=== PATIENT | female | born 1965 | race Caucasian/White ===

== ENCOUNTER → 2023-08-27 | Outpatient (CLI) | payer BC, SELFPAY ==
--- NOTE | 2023-08-27 08:09 | MRI_ITS ---
EXAM: MR PELVIS WITHOUT AND WITH INTRAVENOUS CONTRAST CLINICAL INDICATION: vulvar/perineal SCC, eval extent of disease TECHNIQUE: Multiplanar and multisequence MR images of the pelvis without and with intravenous contrast. CONTRAST: IV 20ml Clariscan COMPARISON: No relevant prior studies available. FINDINGS: APPENDIX: No evidence of acute appendicitis. INTRAPERITONEAL SPACE: Normal. No free pelvic fluid. BLADDER: Normal. OVARIES: Neither ovary identified. No adnexal mass. UTERUS/CERVIX: Uterus measures 8.8 cm in length. Endometrium not well defined which may be due to central uterine fibroid. Underlying endometrial pathology to be excluded. BONES/JOINTS: Normal. SOFT TISSUES: There is localized skin thickening along the right vulva there also appears to be contrast enhancement. The dermal thickness measures 8 mm in maximum thickness. Nonspecific dermal thickening extends laterally along the margins pubis which may represent edema. No discrete tumor involvement of the perineum. Edematous changes noted to involve the left groin associated with soft tissue nodularity. Inflammatory process to BE differentiated from neoplasm. Mild edematous change also involves the right groin without evidence of nodularity. No pelvic wall hernia. LYMPH NODES: Normal. No enlarged lymph nodes. MRI/Pelvis W/WO Contrast IMPRESSION: 1. 8 mm nodular thickening of the right side of the vulva which may represent patient''s known squamous cell lesion. Dermal thickening along the adjacent right side of the groin which may represent posttreatment edema. No discrete involvement of the perineum. 2. Edematous change with nodularity of the left groin which may represent inflammatory or neoplastic process. 3. Undefined endometrium of uncertain significance. Central fibroid to BE differentiated from endometrial pathology. Electronically Signed: Pérez Hernandez MD at 11:47 EDT ,
== END | disposition home or self-care (01) ==
LOC: MRI 07:53
PROVIDERS: Visit Provider Student in an Organized Health Care Education/Training Program
DX: C44.520 Squamous cell carcinoma of anal skin (principal)
CPT/HCPCS: 72197; A9575

== ENCOUNTER 2023-09-17 10:09 | Day surgery (SDC) | payer BC, SELFPAY ==
[2023-09-17] VITALS (7 sets, daily range): BP systolic 74–117; BP diastolic 55–78; PULSE 77–96; RESP 16–20; TEMP 36.3–36.6; O2SAT 94–99; BMI 36.8
--- NOTE | 2023-09-17 10:29 | HP.PCM_ITS ---
History and Physical Date of Admission: 09/17/23 Date of Service: 08/21/23 MR#: [id number] Acct: [id number] Name: CAROLINA JIMENEZ Rep #: [id number] : 1965 Provider: Dr. Vernell Hollis MD Age/Sex: 58/F Location: [facility] Status: Signed Intake Vital Signs 08/18/2309:09 08/21/2309:52 Height 5 ft 4 in 5 ft 4 in Weight: 218 lb 1 oz 218 lb BMI 37.4 37.4 BP 107/72 115/76 Blood Pressure Location Rt brachial Rt brachial Position Sitting Sitting Respiration 18 17 Pulse 81 84 Pulse Source Monitor Monitor Temp 98.3 F 96.8 F L Temp Source Temporal Pulse Oximetry (%) 99 99 Oxygen Delivery Method room air room air Intake Visit Reasons: PORT PLACEMENT Chief Complaint: port placement Is patient in pain?: No Allergies No Known Allergies Allergy (Verified 08/21/23 09:53) Medications acetaminophen 500 mg tablet 1,000 mg PO Q6H PRN 08/04/23 [History Confirmed 08/21/23] apixaban 2.5 mg tablet 2.5 mg PO BID 08/04/23 [History Confirmed 08/21/23] ascorbic acid (vitamin C) 500 mg capsule mg PO .QD 08/04/23 [History Confirmed 08/21/23] ibuprofen 600 mg tablet 600 mg PO Q6H 08/04/23 [History Confirmed 08/21/23] multivitamin 1 tab PO DAILY 08/04/23 [History Confirmed 08/21/23] oxycodone 5 mg capsule 5 mg PO Q6H PRN 08/04/23 [History Confirmed 08/21/23] PFSH Medical History (Updated 08/21/23 @ 09:52 by Vicenta Daniels) Hand amputee Heart murmur Malignant neoplasm of vulva Surgical History (Updated 08/21/23 @ 12:[address] Vernell Hollis MD) History of lymph node excision Family History Mother Arthritis HypertensionFather Alcohol abuse Hypertension Liver disease Social History Smoking Status: Current some day smoker alcohol intake: never substance use type: does not use HPI HPI HPI: 58-year-old female presents for port placement due to valvular cancer. Patient has had surgery [address] Strauss for bilateral inguinal lymph nodes?drains were just removed last Friday. Patient has been on Eliquis since the surgery for total of 28 days. Patient will likely be starting chemotherapy and radiation mid to early August. ROS General General: No weight change, appetite, fatigue, colon cancer, breast cancer or weakness HEENT HEENT: No difficulty swallowing, eye injury, eye surgery, swollen glands or hoarseness Endo Endocrine: No thyroid disease, diabetes mellitus, thyroid cancer, Hair loss, heat intolerance or cold intolerance Skin Skin: No rash or changing moles Musc Musculoskeletal: No back problems, arthritis, rheumatoid arthritis, gout or joint pain Cardio Cardiovascular: Yes murmur; No pacemaker, heart disease, atrial fibrillation, high blood pressure, heart attack, heart stent, palpitations, shortness of breath with exertion or chest pain Psych Psychiatric: No depression, anxiety or hearing voices Resp Respiratory: No shortness of breath, No sleep apnea, No cough, No COPD, No asthma, No emphysema and No wheezing Gastro Gastrointestinal: No abdominal pain, No nausea or vomiting, No diarrhea, No constipation, No blood in stool, No acid reflux, No hemorrhoids, No ulcers, No gallbladder problem and No black,tarry stools Maycol Hematologic: Yes blood thinners, No blood disorders, No bleeding, No anemia and No blood clots Additional Details: 28 days total Neuro Neurologic: No system reviewed and no additional complaints, except as documented, No as per HPI, No abnormal gait, No abnormal hearing, No abnormal movements, No abnormal speech, No behavioral changes, No burning sensations, No confusion, No convulsions, No disequilibrium, No dizziness, No localized weakness, No frequent falls, No headache(s), No lack of coordination, No loss of vision, No memory loss, No numbness, No other visual disturbances, No radicular pain, No restless legs, No sensory deficit, No syncope, No tingling, No tremor(s), No weakness and No other Exam Const General: cooperative, healthy appearing, comfortable and no acute distress [facility] Head: normocephalic and atraumatic Neck Neck: supple Chest Other: Palpation of bilateral upper chest normal Resp Effort & Inspection: normal respiratory effort Cardio Rate: regular rate GI Inspection: non-distended Skin General: no rashes or lesions noted Neuro General: CN's II-XI intact bilaterally Extrem General: normal to inspection (Patient doesn't have a left hand/distal forearm) Psych Mental Status: mental status grossly normal Attitude: cooperative Assessment and Plan Assessment and Plan (1) Encounter for insertion of venous access port: Status: Acute (2) Squamous cell carcinoma of perineum: Status: Acute Comment: Discussed therapy with Radiation therapy and weekly chemotherapy-Cisplatin, risks, benefits and side effects. Pt agreed to proceed. (3) History of lymph node excision: Status: Inactive Comment: b/l groin and vulva biopsy by dr. Strauss 07/29/23 Plan I have discussed above with the patient- Port-a-Cath placement. Right possible left?patient will be off her Eliquis by the time of planned surgery as she was only on it for 20 days from surgery which was on August 25. Patient has been counseled as to the risks/benefits of the procedure. I have explained the risks of the surgery, including but not limited to: infection, bleeding, injury to any blood vessels/nerves, injury to lungs (such as pneumothorax or hemothorax and need for chest tube), not having any access, nonfunctioning of port due to thrombosis, infection of port, etc. the patient understands and agrees to proceed. I have answered all the patient's questions to the patient?s satisfaction and the patient has no further questions. Vernell Hollis M.D. Pager: [phone] [facility] [address] [place] [address], [address] [place] [address] Office: [phone] Coding Level of Care Code Off vis,new,level 3 Diagnoses Encounter for insertion of venous access port Z45.2 Squamous cell carcinoma of perineum C44.520 History of lymph node excision Z98.890 08/21/23 1252 <Electronically signed by Vernell Hollis MD> Date Vernell Hollis MD
[2023-09-17] MEDS: Lactated Ringers 1,000 ML 15 ML IV (10:37)
[2023-09-17] MEDS: Cefazolin 2 GM in 0.9% Normal Saline (100mL Bag) 100 ML IV (11:51)
[2023-09-17] MEDS: Lidocaine 1% /Epi 1:100 (20ml) 20 ML Vial (12:35)
[2023-09-17] MEDS: Bupivacaine Mpf 0.5% 30 ML VIAL (12:38)
--- NOTE | 2023-09-17 12:41 | PCM.OPRPT ---
Report of Operation Date of Procedure: 09/17/23 Pre-Operative Diagnosis: Z45.2, squamous cell of the perineum Post-Operative Diagnosis: Same Surgery/Procedure Performed:: 1. Placement of right IJ Port-A-Cath 2. Use of fluoroscopy 3. Use of ultrasound Surgeon: Vernell Hollis Type of Anesthesia: Local MAC Anesthesiologist: Isiah Watson Special Medications: Ancef 2 g IV x 1 Estimated Blood Loss (mL): < 10 cc Description of Procedure: After informed consent was given, the patient was brought to the operating room and placed in the supine position. Appropriate time out protocol was followed. Patient was then given IV conscious sedation for anesthesia. The patient's right upper chest and neck were then prepped with a surgical skin preparation and sterile surgical drapes were placed. After proper landmarks were ascertained, the skin at the upper right chest area was then infiltrated with 1:1 mixture of 1% lidocaine with epinephrine and 0.5% marcaine. A needle trocar was then inserted into the right internal jugular vein with ultrasound guidance-multiple vessels were viewed with u/s and the right IJ was chosen-- and there was good aspiration of venous blood. A wire was then threaded into the needle trocar and this was visualized under fluoroscopy to ensure that the wire was in the superior vena cava. Once this was done, then the needle trocar was removed. A small skin steve was made with an 11 blade knife at the wire entrance site. The dilator with the introducer sheath attached was then placed over the wire into the right internal jugular vein via the Seldinger technique and this was visualized under fluoroscopy. The dilator and sheath were in proper position as visualized by fluoroscopy. A subcutaneous pocket was then created caudad to the catheter insertion site. A transverse skin incision was made after the skin and subcutaneous tissues were infiltrated with local anesthetic. Blunt dissection was then used to create a space large enough for placement of the subcutaneous port. The catheter was then tunneled into the subcutaneous pocket. The wire and dilator were then removed. The catheter was then threaded into the introducer sheath and was positioned with its tip at the junction of the superior vena cava and the right atrium as visualized under fluoroscopy. The excess catheter was transected. The catheter was then attached to the subcutaneous port using manufacturers guidelines. The catheter was flushed with a heparin saline mixture prior to placement. Hemostasis was carefully controlled with electrocautery. The port was sutured to the subcutaneous fascia using 2-0 Vicryl suture at two sites. The port was then placed in the subcutaneous pocket. The incision were reapproximated with interrupted subdermal 3-0 vicryl sutures. The skin was reapproximated with 3-0 nylon suture in a interrupted fashion. Steristrips were used for reinforcement of the skin closure at IJ insertion site and a sterile opsite dressings were applied. The patient tolerated the procedure well. Grafts/Implants Used: [employer] PowerPort isp M.R.I. 6Fr Lot [id number] Complications none
--- NOTE | 2023-09-17 12:44 | EX.PCM.DISCH ---
Discharge Instructions Procedure Port-A-Cath Diet Discharge Diet: Light diet - advance as tolerated Activity May shower in (days): 5 (Keep port site clean and dry x5 days. Neck incision okay to get wet after 1 day. Okay to lower shower and upper sponge bath. OR okay to taper off port site with a Ziploc bag to shower) Lifting Restrictions: No lifting > 15 pounds for 3 days with the arm on the side of the port Dressing / Incision Call your doctor if your incision/area has: Continuous Slow Oozing, Sudden Increased Bleeding, Increased Pain/ Swelling, Increased Redness, Foul Smelling Discharge and Swelling at the incision site Call your doctor if you observe: Fever of 101 or Higher Change Dressing in: 2 days (2-3 days- port site; ok to remove neck opsite in 1 day) Follow Up Care Please Follow Up With: Vernell Hollis MD When: In 10 days for permanent suture removal?call office for appointment Test Results: Test results from this visit will be discussed in further detail at your follow-up appointment, if applicable. Discharge Plan Admission Attending Provider: Vernell Hollis Primary Care Provider: Nohemy Chavira NP Discharge Orders/Prescriptions Prescriptions: Continued acetaminophen 500 mg tablet 1,000 mg PO Q6H PRN (Reason: pain) oxycodone 5 mg capsule 5 mg PO Q6H PRN (Reason: pain) multivitamin Tablet 1 tab PO DAILY ibuprofen 600 mg tablet 600 mg PO Q6H PRN (Reason: pain) lidocaine-prilocaine 2.5-2.5 % cream 1 applic topical ONCE PRN (Reason: port access) 30 Days Qty: 30 2RF ondansetron 8 mg tablet,disintegrating 8 mg PO Q8H PRN (Reason: nausea and vomiting) Qty: 30 2RF prochlorperazine maleate 10 mg tablet 10 mg PO Q6H PRN (Reason: nausea and vomiting) Qty: 30 2RF dexamethasone 4 mg tablet 8 mg PO DAILY Qty: 36 0RF Vitamin C 500 mg/15 mL liquid 15 ml PO DAILY Referrals / Follow Up: Nohemy Chavira NP, [employer] [facility] [Primary Care Provider] - Disposition Disposition (needs filled in before D/C Order can be placed): Home, Self Care
--- NOTE | 2023-09-17 12:55 | RAD_ITS ---
STUDY: X-RAY CHEST REASON FOR EXAM: Female, 58 years old. Placement of catheter. TECHNIQUE: Single frontal view of the chest. COMPARISON: None. FINDINGS: Right internal jugular catheter present with tip projected over the mid-SVC. Cardiomegaly with mild aortic tortuosity, prominent central pulmonary arteries and mild hyperinflation. No active or acute cardiopulmonary disease. No abnormality of the visualized soft tissue structures of the upper abdomen. RAD/Chest 1 View (Portable) IMPRESSION: Right internal jugular catheter with tip projected over the mid-SVC without complications. No active or acute cardiopulmonary disease. Electronically Signed: Keron Richards MD at 13:13 EST ,
== END 2023-09-17 13:47 | disposition home or self-care (01) ==
LOC: SDC 10:09 → AC 10:14
PROVIDERS: PCP Registered Nurse; Referring Provider Registered Nurse; Visit Provider Surgery
PROC: (CPT 36561; principal; 2023-09-17 11:25)
DX: Z45.2 Encounter for adjustment and management of vascular access device (principal); F17.200 Nicotine dependence, unspecified, uncomplicated; Z98.890 Other specified postprocedural states; C44.520 Squamous cell carcinoma of anal skin; Z86.79 Personal history of other diseases of the circulatory system
CPT/HCPCS: 36561; 00532; 71045; 77001; J7120; J2405

== ENCOUNTER 2025-09-09 19:20 | Emergency (ER) | payer BC, SELFPAY ==
[2025-09-09 19:21] VITALS: BP 102/62; PULSE 105; RESP 16; TEMP 36.3; O2SAT 97; BMI 27.4
--- OUTSIDE RECORDS SUMMARY | 2025-09-09 20:03 | XMS RPT_ITS | CCD ---
Author Organization [facility] Care Team Providers Care Reducing System Operator Name Role Phone LENORE INVESTMENT ADVISOR-PETROPHYSICIST, NOHEMY A Primary Care Physi joby Donavan Strauss MD Unavailable Lenore SINGH - SHADI, Nohemy Primary Care Provi delmi MARCO A Phillips Attending Provider Unavailable Dr. Matthias Brock Attending Provider Dr. Donavan Strauss Referring Provider Dr. Dixon Holliday Attending Provider [phone] Vernell Hollis Attending Provider Nohemy Grover Primary Care Provider Unavail able Lenore PIPELINES SUPERVISOR, PIPELINES SUPERVISOR-C Nohemy Referring Provider [phone] Lisa PIPELINES SUPERVISOR, PIPELINES SUPERVISOR-C Jo Ann Attending Provider [phone] Lenore PIPELINES SUPERVISOR, PIPELINES SUPERVISOR-C Nohemy Primary Care Provider Dr. Matthias Brock Referring Provider [phone] Dr. Vernell Hollis Other Provider Donavan Strauss MD Unavailable Josiah INVESTMENT ADVISOR - PETROPHYSICISTNoreen Unavailable LENORE INVESTMENT ADVISOR-PETROPHYSICIST, NOHEMY A Primary Care Un available LENORE INVESTMENT ADVISOR-PETROPHYSICIST, NOHEMY A Attending Un available LENORE INVESTMENT ADVISOR-PETROPHYSICIST, NOHEMY A Primary Care Un available JOSIAH INVESTMENT ADVISOR-PETROPHYSICIST, NOREEN Attending Unavailabl e LENORE INVESTMENT ADVISOR-PETROPHYSICIST, NOHEMY A Primary Care Un available JOSIAH INVESTMENT ADVISOR-PETROPHYSICIST, NOREEN Attending Unavailabl e LENORE INVESTMENT ADVISOR-PETROPHYSICIST, NOHEMY A Primary Care Un available LENORE INVESTMENT ADVISOR-PETROPHYSICIST, NOHEMY A Attending Un available LENORE INVESTMENT ADVISOR-PETROPHYSICIST, NOHEMY A Attending Un available LENORE INVESTMENT ADVISOR-PETROPHYSICIST, NOHEMY A Primary Care Un available LENORE INVESTMENT ADVISOR-PETROPHYSICIST, NOHEMY A Primary Care Un available LENORE INVESTMENT ADVISOR-PETROPHYSICIST, NOHEMY A Consulting Un available JORGE JARVIS MD Attending Unavailable LENORE INVESTMENT ADVISOR-PETROPHYSICIST, NOHEMY A Primary Care Un available CHACORTA MORRISSEY MD Attending Unavailable LENORE INVESTMENT ADVISOR-PETROPHYSICIST, NOHEMY A Primary Care Un available LENORE INVESTMENT ADVISOR-PETROPHYSICIST, NOHEMY A Attending Un available [place] INVESTMENT ADVISOR - PETROPHYSICIST, Kari Unavailable LENORE INVESTMENT ADVISOR-PETROPHYSICIST, NOHEMY A Primary Care Un available DONAVAN STRAUSS MD Attending Unavailabl e LENORE INVESTMENT ADVISOR-PETROPHYSICIST, NOHEMY A Attending Un available LENORE INVESTMENT ADVISOR-PETROPHYSICIST, NOHEMY A Primary Care Un available LENORE INVESTMENT ADVISOR-PETROPHYSICIST, NOHEMY A Attending Un available LENORE INVESTMENT ADVISOR-PETROPHYSICIST, NOHEMY A Primary Care Un available Lenore PIPELINES SUPERVISOR-C, Nohemy Primary Care Provider [phone] Lenore PIPELINES SUPERVISOR-C, Nohemy Referring Provider [phone] Dr. Dixon Holliday MD Attending Provider [phone] Dr. Matthias Brock DO Attending Provider Dr. Dixon Holliday MD Referring Provider Nohemy Grover Primary Care Provider Unavail able Lenore INVESTMENT ADVISOR - PETROPHYSICIST, Nohemy Primary Care Provi delmi Josiah INVESTMENT ADVISOR - PETROPHYSICIST, Noreen Unavailable [place] INVESTMENT ADVISOR - PETROPHYSICIST, Kari Unavailable Dr. Matthias Brock DO Attending Provider Dr. Dixon Holliday MD Referring Provider Nohemy Grover Primary Care Provider Unavail able Lenore BRADEN, Nohemy Referring UnavailDixon Sahni Attending Unavailable Lenore BRADEN, [facility] Care Unavailbenedict Grover PIPELINES SUPERVISOR, [place] Referring Unavailbenedict Grover PIPELINES SUPERVISOR, [facility] Unavailbenedict e Dixon Holliday Attending Unavailable Lenore PIPELINES SUPERVISOR, [place] Referring Unavailbenedict Grover PIPELINES SUPERVISOR, [facility] Unavailabl e Matthias Brock Attending Unavailable Lenore, [facility] Care Unavailable Matthias Brock Attending Unavailable Dixon Holliday Referring Unavailable Lenore PIPELINES SUPERVISOR, [facility] UnavailMatthias Madrid Attending Unavailable Lenore PIPELINES SUPERVISOR, [place] Referring UnavailDONAVAN Bojorquez Admitting Unavailable DONAVAN STRAUSS Attending Unavailable LENORE, [facility] Care Unavailable DONAVAN STRAUSS Attending Unavailable LENORE, [facility] Unavailable DONAVAN STRAUSS Attending Unavailable LENORE, [facility] Unavailable DONAVAN STRAUSS Attending Unavailable LENORE, [facility] Unavailable [facility]USS [facility]ending Un[facility] DONAVAN [facility]AUSS Attending Unavailable [facility] Unavailable DOANVAN STRAUSS Attending Unavailable [facility] Unavailable DONAVAN STRAUSS Attending Unavailable [facility] Unavailable DONAVAN STRAUSS Attending Unavailable [facility] Unavailable Medications Current Medications Medication Drug Class(es) Dates Sig (Normalized) Sig (Original) apixaban 2.5 mg oral tablet (20 sources) Factor Xa Inhibitor Start: 07-30-2023 End: 09-17-2023 take 1 tablet by mouth twice daily apixaban (Eliquis) 2.5 MG tablet Take 1 tablet (2.5 mg) by mouth 2 times daily for 28 days. 56 tablet 07/30/2023 12:40 PM EDT 07/30/2023 Active cephalexin 500 mg oral tablet (2 sources) Cephalosporin Antibacterial Start: 08-31-2023 End: 09-07-2023 cephalexin 500 mg oral tablet Dose : 500 mg = 1 tab(s), Oral, QID, X 7 day(s), # 28 tab(s), 0 Refill(s), 09/07/23 9:22:00 AM EST, 97.4 Start Date: 08/31/23 Stop Date: 09/07/23 Status: Ordered Start: 07-29-2023 End: 07-30-2023 take 500 mg by mouth twice daily 500 mg, Oral, 2 times daily, First dose on Fri07/29/23 at 1900, For 2 doses, Phase II/On Unit, Suspected Indication (Select all that apply): Skin and Soft Tissue Infection ibuprofen 600 mg oral tablet (20 sources) Nonsteroidal Anti-inflammatory Drug Start: 07-30-2023 take 1 tablet by mouth every six hours as needed for pain Ibuprofen 600 mg tablet Active 600 mg PO EVERY 6 HOURS as needed for pain August 04, 2023 12:00am Start: 07-29-2023 End: 07-30-2023 take 1 tablet by mouth every six hours as needed for pain 600 mg, Oral, Every 6 hours PRN, mild pain (1-3), Starting on Fri07/29/23 at 1407, Phase II/On Unit, Once tolerating PO, discontinue Toradol and begin ibuprofen 8 hours after the final dose of Toradol. Alternate ibuprofen and acetaminophen every 4 hours. loratadine 10 mg oral capsul e (1 source) Start: 12-12-2023 loratadine 10 mg oral capsule Dose : 10 mg = 1 cap(s), Oral, qDay, # 10 cap(s), 0 Refill(s), Pharmacy: [facility] #[id number], 167, cm, 12/12/23 12:56:00 EST, Height, kg, 12/12/23 12:56:00 EST, Dosing Weight Start Date: 12/12/23 Status: Ordered MULTIPLE VITAMIN PO (20 sources) Start: 07-01-2023 MULTIPLE VITAM IN PO Take by mouth. 07/01/2023 Active Start: 07-01-2023 MULTIPLE VITAM IN PO Take by mouth. 0 07/01/2023 Active Multiple Vitamins-Minerals ( VITAMIN C EFFERVESCENT BLEND PO) (20 sources) Multiple Vitamin s-Minerals (VITAMIN C EFFERVESCENT BLEND PO) Take by mouth daily. Active Multiple Vitamin s-Minerals (VITAMIN C EFFERVESCENT BLEND PO) Take by mouth daily. 0 Active Multivitamin preparation (5 sources) Start: 08-04-2023 take 1 tablet by mouth once daily Multivitamin Active 1 TABLET PO DAILY August 03, 2023 11:00pm Start: 07-01-2023 take 1 tablet by lelia th once daily Multivitamin Dose = 1 tab(s), Oral, Daily, 0 Refill(s) Start Date: 07/01/23 Status: Ordered Repeat number: 1 Start: 07-01-2023 take 1 tablet by lelia th once daily Multivitamin Dose = 1 tab(s), Oral, Daily, 0 Refill(s) Start Date: 07/01/23 Status: Ordered Multivitamin tablet (2 sources) Start: 08-04-2023 Multivitamin t ablet Active 1 {tbl} PO DAILY August 04, 2023 12:00am oxyCODONE hydrochloride 5 mg oral tablet (9 sources) Opioid Agonist Start: 06-14-2025 End: 06-19-2025 take 1 tablet by mouth every six hours as needed for pain oxyCODONE (Roxicodone) 5 MG immediate release tablet Indications: Cancer (CMS/HCC) (HCC) Take 1 tablet (5 mg) by mouth every 6 hours as needed for severe pain (7-10) for up to 5 days. 15 tablet 06/14/2025 06/19/2025 Active Start: 08-04-2023 End: 01-06-2024 take 1 capsule by mouth every six hours as needed for pain Oxycodone 5 mg capsule Discontinued 5 mg PO EVERY 6 HOURS as needed for pain 0 August 04, 2023 12:00am January 06, 2024 9:35am Start: 07-30-2023 End: 08-04-2023 take 1 tablet by mouth every six hours as needed for pain oxyCODONE (Roxicodone) 5 MG immediate release tablet Indications: Postoperative state Take 1 tablet (5 mg) by mouth every 6 hours as needed for severe pain (7-10) for up to 5 days. 15 tablet 0 07/30/2023 08/04/2023 Active Start: 07-29-2023 End: 07-30-2023 take 1 tablet by mouth every four hours as needed for pain oxyCODONE (Roxicodone) immediate release tablet 5 mg sulfamethoxazole 800 mg / trimethoprim 160 mg oral tablet (4 sources) Dihydrofolate Reductase Inhibitor Antibacterial, Sulfonamide Antimicrobial Start: 08-19-2025 take 1 tablet by mouth twice daily sulfamethoxazole-trimethoprim (Bactrim DS) 800-160 MG tablet Indications: Cellulitis of left groin 1 po bid 14 tablet 08/19/2025 Active Vit C-Ascorbate Ca-Ascorb Sod (Vitamin C) 500 mg/15 mL liquid (3 sources) Start: 08-26-2023 take 1 mL by mouth once daily Vit C-Ascorbate Ca-Ascorb Sod (Vitamin C) 500 mg/15 mL liquid Active 15 mL PO DAILY August 26, 2023 12:00am Start: 08-26-2023 take 1 mL by mouth once daily Vit C-Ascorbate Ca-Ascorb Sod (Vitamin C) 500 mg/15 mL liquid Active 15 ML PO DAILY August 25, 2023 11:00pm Completed/Discontinued Medications Medication Drug Class(es) Dates Sig (Normalized) Sig (Original) acetaminophen 500 mg oral tablet (20 sources) Start: 06-14-2025 End: 06-14-2025 1,000 mg, Oral, Once, On Fri06/14/25 at 0545, For 1 dose, Preprocedure, Administer 60 minutes prior to surgery. Start: 08-04-2023 take 1000 mg by mout h every six hours Acetaminophen Active 1000 MG PO EVERY 6 HOURS August 03, 2023 11:00pm Start: 07-30-2023 take 2 tablets by mo uth every six hours acetaminophen (Tylenol) 500 MG tablet Take 2 tablets (1,000 mg) by mouth in the morning and 2 tablets (1,000 mg) at noon and 2 tablets (1,000 mg) in the evening and 2 tablets (1,000 mg) before bedtime. 30 tablet 07/30/2023 12:40 PM EDT 07/30/2023 Active Start: 07-29-2023 End: 07-30-2023 take 1 tablet by mouth every eight hours 1,000 mg, Oral, Every 8 hours, First dose on Fri07/29/23 at 1800, Phase II/On Unit, Maximum dose of acetaminophen is 4000 mg from all sources in 24 hours. Alternate ibuprofen and acetaminophen every 4 hours. ALPRAZolam 0.25 mg disintegrating oral tablet (2 sources) Benzodiazepine Start: 06-14-2025 End: 06-14-2025 take 0.25 mg by mouth once as needed for anxiety 0.25 mg, Oral, Once PRN, anxiety, Starting on Fri06/14/25 at 0544, For 1 dose, Preprocedure, Please do not administer prior to obtaining consent and/or history and physical. calcium chloride 0.0014 meq/ml / potassium chloride 0.004 meq/ml / sodium chloride 0.103 meq/ml / sodium lactate 0.028 meq/ml injectable solution (5 sources) Start: 06-14-2025 End: 06-14-2025 take 125 mL intravenously every hour 125 mL/hr, IntraVENous, Continuous, Starting on Fri06/14/25 at 0815, Recovery (only) Start: 07-29-2023 End: 07-29-2023 lactated Ringer's (LR) infus ion dexamethasone 4 mg oral tablet (3 sources) Corticosteroid Start: 09-01-2023 End: 01-06-2024 take 2 tablets by mouth once daily Dexamethasone 4 mg tablet Discontinued 8 mg PO DAILY 36 September 01, 2023 1:00am January 06, 2024 9:35am Start: 09-01-2023 take 8 mg by mouth once daily Dexamethasone Active 8 MG PO DAILY September 01, 2023 12:00am 1 ml diphenhydrAMINE hydrochloride 50 mg/ml cartridge (2 sources) Histamine-1 Receptor Antagonist Start: 06-14-2025 End: 06-14-2025 12.5 mg, IntraVENous, Once PRN, itching, Starting on Fri06/14/25 at 0811, For 1 dose, Recovery (only) docusate sodium 100 mg oral capsule (1 source) Start: 07-29-2023 End: 07-30-2023 take 100 mg by mouth twice daily 100 mg, Oral, 2 times daily, First dose on Fri07/29/23 at 2100, Phase II/On Unit, Do not crush or break. famotidine 20 mg oral tablet (2 sources) Histamine-2 Receptor Antagonist Start: 12-12-2023 End: 12-22-2023 Pepcid 20 mg oral tablet Dose : 20 mg = 1 tab(s), Oral, BID, # 20 tab(s), 0 Refill(s), Pharmacy: [id number], 167, cm, 12/12/23 12:56:00 EST, Height, kg, 12/12/23 12:56:00 EST, Dosing Weight Start Date: 12/12/23 Stop Date: 12/22/23 Status: Ordered Start: 07-29-2023 End: 07-29-2023 famotidine (Pepcid) tablet 2 0 mg 2 ml fentaNYL 0.05 mg/ml injection (4 sources) Opioid Agonist Start: 06-14-2025 End: 06-14-2025 50 mcg, IntraVENous, Every 5 min PRN, severe pain (7-10), Starting on Fri06/14/25 at 0811, For 3 doses, Recovery (only), Phase I and Phase II- Initial therapy for severe pain (7-10). Restricted to a 90 minute time frame starting when the patient can verbally state their pain score. If after 2 doses the pain score does not decrease by more than one point, then call the provider. If oral meds are utilized, do not return to initial therapy medications. Start: 06-14-2025 End: 06-14-2025 25 mcg, IntraVENous, Every 5 min PRN, moderate pain (4-6), Starting on Fri06/14/25 at 0811, For 3 doses, Recovery (only), Phase I and Phase II- Initial therapy for moderate pain (4-6). Restricted to a 90 minute time frame starting when the patient can verbally state their pain score. If after 2 doses the pain score does not decrease by more than one point, then call the provider. If oral meds are utilized, do not return to initial therapy medications. gabapentin 100 mg oral capsule (1 source) Anti-epileptic Agent Start: 07-29-2023 End: 07-29-2023 gabapentin (Neurontin) capsule 100 mg Start: 07-29-2023 End: 07-29-2023 gabapentin (Neurontin) capsu le 100 mg gadobutrol (Gadavist) injection 10 mL (1 source) Start: 07-29-2023 End: 07-29-2023 gadobutrol (Gadavist) injection 10 mL labetalol (Normodyne,Trandate) injection 5 mg (2 sources) Start: 06-14-2025 End: 06-14-2025 labetalol (Normodyne,Trandate) injection 5 mg lidocaine 25 mg/ml / prilocaine 25 mg/ml topical cream (3 sources) Antiarrhythmic, Amide Local Anesthetic Start: 09-01-2023 End: 03-10-2024 Lidocaine-Prilocaine 2.5-2.5 % cream Discontinued 1 NMA TOPICAL ONCE as needed for port access September 01, 2023 1:00am March 10, 2024 12:07pm 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 ondansetron ODT (Zofran-ODT) disintegrating tablet 4 mg (1 source) Start: 07-29-2023 End: 07-30-2023 take 1 tablet by mouth every eight hours as needed for nausea and vomiting ondansetron ODT (Zofran-ODT) disintegrating tablet 4 mg polyethylene glycol 3350 [id number] mg powder for oral solution (1 source) Osmotic Laxative Start: 07-29-2023 End: 07-30-2023 take 17 g by mouth every twenty-four hours as needed for constipation 17 g, Oral, Daily PRN, constipation, Starting on Fri07/29/23 at 1407, Phase II/On Unit, 1st line for treatment of constipation - give scheduled if no bowel movement in past 24 hours. prochlorperazine 10 mg oral tablet (3 sources) Phenothiazine Start: 09-01-2023 End: 01-06-2024 take 1 tablet by mouth every six hours as needed for nausea and vomiting Prochlorperazine Maleate 10 mg tablet Discontinued 10 mg PO EVERY 6 HOURS as needed for nausea and vomiting September 01, 2023 1:00am January 06, 2024 9:36am Chemotherapy-induced nausea and vomiting Nausea with vomiting, unspecified Adverse effect of antineoplastic and immunosuppressive drugs, initial encounter 5 ml sodium chloride 9 mg/ml injection (20 sources) Start: 06-14-2025 End: 06-14-2025 10 mL, IntraVENous, Every 12 hours scheduled (2 times per day), First dose on Fri06/14/25 at 0900, Recovery (only) Start: 06-14-2025 End: 06-14-2025 500 mL, IntraVENous, at 1,00 0 mL/hr, Administer over 0.5 Hours, PRN, Anti-nausea, Starting on Fri06/14/25 at 0811, Recovery (only), Indications: Anti-nausea Start: 06-14-2025 End: 06-14-2025 take 100 mL intravenously every hour as needed, then take 20 mL intravenously every hour as needed 5-250 mL/hr, IntraVENous, PRN, if patient receiving piggyback infusions and maintenance fluids are not ordered OR KVO fluids to protect IV site / prevent frequent line interruptions/ long duration, Starting on Fri06/14/25 at 0811, Recovery (only), For piggyback infusion, administer at same rate as piggyback for a total of 25 mL. Enter 25 mL into dose field and piggyback rate into rate field of order. If piggyback is infusing at a rate less than 100 mL/hr, enter 25 mL into dose field and 100 mL/hr into rate field of order. For KVO fluids, enter rate of 20 mL/hr or less into rate field of order. Start: 06-14-2025 End: 06-14-2025 take 10 mL intravenously once as needed 10 mL, IntraVENous, PRN, line care, Starting on Fri06/14/25 at 0811, Recovery (only), After every IV line use Start: 06-14-2025 End: 06-14-2025 take 5-40 mL intravenously every twelve hours 5-40 mL, IntraVENous, Every 12 hours, First dose on Fri06/14/25 at 0545, Preprocedure, For Line Patency: Peripheral IV = 5 mL; Midline or Central Line = 10 mL/lumen. If following IV push medication, administer flush at same rate as the IV push. Flush volume is determined by type of infusion therapy being given. For non-viscous solutions use: Peripheral IV = 5 mL Midline or Central Line = 10 mL/lumen For viscous solutions (i.e. blood components, parenteral nutrition, contrast media, or after obtaining blood sample) use: Peripheral IV = 10 mL Midline or Central Line = 20 mL/lumen Start: 07-29-2023 End: 07-30-2023 10 mL, IntraVENous, Every 12 hours scheduled (2 times per day), First dose on Fri07/29/23 at 2100, Phase II/On Unit Start: 07-29-2023 End: 07-30-2023 take 100 mL intravenously every hour as needed, then take 20 mL intravenously every hour as needed 5-250 mL/hr, IntraVENous, PRN, if patient receiving piggyback infusions and maintenance fluids are not ordered OR KVO fluids to protect IV site / prevent frequent line interruptions/ long duration, Starting on Fri07/29/23 at 1407, Phase II/On Unit, For piggyback infusion, administer at same rate as piggyback for a total of 25 mL. Enter 25 mL into dose field and piggyback rate into rate field of order. If piggyback is infusing at a rate less than 100 mL/hr, enter 25 mL into dose field and 100 mL/hr into rate field of order. For KVO fluids, enter rate of 20 mL/hr or less into rate field of order. Start: 07-29-2023 End: 07-30-2023 take 10 mL intravenously once as needed 10 mL, IntraVENous, PRN, line care, Starting on Fri07/29/23 at 1407, Phase II/On Unit, After every IV line use Problems Active Problems Problem Classification Problem Date Documented Da te Episodic/Chronic Administrative/social admission (7 sources) Patient encounter status; Translations: [Counseling, unspecified] 09-01-2023 Episodic Allergic reactions (1 source) Eczema; Translations: [Dermatitis, unspecified] Onset: 3 Episodic Anal and rectal conditions (4 sources) Disorder of anal region 06-25-2023 Episodic Cancer of other female genital organs (20 sources) Malignant tumor of vulva; Translations: [Malignant neoplasm of vulva, unspecified] Onset: 5 07-11-2023 Chronic Deficiency and other anemia (1 source) Anemia, unspecified; Translations: [Anemia, unspecified] Onset: Episodic Diseases of white blood cells (8 sources) Leukopenia; Translations: [Neutropenia] Onset: 5 05-26-2024 Chronic Comment on above: Due to chemotherapy, slow recovery from chemotherapy.ANC 0.2 today. Feels well. E Codes: Adverse effects of medical drugs (1 source) Adverse effect of antineoplastic and immunosuppressive drugs, initial encounter; Translations: [Adverse effect of antineoplastic and immunosuppressive drugs, initial encounter] Onset: Episodic Heart valve disorders (20 sources) Heart murmur; Translations: [Cardiac murmur, unspecified] Onset: 5 06-25-2023 Episodic Maintenance chemotherapy; radiotherapy (2 sources) Patient encounter status; Translations: [Encounter for antineoplastic chemotherapy] 10-28-2023 Chronic Comment on above: For C6 weekly Cispla tin. Last cycle today.Counts and chemistry reviewed and OK for therapy. Malignant neoplasm without specification of site (20 sources) Malignant neoplastic disease; Translations: [Malignant (primary) neoplasm, unspecified] Onset: 5 06-14-2025 Chronic Other aftercare (1 source) Encounter for adjustment and management of vascular access device; Translations: [Fitting and adjustment of vascular catheter] 08-21-2023 Episodic Other aftercare (2 sources) Follow-up status; Translations: [Encounter for follow-up examination after completed treatment for conditions other than malignant neoplasm] 03-02-2024 Episodic Comment on above: WBC/Neutrophils are still low. Other circulatory disease (2 sources) Device in situ; Translations: [Presence of other vascular implants and grafts] 03-02-2024 Chronic Comment on above: right chest 09/18.Sh e wants Port removed. Other endocrine disorders (1 source) Adrenal mass; Translations: [Other specified disorders of adrenal gland] 07-28-2023 Chronic Other gastrointestinal disorders (1 source) Constipation 05-26-2024 Episodic Other non-epithelial cancer of skin (12 sources) Squamous cell carcinoma; Translations: [Squamous cell carcinoma of anal skin] Onset: 5 08-20-2023 Episodic Comment on above: Stage IB.Got weekly Cisplatin and Radiation. Finished on 11/06/2023.Reportedly has L groin nodes so going for biopsy.Comes for follow up. Residual codes; unclassified (20 sources) Postoperative state; Translations: [Other specified postprocedural states] Onset: 3 07-29-2023 Episodic Residual codes; unclassified (2 sources) Other specified postprocedural states; Translations: [Other specified postprocedural states] Onset: 3 Episodic Skin and subcutaneous tissue infections (1 source) Cellulitis of groin; Translations: [Cellulitis of groin] 08-19-2025 Episodic Unclassified (4 sources) Cancer cervix screening status 06-25-2023 Unclassified (1 source) Cellulitis of right buttock 08-21-2024 Unclassified (2 sources) Patient encounter status 05-26-2024 Past or Other Problems Problem Classification Problem Date Documented Date Episodic/Chronic Other female genital disorders (2 sources) Other specified noninflammatory disorders of vulva and perineum; Translations: [Other specified noninflammatory disorders of vulva and perineum] Onset: 07-01-2023 Episodic Other screening for suspected conditions (not mental disorders or infectious disease) (7 sources) Encounter for screening mammogram for malignant neoplasm of breast; Translations: [Encounter for screening for malignant neoplasm of cervix] Onset: 06-25-2023 Episodic Results Test Name Value Interpretation Reference Range Facility Office Visiton 08-31-2025 Follow-up visit [id number] Caitlin Jimenez 1965 F Date Provider Department Center 08/31/2025 [id number] STRAUSS [facility] DRIVER OPERATOR None Family History Problem Relation Age of Onset Arthritis Mother Hypertension Mother Alcohol abuse Father Hypertension Father Liver disease Father Family Status - Relation Status Age at Mother Father Level of Service:84078 [place] POSTOP FOLLOW UP VISIT RELATED TO ORIGINAL PX Reason for Visit and Comments: Post-op Visit [559] Normal [facility] Progress Noteon 08-31-2025 Progress Note Postop visit The defect in the left groin is getting a little better. Still a lot of induration on the inferior aspect but no evidence of cellulitis. No new areas of necrosis. Continue local wound care and I will see her back in 1 month Normal [facility] Progress Note General Road Foreman was offere d to the patient for exam. Patient declined offer of skatesman [facility] 36on 08-26-2025 36 Called and left message to notify pt that we will have to move her appointment due to a surgery that was added on. Phone number left on voicemail for pt to call back. [facility] Office Visiton 08-22-2025 Follow-up visit [id number] Caitlin Jimenez 1965 F Date Provider Department Center 08/22/2025 [id number] STRAUSS [facility] DRIVER OPERATOR None Family History Problem Relation Age of Onset Arthritis Mother Hypertension Mother Alcohol abuse Father Hypertension Father Liver disease Father Family Status - Relation Status Age at Mother Father Level of Service:69674 LA POSTOP FOLLOW UP VISIT RELATED TO ORIGINAL PX Reason for Visit and Comments: Post-op Visit [559] [facility] Progress Noteon 08-22-2025 Progress Note Postop visit Patient here to follow-up on her left vulvar groin wound. She is worried about an area of breakdown more medial to this. On exam the original excision site on the left groin is granulating in nicely, no evidence of cellulitis noted. Just inferior to it in the vulvar thigh fold there is a small area of skin breakdown with some erythema however, no exudate is noted. No evidence of complete skin breakdown. The initial surgical site was very gently debrided of a small amount of necrotic tissue, it is granulating in nicely and is about 50% filled in. The smaller lesion below may be related to chronic irritation from drainage from the initial incision. However, does not appear to be related to recurrent cancer or cellulitis or abscess formation. Patient is going to see me back in 1 week. If it does start to breakdown we will perform biopsy to rule out recurrent cancer and if negative consider hyperbaric oxygen treatments. [facility] Progress Note General Road Foreman was offere d to the patient for exam. Patient declined offer of skatesman [facility] 36on 08-19-2025 36 Spoke to patient and scheduled appointment for 08/22@2:30. She agrees with the plan and verbalizes understanding. [facility] [address] patient aleshia t Dr. Strauss called in Bactri and would like to see her in the office Friday. Requested a call back to schedule. [facility] 36 Spoke to patient and she states that she feels like the lower end of her incision may have opened up a small amount. She states the skin is red and irritated. She states she has not had foul smelling drainage or increased pain. She states that she has not noticed any increase in drainage either. [facility] 36 Patient called in an d stated she changed over some of her bandages and her stated there is some drainage coming from one of the incisions and it is red. Patient states she is not having pain but was wanting a call back at [phone]. [facility] Office Visiton 07-20-2025 Follow-up visit [id number] Caitlin Jimenez 1965 F Date Provider Department Alpha 07/20/2025 DONAVAN ZARATE [facility] DRIVER OPERATOR None Family History Problem Relation Age of Onset Arthritis Mother Hypertension Mother Alcohol abuse Father Hypertension Father Liver disease Father Family Status - Relation Status Age at Mother Father Level of Service:74506 LA POSTOP FOLLOW UP VISIT RELATED TO ORIGINAL PX Reason for Visit and Comments: Post-op Visit [559] [facility] Progress Noteon 07-20-2025 Progress Note Postop visit patient here today for wound check The left groin wound is healing in nicely, very minimal necrotic tissue that was debrided, good granulation tissue noted. At this point we will follow-up in 3 months, we will see sooner if she started noticing any issues with the wound otherwise explained to the patient that it will take some time for the wound to completely fill-in on its own. [facility] Progress Note General Road Foreman was constantino campbell to the patient for exam. Patient accepted, medical staff services coordinator in room during exam [facility] Office Visiton 07-06-2025 Follow-up visit [id number] Caitlin Jimenez 1965 F Date Provider Department Alpha 07/06/2025 DONAVAN ZARATE [facility] DRIVER OPERATOR None Family History Problem Relation Age of Onset Arthritis Mother Hypertension Mother Alcohol abuse Father Hypertension Father Liver disease Father Family Status - Relation Status Age at Mother Father Level of Service:91401 LA POSTOP FOLLOW UP VISIT RELATED TO ORIGINAL PX Reason for Visit and Comments: Post-op Visit [559] [facility] Progress Noteon 07-06-2025 Progress Note Postop check, Patient here for left groin wound check Patient states is still having a lot of seepage. She denies any fever chills or sweats. On exam the left groin incision is still open, does not appear to be any granulation tissue forming yet. A small amount of necrotic debris was sharply debrided. A new wet-to-dry dressing was applied. No evidence of cellulitis. A) open groin wound status post removal of adenopathy status post radiation therapy P) continue local wound care, she is cleaning in the shower once a day, keeping it covered, I will see her back in about 10 days to see how it is doing. I did discuss with the patient that if she would have started to have any suspicion of infection with erythema around the wound, increasing pain to please call the office so that she can be seen by one of my partners in my absence. We also discussed possible hyperbaric oxygen treatments. She would like to try to give this a little bit more time with local wound care. Normal [facility] Celiac AB,Comprehensiveon ANTIGLIADIN IGA 7 units Normal 0-19 [facility] Comment on above: Result Comment: Nega tive 0 - 19 Weak Positive 20 - 30 Moderate to Strong Positive >30 Performed By: #### L 3410.2350 ####[facility] [address] [place], [address] ANTIGLIADIN IGG 1 units Normal 0-19 [facility] Comment on above: Result Comment: Nega tive 0 - 19 Weak Positive 20 - 30 Moderate to Strong Positive >30 Performed By: #### L 3410.2350 ####[facility] [address] [place], [address] ENDOMYSIAL IGA Negative Normal Negative [facility] Comment on above: Performed By: #### L 3410.2350 ####[facility] [address] [place], [address] IMMUNOGLOB A QN 651 mg/dL High 87-352 [facility] Comment on above: Result Comment: Perf ormed at: - [facility] [address] [id number] Cloth Shrinking Machine Operator Helper: Shane Guerrier PhD, Phone: [phone] Performed By: #### L 3410.2350 ####[facility] [address] [place], [place], [address] tTG IGA 2 U/mL Normal 0-3 [facility] Comment on above: Result Comment: Nega tive 0 - 3 Weak Positive 4 - 10 Positive >10 Tissue Transglutaminase (tTG) has been identified as the endomysial antigen. Studies have demonstr- ated that endomysial IgA antibodies have over 99% specificity for gluten sensitive enteropathy. Performed By: #### L 3410.2350 ####[facility] [address] [place], [place], [id number] tTG IGG 4 U/mL Normal 0-5 [facility] Comment on above: Result Comment: Nega tive 0 - 5 Weak Positive 6 - 9 Positive >9 Performed By: #### L 3410.2350 ####[facility] [address] [place], [place], [id number] Office Visiton 06-30-2025 Follow-up visit [id number] Caitlin Jimenez 1965 F Date Provider Department Center 06/30/2025 [id number] STRAUSS [facility] DRIVER OPERATOR None Family History Problem Relation Age of Onset Arthritis Mother Hypertension Mother Alcohol abuse Father Hypertension Father Liver disease Father Family Status - Relation Status Age at Mother Father Level of Service:67367 LA POSTOP FOLLOW UP VISIT RELATED TO ORIGINAL PX Reason for Visit and Comments: Post-op Visit [379] Normal [facility] Progress Noteon 06-30-2025 Progress Note Postop visit Patient underwent resection of 2 large inguinal nodes, noticed a few days ago the onset of some drainage and foul odor. On exam the left groin incision has completely opened, there is a ring of necrotic tissue in the wound bed. No evidence of purulence or infection was noted. The area was debrided sharply, a wet-to-dry saline soaked gauze was then placed in. Patient was instructed to take it out tomorrow morning, she plans to lavage it every day in the shower with a squeeze bottle and I will see her back on Friday to take another look at it. Wound separation in the groin Discussed with patient that this may take several weeks to heal and due to the radiated tissue. Will continue to follow closely. Normal [facility] Progress Note General Road Foreman was constantino campbell to the patient for exam. Patient accepted, medical staff services coordinator in room during exam Normal [facility] Oncology Visit Reporton Oncology Visit Report [facility] [address] [place] [address] OFFICE VISIT Date of Service: 06/29/25 1026 MR#: [id number] Acct: [id number] Name: MADELINE JIMENEZ Rep #: [id number] : 1965 From: Dixon Holliday MD Age/Sex: 59/F Location: [facility] Status: Signed HPI Subjective Date of Service 06/29/25 Chief Complaint F/u for Perianal/Vulvar cancer. History of Present Illness 59-year-old old woman presented with a perineal ulcer. Biopsy on 07/02/2023 showed squamous cell carcinoma in situ at [facility]. She was referred to Dr. Strauss. She appeared to have T1b lesion involving the vulva and perineal body. She underwent bilateral groin dissection and vulvar biopsy on 07/29/2023. 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 Lymph nodes right groin 9 was negative, lymph nodes left groin 7 was negative. She was felt to have T1b perineal cancer, N0 M0-Stage IB.. Underwent PET/CT 08/19/2023 which demonstrated hypermetabolic activity in the region of the posterior vulva, posterior raphe-perirectal region, SUV 9.3, measures 34.3 mm, and in the left inguinal region, left anterior pelvic wall, SUV 3.9, maximum axial diameter of the metabolic, morphologic abnormality is 32.1 mm. Started weekly Cisplatin with Radiation on 09/22/2023. Finished C6 weekly Cisplatin on 10/28/2023. Finished Radiation on 11/06/2023. Saw Dr. Strauss, exam showed complete response. Had CT done at [facility] which was negative. She was on observation, found to have left groin node. She underwent left groin node biopsy and vulvar biopsy on 06/14/[address] Strauss. Pathology for left groin node was negative for carcinoma, vulvar and perineum biopsies were also negative for malignancy. Comes for follow up. Feels well. No pain in vulvar area, wound has opened in the left groin. [facility] Medical History Cellulitis Encounter for education Wears glasses Wears dentures Post-menopausal Smoker History of irregular heartbeat Hand amputee Heart murmur Malignant neoplasm of vulva Surgical History Port-A-Cath in place History of lymph node excision Family History Mother Arthritis Hypertension Father Alcohol abuse Hypertension Liver disease Social History Smoking Status: Current some day smoker tobacco type: cigarettes alcohol intake: never substance use type: does not use Intake Vital Signs 06/01/25 10:59 06/29/25 10:27 Height 5 ft 4 in 5 ft 4 in Weight: 80.343 kg BMI 30.4 BP 119/75 Blood Pressure Location Rt brachial Position Sitting Respiration 18 Pulse 101 H Pulse Source Monitor Temp 97.5 F L Temperature Source Temporal Artery Pulse Oximetry (%) 98 Oxygen Delivery Method room air Intake Accompanied by: Self Is patient in pain?: Yes (from biopsy) Pain scale (1-10): 4 Allergies No Known Allergies Allergy (Verified 06/29/25 10:32) Medications ???Medication ???Instructions ???Recorded ???Confirmed ???Type acetaminophen 500 mg tablet 1,000 mg PO Q6H PRN pain 08/04/23 06/29/25 History ibuprofen 600 mg tablet 600 mg PO Q6H PRN pain 08/04/23 History multivitamin 1 tab PO DAILY 08/04/23 06/29/25 H istory ascorbic acid-ascorbate 15 ml PO DAILY 08/26/23 06/29/25 H istory calcium-ascorbate sod 500 mg/15 mL oral liquid (Vitamin C) Central Venous Access Central Venous Access: No Laboratory Tests 10/06/23 10/13/23 10/21/23 07:50 07:50 07:50 WBC 6.8 4.5 3.0 L Hgb 12.6 12.2 11.9 L Hct 38.9 37.9 Plt Count 142 L 140 L 142 L Absolute Neuts (auto) 4.8 2.7 1.6 L Absolute Lymphs (auto) 1.42 Sodium Potassium Chloride Carbon Dioxide BUN Creatinine 0.56 Glucose Calcium 8.6 Phosphorus Magnesium 2.1 Iron TIBC Iron Saturation Total Bilirubin Erythropoietin Ferritin AST ALT Alkaline Phosphatase Lactate Dehydrogenase Total Protein Albumin C-React Prot Ext Range Globulin Vitamin B12 10/28/23 11/25/23 01/06/24 08:02 10:17 09:05 WBC 3.0 L 5.6 2.9 L Hgb 11.7 L 11.3 L 11.5 L Hct 34.7 L 33.8 L 34.9 L Plt Count 149 L 166 151 Absolute Neuts (auto) 1.9 L 3.9 1.2 L Absolute Lymphs (auto) Sodium 136 138 Potassium 3.7 3.9 Chloride 108 H 109 H Carbon Dioxide 24.0 24.0 BUN 22 H 25 H Creatinine 0.67 0.63 Glucose 152 H 135 H Calcium 8.7 9.3 Phosphorus 2.6 Magnesium 2.1 Iron TIBC Iron Saturation Total Bi (more content not included)... Normal [facility] 36on 06-28-2025 36 Pt called back and moved OV to verses Friday. Normal [facility] 36 Pt had removal left groin node 06/14/25. Pt incision has foul odor with redness and open. Opening bigger than pencil eraser. Clear drainage. Pt has no fever. Offered appointment tomorrow, pt can't make. Made appt at end of week. Normal [facility] 36 Pt states one of her incisions appears to have opened slightly with slight, clear drainage. No pain, but itching and irritated. Please call Pt to advise. Thank you [facility] [id number] 06-28-2025 [facility] Misc. COMMENT Normal . [facility] Comment on above: Order Comment: [id number] 0FLOW CYTOMETRY GREEN RF WB Result Comment: Test Ordered: [id number] Flow panel: Leukemia/Lymphoma Flow Interpretation Comment -Y Reference Range: . 1. Neutrophils with downregulation of CD10 expression, see comment. 2. Relative monocytosis (22% of leukocytes), see comment. Flow Comment Comment -Y Reference Range: . 1. Decreased expression of CD10 on neutrophils can be seen in reactive processes including infection, gamez, and in response to G-CSF, and in neoplastic conditions such as myeloid neoplasms. Clinical correlation is recommended. 2. The finding is non-specific and can be seen in both reactive/activated processes and myeloid neoplasm. If monocytosis (absolute count >= 500/uL and >= 10% of leukocytes) persists without secondary etiologies identified, further evaluation of a myeloid neoplasm, such as chronic myelomonocytic leukemia, is warranted if clinically indicated. Recommend clinical correlation. Clinical Information Comment -Y Reference Range: . A recent CBC was not available for review at the time this report was prepared. Specimen Type Comment -Y Reference Range: . Peripheral blood Assessment of Leukocytes Comment -Y Reference Range: . No monoclonal B cell population is detected. kappa:lambda ratio 1.8 There is no loss of, or aberrant expression of, the stanley T cell antigens to suggest a neoplastic T cell process. CD4:CD8 ratio 4.9 No circulating blasts are detected. There is no immunophenotypic evidence of abnormal myeloid maturation. Neutrophils show downregulation of CD10 expression. Monocytes represent 22% of leukocytes. Analysis of the lymphocyte population shows: B cells 17%, T cells 78%, NK cells 5%. Viability Comment -Y Reference Range: . 81% Analysis and Gating Strategy Comment -Y Reference Range: . 8 color analysis with CD45/SSC gating Technical-Analysis performed at [place] [address], [employer], [address] [place] [address], Director: Fidel Garber, [facility], Phenotype Chart Comment -Y Reference Range: . CD2 Normal CD3 Normal CD4 Normal CD5 Normal CD7 Normal CD8 Normal CD10 See Text CD11b Normal CD13 Normal CD14 Normal CD16 Normal CD19 Normal CD20 Normal CD33 Normal CD34 Normal CD38 Normal CD45 Normal CD56 Normal CD57 Normal CD64 Normal CD117 Normal HLA-DR Normal KAPPA Normal LAMBDA Normal Resulting Path Name Comment -Y Reference Range: . Axel Joaquin M.D. Comment: Comment Reference Range: . Each antibody in this assay was utilized to assess for potential abnormalities of studied cell populations or to characterize identified abnormalities. This test was developed and its performance characteristics determined by [facility]. It has not been cleared or approved by the U.S. Food and Drug Administration. The FDA has determined that such clearance or approval is not necessary. This test is used for clinical purposes. It should not be regarded as investigational or for research. Performed at: -Y - [facility] [address] [facility], [facility], [place] [id number] Cloth Shrinking Machine Operator Helper: Fidel Garber [facility], Phone: [phone] Performed at: - [facility] [address] [facility], [place] [id number] Cloth Shrinking Machine Operator Helper: Fidel Garber [facility], Phone: [phone] Performed at: [facility] [place] [id number] Cloth Shrinking Machine Operator Helper: Shane Guerrier PhD, Phone: [phone] Performed By: #### L 501.5200, L503.6550, L101.9900, L501.6710, L3100.1350, L100.9950, L3410.9992, L503.6030, L100.0100, L504.2610, L500.4050, L503.0106, L501.2300 ####[facility] [address] [place], [place], [address] 36on 06-23-2025 36 Patient called in an d states that her steri strips are off and she has a very small area that is draining small amount of fluid. She states it is superficial. Notified her that this should heal without issues. She denies fever, chills or redness at the site. She will call if her condition changes. Normal [facility] Erythropoietinon 06-23-2025 ERYTHROPOIETIN 32.7 mIU/mL High 2.6-18.5 [facility] Comment on above: Result Comment: [employer] DxI 800 Immunoassay System Values obtained with different assay methods or kits cannot be used interchangeably. Results cannot be interpreted as absolute evidence of the presence or absence of malignant disease. Performed at: CB - [place] [id number] [place], [place] [id number] Cloth Shrinking Machine Operator Helper: Shane Guerrier PhD, Phone: [phone] Performed By: #### L 501.5200, L503.6550, L101.9900, L501.6710, L3100.1350, L100.9950, L3410.9992, L503.6030, L100.0100, L504.2610, L500.4050, L503.0106, L501.2300 ####[facility] [address] [place], [address] Absolute lymphocyte countOrd ered By: Dixon Holliday on 06-22-2025 Lymphocytes Auto (Unsp spec) [#/Vol] 1.03 10*3/uL 0.83-4.51 [facility] Absolute neutrophil countOrd ered By: Dixon Holliday on 06-22-2025 Neutrophils (Bld) [#/Vol] 0.4 10*3/uL Low 2.0-7.7 [facility] Anion gap in Serum or Plasma Ordered By: Dixon Holliday on 06-22-2025 Anion gap [Moles/Vol] 13 mmol/L 5-15 [facility] Automated lymphocyte count a s percentage of total leukocytesOrdered By: Dixon Holliday on 06-22-2025 Lymphocytes/100 WBC Auto (Unsp spec) 51.8 % High 19-41 [facility] BUN/creatinine ratioOrdered By: Dixon Holliday on 06-22-2025 Urea nitrogen/Creatinine [Mass ratio] 24.6 mg/mg High 10-20 [facility] Basophil percentageOrdered B y: Dixon Holliday on 06-22-2025 Basophils/100 WBC (Bld) 0.5 % 0-1 [facility] Bilirubin, totalOrdered By: Dixon Holliday on 06-22-2025 Bilirubin [Mass/Vol] 0.43 mg/dL 0.00-1.30 [facility] Blood manual differential co mment interpretation (narrative result)Ordered By: Dixon Holliday on 06-22-2025 Manual differential comment Nikhil (Bld) [Interp] COMMENT [facility] Comment on above: LYMPHOPENIA. CBC W/Diff, Automatedon 05-28 ATYPICAL LYMPH 1+ Normal [facility] Comment on above: Performed By: #### L 501.5200, L503.6550, L101.9900, L501.6710, L3100.1350, L100.9950, L3410.9992, L503.6030, L100.0100, L504.2610, L500.4050, L503.0106, L501.2300 #### [facility] [address] [place], [place], [id number] SMEAR COMMENT COMMENT Normal [facility] Comment on above: Result Comment: LYMP HOPENIA. Performed By: #### L 501.5200, L503.6550, L101.9900, L501.6710, L3100.1350, L100.9950, L3410.9992, L503.6030, L100.0100, L504.2610, L500.4050, L503.0106, L501.2300 #### [facility] [address] [place], [address] CRPon 06-22-2025 C-REACTIVE PROT 57.60 mg/L High 0.0-3.0 [facility] Comment on above: Performed By: #### L 501.5200, L503.6550, L101.9900, L501.6710, L3100.1350, L100.9950, L3410.9992, L503.6030, L100.0100, L504.2610, L500.4050, L503.0106, L501.2300 ####[facility] [address] [place], [address] Carbon dioxide, total [Moles /volume] in Central venous bloodOrdered By: Dixon Holliday on 06-22-2025 CO2 [Moles/Vol] 21.6 mmol/L 21.0-32.0 [facility] Chloride assayOrdered By: Ananya Holliday on 06-22-2025 Chloride [Moles/Vol] 98 mmol/L 98-108 [facility] Comprehensive Metabolic Prof ilon 06-22-2025 Albumin [Mass/Vol] 3.8 g/dL Normal 3.4-4.8 [facility] Comment on above: Performed By: #### L 501.5200, L503.6550, L101.9900, L501.6710, L3100.1350, L100.9950, L3410.9992, L503.6030, L100.0100, L504.2610, L500.4050, L503.0106, L501.2300 #### [facility] [address] [place], [place], [id number] Albumin/Globulin [Mass ratio] 0.8 {ratio} Low 0.9-2.4 [facility] Comment on above: Performed By: #### L 501.5200, L503.6550, L101.9900, L501.6710, L3100.1350, L100.9950, L3410.9992, L503.6030, L100.0100, L504.2610, L500.4050, L503.0106, L501.2300 #### [facility] [address] [place], [place], [id number] ALK PHOS 68 U/L Normal 35-104 [facility] Comment on above: Performed By: #### L 501.5200, L503.6550, L101.9900, L501.6710, L3100.1350, L100.9950, L3410.9992, L503.6030, L100.0100, L504.2610, L500.4050, L503.0106, L501.2300 #### [facility] [address] [place], [place], [id number] ALT [Catalytic activity/Vol] 13 U/L Normal <=34 [facility] Comment on above: Performed By: #### L 501.5200, L503.6550, L101.9900, L501.6710, L3100.1350, L100.9950, L3410.9992, L503.6030, L100.0100, L504.2610, L500.4050, L503.0106, L501.2300 #### [facility] [address] [place], [address] AST [Catalytic activity/Vol] 18 U/L Normal <=31 [facility] Comment on above: Performed By: #### L 501.5200, L503.6550, L101.9900, L501.6710, L3100.1350, L100.9950, L3410.9992, L503.6030, L100.0100, L504.2610, L500.4050, L503.0106, L501.2300 #### [facility] [address] [place], [address] Bilirubin [Mass/Vol] 0.43 mg/dL Normal 0.00-1.30 [facility] Comment on above: Performed By: #### L 501.5200, L503.6550, L101.9900, L501.6710, L3100.1350, L100.9950, L3410.9992, L503.6030, L100.0100, L504.2610, L500.4050, L503.0106, L501.2300 #### [facility] [address] [place], [place], [id number] BUN/CRE 24.6 RATIO High 10-20 [facility] Comment on above: Performed By: #### L 501.5200, L503.6550, L101.9900, L501.6710, L3100.1350, L100.9950, L3410.9992, L503.6030, L100.0100, L504.2610, L500.4050, L503.0106, L501.2300 #### [facility] [address] [place], [address] Calcium [Mass/Vol] 9.4 mg/dL Normal 7.6-11.0 [facility] Comment on above: Performed By: #### L 501.5200, L503.6550, L101.9900, L501.6710, L3100.1350, L100.9950, L3410.9992, L503.6030, L100.0100, L504.2610, L500.4050, L503.0106, L501.2300 #### [facility] [address] [place], [address] Chloride [Moles/Vol] 98 mmol/L Normal 98-108 [facility] Comment on above: Performed By: #### L 501.5200, L503.6550, L101.9900, L501.6710, L3100.1350, L100.9950, L3410.9992, L503.6030, L100.0100, L504.2610, L500.4050, L503.0106, L501.2300 #### [facility] [address] [place], [place], [id number] (155) CO2 [Moles/Vol] 21.6 mmol/L Normal 21.0-32.0 [facility] Comment on above: Performed By: #### L 501.5200, L503.6550, L101.9900, L501.6710, L3100.1350, L100.9950, L3410.9992, L503.6030, L100.0100, L504.2610, L500.4050, L503.0106, L501.2300 #### [facility] [address] [place], [address] Creatinine [Mass/Vol] 0.56 mg/dL Low 0.70-1.20 [facility] Comment on above: Performed By: #### L 501.5200, L503.6550, L101.9900, L501.6710, L3100.1350, L100.9950, L3410.9992, L503.6030, L100.0100, L504.2610, L500.4050, L503.0106, L501.2300 #### [facility] [address] [place], [place], [id number] ECRCL 109.71 ml/min Normal 50-250 [facility] Comment on above: Performed By: #### L 501.5200, L503.6550, L101.9900, L501.6710, L3100.1350, L100.9950, L3410.9992, L503.6030, L100.0100, L504.2610, L500.4050, L503.0106, L501.2300 #### [facility] [address] [facility] [place], [place], [id number] GAP 13 Normal 5-15 [facility] Comment on above: Performed By: #### L 501.5200, L503.6550, L101.9900, L501.6710, L3100.1350, L100.9950, L3410.9992, L503.6030, L100.0100, L504.2610, L500.4050, L503.0106, L501.2300 #### [facility] [address] [facility] [place], [address] GFR/1.73 sq M.predicted among non-blacks MDRD (S/P/Bld) [Vol rate/Area] 104 mL/min/{1.73_m2} Normal >60 [facility] Comment on above: Result Comment: mL/m in/1.73m2 CKD-EPI Creatinine Equation (2020) Performed By: #### L 501.5200, L503.6550, L101.9900, L501.6710, L3100.1350, L100.9950, L3410.9992, L503.6030, L100.0100, L504.2610, L500.4050, L503.0106, L501.2300 #### [facility] [address] [place], [address] Globulin (S) [Mass/Vol] 4.7 g/dL High 2.2-4.2 [facility] Comment on above: Performed By: #### L 501.5200, L503.6550, L101.9900, L501.6710, L3100.1350, L100.9950, L3410.9992, L503.6030, L100.0100, L504.2610, L500.4050, L503.0106, L501.2300 #### [facility] [address] [place], [address] Glucose [Mass/Vol] 136 mg/dL High 70-99 [facility] Comment on above: Performed By: #### L 501.5200, L503.6550, L101.9900, L501.6710, L3100.1350, L100.9950, L3410.9992, L503.6030, L100.0100, L504.2610, L500.4050, L503.0106, L501.2300 #### [facility] [address] [place], [address] Potassium [Moles/Vol] 4.4 mmol/L Normal 3.3-5.1 [facility] Comment on above: Performed By: #### L 501.5200, L503.6550, L101.9900, L501.6710, L3100.1350, L100.9950, L3410.9992, L503.6030, L100.0100, L504.2610, L500.4050, L503.0106, L501.2300 #### [facility] [address] [place], [address] Sodium [Moles/Vol] 133 mmol/L Normal 133-145 [facility] Comment on above: Performed By: #### L 501.5200, L503.6550, L101.9900, L501.6710, L3100.1350, L100.9950, L3410.9992, L503.6030, L100.0100, L504.2610, L500.4050, L503.0106, L501.2300 #### [facility] [address] [place], [place], [id number] T PROT 8.5 g/dL High 5.9-8.4 [facility] Comment on above: Performed By: #### L 501.5200, L503.6550, L101.9900, L501.6710, L3100.1350, L100.9950, L3410.9992, L503.6030, L100.0100, L504.2610, L500.4050, L503.0106, L501.2300 #### [facility] [address] [place], [place], [id number] Urea nitrogen [Mass/Vol] 14 mg/dL Normal 4-19 [facility] Comment on above: Performed By: #### L 501.5200, L503.6550, L101.9900, L501.6710, L3100.1350, L100.9950, L3410.9992, L503.6030, L100.0100, L504.2610, L500.4050, L503.0106, L501.2300 #### [facility] [address] [facility] [place], [place], [phone] Eosinophil percentageOrdered By: Dixon Holliday on 06-22-2025 Eosinophils/100 WBC (Bld) 0.0 % 0-5 [facility] Erythrocyte Sed Rateon 06-22 SED RATE 41 mm/hr High 0-30 [facility] Comment on above: Performed By: #### L 501.5200, L503.6550, L101.9900, L501.6710, L3100.1350, L100.9950, L3410.9992, L503.6030, L100.0100, L504.2610, L500.4050, L503.0106, L501.2300 #### [facility] [address] [place], [place], [id number] Erythrocyte distribution wid th ratioOrdered By: Dixon Holliday on 06-22-2025 Erythrocyte distribution width (RBC) [Ratio] 18.1 % High 11.6-14.6 [facility] Erythrocyte distribution wid th standard deviationOrdered By: Dixon Holliday on 06-22-2025 Erythrocyte distribution width (RBC) [Ratio] 54.8 fl High 35.1-43.9 [facility] Erythrocyte sedimentation ra teOrdered By: Dixon Holliday on 06-22-2025 ESR (Bld) [Velocity] 41 mm/h High 0-30 [facility] Ferritinon 06-22-2025 Ferritin [Mass/Vol] 630 ng/mL High 22-378 [facility] Comment on above: Performed By: #### L 501.5200, L503.6550, L101.9900, L501.6710, L3100.1350, L100.9950, L3410.9992, L503.6030, L100.0100, L504.2610, L500.4050, L503.0106, L501.2300 #### [facility] [address] [place], [address] Glomerular filtration rate ( GFR) estimation/1.73 sq m using serum, plasma, or whole bOrdered By: Dixon Holliday on 06-22-2025 GFR/1.73 sq M.predicted among non-blacks MDRD (S/P/Bld) [Vol rate/Area] 104 mL/min/{1.73_m2} >60 [facility] Comment on above: mL/min/1.73m2 CKD-EP I Creatinine Equation (2020) Hematocrit Auto (Bld) [Volum e fraction]Ordered By: Dixon Holliday on 06-22-2025 Hematocrit (Bld) [Volume fraction] 30.7 % Low 37-47 [facility] Hemoglobin measurementOrdere d By: Dixon Holliday on 06-22-2025 Hemoglobin (Bld) [Mass/Vol] 9.7 g/dL Low 12.0-15.0 [facility] Immature granulocytes/100 WB C Auto (Bld)Ordered By: Dixon Holliday on 06-22-2025 Immature granulocytes/100 WBC (Bld) 0.000 % 0.0-0.9 [facility] Comment on above: IG% - Immature Granu locytes (promyelocytes, myelocytes and metamyelocytes) > 1% indicates that a LEFT SHIFT is Present. Iron measurement (mass/mass) Ordered By: Dixon Holliday on 06-22-2025 Iron (Unsp spec) [Mass/Mass] 27 ug/dL Low 50-170 [facility] Iron+Iron Binding Capacityon 06-22-2025 Iron [Mass/Vol] 27 ug/dL Low 50-170 [facility] Comment on above: Performed By: #### L 501.5200, L503.6550, L101.9900, L501.6710, L3100.1350, L100.9950, L3410.9992, L503.6030, L100.0100, L504.2610, L500.4050, L503.0106, L501.2300 ####[facility] [address] [facility]. [place], [place], [id number] IRON SATURATION 10.0 Low 13-59 [facility] Comment on above: Performed By: #### L 501.5200, L503.6550, L101.9900, L501.6710, L3100.1350, L100.9950, L3410.9992, L503.6030, L100.0100, L504.2610, L500.4050, L503.0106, L501.2300 ####[facility] [address] [facility]. [place], [place], [id number] TIBC 269 ug/dL Normal 250-450 [facility] Comment on above: Performed By: #### L 501.5200, L503.6550, L101.9900, L501.6710, L3100.1350, L100.9950, L3410.9992, L503.6030, L100.0100, L504.2610, L500.4050, L503.0106, L501.2300 ####[facility] [address] [place], [place], [id number] UIBC 242 ug/dL Normal 228-428 [facility] Comment on above: Performed By: #### L 501.5200, L503.6550, L101.9900, L501.6710, L3100.1350, L100.9950, L3410.9992, L503.6030, L100.0100, L504.2610, L500.4050, L503.0106, L501.2300 ####[facility] [address] [place], [place], [id number] LDHon 06-22-2025 LDH 112 U/L Normal 84-246 [facility] Comment on above: Order Comment: 1 Performed By: #### L 501.5200, L503.6550, L101.9900, L501.6710, L3100.1350, L100.9950, L3410.9992, L503.6030, L100.0100, L504.2610, L500.4050, L503.0106, L501.2300 ####[facility] [address] [place], [place], [address] Laboratory - Chemistry and C hemistry - challengeOrdered By: Dixon Holliday on 06-22-2025 AST [Catalytic activity/Vol] 18 U/L <32 [facility] Lactate dehydrogenase (LDH) measurementOrdered By: Dixon Holliday on 06-22-2025 LDH [Catalytic activity/Vol] 112 U/L 84-246 [facility] MCV (mean corpuscular volume ) determinationOrdered By: Dixon Holliday on 06-22-2025 MCV (RBC) [Entitic vol] 83.0 fL 81-99 [facility] Magnesiumon 06-22-2025 Magnesium [Mass/Vol] 2.3 mg/dL High 1.5-2.2 [facility] Comment on above: Performed By: #### L 501.5200, L503.6550, L101.9900, L501.6710, L3100.1350, L100.9950, L3410.9992, L503.6030, L100.0100, L504.2610, L500.4050, L503.0106, L501.2300 ####[facility] [address] [place], [address] Magnesium measurement (mass/ volume)Ordered By: Dixon Holliday on 06-22-2025 Magnesium (Unsp spec) [Mass/Vol] 2.3 mg/dL High 1.5-2.2 [facility] Mean corpuscular hemoglobin (MCH) determinationOrdered By: Dixon Holliday on 06-22-2025 MCH (RBC) [Entitic mass] 26.2 pg Low 27.0-32.0 [facility] Mean corpuscular hemoglobin concentration (MCHC) determinationOrdered By: Dixon Holliday on 06-22-2025 MCHC (RBC) [Mass/Vol] 31.6 g/dL Low 32-36 [facility] Mean platelet volume determi nationOrdered By: Dixon Holliday on 06-22-2025 Platelet mean volume (Bld) [Entitic vol] 8.5 fL 6.2-12.0 [facility] Monocyte percentageOrdered B y: Dixon Holliday on 06-22-2025 Monocytes/100 WBC (Bld) 27.6 % High 0-10 [facility] Neutrophil percentageOrdered By: Dixon Holliday on 06-22-2025 Neutrophils/100 WBC (Bld) 20.1 % Low 47-70 [facility] No Panel InformationOrdered By: Dixon Holliday on 06-22-2025 Unsaturated Iron Binding Capacity 242 ug/dL 228-428 [facility] Nucleated red blood cell per centageOrdered By: Dixon Holliday on 06-22-2025 Nucleated RBC/100 WBC (Bld) [Ratio] 0 % 0-5 [facility] Phosphoruson 06-22-2025 Phosphate [Mass/Vol] 2.9 mg/dL Normal 2.7-4.5 [facility] Comment on above: Performed By: #### L 501.5200, L503.6550, L101.9900, L501.6710, L3100.1350, L100.9950, L3410.9992, L503.6030, L100.0100, L504.2610, L500.4050, L503.0106, L501.2300 #### [facility] [address] [place], [place], [id number] Platelet countOrdered By: Ananya Holliday on 06-22-2025 Platelets (Bld) [#/Vol] 167 10*3/uL 150-450 [facility] Potassium measurement (mass/ volume)Ordered By: Dixon Holliday on 06-22-2025 Potassium (Unsp spec) [Mass/Vol] 4.4 mmol/L 3.3-5.1 [facility] RBC Auto (Bld) [#/Vol]Ordere d By: Dixon Holliday on 06-22-2025 RBC (Bld) [#/Vol] 3.70 10*6/uL Low 4.2-5.4 [facility] Retic Panelon 06-22-2025 IM RET FRACTION 12.40 Normal 3.00-15.90 [facility] Comment on above: Performed By: #### L 501.5200, L503.6550, L101.9900, L501.6710, L3100.1350, L100.9950, L3410.9992, L503.6030, L100.0100, L504.2610, L500.4050, L503.0106, L501.2300 #### [facility] [address] [place], [address] RET-HE 29.7 pg Low 30-35 [facility] Comment on above: Performed By: #### L 501.5200, L503.6550, L101.9900, L501.6710, L3100.1350, L100.9950, L3410.9992, L503.6030, L100.0100, L504.2610, L500.4050, L503.0106, L501.2300 #### [facility] [address] [facility] [place], [address] Retic Count 2.42 High 0.5-1.5 [facility] Comment on above: Performed By: #### L 501.5200, L503.6550, L101.9900, L501.6710, L3100.1350, L100.9950, L3410.9992, L503.6030, L100.0100, L504.2610, L500.4050, L503.0106, L501.2300 #### [facility] [address] [facility] [place], [place], [id number] Reticulocyte hemoglobin equi valent (RET-He) measurementOrdered By: Dixon Holliday on 06-22-2025 Hemoglobin (Reticulocytes) [Entitic mass] 29.7 pg Low 30-35 [facility] Reticulocytes Auto (Bld) [#/ Vol]Ordered By: Dixon Holliday on 06-22-2025 Reticulocytes/100 RBC (Bld) 2.42 % High 0.5-1.5 [facility] Serum creatinine measurement (mass/volume)Ordered By: Dixon Holliday on 06-22-2025 Creatinine [Mass/Vol] 0.56 mg/dL Low 0.70-1.20 [facility] Serum globulin measurementOr dered By: Dixon Holliday on 06-22-2025 Globulin (S) [Mass/Vol] 4.7 g/dL High 2.2-4.2 [facility] Serum glucose measurement (m ass/volume)Ordered By: Dixon Holliday on 06-22-2025 Glucose [Mass/Vol] 136 mg/dL High 70-99 [facility] Serum or plasma C reactive p rotein measurement (mass/volume)Ordered By: Dixon Holliday on 06-22-2025 CRP [Mass/Vol] 57.60 mg/L High 0.0-3.0 [facility] Serum or plasma alanine bermudez otransferase (ALT) measurementOrdered By: Dixon Holliday on 06-22-2025 ALT [Catalytic activity/Vol] 13 U/L <35 [facility] Serum or plasma albumin josy urement (mass/volume)Ordered By: Dixon Holliday on 06-22-2025 Albumin [Mass/Vol] 3.8 g/dL 3.4-4.8 [facility] Serum or plasma albumin/glob ulin mass ratioOrdered By: Dixon Holliday on 06-22-2025 Albumin/Globulin [Mass ratio] 0.8 {ratio} Low 0.9-2.4 [facility] Serum or plasma alkaline dallin sphatase measurementOrdered By: Dixon Holliday on 06-22-2025 ALP [Catalytic activity/Vol] 68 U/L 35-104 [facility] Serum or plasma calcium josy urement (mass/volume)Ordered By: Dixon Holliday on 06-22-2025 Calcium [Mass/Vol] 9.4 mg/dL 7.6-11.0 [facility] Serum or plasma erythropoiet in (EPO) measurement (units/volume)Ordered By: Dixon Holliday on 06-22-2025 Erythropoietin (EPO) Qn 32.7 mIU/mL High 2.6-18.5 [facility] Comment on above: [employer] Uni[employer] el DxI 800 Immunoassay SystemValues obtained with different assay methods or kits cannotbe used interchangeably. Results cannot be interpreted asabsolute evidence of the presence or absence of malignantdisease.Performed at: [facility] [employer] [id number] Director: Shane Guerrier PhD, Phone: [phone] Serum or plasma ferritin isha surement (mass/volume)Ordered By: Dixon Holliday on 06-22-2025 Ferritin [Mass/Vol] 630 ng/mL High 22-378 [facility] Serum or plasma iron saturat ion measurement (mass fraction)Ordered By: Dixon Holliday on 06-22-2025 Iron saturation [Mass fraction] 10.0 % Low 13-59 [facility] Serum or plasma urea nitroge n measurement (mass/volume)Ordered By: Dixon Holliday on 06-22-2025 Urea nitrogen [Mass/Vol] 14 mg/dL 4-19 [facility] Sodium levelOrdered By: Son Holliday on 06-22-2025 Sodium [Moles/Vol] 133 mmol/L 133-145 [facility] Total proteinOrdered By: Janes Holliday on 06-22-2025 Protein [Mass/Vol] 8.5 g/dL High 5.9-8.4 [facility] Vitamin B12on 06-22-2025 Cobalamin (Vitamin B12) [Mass/Vol] 1529 pg/mL High 180-914 [facility] Comment on above: Performed By: #### L 501.5200, L503.6550, L101.9900, L501.6710, L3100.1350, L100.9950, L3410.9992, L503.6030, L100.0100, L504.2610, L500.4050, L503.0106, L501.2300 #### [facility] [address] [place], [address] Vitamin B12 ser/plasOrdered By: Dixon Holliday on 06-22-2025 Cobalamin (Vitamin B12) [Mass/Vol] 1529 pg/mL High 180-914 [facility] White blood cell (WBC) count Ordered By: Dixon Holliday on 06-22-2025 WBC (Bld) [#/Vol] 2.0 10*3/uL Low 4.4-11.0 [facility] 36on 06-17-2025 36 Called with path Normal [facility] Op Noteon 06-14-2025 Op Note Date of surgery 06/14/2025 Preoperative diagnosis vulvar cancer status post radiotherapy, left groin adenopathy Postop diagnosis same, concern for local recurrence, concern for lymphatic disease Procedure; left groin lymph node dissection, superficial lymph nodes of the groin, vulvar biopsy x 4 Surgeon Carlos A Anesthesia General Description of findings; the patient had 2 ulcerative areas on the vulva 1 in the upper left vulva that was concerning for malignant disease. An additional area of ulceration of the skin Concerning for radiation changes wAS in the perineum. Biopsy of both the upper left lesion as well as the perineal lesion was performed. Description of operation patient identified brought to the operating room and after ministration of general anesthesia underwent exam under anesthesia and was prepped and draped in the lithotomy position using the yellowfin's. Timeout was performed. Attention was first turned to the left groin where 5 cc 1% lidocaine epinephrine was injected under the skin and using a 5 blade scalpel an incision was made overlying the adenopathy which was in the medial to midportion of the femoral triangle. The skin followed by Osorio's fascia was opened using Bovie cautery. Enlarged lymph nodes in the distal end of Narinder's canal were then removed using monopolar cautery as well as a 3-0 Vicryl tie office. The lymph nodes removed in their entirety and the defect was closed with running 3-0 subcutaneous Vicryl to reapproximate Osorio's fascia followed by interrupted 3-0 Vicryl subcutaneous in the dermis followed by subcuticular 4-0 Monocryl running and Steri-Strips. Attention was then turned down to the vulva, using the 3 mm punch biopsy 2 biopsies were performed of both the perineal body as well as the left lesion. Hemostasis was the Bovie cautery and silver nitrate. Blood loss is minimal she was taken to the cover room in stablecondition by anesthesia Normal [facility] Op Note Date: 06/14/2025 Location: [facility] OR Name: Madeline Jimenez, : 1965, Diagnosis Pre-op Diagnosis * Malignant neoplasm of vulva, unspecified (HCC) [C51.9] Post-op Diagnosis * Malignant neoplasm of vulva, unspecified (HCC) [C51.9] Procedures Left groin node dissection Vulvar biopsy x 4 Surgeons * Donavan Strauss - Primary Procedure Summary Anesthesia: General ASA: II Estimated Blood Loss: Minimal Drains: * None in log * Specimens ID Source Type Tests Collected By Collected At Frozen? Priority Lab ID 1 Other Tissue TISSUE EXAM Donavan Strauss MD 06/14/25 0720 No Routine Description: LEFT GROIN NODE 2 Other Tissue TISSUE EXAM Donavan Strauss MD 06/14/25 0733 No Routine Description: LEFT UPPER VULVA 3 Other Tissue TISSUE EXAM Donavan Strauss MD 06/14/25 0737 No Routine Description: PERINEUM Staff: [employer] Remote Sensing Scientist: Raquel Levi RN Scrub Person: Simone Rene RN [place] to Circ: Solomon Collins RN Findings: See operative note Complications: None; patient tolerated the procedure well. Specimens Collected: Order Name Source Comment Collection Info Order Time POTASSIUM WITH MG REFLEX For patients on dialysis to draw potassium day of surgery 06/14/2025 5:44 AM PROTHROMBIN TIME If patient on coumadin within 4 days prior. 06/14/2025 5:44 AM HCG QUALITATIVE URINE Urine, Clean Catch Discontinue this order if: 1. patient is older than 55 years old 2. has had a prior hysterectomy 3. today's surgery is for treatment of known or suspected ectopic or loss. 4. patient has a known intrauterine but this is a needed surgery. 06/14/2025 5:44 AM TISSUE EXAM Other VULVAR CANCER S/P RADIATION R/O RECURRENCE Collected By: Donavan Strauss MD 06/14/2025 7:21 AM Wound Class: Class I: Clean Blood Products: None Prophylactic Antibiotics: Pre-operative antibiotics were not given because antibiotics are not indicated for this procedure. [facility] CBC W/Diff, Automatedon 05-27 PATH REV Reviewed [facility] Comment on above: Result Comment: SEE REPORT IN PATIENT'S EMR AMENDED REPORT 06/09/25 0902 PATH REV previously reported as: February Performed By: #### L 500.4050, L100.0100, L504.2610 ####[facility] [address] [place], [address] 36on 06-08-2025 [address] Strauss note. Pt verbalized understanding. [facility] 36 Pt had labs done and daughter worried for results for surgery 06/14/25. Pt to fax over lab results. hgb 9.2 Plt 132 Pot 3.6 Na 135 Creat .50 Wbc 1.5 [facility] 36 Pt has questions regarding her labs and is concerned if she should still have surgery next week. Please call Pt to advise. Thank you [facility] [phone] 06-07-2025 [id number] Medication List Accurate as of June 07, 2025 11:46 AM. Always use your most recent med list. acetaminophen 500 MG tablet Commonly known as: Tylenol Take 2 tablets (1,000 mg) by mouth in the morning and 2 tablets (1,000 mg) at noon and 2 tablets (1,000 mg) in the evening and 2 tablets (1,000 mg) before bedtime. Notes to patient: Not taking Eliquis 2.5 MG tablet Generic drug: apixaban Take 1 tablet (2.5 mg) by mouth 2 times daily for 28 days. Notes to patient: Not taking MULTIPLE VITAMIN PO Medication Adjustments for Surgery: Hold morning of surgery VITAMIN C EFFERVESCENT BLEND PO Medication Adjustments for Surgery: Hold morning of surgery Additional Instructions: No food after midnight. You may have clear liquids up to 2 hours prior to surgery including: -water -apple or cranberry juice (NO orange juice) -black coffee or clear tea (NO creamer or milk) -soda (carbonated beverages) -sports drinks Before arriving to the hospital, have up to 16 ounces of your favorite clear fluid, preferably a sports drink such as Gatorade or Powerade. For patients with diabetes, please opt for a zero sugar fluid. You may take Tylenol for pain. NO Motrin, ibuprofen or Advil for 24 hours prior to surgery or longer if instructed by your surgeon. NO Aleve or Naprosyn for 5 days prior to surgery or longer if instructed by your surgeon. DO NOT take aspirin or aspirin containing products for 5 days before surgery, or longer if instructed by your surgeon. Follow any instructions given to you by Dr. Strauss. Shower with an antibacterial soap such as Dial or Safeguard before coming to the hospital. No makeup, lotion, powder, deodorant or body sprays. No hair products. Remove all jewelry and leave it at home. Wear loose comfortable clothing to go home in. You may brush your teeth morning of surgery. Do not wear contacts day of surgery. No marijuana (THC), smoking or alcohol for 24 hours prior to surgery. Please arrange for a responsible adult to drive you home after your surgery and that there is a responsible adult with you for 24 hours post discharge. If you have specific questions, please call your surgeon. You will receive a call the day before your surgery to verify your arrival time and date. You will be asked to arrive at least two hours prior to your scheduled surgery time. We encourage you to write down any questions you may have for the surgeon, anesthesiologist, or other members of the surgical team and bring it with you the day of surgery. Please bring photo ID and insurance information. DIRECTOR OF HOME HEALTH SERVICES AND PARKING IN THE MAIN DECK ARE FREE DAY OF SURGERY. PARKING IN THE DECK-- AFTER PARKING TAKE THE ELEVATOR TO LEVEL ONE AND TAKE THE BRIDGE TO THE HOSPITAL. GO TO THE RIGHT AND GO AROUND THE CORNER TO THE SAME DAY SURGERY DESK AND CHECK IN THERE. IF GOING IN THE MAIN ENTRANCE-- TURN LEFT AND GO DOWN THE GALVEZ TO THE H ELEVATORS AND TAKE THEM TO ONE, LEFT OFF THE ELEVATOR AND GO AROUND TO THE SAME DAY DESK AND CHECK IN. Normal [facility] Absolute lymphocyte countOrd ered By: Dixon Holliday on 06-01-2025 Lymphocytes Auto (Unsp spec) [#/Vol] 0.92 10*3/uL 0.83-4.51 [facility] Absolute neutrophil countOrd ered By: Dixon Holliday on 06-01-2025 Neutrophils (Bld) [#/Vol] 0.2 10*3/uL Low 2.0-7.7 [facility] Anion gap in Serum or Plasma Ordered By: Dixon Holliday on 06-01-2025 Anion gap [Moles/Vol] 11 mmol/L 5-15 [facility] Automated lymphocyte count a s percentage of total leukocytesOrdered By: Dixon Holliday on 06-01-2025 Lymphocytes/100 WBC Auto (Unsp spec) 60.5 % High 19-41 [facility] BUN/creatinine ratioOrdered By: Dixon Holliday on 06-01-2025 Urea nitrogen/Creatinine [Mass ratio] 27.8 mg/mg High 10-20 [facility] Basophil percentageOrdered B y: Dixon Holliday on 06-01-2025 Basophils/100 WBC (Bld) 0.0 % 0-1 [facility] Bilirubin, totalOrdered By: Dixon Holliday on 06-01-2025 Bilirubin [Mass/Vol] 0.38 mg/dL 0.00-1.30 [facility] Blood manual differential co mment interpretation (narrative result)Ordered By: Dixon Holliday on 06-01-2025 Manual differential comment Nikhil (Bld) [Interp] SCANNED [facility] Comment on above: NEUTROPENIA NOTED Carbon dioxide, total [Moles /volume] in Central venous bloodOrdered By: Dixon Holliday on 06-01-2025 CO2 [Moles/Vol] 22.5 mmol/L 21.0-32.0 [facility] Chloride assayOrdered By: Ananya Holliday on 06-01-2025 Chloride [Moles/Vol] 101 mmol/L 98-108 [facility] Comprehensive Metabolic Prof ilon 06-01-2025 Albumin [Mass/Vol] 3.5 g/dL Normal 3.4-4.8 [facility] Comment on above: Performed By: #### L 500.4050, L100.0100, L504.2610 ####[facility] [address] [place], [address] Albumin/Globulin [Mass ratio] 0.8 {ratio} Low 0.9-2.4 [facility] Comment on above: Performed By: #### L 500.4050, L100.0100, L504.2610 ####[facility] [address] [place], [address] ALK PHOS 65 U/L Normal 35-104 [facility] Comment on above: Performed By: #### L 500.4050, L100.0100, L504.2610 ####[facility] [address] [place], [address] ALT [Catalytic activity/Vol] 11 U/L Normal <=34 [facility] Comment on above: Performed By: #### L 500.4050, L100.0100, L504.2610 ####[facility] [address] [place], [address] AST [Catalytic activity/Vol] 17 U/L Normal <=31 [facility] Comment on above: Performed By: #### L 500.4050, L100.0100, L504.2610 ####[facility] [address] [place], [address] Bilirubin [Mass/Vol] 0.38 mg/dL Normal 0.00-1.30 [facility] Comment on above: Performed By: #### L 500.4050, L100.0100, L504.2610 ####[facility] [address] [place], [address] BUN/CRE 27.8 RATIO High 10-20 [facility] Comment on above: Performed By: #### L 500.4050, L100.0100, L504.2610 ####[facility] [address] [place], [address] Calcium [Mass/Vol] 8.8 mg/dL Normal 7.6-11.0 [facility] Comment on above: Performed By: #### L 500.4050, L100.0100, L504.2610 ####[facility] [address] [place], [address] Chloride [Moles/Vol] 101 mmol/L Normal 98-108 [facility] Comment on above: Performed By: #### L 500.4050, L100.0100, L504.2610 ####[facility] [address] [place], [address] CO2 [Moles/Vol] 22.5 mmol/L Normal 21.0-32.0 [facility] Comment on above: Performed By: #### L 500.4050, L100.0100, L504.2610 ####[facility] [address] [place], [address] Creatinine [Mass/Vol] 0.50 mg/dL Low 0.70-1.20 [facility] Comment on above: Performed By: #### L 500.4050, L100.0100, L504.2610 ####[facility] [address] [place], [address] ECRCL 126.39 ml/min Normal 50-250 [facility] Comment on above: Performed By: #### L 500.4050, L100.0100, L504.2610 ####[facility] [address] [place], [address] GAP 11 Normal 5-15 [facility] Comment on above: Performed By: #### L 500.4050, L100.0100, L504.2610 ####[facility] [address] [place], [address] GFR/1.73 sq M.predicted among non-blacks MDRD (S/P/Bld) [Vol rate/Area] 106 mL/min/{1.73_m2} Normal >60 [facility] Comment on above: Result Comment: mL/m in/1.73m2 CKD-EPI Creatinine Equation (2020) Performed By: #### L 500.4050, L100.0100, L504.2610 ####[facility] [address] [place], [address] Globulin (S) [Mass/Vol] 4.3 g/dL High 2.2-4.2 [facility] Comment on above: Performed By: #### L 500.4050, L100.0100, L504.2610 ####[facility] [address] [place], [address] Glucose [Mass/Vol] 163 mg/dL High 70-99 [facility] Comment on above: Performed By: #### L 500.4050, L100.0100, L504.2610 ####[facility] [address] [place], [address] Potassium [Moles/Vol] 3.6 mmol/L Normal 3.3-5.1 [facility] Comment on above: Performed By: #### L 500.4050, L100.0100, L504.2610 ####[facility] [address] [place], [address] Sodium [Moles/Vol] 135 mmol/L Normal 133-145 [facility] Comment on above: Performed By: #### L 500.4050, L100.0100, L504.2610 ####[facility] [address] [place], [address] T PROT 7.8 g/dL Normal 5.9-8.4 [facility] Comment on above: Performed By: #### L 500.4050, L100.0100, L504.2610 ####[facility] [address] [place], [address] Urea nitrogen [Mass/Vol] 14 mg/dL Normal 4-19 [facility] Comment on above: Performed By: #### L 500.4050, L100.0100, L504.2610 ####[facility] [address] [place], [address] Eosinophil percentageOrdered By: Dixon Holliday on 06-01-2025 Eosinophils/100 WBC (Bld) 0.0 % 0-5 [facility] Erythrocyte distribution wid th ratioOrdered By: Dixon Holliday on 06-01-2025 Erythrocyte distribution width (RBC) [Ratio] 16.8 % High 11.6-14.6 [facility] Erythrocyte distribution wid th standard deviationOrdered By: Dixon Holliday on 06-01-2025 Erythrocyte distribution width (RBC) [Ratio] 49.5 fl High 35.1-43.9 [facility] Glomerular filtration rate ( GFR) estimation/1.73 sq m using serum, plasma, or whole bOrdered By: Dixon Holliday on 06-01-2025 GFR/1.73 sq M.predicted among non-blacks MDRD (S/P/Bld) [Vol rate/Area] 106 mL/min/{1.73_m2} >60 [facility] Comment on above: mL/min/1.73m2 CKD-EP I Creatinine Equation (2020) Hematocrit Auto (Bld) [Volum e fraction]Ordered By: Dixon Holliday on 06-01-2025 Hematocrit (Bld) [Volume fraction] 28.5 % Low 37-47 [facility] Hemoglobin measurementOrdere d By: Dixon Holliday on 06-01-2025 Hemoglobin (Bld) [Mass/Vol] 9.2 g/dL Low 12.0-15.0 [facility] Immature granulocytes/100 WB C Auto (Bld)Ordered By: Dixon Holliday on 06-01-2025 Immature granulocytes/100 WBC (Bld) 0.000 % 0.0-0.9 [facility] Comment on above: IG% - Immature Granu locytes (promyelocytes, myelocytes and metamyelocytes) > 1% indicates that a LEFT SHIFT is Present. LDHon 06-01-2025 LDH 117 U/L Normal 84-246 [facility] Comment on above: Order Comment: 1 Performed By: #### L 500.4050, L100.0100, L504.2610 ####[facility] [address] [place], [address] Laboratory - Chemistry and C hemistry - challengeOrdered By: Dixon Holliday on 06-01-2025 AST [Catalytic activity/Vol] 17 U/L <32 [facility] Lactate dehydrogenase (LDH) measurementOrdered By: Dixon Holliday on 06-01-2025 LDH [Catalytic activity/Vol] 117 U/L 84-246 [facility] MCV (mean corpuscular volume ) determinationOrdered By: Dixon Holliday on 06-01-2025 MCV (RBC) [Entitic vol] 81.2 fL 81-99 [facility] Mean corpuscular hemoglobin (MCH) determinationOrdered By: Dixon Holliday on 06-01-2025 MCH (RBC) [Entitic mass] 26.2 pg Low 27.0-32.0 [facility] Mean corpuscular hemoglobin concentration (MCHC) determinationOrdered By: Dixon Holliday on 06-01-2025 MCHC (RBC) [Mass/Vol] 32.3 g/dL 32-36 [facility] Mean platelet volume determi nationOrdered By: Dixon Holliday on 06-01-2025 Platelet mean volume (Bld) [Entitic vol] 8.4 fL 6.2-12.0 [facility] Monocyte percentageOrdered B y: Dixon Holliday on 06-01-2025 Monocytes/100 WBC (Bld) 28.3 % High 0-10 [facility] Neutrophil percentageOrdered By: Dixon Holliday on 06-01-2025 Neutrophils/100 WBC (Bld) 11.2 % Low 47-70 [facility] Nucleated red blood cell per centageOrdered By: Dixon Holliday on 06-01-2025 Nucleated RBC/100 WBC (Bld) [Ratio] 0 % 0-5 [facility] Oncology Visit Reporton 08-0 Oncology Visit Report [facility] [place] [facility] [address] [place] [address] OFFICE VISIT Date of Service: 06/01/25 1058 MR#: [id number] Acct: [id number] Name: MADELINE JIMENEZ Rep #: [id number] : 1965 From: Dixon Holliday MD Age/Sex: 59/F Location: [facility] Status: Signed HPI Subjective Date of Service 06/01/25 Chief Complaint F/u for Perianal/Vulvar cancer. History of Present Illness 59-year-old old woman presented with a perineal ulcer. Biopsy on 07/02/2023 showed squamous cell carcinoma in situ at [facility]. She was referred to Dr. Strauss. She appeared to have T1b lesion involving the vulva and perineal body. She underwent bilateral groin dissection and vulvar biopsy on 07/29/2023. 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 Lymph nodes right groin 9 was negative, lymph nodes left groin 7 was negative. She was felt to have T1b perineal cancer, N0 M0-Stage IB.. Underwent PET/CT 08/19/2023 which demonstrated hypermetabolic activity in the region of the posterior vulva, posterior raphe-perirectal region, SUV 9.3, measures 34.3 mm, and in the left inguinal region, left anterior pelvic wall, SUV 3.9, maximum axial diameter of the metabolic, morphologic abnormality is 32.1 mm. Started weekly Cisplatin with Radiation on 09/22/2023. Finished C6 weekly Cisplatin on 10/28/2023. Finished Radiation on 11/06/2023. Saw Dr. Strauss, exam showed complete response. Had CT done at [facility] which was negative. She is on observation. Comes for follow up. Feels well. No pain in vulvar area, told by Dr. Strauss that she has L groin nodes so he is going to do a biopsy. . [facility] Medical History Cellulitis Encounter for education Wears glasses Wears dentures Post-menopausal Smoker History of irregular heartbeat Hand amputee Heart murmur Malignant neoplasm of vulva Surgical History Port-A-Cath in place History of lymph node excision Family History Mother Arthritis Hypertension Father Alcohol abuse Hypertension Liver disease Social History Smoking Status: Current some day smoker tobacco type: cigarettes alcohol intake: never substance use type: does not use Intake Vital Signs 01/21/25 08:00 06/01/25 10:59 Height 5 ft 4 in 5 ft 4 in Weight: 82.639 kg BMI 31.2 BP 104/70 Blood Pressure Location Rt brachial Position Sitting Respiration 18 Pulse 91 Pulse Source Monitor Temp 98.2 F Temperature Source Temporal Artery Pulse Oximetry (%) 98 Oxygen Delivery Method room air Intake Accompanied by: Self Is patient in pain?: No Allergies No Known Allergies Allergy (Verified 06/01/25 11:04) Medications ???Medication ???Instructions ???Recorded ???Confirmed ???Type acetaminophen 500 mg tablet 1,000 mg PO Q6H PRN pain 08/04/23 06/01/25 History ibuprofen 600 mg tablet 600 mg PO Q6H PRN pain 08/04/23 History multivitamin 1 tab PO DAILY 08/04/23 06/01/25 H istory ascorbic acid-ascorbate 15 ml PO DAILY 08/26/23 06/01/25 H istory calcium-ascorbate sod 500 mg/15 mL oral liquid (Vitamin C) Central Venous Access Central Venous Access: No Exam Physical Exam Const alert, oriented x3 and no apparent distress Neck supple Resp normal respiratory effort and clear to auscultation bilaterally Cardio regular rate, regular rhythm, S1 normal heart sound, S2 normal heart sound and no murmurs Extremity Extremity Narrative: +amputation mid L forearm. 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 Got weekly Cisplatin and Radiation. Finished on 11/06/2023. Reportedly has L groin nodes so going for biopsy. Comes for follow up. Plan: To continue follow up with Dr. Strauss for biopsy. RTC 52 weeks. (2) Neutropenia: Status: Chronic Qualifiers: Neutropenia type: secondary to cancer chemotherapy Qualified Code(s): D70.1 - Agranulocytosis secondary to cancer chemotherapy; T45.1X5A - Adverse effect of antineoplastic and immunosuppressive drugs, initial encounter Comment: Due to chemotherapy, slow recovery from chemotherapy. ANC 0.2 today. Feels well. Karthikeyan (more content not included)... Normal [facility] Platelet countOrdered By: Ananya Holliday on 06-01-2025 Platelets (Bld) [#/Vol] 132 10*3/uL Low 150-450 [facility] Potassium measurement (mass/ volume)Ordered By: Dixon Holliday on 06-01-2025 Potassium (Unsp spec) [Mass/Vol] 3.6 mmol/L 3.3-5.1 [facility] RBC Auto (Bld) [#/Vol]Ordere d By: Dixon Holliday on 06-01-2025 RBC (Bld) [#/Vol] 3.51 10*6/uL Low 4.2-5.4 [facility] Review by pathologistOrdered By: Dixon Holliday on 06-01-2025 Pathologist review Nikhil (Unsp spec) [Interp] Colleen valladares [facility] Pathologist review Nikhil (Unsp spec) [Interp] Reviewed [facility] Comment on above: Previous reported re sult: Colleen valladares Edited by: OLIVIA on 06/09/25:0902SEE REPORT IN PATIENT'S EMR AMENDED REPORT 06/09/25 0902 PATH REV previously reported as: February Serum creatinine measurement (mass/volume)Ordered By: Dixon Holliday on 06-01-2025 Creatinine [Mass/Vol] 0.50 mg/dL Low 0.70-1.20 [facility] Serum globulin measurementOr dered By: Dixon Holliday on 06-01-2025 Globulin (S) [Mass/Vol] 4.3 g/dL High 2.2-4.2 [facility] Serum glucose measurement (m ass/volume)Ordered By: Dixon Holliday on 06-01-2025 Glucose [Mass/Vol] 163 mg/dL High 70-99 [facility] Serum or plasma alanine bermudez otransferase (ALT) measurementOrdered By: Dixon Holliday on 06-01-2025 ALT [Catalytic activity/Vol] 11 U/L <35 [facility] Serum or plasma albumin josy urement (mass/volume)Ordered By: Dixon Holliday on 06-01-2025 Albumin [Mass/Vol] 3.5 g/dL 3.4-4.8 [facility] Serum or plasma albumin/glob ulin mass ratioOrdered By: Dixon Holliday on 06-01-2025 Albumin/Globulin [Mass ratio] 0.8 {ratio} Low 0.9-2.4 [facility] Serum or plasma alkaline dallin sphatase measurementOrdered By: Dixon Holliday on 06-01-2025 ALP [Catalytic activity/Vol] 65 U/L 35-104 [facility] Serum or plasma calcium josy urement (mass/volume)Ordered By: Dixon Holliday on 06-01-2025 Calcium [Mass/Vol] 8.8 mg/dL 7.6-11.0 [facility] Serum or plasma urea nitroge n measurement (mass/volume)Ordered By: Dixon Holliday on 06-01-2025 Urea nitrogen [Mass/Vol] 14 mg/dL 4-19 [facility] Sodium levelOrdered By: Son Holliday on 06-01-2025 Sodium [Moles/Vol] 135 mmol/L 133-145 [facility] Total proteinOrdered By: Janes Holliday on 06-01-2025 Protein [Mass/Vol] 7.8 g/dL 5.9-8.4 [facility] White blood cell (WBC) count Ordered By: Dixon Holliday on 06-01-2025 WBC (Bld) [#/Vol] 1.5 10*3/uL Low 4.4-11.0 [facility] Comment on above: CRITICAL VALUE REYNOLDS D TO XXBASM53/06/25 1025 Loretta Lema.RESULTS READ BACK BY SAME. 05-19-2025 36 PAT over the phone 06/07/2025 at 10:30 am SX: 06.14.2025 at 7 am arrival at 5 am Instructions given. Normal [facility] 36on 05-18-2025 [address] report. Will plan on left groin node bx Normal [facility] CT PELVIS W/ IV CONTRAST ONL Yon 05-04-2025 CT PELVIS W/ IV CONTRAST ONLY ORIGINAL EXAMINATION: CT OF THE PELVIS WITH CONTRAST05/04/2025 10:55 am TECHNIQUE: CT of the pelvis was performed with the administration of intravenous contrast. Multiplanar reformatted images are provided for review. Automated exposure control, iterative reconstruction, and/or weight based adjustment of the mA/kV was utilized to reduce the radiation dose to as low as reasonably achievable. COMPARISON: 02/04/2024 HISTORY: ORDERING SYSTEM PROVIDED HISTORY: Reason for Exam: MALIGNANT NEOPLASM OF VULVA, UNSP FINDINGS: Recist 1.1: POTENTIAL TARGET TUMOR LESIONS (maximum 5 lesions, maximum 2 per organ, longest dimension in axial plane reported, >10 mm, reproducible lesions): None POTENTIAL TARGET LYMPH NODES (>15 mm short axis, maximum 2): None NONTARGET LESIONS (Definite tumor lesions, lymph nodes 10-14 mm short axis, immeasurable lesions such as lymphangitic involvement, ascites, pleural effusions, etc.): Right external iliac lymph node measures 1 cm (series 2, 33), previously 0.8 cm Posterior left external iliac lymph node measures 1.1 cm (series 2, 34), previously 0.6 cm Anterior external iliac lymph node measures 1.1 cm (series 2, 46), previously measured 0.6 cm Varying degrees of multilevel degenerative changes of the spine. Sacralization of L5 more prominently seen on the right. The partially visualized kidneys grossly enhance symmetrically without hydronephrosis. Grossly normal solid pelvic organs. The urinary bladder is not well distended however the urinary bladder wall appears thickened, this may be secondary to post radiation therapy changes. No GI tract abnormality is visible. Status post appendectomy. No free intraperitoneal fluid or free air visualized. Tiny fat containing umbilical hernia. Significant interval enlargement of minimal to mild enlarged pelvic lymph nodes as described in recist. Status post inguinal/pelvic lymph node resection with associated postsurgical changes. IMPRESSION: Interval enlargement of minimally to mildly enlarged pelvic lymph nodes as described in recist. These may represent hyperplastic/reactive lymph nodes, or possibly neoplasm; attention on follow-up. Urinary bladder wall thickening in the setting of a not well distended urinary bladder; this may reflect post radiation therapy changes versus under distension. I have personally reviewed the images of this examination and agree with the resident's findings and interpretation. Interpreted by: Molina Sanchez MD Preliminary Report By: Herve Burns Electronically signed By Molina Sanchez MD Dictated Date: 05/04/2025 11:27:35 AM Prelim Date: 05/04/2025 1:59:40 PM Sign Date: 05/04/2025 1:59:40 PM Ordering Provider: DONAVAN STRAUSS Interpreted by: Molina Sanchez MD Preliminary Report By: Herve Burns Electronically signed By Molina Sanchez MD Dictated Date: 05/04/2025 11:27:35 AM Prelim Date: 05/04/2025 1:59:40 PM Sign Date: 05/04/2025 1:59:40 PM Ordering Provider: DONAVAN STRAUSS [facility] 36on 04-28-2025 36 Spoke with sarah staton in [place] and patient, and confirmed order has been received and scheduled for patient for 05/05/25 @ 9AM in [place]. Patient aware of appt. [facility] 36on 04-19-2025 36 Spoke with patient regarding denial from insurance for CTAP scan and provider has put in a new order for CT pelvis that has been approved and valid for today to 05/18/[address]. [address] to be done in [facility], which has been faxed [phone]. Patient to call back with confirmed appt. 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 Patient accepted, medical staff services coordinator in room during exam Normal [facility] Progress Note CC: stage I B vulvar cancer HPI: 59 y.o. 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 She was treated with bilateral groin dissection which was negative followed by neoadjuvant chemoradiotherapy with weekly cisplat. Pretherapy PET scan showed no evidence of distant metastasis. Patient received 5000 cGy to the vulva with boost to the gross disease of 6400 cGy which ended on November 06, 2023. Exam after radiation therapy showed no evidence of gross disease. PET scan was not allowed by her insurance company. Underwent CT scan of the abdomen and pelvis in January 2024 which did show a stable right adrenal adenoma but no other disease noted. The adrenal adenoma has been noted on MRI in July 2023 measuring 3.7 x 3.3 cm. Patient is now about 18 months status post completion of radiotherapy. Has been noticing a vaginal drainage but denies any pruritus or burning. Denies any adenopathy, vulvar pain, abdominal or pelvic pain Medical History[1] Surgical History[2] Social History[3] Current Medications[4] Review of Systems Genitourinary: Positive for vaginal discharge. Negative for pelvic pain and vaginal bleeding. Hematological: Negative for adenopathy. Patient has no known allergies. There were no vitals taken for this visit. Physical Exam Vitals and nursing note reviewed. Exam conducted with a skatesman present. Constitutional: Appearance: Normal appearance. Abdominal: General: Abdomen is flat. Palpations: Abdomen is soft. Genitourinary: Labia: Right: Lesion present. Left: Lesion present. Urethra: No urethral lesion. Vagina: Normal. Lymphadenopathy: Upper Body: Right upper body: No supraclavicular adenopathy. Left upper body: No supraclavicular adenopathy. Lower Body: No right inguinal adenopathy. Left inguinal adenopathy present. Comments: 2 enlarged lymph nodes noted in the left groin area Neurological: Mental Status: She is alert. Psychiatric: Mood and Affect: Mood normal. Assessment: New onset left groin adenopathy as well as new ulcerative area in the upper vulva. Plan: Recommend PET scan, if PET scan is not approved by insurance company will do CT scan of possible exam under anesthesia with biopsies of the ulcerative area. 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 [3] Social History Socioeconomic History Marital status: Unknown Tobacco Use Smoking status: Some Days Current packs/day: 0.25 Average packs/day: 0.3 packs/day for 30.0 years (7.5 ttl pk-yrs) Types: Cigarettes Smokeless tobacco: Never Vaping Use Vaping status: Never Used Substance and Sexual Activity Alcohol use: Never Drug use: Never [4] Current Outpatient Medications Medication Sig Dispense Refill acetaminophen (Tylenol) 500 MG tablet Take 2 tablets (1,000 mg) by mouth in the morning and 2 tablets (1,000 mg) at noon and 2 tablets (1,000 mg) in the evening and 2 tablets (1,000 mg) before bedtime. 30 tablet 0 apixaban (Eliquis) 2.5 MG tablet Take 1 tablet (2.5 mg) by mouth 2 times daily for 28 days. 56 tablet 0 ibuprofen 600 MG tablet Take 1 tablet (600 mg) by mouth in the morning and 1 tablet (600 mg) at noon and 1 tablet (600 mg) in the evening and 1 tablet (600 mg) before bedtime. 60 tablet 0 MULTIPLE VITAMIN PO Take by mouth. Multiple Vitamins-Minerals (VITAMIN C EFFERVESCENT BLEND PO) Take by mouth daily. No current facility-administered medications for this visit. Normal [facility] .Urinalysis Microscopic (AO) on 02-09-2025 UA RBC 0-5 Abnormal None Seen [facility] Comment on above: Performed By: #### U A, UAMICAO #### [address] [address] UA Squam Epithelial 5-10 Abnormal None Seen [facility] Comment on above: Performed By: #### U A, UAMICAO #### [address] [address] UA WBC 0-5 Abnormal None Seen [facility] Comment on above: Performed By: #### U A, UAMICAO #### [address] [address] UAon 02-09-2025 Color (U) Yellow Normal [facility] Comment on above: Performed By: #### U A, UAMICAO #### [address] [address] Glucose (U) [Mass/Vol] Negative Normal Negative [facility] Comment on above: Performed By: #### U A, UAMICAO #### [address] [address] Ketones Ql (U) Negative Normal Negative [facility] Comment on above: Performed By: #### U A, UAMICAO #### [address] [address] UA Appear Clear Normal Clear [facility] Comment on above: Performed By: #### U A, UAMICAO #### [address] [address] UA Blood Small Abnormal Negative [facility] Comment on above: Performed By: #### U A, UAMICAO #### [address] [address] UA Leuk Est Negative Normal Negative [facility] Comment on above: Performed By: #### U A, UAMICAO #### [address] [address] UA Nitrite Negative Normal Negative [facility] Comment on above: Performed By: #### U A, UAMICAO #### [address] [address] UA pH 7.5 Normal 5.0 - 8.0 [facility] Comment on above: Performed By: #### U A, UAMICAO #### [place] [address] UA Protein 30 mg/dL Normal Negative [facility] Comment on above: Performed By: #### U A, UAMICAO #### [place] [id number] UA Spec Grav 1.015 Normal 1.015-1.025 [facility] Comment on above: Performed By: #### U A, UAMICAO #### [place] [address] UA Specimen Type Clean Catch Normal [facility] Comment on above: Performed By: #### U A, UAMICAO #### [place] [address] UA Urobilinogen 0.2 E.U./dL Normal 0.2-1.0 [facility] Comment on above: Performed By: #### U A, UAMICAO #### [place] [address] Urobilinogen (U) [Mass/Vol] Negative Normal Negative [facility] Comment on above: Performed By: #### U A, UAMICAO #### [place] [id number] Radiation Oncology Visiton 0 01-21-2025 Radiation Oncology Visit [facility] [address] [place] [address] OFFICE VISIT Date of Service: 01/21/25 0759 MR#: [id number] Acct: [id number] Name: MADELINE JIMENEZ Rep #: [id number] : 1965 From: Matthias Brock DO Age/Sex: 59/F [place] [facility] [place] Signed Intake Vital Signs 07/23/24 08:02 01/21/25 08:00 Height 5 ft 4 in 5 ft 4 in Weight: 215 lb 8 oz 192 lb 9 oz BMI 37.0 33.0 BP 116/78 126/78 H Blood Pressure Location Rt brachial Rt brachial Position Sitting Sitting Respiration 18 18 Pulse 100 102 H Pulse Source Monitor Monitor Temp 96.8 F L 96.9 F L Temperature Source Temporal Artery Temporal Artery Pulse Oximetry (%) 97 99 Oxygen Delivery Method room air room air Intake Visit Reasons: 6 MONTH F/U VULVAR Is patient in pain?: No Allergies No Known Allergies Allergy (Verified 01/21/25 08:06) Medications ???Medication ???Instructions ???Recorded ???Confirmed ???Type acetaminophen 500 mg tablet 1,000 mg PO Q6H PRN pain 08/04/23 01/21/25 History ibuprofen 600 mg tablet 600 mg PO Q6H PRN pain 08/04/23 History multivitamin 1 tab PO DAILY 08/04/23 01/21/25 H istory ascorbic acid-ascorbate 15 ml PO DAILY 08/26/23 01/21/25 H istory calcium-ascorbate sod 500 mg/15 mL oral liquid (Vitamin C) PFSH PFSH Medical History Cellulitis Encounter for education Wears glasses Wears dentures Post-menopausal Smoker History of irregular heartbeat Hand amputee Heart murmur Malignant neoplasm of vulva Home Medications ???Medication ???Instructions ???Recorded ???Last Taken ???Type acetaminophen 500 mg tablet 1,000 mg PO Q6H PRN pain 08/04/23 Unknown History ibuprofen 600 mg tablet 600 mg PO Q6H PRN pain 08/04/23 Un known History multivitamin 1 tab PO DAILY 08/04/23 Unknown Hi story ascorbic acid-ascorbate 15 ml PO DAILY 08/26/23 09/16/23 H istory calcium-ascorbate sod 500 mg/15 mL oral liquid (Vitamin C) Allergy/AdvReac Type Severity Reaction Status Date / Time No Known Allergies Allergy Verified 01/21/25 08:06 Family History Mother Arthritis Hypertension Father Alcohol abuse Hypertension Liver disease Surgical History Port-A-Cath in place History of lymph node excision Social History Smoking Status: Current some day smoker tobacco type: cigarettes alcohol intake: never substance use type: does not use Diagnosis: Madeline Jimenez is a 59 year old female diagnosed with at least clinical stage IB-II lymph node negative high grade p16 positive SCC of the perineum/vulva s/p evaluation by DRIVER OPERATOR onc (07/14/2023), MRI abdomen with and without contrast (07/29/2023), and bilateral groin dissection and vulvar biopsy (07/29/2023). From 09/22/2023 ??? 11/06/2023 she received chemoradiation for vulvar cancer. History of Present Illness: 07/23/2023: CT abdomen/pelvis with contrast was performed.??? This demonstrated a right adrenal mass measuring about 3.4 x 4.0 cm diameter.??? No acute process is demonstrated in the abdomen or pelvis. 07/14/2023: Patient was evaluated by [facility] DRIVER OPERATOR oncology.??? Reviewed biopsy result of the perineal lesion which was at least squamous cell carcinoma in situ.??? Recommended PET scan and then likely chemoradiation given that is likely unable to be resected without compromise of the anal sphincter.??? There is no suspicious adenopathy on exam.??? On exam there is noted to be a butterfly shaped lesion of invasive vulvar cancer measuring about 6 x 5 cm which encroaches upon the anus. 07/29/2023: MRI abdomen with and without contrast was performed.??? This demonstrated a right adrenal lesion measuring 3.7 x 3.3 cm.??? This is fairly homogeneous and is predominantly isointense on T1 and T2.??? This lesion has smooth margins.??? This is compatible with hemorrhagic or proteinaceous cyst.??? No other abnormalities are noted. 07/29/2023: Patient completed bilateral groin dissection and vulvar biopsy.??? Vulvar punch biopsy demonstrated inflamed granulation tissue and underlying scarlike fibrosis.??? Perineal body punch biopsy demonstrated invasive poorly differentiated squamous cell carcinoma with a tumor thickness of 3.7 mm.??? This is p16 positive.??? Lymph node excision demonstrated 0/9 lymph nodes with metastatic disease in the right groin and 0/7 lymph nodes in the left groin. From 09/22/2023 ??? 11/06/2023: received definitive radiation therapy consisting of 5000 cGy delivered to the entire vulva and perineum as well as areas at risk nearby followed by a cone-down boost to a total dose of 6400 cGy delivered to the gross d (more content not included)... 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 She was treated with bilateral groin dissection which was negative followed by neoadjuvant chemoradiotherapy with weekly cisplat. Pretherapy PET scan showed no evidence of distant metastasis. Patient received 5000 cGy to the vulva with boost to the gross disease of 6400 cGy which ended on November 06, 2023. Exam after radiation therapy showed no evidence of gross disease. PET scan was not allowed by her insurance company. Underwent CT scan of the abdomen and pelvis in January 2024 which did show a stable right adrenal adenoma but no other disease noted. The adrenal adenoma has been noted on MRI in July 2023 measuring 3.7 x 3.3 cm. Patient is now about 11 months status post completion of radiotherapy. She is doing well. Denies any signs and symptoms of recurrent disease. Denies any adenopathy, vulvar lesions. Recently was treated for an infected boil of the right buttocks cheek. She states this is getting better. 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 30 tablet 0 apixaban (Eliquis) 2.5 MG tablet Take 1 tablet (2.5 mg) by mouth 2 times daily for 28 days. 56 tablet 0 ibuprofen 600 MG tablet Take 1 tablet (600 mg) by mouth in the morning and 1 tablet (600 mg) at noon and 1 tablet (600 mg) in the evening and 1 tablet (600 mg) before bedtime. 60 tablet 0 MULTIPLE VITAMIN PO Take by mouth. Multiple Vitamins-Minerals (VITAMIN C EFFERVESCENT BLEND PO) Take by mouth daily. No current facility-administered medications for this visit. Review of Systems Constitutional: Negative for unexpected weight change. Gastrointestinal: Negative for abdominal pain. Genitourinary: Negative for pelvic pain and vaginal bleeding. Denies any vulvodynia Hematological: Negative for adenopathy. Patient has no known allergies. There were no vitals taken for this visit. Physical Exam Vitals and nursing note reviewed. Exam conducted with a skatesman present. Constitutional: Appearance: Normal appearance. Abdominal: General: Abdomen is flat. Palpations: Abdomen is soft. Genitourinary: Labia: Right: No lesion. Left: No lesion. Urethra: No urethral lesion. Vagina: Normal. Comments: Radiation changes noted on the vulva but there is no evidence of recurrent disease noted. There is a resolving boil on the right buttock cheek, no evidence of subdermal lymphatic spread of squamous cell cancer Lymphadenopathy: Upper Body: Right upper body: No supraclavicular adenopathy. Left upper body: No supraclavicular adenopathy. Lower Body: No right inguinal adenopathy. No left inguinal adenopathy. Comments: Well-healed bilateral groin incisions Neurological: Mental Status: She is alert. Psychiatric: Mood and Affect: Mood normal. Behavior: Behavior normal. Assessment: No evidence of recurrent disease Plan: To see radiation oncology in 3 months and I will see her back in 6 months. Normal [facility] Radiation Oncology Visiton 0 07-23-2024 Radiation Oncology Visit [facility] [place] [address] OFFICE VISIT Date of Service: 07/23/24 0800 MR#: [id number] Acct: [id number] Name: MADELINE JIMENEZ Rep #: [id number] : 1965 From: Matthias Brock DO Age/Sex: 59/F [place] [facility] [place]: Signed Intake Vital Signs 01/23/24 08:30 06/02/24 11:16 07/23/24 08:02 Height 5 ft 4 in 5 ft 4 in 5 ft 4 in Weight: 215 lb 8 oz BMI 37.0 BP 116/78 Blood Pressure Location Rt brachial Position Sitting Respiration 18 Pulse 100 Pulse Source Monitor Temp 96.8 F L Temperature Source Temporal Artery Pulse Oximetry (%) 97 Oxygen Delivery Method room air Intake Visit Reasons: 6 month follow up- vulvar Is patient in pain?: No Allergies No Known Allergies Allergy (Verified 07/23/24 08:04) Medications ???Medication ???Instructions ???Recorded ???Confirmed ???Type acetaminophen 500 mg tablet 1,000 mg PO Q6H PRN pain 08/04/23 07/23/24 History ibuprofen 600 mg tablet 600 mg PO Q6H PRN pain 08/04/23 07/23/24 History multivitamin 1 tab PO DAILY 08/04/23 07/23/24 History ascorbic acid-ascorbate 15 ml PO DAILY 08/26/23 07/23/24 History calcium-ascorbate sod 500 mg/15 mL oral liquid (Vitamin C) PFSH PFSH Medical History Encounter for education Wears glasses Wears dentures Post-menopausal Smoker History of irregular heartbeat Hand amputee Heart murmur Malignant neoplasm of vulva Home Medications ???Medication ???Instructions ???Recorded ???Last Taken ???Type acetaminophen 500 mg tablet 1,000 mg PO Q6H PRN pain 08/04/23 Unknown History ibuprofen 600 mg tablet 600 mg PO Q6H PRN pain 08/04/23 Unknown History multivitamin 1 tab PO DAILY 08/04/23 Unknown History ascorbic acid-ascorbate 15 ml PO DAILY 08/26/23 09/16/23 History calcium-ascorbate sod 500 mg/15 mL oral liquid (Vitamin C) Allergy/AdvReac Type Severity Reaction Status Date / Time No Known Allergies Allergy Verified 07/23/24 08:04 Family History Mother Arthritis Hypertension Father Alcohol abuse Hypertension Liver disease Surgical History Port-A-Cath in place History of lymph node excision Social History Smoking Status: Current some day smoker tobacco type: cigarettes alcohol intake: never substance use type: does not use Diagnosis: Madeline Jimenez is a 59 year old female diagnosed with at least clinical stage IB-II lymph node negative high grade p16 positive SCC of the perineum/vulva s/p evaluation by DRIVER OPERATOR onc (07/14/2023), MRI abdomen with and without contrast (07/29/2023), and bilateral groin dissection and vulvar biopsy (07/29/2023). From 09/22/2023 ??? 11/06/2023 she received chemoradiation for vulvar cancer. History of Present Illness: 07/23/2023: CT abdomen/pelvis with contrast was performed.??? This demonstrated a right adrenal mass measuring about 3.4 x 4.0 cm diameter.??? No acute process is demonstrated in the abdomen or pelvis. 07/14/2023: Patient was evaluated by [facility] DRIVER OPERATOR oncology.??? Reviewed biopsy result of the perineal lesion which was at least squamous cell carcinoma in situ.??? Recommended PET scan and then likely chemoradiation given that is likely unable to be resected without compromise of the anal sphincter.??? There is no suspicious adenopathy on exam.??? On exam there is noted to be a butterfly shaped lesion of invasive vulvar cancer measuring about 6 x 5 cm which encroaches upon the anus. 07/29/2023: MRI abdomen with and without contrast was performed.??? This demonstrated a right adrenal lesion measuring 3.7 x 3.3 cm.??? This is fairly homogeneous and is predominantly isointense on T1 and T2.??? This lesion has smooth margins.??? This is compatible with hemorrhagic or proteinaceous cyst.??? No other abnormalities are noted. 07/29/2023: Patient completed bilateral groin dissection and vulvar biopsy.??? Vulvar punch biopsy demonstrated inflamed granulation tissue and underlying scarlike fibrosis.??? Perineal body punch biopsy demonstrated invasive poorly differentiated squamous cell carcinoma with a tumor thickness of 3.7 mm.??? This is p16 positive.??? Lymph node excision demonstrated 0/9 lymph nodes with metastatic disease in the right groin and 0/7 lymph nodes in the left groin. From 09/22/2023 ??? 11/06/2023: received definitive radiation therapy consisting of 5000 cGy delivered to the entire vulva and perineum as well as areas at risk nearby followed by a cone-down boost to a total dose of 6400 cGy delivered to the gross disease plus margin completed in 32 fractions. She was treated with a VMAT plan using 6 MV photons. (more content not included)... Normal [facility] MA MAMMOGRAM SCREENING BILAT ERAL W/TOMOon 06-21-2024 MA MAMMOGRAM SCREENING BILATERAL W/RADHA ORIGINAL FROM: [address] [address] PROCEDURE FOR: MADELINE JIMENEZ [address] [address] Home: PID#: [id number] Exam#: [id number] : 1965 Age: 58 TO: NOHEMY GROVER APRN [facility] [address] [place], [place] [address] Fax: NO FAX EXAMINATION: SCREENING DIGITAL BILATERAL MAMMOGRAM WITH TOMOSYNTHESIS, 06/10/2024 7:14 am TECHNIQUE: Screening mammography of the bilateral breasts was performed with tomosynthesis. 2D standard and 3D tomosynthesis combination imaging performed through both breasts in the MLO and CC projection. Computer aided detection was utilized in the interpretation of this exam. COMPARISON: 01/12/2016 and 11/24/2014 HISTORY: Breast cancer screening. FINDINGS: BREAST DENSITY: The breasts are almost entirely fatty. There are calcifications within the right breast. There are bilateral intramammary lymph nodes. There are no significant masses or calcifications. No significant interval change. IMPRESSION: No mammographic evidence of malignancy. Continued screening with annual mammograms is recommended. [facility] risk calculations, generated with the history provided, report this patient's 10 year risk and lifetime risk for developing breast cancer at 3.1% and 7.8%, respectively. Based on this assessment tool, if the patient's calculated lifetime risk is below 20%, then the patient is considered at average risk for developing breast cancer. If the patient's calculated lifetime risk is at or above 20%, then the patient is considered high risk for developing breast cancer and may be a candidate for supplemental breast MRI screening in addition to annual mammographic screening per the [employer]. I have personally reviewed the images of this examination and agree with the resident's findings and interpretation. BIRADS: BI-RADS: 2: Benign RECALL: 1 year screening RECALL TYPE: mammo LETTER SENT: Normal BI-RADS 1 and 2 Interpreted by: Che Henson MD Preliminary Report By: Georgi Miramontes Electronically signed By Che Henson MD Dictated Date: 06/10/2024 1:48:25 PM Prelim Date: 06/21/2024 6:49:35 AM Sign Date: 06/21/2024 6:49:35 AM Ordering Provider: NOHEMY GROVER Payroll Tax Specialist: DEEDEE MCDERMOTT RT(R)(M)(CT) DIRECTOR OF GRANTS letter sent: Normal BI-RADS 1 and 2 Mammogram BI-RADS: 2 Benign Normal [facility] ([place]) Erythrocyte morphology asses smentOrdered By: Dixon Holliday on 06-02-2024 RBC morphology finding Nom (Bld) NORM C+C NORMAL NORM C&C [facility] Erythrocyte sedimentation ra teOrdered By: Dixon Holliday on 06-02-2024 ESR (Bld) [Velocity] 38 mm/h High 0-30 [facility] Ferritin measurementOrdered By: Dixon Holliday on 06-02-2024 Ferritin [Mass/Vol] 209 ng/mL 8-252 [facility] Iron measurement (mass/mass) Ordered By: Dixon Holliday on 06-02-2024 Iron (Unsp spec) [Mass/Mass] 56 ug/dL 50-170 [facility] Magnesium measurementOrdered By: Dixon Holliday on 06-02-2024 Magnesium [Mass/Vol] 2.3 mg/dL 1.6-2.6 [facility] Platelet estimateOrdered By: Dixon Holliday on 06-02-2024 Platelets LM Ql (Bld) ADEQUATE ADEQ [facility] Reticulocyte hemoglobin equi valent (RET-He) measurementOrdered By: Dixon Holliday on 06-02-2024 Hemoglobin (Reticulocytes) [Entitic mass] 32.4 pg 30-35 [facility] Reticulocytes Auto (Bld) [#/ Vol]Ordered By: Dixon Holliday on 06-02-2024 Reticulocytes/100 RBC (Bld) 1.89 % High 0.5-1.5 [facility] Serum or plasma iron saturat ion measurement (mass fraction)Ordered By: Dixon Holliday on 06-02-2024 Iron saturation [Mass fraction] 17.1 % 15.0-55.0 [facility] Vitamin B12 measurementOrder ed By: Dixon Holliday on 03-02-2024 Cobalamin (Vitamin B12) [Mass/Vol] 499 pg/mL 211-[address] [facility] [address] ABDOMEN/PELVIS W/CONTRAST on 02-04-2024 CT ABDOMEN/PELVIS W/CONTRAST ORIGINAL EXAMINATION: CT OF THE ABDOMEN AND PELVIS WITH CONTRAST02/04/2024 10:49 am TECHNIQUE: CT of the abdomen and pelvis was performed with the administration of intravenous contrast. Multiplanar reformatted images are provided for review. Automated exposure control, iterative reconstruction, and/or weight based adjustment of the mA/kV was utilized to reduce the radiation dose to as low as reasonably achievable. COMPARISON: CT abdomen pelvis 07/23/2023 HISTORY: ORDERING SYSTEM PROVIDED HISTORY: Reason for Exam: Malignant neoplasm of vulva, unspecified FINDINGS: Bones: No acute osseous abnormalities. Degenerative changes of the spine. Mild retrolisthesis at L1-L2. Lower Thorax: 0.5 cm pleural based lateral right lower lobe nodule, grossly similar to prior. There is an additional 0.7 cm pleural based posterior right lower lobe nodule, which also appears grossly similar to prior. Bibasilar atelectasis. There is no visible pleural or pericardial effusion. The heart is normal in size. Solid Organs: The liver, spleen, gallbladder, pancreas, and left adrenal gland are unremarkable. 3.8 cm right adrenal nodule with an HU of 49. This appears grossly similar to prior. Collecting System: The kidneys enhance symmetrically. No evidence of hydronephrosis or urolithiasis. Pelvis: The bladder is incompletely distended. No adnexal masses. Pelvic phleboliths. GI Tract: The stomach and small bowel are unremarkable. The colon is normal. The appendix is surgically absent. Surgical clips in the right lower quadrant. Vasculature: The vena cava and portal system is normal. Mildly atherosclerotic nonaneurysmal aorta. Lymph Nodes, Mesentery, and Peritoneum: No pathologically enlarged lymph nodes are identified. No free intraperitoneal fluid or gas is identified. Superficial Soft Tissues: Small fat containing umbilical hernia. IMPRESSION: No new evidence of metastatic disease. Stable 3.8 cm right adrenal nodule with an HU 49. This can be further evaluated with adrenal CT or MR. Stable right lower lobe pulmonary nodules. I have personally reviewed the images of this examination and agree with the resident's findings and interpretation. Interpreted by: Kosta Bautista MD Preliminary Report By: Eliseo Walter Electronically signed By Kosta Bautista MD Dictated Date: 02/04/2024 1:24:13 PM Prelim Date: 02/04/2024 2:23:05 PM Sign Date: 02/04/2024 2:23:05 PM Ordering Provider: NOREEN Wu [facility] ([place]) Laboratory - Hematology and Cell countsOrdered By: Dixon Holliday on 11-25-2023 Anisocytosis Ql (Bld) 2+ [facility] Macrocytes detectionOrdered By: Dixon Holliday on 11-25-2023 Macrocytes Ql (Bld) 1+ [facility] .Auto Diffon 08-31-2023 Basophil, Absolute 0.0 10 3/mcL Normal 0.0-0.2 [facility] ([place]) Comment on above: Performed By: #### C BC, CRP, GFR, ESR, LIPID, CMP, DIFF, MORPH #### [address] [address] #### CBCPR #### [address] [address] Basophils/100 WBC (Bld) 0.2 % Normal 0.0-2.5 A [facility] ([place]) Comment on above: Performed By: #### C BC, CRP, GFR, ESR, LIPID, CMP, DIFF, MORPH #### [address] [address] #### CBCPR #### [address] [address] Eosinophil, Absolute 0.0 10 3/mcL Normal 0.0-0.4 [facility] ([place]) Comment on above: Performed By: #### C BC, CRP, GFR, ESR, LIPID, CMP, DIFF, MORPH #### [place] [address] #### CBCPR #### [address] [address] Eosinophils/100 WBC (Bld) 0.2 % Normal 0.0-7.0 [facility] ([place]) Comment on above: Performed By: #### C BC, CRP, GFR, ESR, LIPID, CMP, DIFF, MORPH #### [address] [address] #### CBCPR #### [address] [address] Lymphocyte, Absolute 1.1 10 3/mcL Normal 0.8-3.9 [facility] ([place]) Comment on above: Performed By: #### C BC, CRP, GFR, ESR, LIPID, CMP, DIFF, MORPH #### [place] [address] #### CBCPR #### [address] [address] Lymphocytes/100 WBC (Bld) 14.9 % Normal 10.0-50.0 [facility] ([place]) Comment on above: Performed By: #### C BC, CRP, GFR, ESR, LIPID, CMP, DIFF, MORPH #### [address] [address] #### CBCPR #### [address] [address] Monocyte, Absolute 0.6 10 3/mcL Normal 0.2-1.0 [facility] ([place]) Comment on above: Performed By: #### C BC, CRP, GFR, ESR, LIPID, CMP, DIFF, MORPH #### [address] [address] #### CBCPR #### [address] [address] Monocytes/100 WBC (Bld) 9.0 % Normal 1.7-13.0 A [facility] ([place]) Comment on above: Performed By: #### C BC, CRP, GFR, ESR, LIPID, CMP, DIFF, MORPH #### [address] [address] #### CBCPR #### [address] [address] Neutrophils/100 WBC (Bld) 75.7 % Normal 37.0-80.0 [facility] ([place]) Comment on above: Performed By: #### C BC, CRP, GFR, ESR, LIPID, CMP, DIFF, MORPH #### [address] [address] #### CBCPR #### [address] [address] [address] .GFRon 08-31-2023 GFR 91 ml/min/1.73sqm Normal [facility] ([place]) Comment on above: Result Comment: GFR Population mean for , Non- Americans Ages 20-29 = 116 mL/min/1.73 sq.m. Ages 30-39 = 107 mL/min/1.73 sq.m. Ages 40-49 = 99 mL/min/1.73 sq.m. Ages 50-59 = 93 mL/min/1.73 sq.m. Ages 60-69 = 85 mL/min/1.73 sq.m. Ages 70+ = 75 mL/min/1.73 sq.m. Chronic Kidney Disease: Less than 60 mL/min/1.73 square meters End Stage Renal Disease: Less than 15 mL/min/1.73 square meters Performed By: #### C BC, CRP, GFR, ESR, LIPID, CMP, DIFF, MORPH #### [place] [id number] [place], [place] [address] #### CBCPR #### [address] [address] GFR Non- 75 ml/min/1.73sqm Normal [facility] ([place]) Comment on above: Result Comment: GFR Population mean for , Non- Americans Ages 20-29 = 116 mL/min/1.73 sq.m. Ages 30-39 = 107 mL/min/1.73 sq.m. Ages 40-49 = 99 mL/min/1.73 sq.m. Ages 50-59 = 93 mL/min/1.73 sq.m. Ages 60-69 = 85 mL/min/1.73 sq.m. Ages 70+ = 75 mL/min/1.73 sq.m. Chronic Kidney Disease: Less than 60 mL/min/1.73 square meters End Stage Renal Disease: Less than 15 mL/min/1.73 square meters Performed By: #### C BC, CRP, GFR, ESR, LIPID, CMP, DIFF, MORPH #### [address] [address] #### CBCPR #### [address] [address] .MDWon 08-31-2023 Monocyte Distribution Width 25.47 High 0.00-20.00 [facility] ([place]) Comment on above: Result Comment: For adults in ED, MDW>20.0 may be associated with a higher risk of sepsis during the first 12hrs of hospital admission Performed By: #### C BC, CRP, GFR, ESR, LIPID, CMP, DIFF, MORPH #### [address] [address] #### CBCPR #### [address] [address] .NEUABSon 08-31-2023 Neutrophil, Absolute 5.4 10 3/mcL Normal 2.9-6.2 [facility] ([place]) Comment on above: Performed By: #### C BC, CRP, GFR, ESR, LIPID, CMP, DIFF, MORPH #### [address] [address] #### CBCPR #### [address] [address] BMPon 08-31-2023 BUN/Creatinine Ratio 17 ratio Normal 7-27 [facility] ([place]) Comment on above: Performed By: #### C BC, CRP, GFR, ESR, LIPID, CMP, DIFF, MORPH #### [address] [address] #### CBCPR #### [address] [address] Calcium [Mass/Vol] 8.6 mg/dL Normal 8.4-10.2 [facility] ([place]) Comment on above: Performed By: #### C BC, CRP, GFR, ESR, LIPID, CMP, DIFF, MORPH #### [address] [address] #### CBCPR #### [address] [address] Chloride [Moles/Vol] 96 mmol/L Low 98-107 [facility] ([place]) Comment on above: Performed By: #### C BC, CRP, GFR, ESR, LIPID, CMP, DIFF, MORPH #### [address] [address] #### CBCPR #### [address] [address] CO2 [Moles/Vol] 24 mmol/L Normal 23-31 [facility] ([place]) Comment on above: Performed By: #### C BC, CRP, GFR, ESR, LIPID, CMP, DIFF, MORPH #### [address] [address] #### CBCPR #### [address] [address] Creatinine [Mass/Vol] 0.78 mg/dL Normal 0.55-1.02 [facility] ([place]) Comment on above: Performed By: #### C BC, CRP, GFR, ESR, LIPID, CMP, DIFF, MORPH #### [address] [address] #### CBCPR #### [address] [address] Electrolyte Balance 11.0 mEq/L Normal 4.0-15.0 Replaced by [facility] ([place]) Comment on above: Performed By: #### C BC, CRP, GFR, ESR, LIPID, CMP, DIFF, MORPH #### [place] [address] #### CBCPR #### [place] [address] Glucose [Mass/Vol] 160 mg/dL High 80-115 [facility] ([place]) Comment on above: Performed By: #### C BC, CRP, GFR, ESR, LIPID, CMP, DIFF, MORPH #### [place] [address] #### CBCPR #### [address] [address] Potassium [Moles/Vol] 3.3 mmol/L Low 3.5-5.1 [facility] ([place]) Comment on above: Performed By: #### C BC, CRP, GFR, ESR, LIPID, CMP, DIFF, MORPH #### [place] [address] #### CBCPR #### [address] [address] Sodium [Moles/Vol] 131 mmol/L Low 136-145 [facility] ([place]) Comment on above: Performed By: #### C BC, CRP, GFR, ESR, LIPID, CMP, DIFF, MORPH #### [address] [address] #### CBCPR #### [place] [address] Urea nitrogen [Mass/Vol] 13 mg/dL Normal 7-18 [facility] ([place]) Comment on above: Performed By: #### C BC, CRP, GFR, ESR, LIPID, CMP, DIFF, MORPH #### [address] [address] #### CBCPR #### [address] [address] CBCon 08-31-2023 Erythrocyte distribution width (RBC) [Ratio] 15.0 % High 11.5-14.5 [facility] ([place]) Comment on above: Performed By: #### C BC, CRP, GFR, ESR, LIPID, CMP, DIFF, MORPH #### [address] [address] #### CBCPR #### [address] [address] Hematocrit (Bld) [Volume fraction] 36.1 % Low 37.0-47.0 [facility] ([place]) Comment on above: Performed By: #### C BC, CRP, GFR, ESR, LIPID, CMP, DIFF, MORPH #### [address] [address] #### CBCPR #### [address] [address] Hgb 12.3 G/dL Normal 12.0-16.0 [facility] ([place]) Comment on above: Performed By: #### C BC, CRP, GFR, ESR, LIPID, CMP, DIFF, MORPH #### [address] [address] #### CBCPR #### [address] [address] MCH (RBC) [Entitic mass] 28.2 pg Normal 27.0-31.2 [facility] ([place]) Comment on above: Performed By: #### C BC, CRP, GFR, ESR, LIPID, CMP, DIFF, MORPH #### [address] [address] #### CBCPR #### [address] [address] MCHC 34.0 G/dL Normal 33.0-37.0 [facility] ([place]) Comment on above: Performed By: #### C BC, CRP, GFR, ESR, LIPID, CMP, DIFF, MORPH #### [address] [address] #### CBCPR #### [address] [address] MCV (RBC) [Entitic vol] 83.0 fL Normal 80.0-94.0 [facility] ([place]) Comment on above: Performed By: #### C BC, CRP, GFR, ESR, LIPID, CMP, DIFF, MORPH #### [place] [address] #### CBCPR #### [place] [address] Platelet 168 10 3/mcL Normal 130-400 [facility] ([place]) Comment on above: Performed By: #### C BC, CRP, GFR, ESR, LIPID, CMP, DIFF, MORPH #### [place] [address] #### CBCPR #### [place] [address] Platelet mean volume (Bld) [Entitic vol] 7.2 fL Low 7.4-10.4 [facility] ([place]) Comment on above: Performed By: #### C BC, CRP, GFR, ESR, LIPID, CMP, DIFF, MORPH #### [place] [address] #### CBCPR #### [place] [address] RBC 4.35 10 6/mcL Normal 4.20-5.40 [facility] ([place]) Comment on above: Performed By: #### C BC, CRP, GFR, ESR, LIPID, CMP, DIFF, MORPH #### [place] [address] #### CBCPR #### [place] [address] WBC 7.1 10 3/mcL Normal 4.6-10.8 [facility] ([place]) Comment on above: Performed By: #### C BC, CRP, GFR, ESR, LIPID, CMP, DIFF, MORPH #### [facility] [address] [place], [place] [address] #### CBCPR #### [facility] [address] [place] [address] LABORATORYOrdered By: SYSTEM SYSTEM on 08-31-2023 Basophil, Absolute 0.0 103/mcL Invalid Interpretation Code 0.0 - 0.2 10^3/mcL AO Workflow SS Basophils/100 WBC (Bld) 0.2 % Invalid Interpretation Code 0.0 - 2.5 % AO Workflow SS Calcium [Mass/Vol] 8.6 mg/dL Invalid Interpretation Code 8.4 - 10.2 mg/dL AO ADM SS Chloride [Moles/Vol] 96 mmol/L Invalid Interpretation Code 98 - 107 mmol/L AO ADM SS CO2 [Moles/Vol] 24 mmol/L Invalid Interpretation Code 23 - 31 mmol/L AO ADM SS Creatinine [Mass/Vol] 0.78 mg/dL Invalid Interpretation Code 0.55 - 1.02 mg/dL AO ADM SS Electrolyte Balance 11.0 mEq/L Invalid Interpretation Code 4.0 - 15.0 mEq/L AO ADM SS Eosinophil, Absolute 0.0 103/mcL Invalid Interpretation Code 0.0 - 0.4 10^3/mcL AO Workflow SS Eosinophils/100 WBC (Bld) 0.2 % Invalid Interpretation Code 0.0 - 7.0 % AO Workflow SS Erythrocyte distribution width (RBC) [Ratio] 15.0 % Invalid Interpretation Code 11.5 - 14.5 % AO Workflow SS GFR/1.73 sq M.predicted among blacks MDRD (S/P/Bld) [Vol rate/Area] 91 ml/min/1.73sqm Invalid Interpretation Code AO Chemistry S Comment on above: Interpretive Data: GFR Population mean for , Non- Americans Ages 20-29 = 116 mL/min/1.73 sq.m. Ages 30-39 = 107 mL/min/1.73 sq.m. Ages 40-49 = 99 mL/min/1.73 sq.m. Ages 50-59 = 93 mL/min/1.73 sq.m. Ages 60-69 = 85 mL/min/1.73 sq.m. Ages 70+ = 75 mL/min/1.73 sq.m. Chronic Kidney Disease: Less than 60 mL/min/1.73 square meters End Stage Renal Disease: Less than 15 mL/min/1.73 square meters GFR/1.73 sq M.predicted among non-blacks MDRD (S/P/Bld) [Vol rate/Area] 75 ml/min/1.73sqm Invalid Interpretation Code AO Chemistry S Comment on above: Interpretive Data: GFR Population mean for , Non- Americans Ages 20-29 = 116 mL/min/1.73 sq.m. Ages 30-39 = 107 mL/min/1.73 sq.m. Ages 40-49 = 99 mL/min/1.73 sq.m. Ages 50-59 = 93 mL/min/1.73 sq.m. Ages 60-69 = 85 mL/min/1.73 sq.m. Ages 70+ = 75 mL/min/1.73 sq.m. Chronic Kidney Disease: Less than 60 mL/min/1.73 square meters End Stage Renal Disease: Less than 15 mL/min/1.73 square meters Glucose [Mass/Vol] 160 mg/dL Invalid Interpretation Code 80 - 115 mg/dL AO ADM SS Hematocrit (Bld) [Volume fraction] 36.1 % Invalid Interpretation Code 37.0 - 47.0 % AO Workflow SS Hemoglobin (Bld) [Mass/Vol] 12.3 G/dL Invalid Interpretation Code 12.0 - 16.0 G/dL AO Workflow SS Lymphocyte, Absolute 1.1 103/mcL Invalid Interpretation Code 0.8 - 3.9 10^3/mcL AO Workflow SS Lymphocytes/100 WBC (Bld) 14.9 % Invalid Interpretation Code 10.0 - 50.0 % AO Workflow SS MCH (RBC) [Entitic mass] 28.2 pg Invalid Interpretation Code 27.0 - 31.2 pg AO Workflow SS MCHC 34.0 G/dL Invalid Interpretation Code 33.0 - 37.0 G/dL AO Workflow SS MCV (RBC) [Entitic vol] 83.0 fL Invalid Interpretation Code 80.0 - 94.0 fL AO Workflow SS Monocyte distribution width Auto (Bld) [Entitic vol] 25.47 1 Invalid Interpretation Code 0.00 - 20.00 AO Workflow SS Comment on above: Result Comment: For adults in ED, MDW>20.0 may be associated with a higher risk of sepsis during the first 12hrs of hospital admission Monocyte, Absolute 0.6 103/mcL Invalid Interpretation Code 0.2 - 1.0 10^3/mcL AO Workflow SS Monocytes/100 WBC (Bld) 9.0 % Invalid Interpretation Code 1.7 - 13.0 % AO Workflow SS Neutrophil, Absolute 5.4 103/mcL Invalid Interpretation Code 2.9 - 6.2 10^3/mcL AO Workflow SS Neutrophils/100 WBC (Bld) 75.7 % Invalid Interpretation Code 37.0 - 80.0 % AO Workflow SS Platelet mean volume (Bld) [Entitic vol] 7.2 fL Invalid Interpretation Code 7.4 - 10.4 fL AO Workflow SS Platelets (Bld) [#/Vol] 168 103/mcL Invalid Interpretation Code 130 - 400 10^3/mcL AO Workflow SS Potassium [Moles/Vol] 3.3 mmol/L Invalid Interpretation Code 3.5 - 5.1 mmol/L AO ADM SS RBC (Bld) [#/Vol] 4.35 106/mcL Invalid Interpretation Code 4.20 - 5.40 10^6/mcL AO Workflow SS Sodium [Moles/Vol] 131 mmol/L Invalid Interpretation Code 136 - 145 mmol/L AO ADM SS Urea nitrogen [Mass/Vol] 13 mg/dL Invalid Interpretation Code 7 - 18 mg/dL AO ADM SS Urea nitrogen/Creatinine [Mass ratio] 17 ratio Invalid Interpretation Code 7 - 27 ratio AO ADM SS WBC (Bld) [#/Vol] 7.1 103/mcL Invalid Interpretation Code 4.6 - 10.8 10^3/mcL AO Workflow SS Absolute lymphocyte countOrd ered By: Dixon Mg on 08-18-2023 Lymphocytes Auto (Unsp spec) [#/Vol] 1.28 10*3/uL 0.83-4.51 [facility] Basophil percentageOrdered B y: Dixon Holliday on 08-18-2023 Basophil percentage 3.7 mg/dL 2.5-4.9 [facility] Basophils/100 WBC (Bld) 0.2 % 0-1 [facility] Bilirubin [Mass/Vol] 0.30 mg/dL 0.20-1.00 [facility] Comment on above: For patients on eltr ombopag therapy, use of Dimension [place] TBIL is not recommended. Chloride [Moles/Vol] 107 mmol/L 98-107 [facility] Eosinophils/100 WBC (Bld) 1.7 % 0-5 [facility] Glucose [Mass/Vol] 110 mg/dL 74-106 [facility] Comment on above: Fasting Glucose resu lt from 100 to 125 mg/dL suggests IMPAIRED HOMEOSTASIS per A.D.A. criteria. LDH [Catalytic activity/Vol] 139 U/L 84-246 [facility] Neutrophils (Bld) [#/Vol] 2.2 10*3/uL 2.0-7.7 [facility] Neutrophils/100 WBC (Bld) 53.9 % 47-70 [facility] Potassium [Moles/Vol] 3.8 mmol/L 3.5-5.1 [facility] Protein [Mass/Vol] 7.7 g/dL 6.4-8.2 [facility] Sodium [Moles/Vol] 140 mmol/L 136-145 [facility] WBC (Bld) [#/Vol] 4.1 10*3/uL 4.4-11.0 [facility] Blood erythrocytes count (nu mber/volume)Ordered By: Dixon Holliday on 08-18-2023 RBC (Bld) [#/Vol] 4.47 10*6/uL 4.2-5.4 [facility] Blood hemoglobin measurement (mass/volume)Ordered By: Dixon Holliday on 08-18-2023 Hemoglobin (Bld) [Mass/Vol] 12.6 g/dL 12.0-15.0 [facility] Blood lymphocytes/100 leukoc ytesOrdered By: Dixon Holliday on 08-18-2023 Lymphocytes/100 WBC (Bld) 31.1 % 19-41 [facility] Blood monocytes/100 leukocyt esOrdered By: Dixon Holliday on 08-18-2023 Monocytes/100 WBC (Bld) 12.9 % 0-10 [facility] Blood platelet mean volumeOr dered By: Dixon Holliday on 08-18-2023 Platelet mean volume (Bld) [Entitic vol] 9.2 fL 6.2-12.0 [facility] Determination of erythrocyte mean corpuscular volume (MCV)Ordered By: Dixon Holliday on 08-18-2023 MCV (RBC) [Entitic vol] 87.7 fL 81-99 [facility] Hematocrit Auto (Bld) [Volum e fraction]Ordered By: Dixon Holliday on 08-18-2023 Hematocrit (Bld) [Volume fraction] 39.2 % 37-47 [facility] Laboratory - Chemistry and C hemistry - challengeOrdered By: Dixon Holliday on 08-18-2023 ALP [Catalytic activity/Vol] 66 U/L 45-117 [facility] ALT [Catalytic activity/Vol] 28 U/L 13-56 [facility] CO2 [Moles/Vol] 29.0 mmol/L 21.0-32.0 [facility] Globulin (S) [Mass/Vol] 4.2 g/dL 2.2-4.2 [facility] Magnesium [Mass/Vol] 2.4 mg/dL 1.6-2.6 [facility] Urea nitrogen/Creatinine [Mass ratio] 24.4 mg/mg 10-20 [facility] - Hematology and Cell countsOrdered By: Dixon Autumn on 08-18-2023 Erythrocyte distribution width (RBC) [Entitic vol] 46.5 fL 35.1-43.9 [facility] Erythrocyte distribution width (RBC) [Ratio] 14.4 % 11.6-14.6 [facility] Immature granulocytes/100 WBC (Bld) 0.200 % 0.0-0.9 [facility] Comment on above: IG% - Immature Granu locytes (promyelocytes, myelocytes and metamyelocytes) > 1% indicates that a LEFT SHIFT is Present. MCH (RBC) [Entitic mass] 28.2 pg 27.0-32.0 [facility] Nucleated RBC/100 WBC (Bld) [Ratio] 0 % 0-5 [facility] MCHC Auto (RBC) [Mass/Vol]Or dered By: Dixon Holliday on 08-18-2023 MCHC (RBC) [Mass/Vol] 32.1 g/dL 32-36 [facility] No Panel InformationOrdered By: Dixon Holliday on 08-18-2023 Estimated GFR (MDRD) Amer 138 mL/min >60 [facility] Comment on above: GFR Calc Estimated GFR (MDRD) Non-Af Amer 114 mL/min >60 [facility] Comment on above: Non- GFR Calc Platelets bldOrdered By: Janes Holliday on 08-18-2023 Platelets (Bld) [#/Vol] 233 10*3/uL 150-450 [facility] Serum or plasma albumin josy urement (mass/volume)Ordered By: Dixon Holliday on 08-18-2023 Albumin [Mass/Vol] 3.5 g/dL 3.2-5.0 [facility] Serum or plasma albumin/glob ulin mass ratioOrdered By: Dixon Holliday on 08-18-2023 Albumin/Globulin [Mass ratio] 0.8 {ratio} 0.9-2.4 [facility] Serum or plasma calcium josy urement (mass/volume)Ordered By: Dixon Holliday on 08-18-2023 Calcium [Mass/Vol] 9.2 mg/dL 8.5-10.1 [facility] Serum or plasma creatinine m easurement (mass/volume)Ordered By: Dixon Holliday on 08-18-2023 Creatinine [Mass/Vol] 0.57 mg/dL 0.55-1.02 [facility] Comment on above: The validity of the calculated GFR & GFRAA in patients over 70 years has not been determined. Clinical correlation is essential. Serum or plasma urea nitroge n measurement (mass/volume)Ordered By: Dixon Holliday on 08-18-2023 Urea nitrogen [Mass/Vol] 14 mg/dL 7-18 [facility] Thin prep Papanicolaou smear with manual screeningOrdered By: Dixon Holliday on 08-18-2023 Thin prep Papanicolaou smear with manual screening 16 U/L 15-37 [facility] Thin prep Papanicolaou smear with manual screening 4 5-15 [facility] MR Abdomen WO and W contrast Tess 07-30-2023 Hemorrhagic or proteinaceous 3.7 cm right adrenal cyst. Mild splenomegaly. Report Dictated on Electronically Signed By: Sylvie Lockwood MD Electronically Signed Date/Time: 07/30/2023 10:19 AM [facility] [employer] Patient Name: MADELINE JIMENEZ : 1965 Exam Date/Time: 07/29/2023 23:34 Procedure: MR ABDOMEN W AND WO CONTRAST Ordering Provider: STRAUSS STEPHEN Reason For Exam: Adrenal mass, >= 4cm, no history of malignancy MRI ABDOMEN WITH and WITHOUT EXAM DATE AND TIME: 07/29/2023 11:34 PM EDT INDICATION: 58 years Female with Adrenal mass, >= 4cm, no history of malignancy. Abnormal CT. Vulvar cancer. TECHNIQUE: Multiplanar multisequence MR images of the abdomen were performed, including diffusion-weighted images prior to and following the administration of 10.0 mL gadolinium contrast. COMPARISON: None FINDINGS: Liver: The liver is normal in size and contour. There is no drop in signal on in-phase or opposed-phase images to suggest fat or iron deposition. No focal liver lesion. Biliary tree: No gallstones. No abnormal gallbladder distention or pericholecystic fluid. No evidence of choledocholithiasis.. No biliary dilatation. Spleen: The spleen measures 15.0 cm in length, mildly prominent. No focal splenic lesion. Adrenals:Right adrenal lesion, measuring 3.7 cm x 3.3 cm. This is fairly homogeneous and is predominantly isointense on T1 and T2. Lesion has smooth margins. Lesion demonstrates mild signal increase on the out of phase sequence. No corresponding diffusion restriction. Lesion demonstrates no enhancement, and is compatible with a hemorrhagic or proteinaceous cyst. Pancreas: Homogeneous enhancement without mass or peripancreatic fluid. No pancreatic duct dilation. Kidneys: Symmetric contrast enhancement without mass or hydronephrosis Lymph nodes: No lymphadenopathy. Vasculature: The aorta and major abdominal arterial vessels are unremarkable. Superior mesenteric vein, splenic vein and the main, right and left portal veins are patent. No significant collaterals or esophageal varices. Visualized Osseous structures: Degenerative change of the spine. [facility] Sylvie Lockwood M D - 07/30/2023 Patient Name: MADELINE JIMENEZ : 1965 Exam Date/Time: 07/29/2023 23:34 Procedure: MR ABDOMEN W AND WO CONTRAST Ordering Provider: STRAUSS STEPHEN Reason For Exam: Adrenal mass, >= 4cm, no history of malignancy MRI ABDOMEN WITH and WITHOUT EXAM DATE AND TIME: 07/29/2023 11:34 PM EDT INDICATION: 58 years Female with Adrenal mass, >= 4cm, no history of malignancy. Abnormal CT. Vulvar cancer. TECHNIQUE: Multiplanar multisequence MR images of the abdomen were performed, including diffusion-weighted images prior to and following the administration of 10.0 mL gadolinium contrast. COMPARISON: None FINDINGS: Liver: The liver is normal in size and contour. There is no drop in signal on in-phase or opposed-phase images to suggest fat or iron deposition. No focal liver lesion. Biliary tree: No gallstones. No abnormal gallbladder distention or pericholecystic fluid. No evidence of choledocholithiasis.. No biliary dilatation. Spleen: The spleen measures 15.0 cm in length, mildly prominent. No focal splenic lesion. Adrenals:Right adrenal lesion, measuring 3.7 cm x 3.3 cm. This is fairly homogeneous and is predominantly isointense on T1 and T2. Lesion has smooth margins. Lesion demonstrates mild signal increase on the out of phase sequence. No corresponding diffusion restriction. Lesion demonstrates no enhancement, and is compatible with a hemorrhagic or proteinaceous cyst. Pancreas: Homogeneous enhancement without mass or peripancreatic fluid. No pancreatic duct dilation. Kidneys: Symmetric contrast enhancement without mass or hydronephrosis Lymph nodes: No lymphadenopathy. Vasculature: The aorta and major abdominal arterial vessels are unremarkable. Superior mesenteric vein, splenic vein and the main, right and left portal veins are patent. No significant collaterals or esophageal varices. Visualized Osseous structures: Degenerative change of the spine. IMPRESSION: Hemorrhagic or proteinaceous 3.7 cm right adrenal cyst. Mild splenomegaly. Report Dictated on Electronically Signed By: Sylvie Lockwood MD Electronically Signed Date/Time: 07/30/2023 10:19 AM EDT [facility] MR Abdomen WO and W contrast IVOrdered By: Sylvie Lockwood on 07-30-2023 [employer] Work Phone: ABO and Rh group Confirm Nom (Bld)on 07-29-2023 ABO group Nom (Bld) O [facility] D Ag Ql (RBC) Positive [facility] Blood type and Crossmatch pa kiana (Bld)on 07-29-2023 ABO group Nom (Bld) O [facility] Blood group antibody screen GEL Ql Negative [facility] D Ag Ql (RBC) Positive [facility] CBC panel Auto (Bld)Ordered By: Mago Sher on 07-29-2023 Erythrocyte distribution width (RBC) [Ratio] 15.8 % High 11.5 - 14.5 % [facility] Hematocrit (Bld) [Volume fraction] 40.1 % 35.0 - 47.0 % [facility] Hemoglobin (Bld) [Mass/Vol] 13.5 g/dL 11.7 - 16.0 g/dL [facility] Interpretation and review of laboratory results Abnormal [facility] MCH (RBC) [Entitic mass] 28.7 pg 26.0 - 34.0 pg [facility] MCHC (RBC) [Mass/Vol] 33.8 % 32.0 - 36.0 % [facility] MCV (RBC) [Entitic vol] 85.0 fL 80.0 - 98.0 fL [facility] Platelet mean volume (Bld) [Entitic vol] 7.6 fL 7.4 - 12.4 fL [facility] Platelets (Bld) [#/Vol] 177 10*3/uL 140 - 440 10*3/uL [facility] RBC (Bld) [#/Vol] 4.72 10*6/uL 3.8 - 5.20 10*6/uL [facility] WBC (Bld) [#/Vol] 3.0 10*3/uL Low 3.6 - 10.7 10*3/uL [facility] MR Abdomen WO and W contrast Tess 07-29-2023 Radiology Study observation (narrative) [facility] CT ABDOMEN/PELVIS W/CONTRAST on 07-24-2023 CT ABDOMEN/PELVIS W/CONTRAST ORIGINAL EXAMINATION: CT OF THE ABDOMEN AND PELVIS WITH CONTRAST 07/23/2023 12:10 pm TECHNIQUE: CT of the abdomen and pelvis was performed with the administration of intravenous contrast. Multiplanar reformatted images are provided for review. Automated exposure control, iterative reconstruction, and/or weight based adjustment of the mA/kV was utilized to reduce the radiation dose to as low as reasonably achievable. COMPARISON: None. HISTORY: ORDERING SYSTEM PROVIDED HISTORY: Reason for Exam: Malignant neoplasm of vulva FINDINGS: Lower chest: Minor atelectatic changes noted at the lung bases. The visualized cardiac and posterior mediastinal structures are unremarkable. Abdomen: Within the abdomen, the liver, gallbladder, spleen, pancreas, left adrenal gland and kidneys are within normal limits. There is a right adrenal mass on image 26 measuring 3.4 x 4.0 cm in diameter with central Hounsfield units of 55. The small bowel is grossly normal. The appendix is not visualized with surgical clips near the cecum likely related to previous appendectomy. No obvious free fluid, free air or lymphadenopathy is identified. Pelvis: Within the pelvis, the urinary bladder is within normal limits. The uterus and adnexal structures are grossly unremarkable. Soft tissue/Bones: No soft tissue masses or pathologic fluid collections seen. No acute osseous abnormality identified. IMPRESSION: 1. There is a 4 cm right adrenal mass with indeterminate density measurements. This could represent a lipid poor adrenal adenoma. Given the history of malignancy, metastatic disease cannot be entirely excluded. Recommend comparison with previous studies if any are available. Alternatively, abdominal MRI with adrenal mass protocol could be performed for further evaluation. 2. No acute process seen in the abdomen/pelvis. 3. Status post appendectomy. Interpreted by: Sunil West MD Preliminary Report By: Sunil West MD Electronically signed By Sunil West MD Dictated Date: 07/24/2023 1:53:39 PM Prelim Date: 07/24/2023 1:57:29 PM Sign Date: 07/24/2023 1:57:29 PM Ordering Provider: NOREEN Wu [facility] ([place]) .CBC Path Reviewon 3 CBC Path Review Leukopenia with amanda ed absolute neutropenia and myeloid left shift noted. Normal [facility] ([place]) Comment on above: Result Comment: Elec tronically signed by: DANAE BRANCH 07.15.2023 11:14 EDT Performed By: #### C BC, CRP, GFR, ESR, LIPID, CMP, DIFF, MORPH #### [address] [address] #### CBCPR #### [address] [address] .GFRon 07-12-2023 GFR Non- 77 ml/min/1.73sqm Normal [facility] ([place]) Comment on above: Result Comment: GFR Population mean for , Non- Americans Ages 20-29 = 116 mL/min/1.73 sq.m. Ages 30-39 = 107 mL/min/1.73 sq.m. Ages 40-49 = 99 mL/min/1.73 sq.m. Ages 50-59 = 93 mL/min/1.73 sq.m. Ages 60-69 = 85 mL/min/1.73 sq.m. Ages 70+ = 75 mL/min/1.73 sq.m. Chronic Kidney Disease: Less than 60 mL/min/1.73 square meters End Stage Renal Disease: Less than 15 mL/min/1.73 square meters Performed By: #### C BC, CRP, GFR, ESR, LIPID, CMP, DIFF, MORPH #### [address] [address] #### CBCPR #### [address] [address] GFR 93 ml/min/1.73sqm Normal [facility] ([place]) Comment on above: Result Comment: GFR Population mean for , Non- Americans Ages 20-29 = 116 mL/min/1.73 sq.m. Ages 30-39 = 107 mL/min/1.73 sq.m. Ages 40-49 = 99 mL/min/1.73 sq.m. Ages 50-59 = 93 mL/min/1.73 sq.m. Ages 60-69 = 85 mL/min/1.73 sq.m. Ages 70+ = 75 mL/min/1.73 sq.m. Chronic Kidney Disease: Less than 60 mL/min/1.73 square meters End Stage Renal Disease: Less than 15 mL/min/1.73 square meters Performed By: #### C BC, CRP, GFR, ESR, LIPID, CMP, DIFF, MORPH #### [address] [address] #### CBCPR #### [address] [address] .Manual Diffon 07-12-2023 Bands 8.0 % High 0.0-5.0 [facility] ([place]) Comment on above: Performed By: #### C BC, CRP, GFR, ESR, LIPID, CMP, DIFF, MORPH #### [address] [address] #### CBCPR #### [address] [address] Basophil %, Manual 0.0 % Normal 0.0-2.5 [facility] ([place]) Comment on above: Performed By: #### C BC, CRP, GFR, ESR, LIPID, CMP, DIFF, MORPH #### [address] [address] #### CBCPR #### [address] [address] Basophil, Abs Manual 0.0 10 3/mcL Normal 0.0-0.2 [facility] ([place]) Comment on above: Performed By: #### C BC, CRP, GFR, ESR, LIPID, CMP, DIFF, MORPH #### [address] [address] #### CBCPR #### [address] [address] Eosinophil %, Manual 3.0 % Normal 0.0-7.0 [facility] ([place]) Comment on above: Performed By: #### C BC, CRP, GFR, ESR, LIPID, CMP, DIFF, MORPH #### [place] [address] #### CBCPR #### [address] [address] Eosinophil, Abs Manual 0.1 10 3/mcL Normal 0.0-0.4 [facility] ([place]) Comment on above: Performed By: #### C BC, CRP, GFR, ESR, LIPID, CMP, DIFF, MORPH #### [address] [address] #### CBCPR #### [address] [address] Lymphocyte %, Manual 53.0 % High 10.0-50.0 [facility] ([place]) Comment on above: Performed By: #### C BC, CRP, GFR, ESR, LIPID, CMP, DIFF, MORPH #### [place] [address] #### CBCPR #### [address] [address] Lymphocyte, Abs Manual 1.4 10 3/mcL Normal 0.8-3.9 [facility] ([place]) Comment on above: Performed By: #### C BC, CRP, GFR, ESR, LIPID, CMP, DIFF, MORPH #### [place] [address] #### CBCPR #### [address] [address] Monocyte %, Manual 15.0 % High 1.7-13.0 [facility] ([place]) Comment on above: Performed By: #### C BC, CRP, GFR, ESR, LIPID, CMP, DIFF, MORPH #### [place] [address] #### CBCPR #### [address] [address] Monocyte, Abs Manual 0.4 10 3/mcL Normal 0.2-1.0 [facility] ([place]) Comment on above: Performed By: #### C BC, CRP, GFR, ESR, LIPID, CMP, DIFF, MORPH #### [place] [address] #### CBCPR #### [address] [address] Neutrophil %, Manual 21.0 % Low 37.0-80.0 [facility] ([place]) Comment on above: Performed By: #### C BC, CRP, GFR, ESR, LIPID, CMP, DIFF, MORPH #### [place] [address] #### CBCPR #### [address] [address] Neutrophil, Abs Manual 0.6 10 3/mcL Low 2.9-6.2 [facility] ([place]) Comment on above: Performed By: #### C BC, CRP, GFR, ESR, LIPID, CMP, DIFF, MORPH #### [place] [address] #### CBCPR #### [place] [address] Nucleated RBC 0.0 /100 WBC Normal [facility] ([place]) Comment on above: Performed By: #### C BC, CRP, GFR, ESR, LIPID, CMP, DIFF, MORPH #### [place] [address] #### CBCPR #### [place] [address] .Morphon 07-12-2023 Platelet Estimate Normal Normal [facility] ([place]) Comment on above: Performed By: #### C BC, CRP, GFR, ESR, LIPID, CMP, DIFF, MORPH #### [place] [address] #### CBCPR #### [place] [address] CBCon 07-12-2023 Erythrocyte distribution width (RBC) [Ratio] 15.7 % High 11.5-14.5 [facility] ([place]) Comment on above: Performed By: #### C BC, CRP, GFR, ESR, LIPID, CMP, DIFF, MORPH #### [place] [address] #### CBCPR #### [place] [address] Hematocrit (Bld) [Volume fraction] 37.2 % Normal 37.0-47.0 [facility] ([place]) Comment on above: Performed By: #### C BC, CRP, GFR, ESR, LIPID, CMP, DIFF, MORPH #### [place] [address] #### CBCPR #### [place] [address] Hgb 12.5 G/dL Normal 12.0-16.0 [facility] ([place]) Comment on above: Performed By: #### C BC, CRP, GFR, ESR, LIPID, CMP, DIFF, MORPH #### [place] [address] #### CBCPR #### [address] [address] MCH (RBC) [Entitic mass] 28.3 pg Normal 27.0-31.2 [facility] ([place]) Comment on above: Performed By: #### C BC, CRP, GFR, ESR, LIPID, CMP, DIFF, MORPH #### [place] [address] #### CBCPR #### [place] [address] MCHC 33.7 G/dL Normal 33.0-37.0 [facility] ([place]) Comment on above: Performed By: #### C BC, CRP, GFR, ESR, LIPID, CMP, DIFF, MORPH #### [place] [address] #### CBCPR #### [place] [address] MCV (RBC) [Entitic vol] 83.9 fL Normal 80.0-94.0 [facility] ([place]) Comment on above: Performed By: #### C BC, CRP, GFR, ESR, LIPID, CMP, DIFF, MORPH #### [place] [address] #### CBCPR #### [place] [address] Platelet 218 10 3/mcL Normal 130-400 [facility] ([place]) Comment on above: Performed By: #### C BC, CRP, GFR, ESR, LIPID, CMP, DIFF, MORPH #### [place] [address] #### CBCPR #### [place] [address] Platelet mean volume (Bld) [Entitic vol] 7.6 fL Normal 7.4-10.4 [facility] ([place]) Comment on above: Performed By: #### C BC, CRP, GFR, ESR, LIPID, CMP, DIFF, MORPH #### [place] [address] #### CBCPR #### [place] [address] RBC 4.43 10 6/mcL Normal 4.20-5.40 [facility] ([place]) Comment on above: Performed By: #### C BC, CRP, GFR, ESR, LIPID, CMP, DIFF, MORPH #### [place] [address] #### CBCPR #### [place] [address] WBC 2.7 10 3/mcL Low 4.6-10.8 [facility] ([place]) Comment on above: Performed By: #### C BC, CRP, GFR, ESR, LIPID, CMP, DIFF, MORPH #### [place] [address] #### CBCPR #### [place] [address] CMPon 07-12-2023 Albumin Level 3.8 G/dL Normal 3.4-4.8 [facility] ([place]) Comment on above: Performed By: #### C BC, CRP, GFR, ESR, LIPID, CMP, DIFF, MORPH #### [place] [address] #### CBCPR #### [place] [address] Albumin/Globulin [Mass ratio] 0.9 {ratio} Low 1.1-2.5 [facility] ([place]) Comment on above: Performed By: #### C BC, CRP, GFR, ESR, LIPID, CMP, DIFF, MORPH #### [place] [address] #### CBCPR #### [place] [address] ALP [Catalytic activity/Vol] 81 U/L Normal 40-135 [facility] ([place]) Comment on above: Performed By: #### C BC, CRP, GFR, ESR, LIPID, CMP, DIFF, MORPH #### [address] [address] #### CBCPR #### [address] [address] ALT [Catalytic activity/Vol] 24 U/L Normal 14-59 [facility] ([place]) Comment on above: Performed By: #### C BC, CRP, GFR, ESR, LIPID, CMP, DIFF, MORPH #### [place] [address] #### CBCPR #### [address] [address] AST [Catalytic activity/Vol] 19 U/L Normal 10-40 [facility] ([place]) Comment on above: Performed By: #### C BC, CRP, GFR, ESR, LIPID, CMP, DIFF, MORPH #### [place] [address] #### CBCPR #### [address] [address] Bili Total 0.3 mg/dL Normal 0.2-1.0 [facility] ([place]) Comment on above: Result Comment: Use of this assay is not recommended for patients undergoing treatment with eltrombopag due to the potential for falsely elevated results. Performed By: #### C BC, CRP, GFR, ESR, LIPID, CMP, DIFF, MORPH #### [place] [address] #### CBCPR #### [address] [address] BUN/Creatinine Ratio 16 ratio Normal 7-27 [facility] ([place]) Comment on above: Performed By: #### C BC, CRP, GFR, ESR, LIPID, CMP, DIFF, MORPH #### [place] [address] #### CBCPR #### [address] [address] Calcium [Mass/Vol] 8.8 mg/dL Normal 8.4-10.2 [facility] ([place]) Comment on above: Performed By: #### C BC, CRP, GFR, ESR, LIPID, CMP, DIFF, MORPH #### [address] [address] #### CBCPR #### [address] [address] Chloride [Moles/Vol] 103 mmol/L Normal 98-107 [facility] ([place]) Comment on above: Performed By: #### C BC, CRP, GFR, ESR, LIPID, CMP, DIFF, MORPH #### [place] [address] #### CBCPR #### [place] [address] CO2 [Moles/Vol] 28 mmol/L Normal 23-31 [facility] ([place]) Comment on above: Performed By: #### C BC, CRP, GFR, ESR, LIPID, CMP, DIFF, MORPH #### [place] [address] #### CBCPR #### [place] [address] Creatinine [Mass/Vol] 0.77 mg/dL Normal 0.55-1.02 [facility] ([place]) Comment on above: Performed By: #### C BC, CRP, GFR, ESR, LIPID, CMP, DIFF, MORPH #### [place] [address] #### CBCPR #### [place] [address] Electrolyte Balance 8.0 mEq/L Normal 4.0-15.0 Replaced by [facility] ([place]) Comment on above: Performed By: #### C BC, CRP, GFR, ESR, LIPID, CMP, DIFF, MORPH #### [place] [address] #### CBCPR #### [place] [address] Globulin 4.4 G/dL Normal [facility] ([place]) Comment on above: Performed By: #### C BC, CRP, GFR, ESR, LIPID, CMP, DIFF, MORPH #### [address] [address] #### CBCPR #### [address] [address] Glucose [Mass/Vol] 110 mg/dL Normal 80-115 [facility] ([place]) Comment on above: Performed By: #### C BC, CRP, GFR, ESR, LIPID, CMP, DIFF, MORPH #### [address] [address] #### CBCPR #### [address] [address] Potassium [Moles/Vol] 4.7 mmol/L Normal 3.5-5.1 [facility] ([place]) Comment on above: Performed By: #### C BC, CRP, GFR, ESR, LIPID, CMP, DIFF, MORPH #### [place] [address] #### CBCPR #### [address] [address] Sodium [Moles/Vol] 139 mmol/L Normal 136-145 [facility] ([place]) Comment on above: Performed By: #### C BC, CRP, GFR, ESR, LIPID, CMP, DIFF, MORPH #### [address] [address] #### CBCPR #### [address] [address] Total Protein 8.2 G/dL Normal 6.4-8.2 [facility] ([place]) Comment on above: Performed By: #### C BC, CRP, GFR, ESR, LIPID, CMP, DIFF, MORPH #### [address] [address] #### CBCPR #### [address] [address] Urea nitrogen [Mass/Vol] 12 mg/dL Normal 7-18 [facility] ([place]) Comment on above: Performed By: #### C BC, CRP, GFR, ESR, LIPID, CMP, DIFF, MORPH #### [address] [address] #### CBCPR #### [address] [address] CRPon 07-12-2023 C-Reactive Protein 0.8 mg/dL High 0.0-0.3 [facility] ([place]) Comment on above: Performed By: #### C BC, CRP, GFR, ESR, LIPID, CMP, DIFF, MORPH #### [address] [address] #### CBCPR #### [address] [address] ESRon 07-12-2023 Erythrocyte Sed Rate 62 mm/hr High 0-30 [facility] ([place]) Comment on above: Performed By: #### C BC, CRP, GFR, ESR, LIPID, CMP, DIFF, MORPH #### [place] [address] #### CBCPR #### [address] [address] LIPIDon 07-12-2023 Cholesterol [Mass/Vol] 119 mg/dL Normal 0-200 [facility] ([place]) Comment on above: Result Comment: Chol esterol Reference Interval: Less than 200 Desirable 200-239 Borderline high risk 240 and above High risk Performed By: #### C BC, CRP, GFR, ESR, LIPID, CMP, DIFF, MORPH #### [address] [address] #### CBCPR #### [address] [address] Cholesterol in HDL [Mass/Vol] 35 mg/dL Low 40-60 [facility] ([place]) Comment on above: Performed By: #### C BC, CRP, GFR, ESR, LIPID, CMP, DIFF, MORPH #### [address] [address] #### CBCPR #### [address] [address] Cholesterol in LDL [Mass/Vol] 57 mg/dL Normal 0-130 [facility] ([place]) Comment on above: Performed By: #### C BC, CRP, GFR, ESR, LIPID, CMP, DIFF, MORPH #### [place] [id number] [place], [place] [address] #### CBCPR #### [place] [address] Triglyceride [Mass/Vol] 136 mg/dL Normal 0-150 [facility] ([place]) Comment on above: Result Comment: Trig lyceride Reference Interval: Less than 150 Normal 150-199 Borderline high risk 200-499 High risk 500 or higher Very high risk Performed By: #### C BC, CRP, GFR, ESR, LIPID, CMP, DIFF, MORPH #### [place] [address] [place], [place] [address] #### CBCPR #### [place] [address] HPVon 07-10-2023 HPV Interp Abnormal See Interp HPVN [facility] ([place]) Comment on above: Order Comment: Order placed by [email or web address] rule from [id number] Result Comment: High Risk HPV Typing is Positive: High Risk HPV Types detected, other than HPV 16 or HPV 18. Specimen is positive for the DNA of any one of, or combination of, the following high risk HPV types: 31, 33, 35, 39, 45, 51, 52, 56, 58, 59, 66, 68. HPV types 16 and 18 DNA were undetectable or below the pre-set threshold. The isela High-Risk HPV DNA Test is not intended for use as a screening device for Pap normal women under age 30 and is not intended to substitute for regular Pap screening. The isela High-Risk HPV DNA Test is designed to augment existing methods for the detection of cervical disease and should be used in conjunction with clinical information derived from other diagnostic and screening tests, physical examinations and full medical history in accordance with appropriate patient management procedures. NOTE: A negative result does not preclude the presence of HPV infection because results depend on adequate specimen collection, absence of inhibitors and sufficient DNA to be detected. See Interp HPVO Performed By: #### H PV #### [place] [address] HPV Source Cervix Normal [facility] ([place]) Comment on above: Order Comment: Order placed by [id number] rule from [id number] Performed By: #### H PV #### [place] [address] Manager Transplant Cytology Reporton 2022 Manager Transplant Cytology Report . Pathology Reports Accession: Collected Date/Time: Received Date/Time: Pathologist: [id number] 06/25/2023 08:34 EDT 06/25/2023 18:00 EDT MD DEEJAY ANTONIO Manager Transplant Cytology Report SPECIMEN: Specimen Description: Liquid Prep Reflex ASCUS+ Specimen: Cervical/Endocervical Screening or Diagnostic: Screening RELEVANT HISTORY: LMP: menopause SPECIMEN ADEQUACY: SATISFACTORY FOR EVALUATION Endocervical/Transform ational zone component absent/insufficient INTERPRETATION/RESULTS : EPITHELIAL CELL ABNORMALITIES, SQUAMOUS Low-grade squamous intraepithelial lesion (LSIL) (encompassing: HPV/ mild dysplasia/ ENOCH 1) COMMENT: This Pap Test was successfully processed and evaluated with the assistance of the CRE Secure ThinPrep Test Imaging System. Electronically Signed by Pathology report verified by [facility] Screened by: FARNAZ Electronically signed by DEEJAY ANTONIO MD Sign-Out Date: 07/08/2023 09:58 Performing Lab: [facility], [address] [place] [address] Pathology Dept Disclaimer The Pap test is a screening test for cervical cancer. As evidenced by published data, it is subject to both inherent false negative and false positive results. Your patient's results should be interpreted in context with pertinent clinical history including gynecological examination. Normal [facility] ([place]) Final Surgical Pathology Rep [facility] 07-03-2023 Final Surgical Pathology Report . 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 The entire surface of the skin has a granular nodular appearance. The specimen is not oriented and is inked blue. Cut section has a urban appearance. The ends are submitted in cassette A1 and the midportion is submitted in cassettes A2 and A3.. TS-3 Deedee Walker, MS WICK Dictated by Jayad Walker MICROSCOPIC DESCRIPTION: The microscopic examination is performed, except in the case of Gross Only. Electronically Signed by Pathology Report verified by [facility] KATHRYN MCCOY Sign out Date: 07/03/2023 14:03 Performing Lab: [facility], [address] [place] [address] Pathology Dept Disclaimer If ancillary studies were utilized, the following Laboratory Developed Test (LDT) disclaimer will apply: Under CLIA requirements, [facility] is qualified to perform high complexity testing. For all ancillary stains, positive and negative controls stain appropriately. Performance characteristics of immunohistochemical and chromogenic in-situ hybridization tests have been determined by [facility]. These tests are used for clinical purposes, They should not be regarded as investigational or for research. Normal [facility] ([place]) Vital Signs Date Time Vital Sign Value Performing Clinician Facility 08-31-2025 14:39-0500 Body height 160 cm Donavan Strauss MD Work Phone: [facility] 08-31-2025 14:39-0500 Body mass index (BMI) [Ratio] 29.48 kg/m2 Donavan Strauss MD Work Phone: [facility] 08-31-2025 14:39-0500 Body weight 75.48 kg Donavan Strauss MD Work Phone: [facility] 08-31-2025 14:39-0500 Diastolic blood pressure 76 mm[Hg] Donavan Strauss MD Work Phone: [facility] 08-31-2025 14:39-0500 Heart rate 97 /min Donavan Strauss MD Work Phone: [employer] 08-31-2025 14:39-0500 SaO2% (BldA) [Mass fraction] 94 % Donavan Strauss MD Work Phone: [employer] 08-31-2025 14:39-0500 Systolic blood pressure 120 mm[Hg] Donavan Strauss MD Work Phone: [employer] 08-22-2025 13:10-0400 Body height 160 cm Donavan Strauss MD Work Phone: [employer] 08-22-2025 13:10-0400 Body mass index (BMI) [Ratio] 29.98 kg/m2 Donavan Strauss MD Work Phone: [employer] 08-22-2025 13:10-0400 Body weight 76.75 kg Donavan Strauss MD Work Phone: [employer] 08-22-2025 13:10-0400 Diastolic blood pressure 73 mm[Hg] Donavan Strauss MD Work Phone: [employer] 08-22-2025 13:10-0400 Heart rate 105 /min Donavan Strauss MD Work Phone: [employer] 08-22-2025 13:10-0400 Systolic blood pressure 118 mm[Hg] Donavan Strauss MD Work Phone: [employer] 07-20-2025 11:09-0400 Body height 160 cm Donavan Strauss MD Work Phone: [employer] 07-20-2025 11:09-0400 Body mass index (BMI) [Ratio] 30.94 kg/m2 Donavan Strauss MD Work Phone: [employer] 07-20-2025 11:09-0400 Body weight 79.2 kg Donavan Strauss MD Work Phone: [employer] 07-20-2025 11:09-0400 Diastolic blood pressure 76 mm[Hg] Donavan Strauss MD Work Phone: [employer] 07-20-2025 11:09-0400 Heart rate 89 /min Donavan Strauss MD Work Phone: [facility] 07-20-2025 11:09-0400 Systolic blood pressure 115 mm[Hg] Donavan Strauss MD Work Phone: [facility] 07-06-2025 11:59-0400 Body height 160 cm Donavan Strauss MD Work Phone: [facility] 07-06-2025 11:59-0400 Body mass index (BMI) [Ratio] 31.18 kg/m2 Donavan Strauss MD Work Phone: [facility] 07-06-2025 11:59-0400 Body weight 79.83 kg Donavan Strauss MD Work Phone: [facility] 07-06-2025 11:59-0400 Diastolic blood pressure 74 mm[Hg] Donavan Strauss MD Work Phone: [facility] 07-06-2025 11:59-0400 Heart rate 80 /min Donavan Strauss MD Work Phone: [facility] 07-06-2025 11:59-0400 Systolic blood pressure 123 mm[Hg] Donavan Strauss MD Work Phone: [facility] 06-30-2025 09:33-0400 Body height 162.6 cm Donavan Strauss MD Work Phone: [facility] 06-30-2025 09:33-0400 Body mass index (BMI) [Ratio] 30.2 kg/m2 Donavan Strauss MD Work Phone: [facility] 06-30-2025 09:33-0400 Body weight 79.83 kg Donavan Strauss MD Work Phone: [facility] 06-30-2025 09:33-0400 Diastolic blood pressure 74 mm[Hg] Donavan Strauss MD Work Phone: [facility] 06-30-2025 09:33-0400 Heart rate 116 /min Donavan Strauss MD Work Phone: [facility] 06-30-2025 09:33-0400 Systolic blood pressure 115 mm[Hg] Donavan Strauss MD Work Phone: [facility] 06-29-2025 10:27-0400 Body height 162.56 cm Nohemy Grover PIPELINES SUPERVISOR-C Work Phone: [facility] 06-29-2025 10:27-0400 Body mass index (BMI) [Ratio] 30.4 kg/m2 Nohemy Grover PIPELINES SUPERVISOR-C Work Phone: [facility] 06-29-2025 10:27-0400 Body temperature 97.5 [degF] Nohemy Grover PIPELINES SUPERVISOR-C Work Phone: [facility] 06-29-2025 10:27-0400 Body weight 80.34 kg Nohemy Grover PIPELINES SUPERVISOR-C Work Phone: [facility] 06-29-2025 10:27-0400 Diastolic blood pressure 75 mm[Hg] Nohemy Grover PIPELINES SUPERVISOR-C Work Phone: [facility] 06-29-2025 10:27-0400 Heart rate 101 /min Nohemy Grover PIPELINES SUPERVISOR-C Work Phone: [facility] 06-29-2025 10:27-0400 Respiratory rate 18 /min Nohemy Grover [employer]EL[employer] SUPERVISOR-C Work Phone: [facility] 06-29-2025 10:27-0400 SaO2% (BldA) [Mass fraction] 98 % Nohemy Grover PIPELINES SUPERVISOR-C Work Phone: [facility] 06-29-2025 10:27-0400 Systolic blood pressure 119 mm[Hg] Nohemy Grover PIPELINES SUPERVISOR-C Work Phone: [facility] 06-14-2025 08:30-0400 Diastolic blood pressure 62 mm[Hg] Donavan Strauss MD Work Phone: [facility] 06-14-2025 08:30-0400 Heart rate 89 /min Donavan Strauss MD Work Phone: [facility] 06-14-2025 08:30-0400 SaO2% (BldA) [Mass fraction] 100 % Donavan Strauss MD Work Phone: [facility] 06-14-2025 08:30-0400 Systolic blood pressure 119 mm[Hg] Donavan Strauss MD Work Phone: [facility] 06-14-2025 05:45-0400 Body height 162.6 cm Donavan Strauss MD Work Phone: [facility] 06-14-2025 05:45-0400 Body mass index (BMI) [Ratio] 31.24 kg/m2 Donavan Strauss MD Work Phone: [facility] 06-14-2025 05:45-0400 Body weight 82.56 kg Donavan Strauss MD Work Phone: [facility] 06-14-2025 05:44-0400 Body temperature 96.8 [degF] Donavan Strauss MD Work Phone: [facility] 06-14-2025 05:44-0400 Respiratory rate 16 /min Donavan Strauss MD Work Phone: [facility] 06-01-2025 10:59-0400 Body height 162.56 cm Nohemy Grover NP-C Work Phone: [facility] 06-01-2025 10:59-0400 Body mass index (BMI) [Ratio] 31.2 kg/m2 Nohemy Grover PIPELINES SUPERVISOR-C Work Phone: [facility] 06-01-2025 10:59-0400 Body temperature 98.2 [degF] Nohemy Grover PIPELINES SUPERVISOR-C Work Phone: [facility] 06-01-2025 10:59-0400 Body weight 82.63 kg Nohemy Grover PIPELINES SUPERVISOR-C Work Phone: [facility] 06-01-2025 10:59-0400 Diastolic blood pressure 70 mm[Hg] Nohemy Grover PIPELINES SUPERVISOR-C Work Phone: [facility] 06-01-2025 10:59-0400 Heart rate 91 /min Nohemy Grover PIPELINES SUPERVISOR-C Work Phone: [facility] 06-01-2025 10:59-0400 Respiratory rate 18 /min Nohemy Lenore [employer]ELINES SUPERVISOR-C Work Phone: [facility] 06-01-2025 10:59-0400 SaO2% (BldA) [Mass fraction] 98 % Nohemy Grover PIPELINES SUPERVISOR-C Work Phone: [facility] 06-01-2025 10:59-0400 Systolic blood pressure 104 mm[Hg] Nohemy Grover PIPELINES SUPERVISOR-C Work Phone: [facility] 04-15-2025 14:44-0400 Body height 160 cm Donavan Strauss MD Work Phone: [facility] 04-15-2025 14:44-0400 Body mass index (BMI) [Ratio] 34.45 kg/m2 Donavan Strauss MD Work Phone: [facility] 04-15-2025 14:44-0400 Body weight 88.18 kg Donavan Strauss MD Work Phone: [facility] 04-15-2025 14:44-0400 Diastolic blood pressure 82 mm[Hg] Donavan Strauss MD Work Phone: [facility] 04-15-2025 14:44-0400 Heart rate 93 /min Donavan Strauss MD Work Phone: [facility] 04-15-2025 14:44-0400 SaO2% (BldA) [Mass fraction] 98 % Donavan Strauss MD Work Phone: [facility] 04-15-2025 14:44-0400 Systolic blood pressure 112 mm[Hg] Donavan Strauss MD Work Phone: [facility] 10-13-2024 14:55-0500 Body height 160 cm Donavan Strauss MD Work Phone: [facility] 10-13-2024 14:55-0500 Body mass index (BMI) [Ratio] 36.35 kg/m2 Donavan Strauss MD Work Phone: [facility] 10-13-2024 14:55-0500 Body weight 93.08 kg Donavan Strauss MD Work Phone: [facility] 10-13-2024 14:55-0500 Diastolic blood pressure 74 mm[Hg] Donavan Strauss MD Work Phone: [facility] 10-13-2024 14:55-0500 Heart rate 94 /min Donavan Strauss MD Work Phone: [facility] 10-13-2024 14:55-0500 Systolic blood pressure 117 mm[Hg] Donavan Strauss MD Work Phone: [facility] 07-21-2024 15:01-0400 Body height 160 cm Kari Mayfield INVESTMENT ADVISOR - PETROPHYSICIST Work Phone: [facility] 07-21-2024 15:01-0400 Body mass index (BMI) [Ratio] 38.62 kg/m2 Kari Mayfield INVESTMENT ADVISOR - PETROPHYSICIST Work Phone: [facility] 07-21-2024 15:01-0400 Body weight 98.88 kg Kari Mayfield INVESTMENT ADVISOR - PETROPHYSICIST Work Phone: [facility] 07-21-2024 15:01-0400 Diastolic blood pressure 84 mm[Hg] Kari Mayfiedl INVESTMENT ADVISOR - PETROPHYSICIST Work Phone: [facility] 07-21-2024 15:01-0400 Heart rate 120 /min Kari Mayfield INVESTMENT ADVISOR - PETROPHYSICIST Work Phone: [facility] 07-21-2024 15:01-0400 Systolic blood pressure 132 mm[Hg] Kari Mayfield INVESTMENT ADVISOR - PETROPHYSICIST Work Phone: [facility] 04-14-2024 14:39-0400 Body height 162.6 cm Donavan Strauss MD Work Phone: [facility] 04-14-2024 14:39-0400 Body mass index (BMI) [Ratio] 37.76 kg/m2 Donavan Strauss MD Work Phone: [facility] 04-14-2024 14:39-0400 Body weight 99.79 kg Donavan Strauss MD Work Phone: [facility] 04-14-2024 14:39-0400 Diastolic blood pressure 83 mm[Hg] Donavan Strauss MD Work Phone: [facility] 04-14-2024 14:39-0400 Heart rate 88 /min Donavan Strauss MD Work Phone: [facility] 04-14-2024 14:39-0400 Systolic blood pressure 130 mm[Hg] Donavan Strauss MD Work Phone: [facility] 12-31-2023 14:47-0500 Body height 160 cm Donavan Strauss MD Work Phone: [facility] 12-31-2023 14:47-0500 Body mass index (BMI) [Ratio] 37.55 kg/m2 Donavan Strauss MD Work Phone: [facility] 12-31-2023 14:47-0500 Body weight 96.16 kg Donavan Strauss MD Work Phone: [facility] 12-31-2023 14:47-0500 Diastolic blood pressure 85 mm[Hg] Donavan Strauss MD Work Phone: [facility] 12-31-2023 14:47-0500 Heart rate 96 /min Donavan Strauss MD Work Phone: [facility] 12-31-2023 14:47-0500 Systolic blood pressure 130 mm[Hg] Donavan Strauss MD Work Phone: [facility] 10-28-2023 12:59-0500 Body temperature 98.2 [degF] Nohemy Grover PIPELINES SUPERVISOR-C Work Phone: [facility] 10-28-2023 12:59-0500 Diastolic blood pressure 58 mm[Hg] Nohemy Grover PIPELINES SUPERVISOR-C Work Phone: [facility] 10-28-2023 12:59-0500 Heart rate 94 /min Nohemy Grover PIPELINES SUPERVISOR-C Work Phone: [facility] 10-28-2023 12:59-0500 Respiratory rate 16 /min Nohemy Grover PIPELINES SUPERVISOR-C Work Phone: [facility] 10-28-2023 12:59-0500 SaO2% (BldA) [Mass fraction] 97 % Nohemy Grover PIPELINES SUPERVISOR-C Work Phone: [facility] 10-28-2023 12:59-0500 Systolic blood pressure 105 mm[Hg] Nohemy Grover PIPELINES SUPERVISOR-C Work Phone: [facility] 09-17-2023 13:09-0500 Body temperature 97.7 [degF] Dr. Donavan Strauss Work Phone: [facility] 09-17-2023 13:09-0500 Heart rate 87 /min Dr. Donavan Strauss Work Phone: [facility] 09-17-2023 13:09-0500 Respiratory rate 16 /min Dr. Donavan Strauss Work Phone: [facility] 09-17-2023 13:09-0500 SaO2% (BldA) [Mass fraction] 98 % Dr. Donavan Strauss Work Phone: [facility] 09-17-2023 13:05-0500 Diastolic blood pressure 78 mm[Hg] Dr. Donavan Strauss Work Phone: [facility] 09-17-2023 13:05-0500 Systolic blood pressure 101 mm[Hg] Dr. Donavan Strauss Work Phone: [facility] 09-17-2023 10:32-0500 Body height 162.[address] Donavan Strauss Work Phone: [facility] 09-17-2023 10:32-0500 Body mass index (BMI) [Ratio] 36.8 kg/m2 Dr. Donavan Strauss Work Phone: [facility] 09-17-2023 10:32-0500 Body weight 97.[address] Donavan Strauss Work Phone: [facility] 09-01-2023 13:52-0500 Body mass index (BMI) [Ratio] 36.4 kg/m2 Dr. Donavan Strauss Work Phone: [facility] 09-01-2023 13:52-0500 Body temperature 98.4 [degF] Dr. Donavan Strauss Work Phone: [facility] 09-01-2023 13:52-0500 Body weight 96.[address] Donavan Strauss Work Phone: [facility] 09-01-2023 13:52-0500 Diastolic blood pressure 82 mm[Hg] Dr. Donavan Strauss Work Phone: [facility] 09-01-2023 13:52-0500 Heart rate 89 /min Dr. Donavan Strauss Work Phone: [facility] 09-01-2023 13:52-0500 Respiratory rate 18 /min Dr. Donavan Strauss Work Phone: [facility] 09-01-2023 13:52-0500 SaO2% (BldA) [Mass fraction] 95 % Dr. Donavan Strauss Work Phone: [facility] 09-01-2023 13:52-0500 Systolic blood pressure 122 mm[Hg] Dr. Donavan Strauss Work Phone: [facility] 08-31-2023 07:55-0500 Body temperature 97.88 [degF] CHACORTA MORRISSEY MD [facility] 08-31-2023 07:55-0500 Diastolic Blood Pressure Non-Invasive 77 1 CHACORTA MORRISSEY MD [facility] 08-31-2023 07:55-0500 Heart rate 104 /min CHACORTA MORRISSEY MD [facility] 08-31-2023 07:55-0500 Respiratory rate 16 /min CHACORTA MORRISSEY MD [facility] 08-31-2023 07:55-0500 Systolic Blood Pressure Non-Invasive 118 1 CHACORTA MORRISSEY MD [facility] 08-21-2023 09:52-0400 Body mass index (BMI) [Ratio] 37.4 kg/m2 Dr. Donavan Strauss Work Phone: [facility] 08-21-2023 09:52-0400 Body temperature 96.8 [degF] Dr. Donavan Strauss Work Phone: [facility] 08-21-2023 09:52-0400 Body weight 98.[address] Donavan Strauss Work Phone: [facility] 08-21-2023 09:52-0400 Diastolic blood pressure 76 mm[Hg] Dr. Donavan Strauss Work Phone: [facility] 08-21-2023 09:52-0400 Heart rate 84 /min Dr. Donavan Strauss Work Phone: [facility] 08-21-2023 09:52-0400 Respiratory rate 17 /min Dr. Donavan Strauss Work Phone: [facility] 08-21-2023 09:52-0400 SaO2% (BldA) [Mass fraction] 99 % Dr. Donavan Strauss Work Phone: [facility] 08-21-2023 09:52-0400 Systolic blood pressure 115 mm[Hg] Dr. Donavan Strauss Work Phone: [facility] 08-18-2023 09:09-0400 Body mass index (BMI) [Ratio] 37.4 kg/m2 Dr. Donavan Strauss Work Phone: [facility] 08-18-2023 09:09-0400 Body temperature 98.3 [degF] Dr. Donavan Strauss Work Phone: [facility] 08-18-2023 09:09-0400 Body weight 98.[address] Donavan Struass Work Phone: [facility] 08-18-2023 09:09-0400 Diastolic blood pressure 72 mm[Hg] Dr. Donavan Strauss Work Phone: [facility] 08-18-2023 09:09-0400 Heart rate 81 /min Dr. Donavan Strauss Work Phone: [facility] 08-18-2023 09:09-0400 Respiratory rate 18 /min Dr. Donavan Strauss Work Phone: 7(493)[phone] [place] [address] 08-18-2023 09:09-0400 SaO2% (BldA) [Mass fraction] 99 % Dr. Donavan Strauss Work Phone: 8(500)[phone] [place] [address] 08-18-2023 09:09-0400 Systolic blood pressure 107 mm[Hg] Dr. Donavan Strauss Work Phone: 2(742)[phone] [place] [address] 08-07-2023 14:01-0400 Body mass index (BMI) [Ratio] 38 kg/m2 Dr. Donavan Strauss Work Phone: [facility] 08-07-2023 14:01-0400 Body temperature 97.5 [degF] Dr. Donavan Strauss Work Phone: [facility] 08-07-2023 14:01-0400 Body weight 100.[address] Donavan Strauss Work Phone: [facility] 08-07-2023 14:01-0400 Diastolic blood pressure 70 mm[Hg] Dr. Donavan Strauss Work Phone: [facility] 08-07-2023 14:01-0400 Heart rate 99 /min Dr. Donavan Strauss Work Phone: [facility] 08-07-2023 14:01-0400 Respiratory rate 18 /min Dr. Donavan Strauss Work Phone: [facility] 08-07-2023 14:01-0400 SaO2% (BldA) [Mass fraction] 95 % Dr. Donavan Strauss Work Phone: [facility] 08-07-2023 14:01-0400 Systolic blood pressure 102 mm[Hg] Dr. Donavan Strauss Work Phone: [facility] 07-30-2023 10:52-0400 Body temperature 98.29 [degF] Donavan Strauss MD Work Phone: [facility] 07-30-2023 10:52-0400 Diastolic blood pressure 52 mm[Hg] Donavan Strauss MD Work Phone: [facility] 07-30-2023 10:52-0400 Heart rate 69 /min Donavan Strauss MD Work Phone: [facility] 07-30-2023 10:52-0400 Respiratory rate 18 /min Donavan Strauss MD Work Phone: [facility] 07-30-2023 10:52-0400 SaO2% (BldA) [Mass fraction] 92 % Donavan Strauss MD Work Phone: [facility] 07-30-2023 10:52-0400 Systolic blood pressure 101 mm[Hg] Donavan Strauss MD Work Phone: [facility] 07-29-2023 09:46-0400 Body height 162.6 cm Donavan Strauss MD Work Phone: [facility] 07-29-2023 09:46-0400 Body mass index (BMI) [Ratio] 36.9 kg/m2 Donavan Strauss MD Work Phone: [facility] 07-29-2023 09:46-0400 Body weight 97.52 kg Donavan Strauss MD Work Phone: [facility] 07-14-2023 09:44-0400 Body height 160 cm Donavan Strauss MD Work Phone: [facility] 07-14-2023 09:44-0400 Body mass index (BMI) [Ratio] 38.62 kg/m2 Donavan Strauss MD Work Phone: [facility] 07-14-2023 09:44-0400 Body weight 98.88 kg Donavan Strauss MD Work Phone: [facility] 07-14-2023 09:44-0400 Diastolic blood pressure 76 mm[Hg] Donavan Strauss MD Work Phone: [facility] 07-14-2023 09:44-0400 Heart rate 99 /min Donavan Strauss MD Work Phone: [facility] 07-14-2023 09:44-0400 Systolic blood pressure 121 mm[Hg] Donavan Strauss MD Work Phone: [facility] Encounters Encounter Date Encounter Type Care Provider Facility Start: 08-31-2025 End: 08-31-2025 Postop follow up visit related to original px Donavan Strauss MD Work Phone: [facility] [place] Comment on above: Post-operative state (Primary Dx) Start: 08-31-2025 End: 08-31-2025 ambulatory [facility] Start: 08-22-2025 End: 08-22-2025 Postop follow up visit related to original px Donavan Strauss MD Work Phone: [facility] [place] Comment on above: Post-operative state (Primary Dx) Start: 08-22-2025 End: 08-22-2025 ambulatory [facility] Start: 08-19-2025 End: 08-19-2025 Orders Only Donavan Strauss MD Work Phone: [facility] [place] Comment on above: Cellulitis of left g roin (Primary Dx) Start: 07-20-2025 End: 07-20-2025 Postop follow up visit related to original px Donavan Strauss MD Work Phone: [facility] [place] Comment on above: Vulva cancer (CMS/HC C) (HCC) (Primary Dx) Start: 07-20-2025 End: [facility] Start: 07-06-2025 End: 07-06-2025 Postop follow up visit related to original px Donavan Strauss MD Work Phone: [facility] [place] Comment on above: Post-operative state (Primary Dx) Start: 07-06-2025 End: 07-06-2025 ambulatory [facility] Start: 06-30-2025 End: 06-30-2025 ambulatory [facility] Start: 06-30-2025 End: 06-30-2025 Postop follow up visit related to original px Donavan Strauss MD Work Phone: [facility] [place] Comment on above: Post-operative state (Primary Dx) Start: 06-29-[address] Matthias Valero on [facility] Start: 06-29-2025 End: 06-29-[address] Dixon Holliday MD [facility] Work Phone: Start: 06-29-2025 End: 06-29-2025 ambulatory Nohemy Grover PIPELINES SUPERVISOR-C Work Phone: -[facility] Start: 06-28-2025 End: 06-28-2025 Telephone encounter Donavan Strauss MD Work Phone: [facility] [place] Start: 06-17-2025 End: 06-17-2025 Follow-up encounter Donavan Strauss MD Work Phone: [facility] [place] Comment on above: Tissue exam Start: 06-14-2025 End: 06-14-2025 ambulatory [facility] Start: 06-14-2025 End: 06-14-2025 Subsequent hospital visit by physician Donavan Strauss MD Work Phone: [facility] Comment on above: Cancer (CMS/HCC) (HC C) (Primary Dx); Malignant neoplasm of vulva, unspecified (HCC) Start: 06-08-2025 End: 06-08-2025 Telephone encounter Donavan Strauss MD Work Phone: [facility] [place] Start: 06-07-2025 End: 06-07-2025 ambulatory DONAVAN STRAUSS [facility] Start: 06-01-[address] Matthias Valero on [facility] Start: 06-01-2025 End: 06-01-[address] Dixon Holliday [facility] Work Phone: Start: 06-01-2025 End: 06-01-2025 ambulatory Nohemy Grover PIPELINES SUPERVISOR-C Work Phone: [facility] Start: 05-19-2025 End: 05-19-2025 Telephone encounter Donavan Strauss MD Work Phone: [facility] [place] Comment on above: Surgery Scheduling ( [facility]) Start: 05-18-2025 End: 05-18-2025 ambulatory Donavan Strauss MD Work Phone: [facility] [place] Start: 05-18-2025 End: 05-18-2025 Telephone encounter Donavan Strauss MD Work Phone: [facility] [place] Start: 05-04-2025 End: 05-04-2025 ambulatory NOHEMY GROVER INVESTMENT ADVISOR-PETROPHYSICIST Facility:[facility] Start: 05-04-2025 End: 05-04-2025 Patient encounter procedure DONAVAN STRAUSS MD [facility] Start: 04-19-2025 End: 04-19-2025 Orders Only Donavan Strauss MD Work Phone: [facility] [place] Comment on above: Vulva cancer (CMS/HC C) (HCC) (Primary Dx) Start: 04-15-2025 End: 04-15-2025 Office outpatient visit 10 minutes Donavan Strauss MD Work Phone: [facility] [place] Comment on above: Vulva cancer (CMS/HC C) (HCC) (Primary Dx) Start: 04-15-2025 End: 04-15-2025 ambulatory DONAVAN [facility] Start: 02-09-2025 End: 02-09-2025 ambulatory NOHEMY GROVER INVESTMENT ADVISOR-PETROPHYSICIST Facility:[facility] Start: 01-21-2025 End: 01-21-2025 ambulatory Nohemy Grover PIPELINES SUPERVISOR Facility:[facility] Start: 10-13-2024 End: 10-13-2024 Office outpatient visit 10 minutes Donavan Strauss MD Work Phone: [facility] Comment on above: Vulva cancer (CMS/HC C) (HCC) (Primary Dx) Start: 10-13-2024 End: 10-13-2024 ambulatory DONAVAN [facility] Start: 07-23-2024 End: 07-23-2024 ambulatory Nohemy Grover PIPELINES SUPERVISOR Facility:[facility] Start: 07-21-2024 End: 07-21-2024 Office outpatient visit 10 minutes Kari Mayfield INVESTMENT ADVISOR - PETROPHYSICIST Work Phone: [facility] Comment on above: Vulva cancer (CMS/HC C) (HCC) (Primary Dx) Start: 06-10-2024 End: 06-10-2024 ambulatory NOHEMY GROVER INVESTMENT ADVISOR-PETROPHYSICIST Facility:[facility] Start: 04-14-2024 End: 04-14-2024 Office outpatient visit 10 minutes Donavan Strauss MD Work Phone: [facility] Comment on above: Vulva cancer (CMS/HC C) (HCC) (Primary Dx) Start: 02-19-2024 Telephone encounter Noreen campbell INVESTMENT ADVISOR - PETROPHYSICIST Work Phone: [facility] Start: 02-18-2024 Telephone encounter Dnoavan Strauss MD Work Phone: [facility] Comment on above: Results Start: 02-04-2024 End: 02-04-2024 ambulatory NOHEMY GROVER INVESTMENT ADVISOR-PETROPHYSICIST Facility:[facility] Start: 02-04-2024 End: 02-04-2024 Patient encounter procedure NOREEN RAHMAN INVESTMENT ADVISOR-PETROPHYSICIST [facility] Start: 01-27-2024 Telephone encounter Nereyda L[facility] Start: 12-31-2023 End: 12-31-2023 Office outpatient visit 10 minutes Donavan Strauss MD Work Phone: [facility] Comment on above: Vulva cancer (CMS/HC C) (HCC) (Primary Dx) Start: 11-14-2023 Telephone encounter Donavan Strauss MD Work Phone: [facility] Comment on above: Appointment Start: 09-17-2023 Non-patient / Non-visit Dr. Arnold Work Phone: [facility] Start: 09-17-2023 End: 09-17-2023 Admission to same day surgery center Dr. Donavan Strauss Work Phone: [facility] Start: 09-17-2023 End: 09-17-[address] Donavan Strauss Work Phone: [facility] Work Phone: Start: 09-12-2023 Non-patient / Non-visit Dr. Arnold Work Phone: [facility] Start: 09-11-2023 Non-patient / Non-visit Dr. Arnold Work Phone: [facility] Start: 09-03-2023 Non-patient / Non-visit Dr. Arnold Work Phone: [facility] Start: 09-03-[address] Pamela Strauss Work Phone: [facility] Start: 09-01-2023 End: 09-01-[address] Donavan Strauss Work Phone: [facility] Work Phone: Start: 08-31-2023 End: 08-31-2023 Emergency department patient visit CHACORTA MORRISSEY MD [facility] Start: 08-27-2023 End: 08-27-[address] Donavan Strauss Work Phone: [facility] Work Phone: Start: 08-21-2023 End: 08-21-[address] Donavan Strauss Work Phone: [facility] Work Phone: Start: 08-18-2023 End: 08-18-[address] Donavan Strauss Work Phone: [facility] Work Phone: Start: 08-07-2023 End: 08-07-[address] Donavan Strauss Work Phone: [facility] Work Phone: Start: 08-01-2023 Non-patient / Non-visit Dr. Arnold Work Phone: [facility] Work Phone: Start: 07-31-2023 Telephone encounter Nohemy Kearns RN [facility] Comment on above: Referral - Heart Txp ; Appointment Start: 07-29-2023 Telephone encounter Donavan Strauss MD Work Phone: [facility] Start: 07-29-2023 End: 07-30-2023 Subsequent hospital visit by physician Donavan Strauss MD Work Phone: [facility] Comment on above: Vulva cancer (CMS/HC C) (HCC) (Primary Dx); Malignant neoplasm of vulva, unspecified (HCC); Postoperative state Start: 07-28-2023 Orders Only Donavan benson MD Work Phone: [facility] Comment on above: Adrenal mass 1 cm to 4 cm in diameter (HCC) (Primary Dx) Start: 07-23-2023 End: 07-23-2023 ambulatory NOHEMY GROVER INVESTMENT ADVISOR-PETROPHYSICIST Facility:[facility] Start: 07-21-2023 Telephone encounter Donavan Strauss MD Work Phone: [facility] Comment on above: FMLA forms Start: 07-16-2023 Telephone encounter Donavan Strauss MD Work Phone: [facility] Start: 07-14-2023 End: 07-14-2023 Office outpatient new 45 minutes Donavan Strauss MD Work Phone: [facility] Comment on above: Vulva cancer (CMS/HC C) (HCC) (Primary Dx) Start: 07-12-2023 End: 07-16-2023 Encounter for other general examination NOHEMY GROVER INVESTMENT ADVISOR-PETROPHYSICIST Facility:[facility] Start: 07-12-2023 End: 07-16-2023 ambulatory NOHEMY GROVER INVESTMENT ADVISOR-PETROPHYSICIST Facility:[facility] Start: 07-01-2023 End: 07-05-2023 ambulatory NOHEMY GROVER INVESTMENT ADVISOR-PETROPHYSICIST Facility:[facility] Start: 07-01-2023 End: 07-05-2023 Outreach Lab JORGE JARVIS MD [facility] Start: 06-25-2023 End: 06-29-2023 ambulatory NOHEMY GROVER INVESTMENT ADVISOR-PETROPHYSICIST Facility:[facility] Procedures Date Procedure Procedure Detail Performing Clinician Start: 06-22-2025 Estimated creatinine clearance Nohemy Grover NP-C Work Phone: Start: 06-22-2025 Immature reticulocyte fraction Nohemy Grover NP-C Work Phone: Start: 06-22-2025 Lymphocyte percent differential count Nohemy Grover NP-C Work Phone: Start: 06-22-2025 Procedure Nohemy RUIZ Work Phone: Comment on above: Test Ordered: [id number] Flow panel: Leukemi a/LymphomaFlow Interpretation Comment -Y Reference Range: .1. Neutrophils with downregulation of CD10 expression, see comment.2. Relative monocytosis (22% of leukocytes), see comment.Flow Comment Comment -Y Reference Range: .1. Decreased expression of CD10 on neutrophils can be seen in reactiveprocesses including infection, gamez, and in response to G-CSF, and inneoplastic conditions such as myeloid neoplasms. Clinical correlation isrecommended.2. The finding is non-specific and can be seen in both reactive/activatedprocesses and myeloid neoplasm. If monocytosis (absolute count >= 500/uLand >= 10% of leukocytes) persists without secondary etiologies identified,further evaluation of a myeloid neoplasm, such as chronic myelomonocyticleukemia, is warranted if clinically indicated. Recommend clinicalcorrelation.Clinical Information Comment -Y Reference Range: .A recent CBC was not available for review at the time this report wasprepared.Specimen Type Comment -Y Reference Range: .Peripheral bloodAssessment of Leukocytes Comment -Y Reference Range: .No monoclonal B cell population is detected.kappa:lambda ratio 1.8There is no loss of, or aberrant expression of, the stanley T cell antigens tosuggest a neoplastic T cell process.CD4:CD8 ratio 4.9No circulating blasts are detected.There is no immunophenotypic evidence of abnormal myeloid maturation.Neutrophils show downregulation of CD10 expression.Monocytes represent 22% of leukocytes.Analysis of the lymphocyte population shows: B cells 17%, T cells 78%, NKcells 5%.Viability Comment -Y Reference Range: .81%Analysis and Gating Strategy Comment -Y Reference Range: .8 color analysis with CD45/SSC gating Technical-Analysis performed at [place] [address], [employer], [address], [place] [address], Director: Fidel Garber, [facility], Phenotype Chart Comment -Y Reference Range: .CD2 Normal CD3 NormalCD4 Normal CD5 NormalCD7 Normal CD8 PaceikFN82 See Text CD11b OeoohkNW16 Normal CD14 JlbxjbPD89 Normal CD19 RsbnihFZ15 Normal CD33 SkviwpCQ30 Normal CD38 EheyqgTL75 Normal CD56 UfqvdmHP22 Normal CD64 HdgwuwNM924 Normal HLA-DR NormalKAPPA Normal LAMBDA NormalResulting Path Name Comment -Y Reference Range: .Axel Joaquin M.D.Comment: Comment TG Reference Range: .Each antibody in this assay was utilized to assess forpotential abnormalities of studied cell populations or tocharacterize identified abnormalities.This test was developed and its performance characteristicsdetermined by [facility]. It has not been cleared or approvedby the U.S. Food and Drug Administration.The FDA has determined that such clearance or approval isnot necessary. This test is used for clinical purposes. Itshould not be regarded as investigational or for research.Performed at: -Y - [facility] [id number] [facility], [facility], [place] [id number] Director: Fidel Garber [facility], Phone: [phone] at: TG - [facility] [id number] [facility], [facility], [place] [id number] Director: Fidel Garber [facility], Phone: [phone] at: - D[address] [id number] Director: Shane Guerrier PhD, Phone: [phone] Start: 06-22-2025 Serum inorganic phosphate measurement Nohemy Grover [employer] Work Phone: Start: 06-22-2025 Total iron binding capacity measurement Nohemy Thorpeer [employer] Work Phone: Start: 06-01-2025 Estimated creatinine clearance Nohemy Grover [employer] Work Phone: Start: 06-02-2024 Assay of phosphorus inorganic Nohemy Grover [employer] Work Phone: Start: 06-02-2024 Immature reticulocyte fraction Nohemy Grover [employer] Work Phone: Start: 06-02-2024 Measurement of renal function Nohemyjazmyne Grover [employer] Work Phone: Comment on above: GFR Calc Start: 06-02-2024 Total iron binding capacity measurement Nohemyjazmyne Grover [employer] Work Phone: Start: 03-02-2024 Folic acid measurement Nohemy Grover [employer] Work Phone: Start: 03-02-2024 Reactive lymphocyte count Nohemy West derick [employer] Work Phone: Start: 11-25-2023 Allergen spec ige crude allergen extract each Nohemy Thorpeer [employer] Work Phone: Start: 09-17-2023 Plain chest X-ray Dr. Donavan Strauss Work Phone: Start: 09-17-2023 Implantation to cardiovascular system Dr. Donavan Strauss Work Phone: Start: 08-27-2023 MRI of pelvis with contrast Dr. Donavan Strauss Work Phone: Start: 08-19-2023 Positron emission tomography with computed tomography Dr. Donavan Strauss Work Phone: Start: 07-29-2023 Mri abdomen w/o & w/contrast material Liraheel Mcdonough DO Work Phone: Start: 07-29-2023 ABO and Rh group [Type] in Blood by Confirmatory method Donavan Strauss MD Work Phone: Start: 07-29-2023 Antibody screen rbc each serum technique Donavan Strauss MD Work Phone: Start: 07-29-2023 Blood count complete automated Donavan Strauss MD Work Phone: Start: 07-14-2023 Microscopic observation [Identifier] in Cervix by Cyto stain Donavan Strauss MD Work Phone: Amputation of arm through wrist JORGE JARVIS MD H/O: surgery History of lymph node excision Dr. Donavan Strauss Work Phone: Comment on above: b/l groin and vulva biopsy by dr. Solomon martin 07/29/23 Plan of Treatment Date Care Activity Detail Author Start: 2038 RSV Immunization for Adults (1 - 1-dose 75+ series) RSV Immunization for Adults (1 - 1-dose 75+ series) [facility] Start: 07-14-2026 Screening for malignant neoplasm of cervix [facility] Start: 10-12-2025 End: 10-12-2025 Patient encounter procedure 10/12/2025 3:00 PM EST Office Visit [facility] Gynecologic Oncology [place] [address] [place] [phone] Donavan Srtauss MD [address] [place] [address] [facility] - [place] Start: 09-28-2025 End: 09-28-2025 Patient encounter procedure 09/28/2025 3:00 PM EST Office Visit [facility]nec[facility]cology - [place] [address] [place] [phone] Donavan Strauss MD [address] [place] [address] [facility] - [place] Start: 08-31-2025 End: 08-31-2025 Patient encounter procedure 08/31/2025 9:30 AM EST Office Visit [facility] Gynecologic [facility]cology - [place] [address] [place] [phone] Donavan Strauss MD [address] [place] [address] [facility] - [place] Start: 08-22-2025 End: 08-22-2025 Patient encounter procedure 08/22/2025 2:30 PM EDT Office Visit [facility] Gynecologic Oncology - [place] [address] [place] [phone] Donavan Strauss MD [address] [place] [address] [facility] Oncology - [place] Start: 07-20-2025 End: 07-20-2025 Patient encounter procedure 07/20/2025 11:15 AM EDT Office Visit [facility] Gynecologic Oncology - [place] [address] [place] [phone] Donavan Strauss MD [address] [facility] [address] [place], [place] [phone] [facility]necologic [facility]cology - [place] Start: 07-06-2025 End: 07-06-2025 Patient encounter procedure 07/06/2025 12:00 PM EDT Office Visit [facility] Gynecologic [facility]cology - [place] [address] [facility] [address] [place] [phone] Donavan Strauss MD [address] [facility] [address] [place], [place] [phone] [facility]nec[facility]cology - [place] Start: 06-30-2025 End: 06-30-2025 Patient encounter procedure 06/30/2025 9:30 AM EDT Office Visit [facility] Gynecologic Oncology - [place] [address] [facility] [address] [place] [phone] Donavan Strauss MD [address] [facility] [address] [place] [address] [facility]necologic [facility]cology - [place] Start: 06-29-2025 Laboratory test [facility] Start: 06-27-2025 COVID-19 Vaccine ( season) COVID-19 Vaccine ( season) [facility] Start: 06-27-2025 Influenza vaccination [facility] Start: 06-14-2025 End: 06-14-2025 Admission to same day surgery center 06/14/2025 7:30 AM EDT - 06/14/2025 9:00 AM EDT Surgery [facility] MAIN OR [address] [facility] [place] [phone] Donavan Strauss MD [address] [facility] [address] [place] [address] LAPAROSCOPIC, LYMPHADENECTOMY, PELVIS [38912 (CPT )] [facility] MAIN OR Comment on above: LAPAROSCOPIC, LYMPHADENECTOMY, PELVIS [3 4601 (CPT )] Start: 06-14-2025 End: 06-14-2025 Inj radioactive tracer for id of sentinel node INJECTION, RADIOACTIVE TRACER, FOR SENTINEL LYMPH NODE IDENTIFICATION Malignant neoplasm of vulva, unspecified (HCC) 06/14/2025 7:30 AM EDT [facility] Operating Room Start: 06-14-2025 End: 06-14-2025 Laps surg bilateral total pelvic lmphadectomy LAPAROSCOPIC, LYMPHADENECTOMY, PELVIS Malignant neoplasm of vulva, unspecified (HCC) 06/14/2025 7:30 AM EDT [facility] Operating Room Start: 06-14-2025 Subsequent hospital visit by physician 06/14/2025 7:30 AM EDT Hospital Encounter [facility] MAIN OR [address] [place] [phone] Donavan Strauss MD [address] [facility] [address] [place] [address] [facility] MAIN OR Start: 06-07-2025 End: 06-07-2025 Admission to [facility] 06/07/2025 10:30 AM EDT Pre-Admission Testing [facility] Pre-Admit Testing [address] [place] [phone] [facility] Pre-Admit Testing Start: 06-01-2025 [facility] Start: 04-19-2025 End: 04-19-2026 Creatinine [Mass/volume] in Serum or Plasma Creatinine, Serum Lab Routine Vulva cancer (CMS/HCC) (HCC) Expected: 04/19/2025 (Approximate), Expires: 04/19/2026 [facility] Comment on above: Expected: 04/19/2025 (Approximate), Expi res: 04/19/2026 Start: 04-19-2025 End: 04-19-2026 CT Pelvis W contrast IV CT pelvis w IV contrast Imaging Routine Vulva cancer (CMS/HCC) (HCC) Expected: 04/19/2025, Expires: 04/19/2026 [facility] [employer] Work Phone: Comment on above: Expected: 04/19/2025, Expires: Start: 04-15-2025 End: 06-20-2026 PET+CT Bone from skull base to mid-thigh W 18F-NaF IV PET/CT skull base to mid thigh Imaging Routine Vulva cancer (CMS/HCC) (HCC) Expected: 04/15/2025, Expires: 04/15/2026 [facility] Work Phone: Comment on above: Expected: 04/15/2025, Expires: Start: 04-13-2025 End: 04-13-2025 Patient encounter procedure 04/13/2025 3:00 PM EDT Office Visit [facility] Gynecologic Oncology - [place] [address] [place] [phone] Donavan Strauss MD [address] [place], [place] [phone] [facility] - [place] Start: 10-13-2024 End: 10-13-2024 Patient encounter procedure 10/13/2024 3:00 PM EST Office Visit [facility] Gynecologic Oncology - [place] [address] [place] [phone] Donavan Strauss MD [address] [place], [place] [phone] [facility]ologic [facility]cology - [place] Start: 07-21-2024 End: 07-21-2024 Patient encounter procedure 07/21/2024 2:45 PM EDT Office Visit [facility] Gynecologic Oncology [address] [place] [phone] Donavan Strauss MD [address] [facility] [address] [place] [address] [facility] Gynecologic Oncology Start: 06-27-2024 COVID-19 Vaccine ( season) COVID-19 Vaccine ( season) [facility] Start: 06-27-2024 Influenza vaccination [facility] Start: 04-07-2024 End: 04-07-2024 Patient encounter procedure 04/07/2024 3:00 PM EDT Office Visit [facility] Gynecologic Oncology [address] [facility] [address] [place] [phone] Donavan Strauss MD [address] [facility] [address] [place] [address] [facility] Gynecologic Oncology Start: 01-31-2024 End: 12-30-2024 PET+CT Bone from skull base to mid-thigh W 18F-NaF IV PET/CT skull base to mid thigh Imaging Routine Vulva cancer (CMS/HCC) (HCC) Expected: 01/31/2024, Expires: 12/30/2024 [facility] [facility] Work Phone: Comment on above: Expected: 01/31/2024, Expires: Start: 01-29-2024 End: 01-28-2025 CT Abdomen and Pelvis W contrast IV CT abdomen pelvis w contrast Imaging Routine Vulva cancer (CMS/HCC) (HCC) Expected: 01/29/2024, Expires: 01/28/2025 [facility] [employer] [facility] Work Phone: Comment on above: Expected: 01/29/2024, Expires: Start: 10-28-2023 Vital signs measurements [facility] Start: 10-21-2023 Vital signs measurements [facility] Start: 10-13-2023 Vital signs measurements [facility] Start: 10-06-2023 Vital signs measurements [facility] Start: 09-29-2023 Vital signs measurements [facility] Start: 09-22-2023 Venous catheter care management [facility] Start: 09-22-2023 Vital signs measurements [facility] Start: 09-17-2023 Patient discharge [facility] Start: 09-17-2023 Fluoroscopic guidance O.R. Fluoro for CVP/PICC/PORT [facility] Start: 08-18-2023 Patient referral [facility] Work Phone: Start: 08-13-2023 End: 08-13-2023 Patient encounter procedure 08/13/2023 1:45 PM EDT Office Visit [facility] Gynecologic Oncology [address] [facility] [address] [place] [phone] Donavan Strauss MD [address] [place], [place] [phone] [facility] Gynecologic Oncology Start: 08-13-2023 End: 08-13-2023 Patient encounter procedure 08/13/2023 9:45 AM EDT Office Visit [facility] Gynecologic Oncology [address] [facility] [address] [place] [phone] Donavan Strauss MD [address] [facility] [address] [place], [place] [phone] [facility] Gynecologic Oncology Start: 07-29-2023 End: 07-29-2023 Admission to same day surgery center 07/29/2023 11:30 AM EDT - 07/29/2023 1:30 PM EDT Surgery [facility] MAIN OR [address] [facility] [place] [address] Donavan Strauss MD [address] [facility] [address] [place], [place] [phone] BILATERAL GROIN DISSECTION VULVAR BIOPSY [49898 (CPT )] [facility] MAIN OR Comment on above: BILATERAL GROIN DISSECTION VULVAR BIOPSY [78453 (CPT )] Start: 07-29-2023 End: 07-29-2023 Biopsy vulva/perineum 1 lesion spx BIOPSY OF VULVA OR PERINEUM Malignant neoplasm of vulva, unspecified (HCC) 07/29/2023 11:30 AM EDT [facility] Operating Room Start: 07-29-2023 End: 07-29-2023 Biopsy vulva/perineum each addl lesion BIOPSY OF VULVA OR PERINEUM (EACH ADDITIONAL LESION) Malignant neoplasm of vulva, unspecified (HCC) 07/29/2023 11:30 AM EDT [facility] Operating Room Start: 07-29-2023 End: 07-29-2023 Inj radioactive tracer for id of sentinel node LYMPHANGIOGRAPHY FOR IDENTIFICATION SENTINEL NODE Malignant neoplasm of vulva, unspecified (HCC) 07/29/2023 11:30 AM EDT [facility] Operating Room Start: 07-29-2023 Subsequent hospital visit by physician 07/29/2023 11:30 AM EDT Hospital Encounter [facility] MA[facility] OR [address] [place] [address] Donavan Strauss MD [address] [facility] [place] [address] [facility] MAIN OR Start: 07-28-2023 End: 07-28-2024 MR Abdomen WO and W contrast IV MR abdomen w and wo contrast Imaging Routine Adrenal mass 1 cm to 4 cm in diameter (HCC) Expected: 07/28/2023, Expires: 07/28/2024 [facility] Work Phone: Comment on above: Expected: 07/28/2023, Expires: Start: 07-22-2023 End: 07-22-2023 Admission to establishment 07/22/2023 10:30 AM EDT Pre-Admission Testing [facility] Pre-Admit Testing [address] [place] [address] [facility] Pre-Admit Testing Start: 07-16-2023 End: 07-16-2024 CT Abdomen and Pelvis W contrast IV CT abdomen pelvis w contrast Imaging Routine Vulva cancer (CMS/HCC) (HCC) Expected: 07/16/2023, Expires: 07/16/2024 [employer] Work Phone: Comment on above: Expected: 07/16/2023, Expires: 4 Start: 07-14-2023 End: 07-14-2024 PET+CT Bone from skull base to mid-thigh W 18F-NaF IV PET/CT skull base to mid thigh Imaging Routine Vulva cancer (CMS/HCC) (HCC) Expected: 07/14/2023, Expires: 07/14/2024 [facility] Work Phone: Comment on above: Expected: 07/14/2023, Expires: 4 Start: 2023 RSV Immunization aged 60 or older (1 - 1-dose 60+ series) RSV Immunization aged 60 or older (1 - 1-dose 60+ series) [facility] Start: 06-27-2023 COVID-19 Vaccine ( season) COVID-19 Vaccine ( season) [facility] Start: 06-27-2023 Influenza vaccination Influenza Vaccine (#1) [facility] Start: 11-23-2021 COVID-19 Vaccine (4 - Booster for Pfizer series) COVID-19 Vaccine (4 - Booster for Pfizer series) [facility] Start: 11-23-2021 COVID-19 Vaccine (4 - Pfizer series) COVID-19 Vaccine (4 - Pfizer series) [facility] Start: 2013 Zoster Vaccines (1 of 2) Zoster Vaccines (1 of 2) [facility] Start: 2003 Screening for malignant neoplasm of breast Mammogram [facility] Start: 1993 Screening for malignant neoplasm of cervix [facility] Start: 1984 Screening for malignant neoplasm of cervix Pap Smear [facility] Start: 1982 DTaP/Tdap/Td Vaccines (1 - Tdap) DTaP/Tdap/Td Vaccines (1 - Tdap) [facility] Start: 1982 Pneumococcal Vaccine: 50+ Years (1 of 2 - PCV) Pneumococcal Vaccine: 50+ Years (1 of 2 - PCV) [facility] Start: 1981 Diabetes mellitus screening Diabetes Screening [facility] Start: 1981 Hepatitis C screening Hepatitis C Screening [facility] Start: 1975 Depression Screening Depression Screening [facility] Start: 1969 Pneumococcal Vaccine: Pediatrics (0 to 5 Years) and At-Risk Patients (6 to 64 Years) (1 - PCV) Pneumococcal Vaccine: Pediatrics (0 to 5 Years) and At-Risk Patients (6 to 64 Years) (1 - PCV) [facility] Start: 1969 Pneumococcal Vaccine: Pediatrics (0 to 5 Years) and At-Risk Patients (6 to 64 Years) (1 of 2 - PCV) Pneumococcal Vaccine: Pediatrics (0 to 5 Years) and At-Risk Patients (6 to 64 Years) (1 of 2 - PCV) [facility] Start: 1964 MMR Vaccines (1 of 1 - Standard series) MMR Vaccines (1 of 1 - Standard series) [facility] Start: 01-11-1964 Examination of skin Derm Melanoma Skin Check [facility] Start: 1963 HIV screening HIV Screening [facility] Start: 1963 Lipid panel Lipid Panel [facility] Start: 1963 Screening for malignant neoplasm of colon [facility] Cytology Cervical or vaginal smear or scraping study Pap Smear Pathology and Cytology Routine Vulva cancer (CMS/HCC) (HCC) Ordered: 07/14/2023 [facility] Comment on above: Ordered: 07/14/2023 Folate [Moles/volume ] in Serum or Plasma [facility] Gliadin peptide IgA Ab [Units/volume] in Serum [facility] Gliadin peptide IgG Ab [Units/volume] in Serum [facility] Measurement of immunoglobulin A in serum specimen [facility] Patient referral [facility] Work Phone: Positron emission tomography with computed tomography [facility] Tissue exam [facility] [employer] Work Phone: Comment on above: Release Upon Ordering for 1 Occurrences starting 07/29/2023, 1 completed Tissue exam [facility] [employer] Work Phone: Comment on above: Release Upon Ordering for 1 Occurrences starting 06/14/2025 Tissue transglutamin ase IgA Ab [Units/volume] in Serum [facility] Immunizations Immunization Date Immunization Notes Care Provider Fa cility 09-28-2021 SARS-CoV-2 mRNA (tozinameran) vaccine JORGE JARVIS MD [facility] 02-21-2021 SARS-CoV-2 mRNA (tozinameran) vaccine JORGE JARVIS MD [facility] 01-31-2021 SARS-CoV-2 (COVID-19 ) mRNA-1273 vaccine JORGE JARVIS MD [facility] Comment on above: [place] History[place] [employer] P[place] Date Payer Category Payer Private Health Insurance [id number] 2023 Self-pay 2023 Bereket Arriaga [facility] [employer] [id number] 2023 Unknown BEN SHERMAN S BEN CHIRINOS [id number] 2023-Present [address] [place] [address] Commercial [id number] 2023 Unknown [id number] 1965 Unknown [id number] 2.840.1.492315.3.579. 2 1963 Unknown [id number] 2.16840.1.110565.3.579. 2. 1963 Unknown [id number] 2.16840.1.259685.3.579. 2 1963 Unknown [id number] 2.16840.1.827053.3.579. 2 1963 Unknown [id number] 2.16.840.1.517113.3.579. 2. 1963 Unknown [id number] 2.16.840.1.199207.3.579. 2 1963 Unknown [id number] 2.16.840.1.523685.3.579. 2. 1963 Unknown [id number] 2.16.840.1.995583.3.579. 2.627 1963 Unknown [id number] 2.16.840.1.442497.3.579. 2.627 1963 Unknown [id number] 2.16.840.1.940970.3.579. 2.627 1963 Unknown [id number] 2.16.840.1.551735.3.579. 2.627 Unknown [id number] 2.16.840.1.539524.3.579. 2.462 Unknown [id number] 2.16.840.1.841971.3.579. 2.462 Unknown [id number] 2.16.840.1.386939.3.579. 2.462 Unknown [id number] 2.16.840.1.955843.3.579. 2.462 Unknown [id number] 2.840.1.413571.3.579. 2.462 Social History Date Type Detail Facility Start: 06-25-2023 Tobacco smoking status Light t obacco smoker (finding) [facility] Start: 1965 Sex Assigned At Female [place] Start: 10-27-1994 End: 06-07-2025 Tobacco smoking status IDIS Occasional tobacco smoker [facility] Start: 10-27-1994 History of tobacco use Cigarette Smo ker [facility] Start: 07-11-2023 End: 06-14-2025 Cigarettes smoked current (pack per day) - Reported 0.3 [facility] Start: 07-11-2023 End: 06-07-2025 Tobacco use and exposure Smokeless tobacco non-user [facility] Start: 07-14-2023 End: 06-14-2025 Alcohol intake Lifetime non-drinker (finding) [facility] Start: 07-14-2023 End: 06-14-2025 Tobacco use panel [facility] Start: 1965 Sex Assigned At Not on file [facility] Start: 07-04-2023 End: 07-14-2023 Exposure to SARS-CoV-2 (event) Not sure [facility] Start: 08-26-2023 Tobacco smoking stat [facility] Unknown if ever smoked [facility] Start: 04-21-2019 End: 07-08-2023 Sex Female (finding) [facility] Sexual Orientation [facility] NEGATED: Highlighted row [facility] Medical Equipment Procedure Code Equipment Code Equipment Origin al Text Equipment Identifier Dates Insertion, vascular access port ([id number]) Vascular port/catheter [id number] FDA Start: 09-17-2023 Goals Date Patient Goal Desired Activity /State Functional Status Date Assessment Result Facility 08-31-2023 Functional Status Independent [facility] 08-31-2023 Functional Status ID band on [facility] Mental Status Date Assessment Result Facility 09-17-2023 Cognitive function Voice/Name [facility] Work Phone: 08-31-2023 Mental Status Orientation Oriented x 4 [facility] 08-31-2023 Mental Status [facility] Clinical Notes 06-25-2023 to 08-31-2025 Marina Vee MA - 08/31/2025 2:45 PM Noreen Strauss MD - 08/31/2025 2:45 PM Noreen Strauss MD - 08/22/2025 1:00 PM EDTDageorgie Vee MA - 08/22/2025 1:00 PM EDT Note Date & Type Note Facility 08-31-2025 History of Presen t illness Narrative [facility] was offered to the patient for exam. Patient declined offer of skatesman Postop visit The defect in the left groin is getting a little better. Still a lot of induration on the inferior aspect but no evidence of cellulitis. No new areas of necrosis. Continue local wound care and I will see her back in 1 month documented in this encounter [facility] 08-22-2025 History of Presen t illness Narrative Postop visit Patient here to follow-up on her left vulvar groin wound. She is worried about an area of breakdown more medial to this. On exam the original excision site on the left groin is granulating in nicely, no evidence of cellulitis noted. Just inferior to it in the vulvar thigh fold there is a small area of skin breakdown with some erythema however, no exudate is noted. No evidence of complete skin breakdown. The initial surgical site was very gently debrided of a small amount of necrotic tissue, it is granulating in nicely and is about 50% filled in. The smaller lesion below may be related to chronic irritation from drainage from the initial incision. However, does not appear to be related to recurrent cancer or cellulitis or abscess formation. Patient is going to see me back in 1 week. If it does start to breakdown we will perform biopsy to rule out recurrent cancer and if negative consider hyperbaric oxygen treatments. [facility] was offered to the patient for exam. Patient declined offer of skatesman documented in this encounter [facility] 07-20-2025 History of Presen t illness Narrative Postop visit patient here today for wound check The left groin wound is healing in nicely, very minimal necrotic tissue that was debrided, good granulation tissue noted. At this point we will follow-up in 3 months, we will see sooner if she started noticing any issues with the wound otherwise explained to the patient that it will take some time for the wound to completely fill-in on its own. [employer] Foreman was offered to the patient for exam. Patient accepted, medical staff services coordinator in room during exam documented in this encounter [facility] 07-06-2025 History of Presen t illness Narrative Postop check, Patient here for left groin wound check Patient states is still having a lot of seepage. She denies any fever chills or sweats. On exam the left groin incision is still open, does not appear to be any granulation tissue forming yet. A small amount of necrotic debris was sharply debrided. A new wet-to-dry dressing was applied. No evidence of cellulitis. A) open groin wound status post removal of adenopathy status post radiation therapy P) continue local wound care, she is cleaning in the shower once a day, keeping it covered, I will see her back in about 10 days to see how it is doing. I did discuss with the patient that if she would have started to have any suspicion of infection with erythema around the wound, increasing pain to please call the office so that she can be seen by one of my partners in my absence. We also discussed possible hyperbaric oxygen treatments. She would like to try to give this a little bit more time with local wound care. documented in this encounter [facility] 06-30-2025 History of Presen t illness Narrative Postop visit Patient underwent resection of 2 large inguinal nodes, noticed a few days ago the onset of some drainage and foul odor. On exam the left groin incision has completely opened, there is a ring of necrotic tissue in the wound bed. No evidence of purulence or infection was noted. The area was debrided sharply, a wet-to-dry saline soaked gauze was then placed in. Patient was instructed to take it out tomorrow morning, she plans to lavage it every day in the shower with a squeeze bottle and I will see her back on Friday to take another look at it. Wound separation in the groin Discussed with patient that this may take several weeks to heal and due to the radiated tissue. Will continue to follow closely. [employer] Foreman was offered to the patient for exam. Patient accepted, medical staff services coordinator in room during exam documented in this encounter [facility] 06-28-2025 Telephone encounter Note Pt called back and moved OV to versfriday. [facility] 06-28-2025 Miscellaneous Notes Pt called back and moved OV to versfriday. Pt had removal left groin node 06/14/25. Pt incision has foul odor with redness and open. Opening bigger than pencil eraser. Clear drainage. Pt has no fever. Offered appointment tomorrow, pt can't make. Made appt at end of week. Pt states one of her incisions appears to have opened slightly with slight, clear drainage. No pain, but itching and irritated. Please call Pt to advise. Thank you documented in this encounter [facility] 06-28-2025 Telephone encounter Note Pt had removal left groin node 06/14/25. Pt incision has foul odor with redness and open. Opening bigger than pencil eraser. Clear drainage. Pt has no fever. Offered appointment tomorrow, pt can't make. Made appt at end of week. [facility] 06-28-2025 Telephone encounter Note Pt states one of her incisions appears to have opened slightly with slight, clear drainage. No pain, but itching and irritated. Please call Pt to advise. Thank you [facility] 06-17-2025 Telephone encounter Note Called with path [facility] 06-17-2025 Miscellaneous Notes Called with path documented in this encounter [facility] 06-14-2025 Note Patient: Madeline Jimenez or Procedure Summary Date: 06/14/25 Room / Location: [address] Operating Room Anesthesia Start: 650 Anesthesia Stop: 753 Procedure: REMOVAL LEFT GROIN NODE, VULVAR BIOPSY (Left: Abdomen) Diagnosis: Malignant neoplasm of vulva, unspecified (HCC) Surgeons: Donavan Strauss MD Responsible Provider: SAMANTHA Joiner CRNA Anesthesia Type: general ASA Status: 2 Anesthesia Type: general Vitals Value Taken Time BP 125/73 06/14/25 07:51 Temp 97.1 06/14/25 07:57 Pulse 104 06/14/25 07:57 Resp 18 06/14/25 07:57 SpO2 100 % 06/14/25 07:55 Vitals shown include unfiled device data. Anesthesia Post Evaluation Patient location during evaluation: PACU Patient participation: complete - patient participated Level of consciousness: alert Pain management: satisfactory to patient Airway patency: patent Dental Injury: no Cardiovascular status: acceptable, blood pressure returned to baseline and hemodynamically stable Respiratory status: acceptable and spontaneous ventilation Hydration status: euvolemic Nausea/Vomiting: controlled No notable events documented. Patient can be discharged once all PACU criteria has been met. [facility] 06-14-2025 Note Patient: Madeline Jimenez or Procedure Summary Date: 06/14/25 Room / Location: [facility] OR [address] [place] [address] Operating Room Anesthesia Start: 650 Anesthesia Stop: 753 Procedure: REMOVAL LEFT GROIN NODE, VULVAR BIOPSY (Left: Abdomen) Diagnosis: Malignant neoplasm of vulva, unspecified (HCC) Surgeons: Donavan Strauss MD Responsible Provider: SAMANTHA Joiner CRNA Anesthesia Type: general ASA Status: 2 Anesthesia Type: general Vitals Value Taken Time BP 125/73 06/14/25 07:51 Temp 97.1 06/14/25 07:56 Pulse 99 06/14/25 07:56 Resp 18 06/14/25 07:56 SpO2 100 % 06/14/25 07:55 Vitals shown include unfiled device data. Anesthesia Post Evaluation Patient participation: complete - patient participated Level of consciousness: alert Pain management: satisfactory to patient Multimodal analgesia pain management approach Airway patency: patent Two or more strategies used to mitigate risk of obstructive sleep apnea Respiratory status: acceptable Cardiovascular status: acceptable Hydration status: acceptable PONV: none No notable events documented. MIPS #[id number] PONV Patient received an inhalational anesthetic (4554F) Patient exhibits three or more risk factors for PONV (4556F) Patient received at leaset 2 prophylactic Rx PONV anti-emtic agents of different classes preop and/or intraop (G9775) MIPS # 424 Perioperative Temperature Management Anesthesia time was 60 minutes or longer (4255F) Anesthesai administered was General (inhalational or TIVA) or Neuraxial block (X0424) At least one body temperature greater than 95.8F/35.5C achieved within the 30 mins immediately prior to or the 15 minutes immediately following anesthesia end time (G9771) MIPS #477 Multimodal Pain Management Not emergent case Patient was administered multimodal pain management (two or more drugs and/or interventions excluding systemic opioids) in the periopeartive period occurring at some time between 6 hours prior to anesthesia start time until discharged from PACU (G2148) MIPS #404 Anesthesiology Smoking Abstinence The patient is not a current smoker (e.g. cigarette, cigar, pipe, e-cigarette/vaping/marijuana) If no stop here (XX404) I completed my handoff to the receiving clinician during which we: 1. Identified the patient 2. Identified the responsible provider 3. Reviewed the pertinent medical history 4. Discussed the surgical course 5. Reviewed intra-op anesthesia management and issues during anesthesia 6. Set expectations for post-procedure period 7. Allowed opportunity for questions and acknowledgement of understanding. [facility] 06-14-2025 Note Airway Date/Time: 06/14/2025 7:00 AM Reason: scheduled Airway not difficult General Information and Staff Patient location during procedure: Procedural Resident/PATIENT CARE TECHNICIAN: Molina Bar, INVESTMENT ADVISOR - PATIENT CARE TECHNICIAN Performed: SRNA Patient Condition Indications for airway management: anesthesia Patient position: sniffing Sedation level: Asleep Final Airway Details Preoxygenated: yes Final airway type: supraglottic airway Successful airway: Igel Size: 4 Number of attempts at approach: 1 [facility] 06-14-2025 Procedure note Date of surgery 06/14/2025 Preoperative diagnosis vulvar cancer status post radiotherapy, left groin adenopathy Postop diagnosis same, concern for local recurrence, concern for lymphatic disease Procedure; left groin lymph node dissection, superficial lymph nodes of the groin, vulvar biopsy x 4 Surgeon Carlos A Anesthesia General Description of findings; the patient had 2 ulcerative areas on the vulva 1 in the upper left vulva that was concerning for malignant disease. An additional area of ulceration of the skin Concerning for radiation changes wAS in the perineum. Biopsy of both the upper left lesion as well as the perineal lesion was performed. Description of operation patient identified brought to the operating room and after ministration of general anesthesia underwent exam under anesthesia and was prepped and draped in the lithotomy position using the yellowfin's. Timeout was performed. Attention was first turned to the left groin where 5 cc 1% lidocaine epinephrine was injected under the skin and using a 5 blade scalpel an incision was made overlying the adenopathy which was in the medial to midportion of the femoral triangle. The skin followed by Osorio's fascia was opened using Bovie cautery. Enlarged lymph nodes in the distal end of Narinder's canal were then removed using monopolar cautery as well as a 3-0 Vicryl tie office. The lymph nodes removed in their entirety and the defect was closed with running 3-0 subcutaneous Vicryl to reapproximate Osorio's fascia followed by interrupted 3-0 Vicryl subcutaneous in the dermis followed by subcuticular 4-0 Monocryl running and Steri-Strips. Attention was then turned down to the vulva, using the 3 mm punch biopsy 2 biopsies were performed of both the perineal body as well as the left lesion. Hemostasis was the Bovie cautery and silver nitrate. Blood loss is minimal she was taken to the cover room in stable condition by anesthesia [facility] 06-14-2025 Procedure note Date: 06/14/2025 Location: [facility] OR Name: Madeline Jimenez, : 1965, Diagnosis Pre-op Diagnosis * Malignant neoplasm of vulva, unspecified (HCC) [C51.9] Post-op Diagnosis * Malignant neoplasm of vulva, unspecified (HCC) [C51.9] Procedures Left groin node dissection Vulvar biopsy x 4 Surgeons * Donavan Strauss - Primary Procedure Summary Anesthesia: General ASA: II Estimated Blood Loss: Minimal Drains: * None in log * Specimens ID Source Type Tests Collected By Collected At Frozen? Priority Lab ID 1 Other Tissue TISSUE EXAM Donavan Strauss MD 06/14/25 0720 No Routine Description: LEFT GROIN NODE 2 Other Tissue TISSUE EXAM Donavan Strauss MD 06/14/25 0733 No Routine Description: LEFT UPPER VULVA 3 Other Tissue TISSUE EXAM Donavan Strauss MD 06/14/25 0737 No Routine Description: PERINEUM Staff: Microwave Remote Sensing Scientist: Raquel Levi RN Scrub Person: Simone Rene RN [place] to Circ: Solomon Collins RN Findings: See operative note Complications: None; patient tolerated the procedure well. Specimens Collected: Order Name Source Comment Collection Info Order Time POTASSIUM WITH MG REFLEX For patients on dialysis to draw potassium day of surgery 06/14/2025 5:44 AM PROTHROMBIN TIME If patient on coumadin within 4 days prior. 06/14/2025 5:44 AM HCG QUALITATIVE URINE Urine, Clean Catch Discontinue this order if: 1. patient is older than 55 years old 2. has had a prior hysterectomy 3. today's surgery is for treatment of known or suspected ectopic or loss. 4. patient has a known intrauterine but this is a needed surgery. 06/14/2025 5:44 AM TISSUE EXAM Other VULVAR CANCER S/P RADIATION R/O RECURRENCE Collected By: Donavan Strauss MD 06/14/2025 7:21 AM Wound Class: Class I: Clean Blood Products: None Prophylactic Antibiotics: Pre-operative antibiotics were not given because antibiotics are not indicated for this procedure. [facility] 06-14-2025 Miscellaneous Notes Date of surgery 06/14/2025 Preoperative diagnosis vulvar cancer status post radiotherapy, left groin adenopathy Postop diagnosis same, concern for local recurrence, concern for lymphatic disease Procedure; left groin lymph node dissection, superficial lymph nodes of the groin, vulvar biopsy x 4 Surgeon Carlos A Anesthesia General Description of findings; the patient had 2 ulcerative areas on the vulva 1 in the upper left vulva that was concerning for malignant disease. An additional area of ulceration of the skin Concerning for radiation changes wAS in the perineum. Biopsy of both the upper left lesion as well as the perineal lesion was performed. Description of operation patient identified brought to the operating room and after ministration of general anesthesia underwent exam under anesthesia and was prepped and draped in the lithotomy position using the yellowfin's. Timeout was performed. Attention was first turned to the left groin where 5 cc 1% lidocaine epinephrine was injected under the skin and using a 5 blade scalpel an incision was made overlying the adenopathy which was in the medial to midportion of the femoral triangle. The skin followed by Osorio's fascia was opened using Bovie cautery. Enlarged lymph nodes in the distal end of Narinder's canal were then removed using monopolar cautery as well as a 3-0 Vicryl tie office. The lymph nodes removed in their entirety and the defect was closed with running 3-0 subcutaneous Vicryl to reapproximate Osorio's fascia followed by interrupted 3-0 Vicryl subcutaneous in the dermis followed by subcuticular 4-0 Monocryl running and Steri-Strips. Attention was then turned down to the vulva, using the 3 mm punch biopsy 2 biopsies were performed of both the perineal body as well as the left lesion. Hemostasis was the Bovie cautery and silver nitrate. Blood loss is minimal she was taken to the cover room in stable condition by anesthesia Date: 06/14/2025 Location: [facility] OR Name: Madeline Jimenez : 1965, Diagnosis Pre-op Diagnosis * Malignant neoplasm of vulva, unspecified (HCC) [C51.9] Post-op Diagnosis * Malignant neoplasm of vulva, unspecified (HCC) [C51.9] Procedures Left groin node dissection Vulvar biopsy x 4 Surgeons * Donavan Strauss - Primary Procedure Summary Anesthesia: General ASA: II Estimated Blood Loss: Minimal Drains: * None in log * Specimens ID Source Type Tests Collected By Collected At Frozen? Priority Lab ID 1 Other Tissue TISSUE EXAM Donavan Strauss MD 06/14/25 0720 No Routine Description: LEFT GROIN NODE 2 Other Tissue TISSUE EXAM Donavan Strauss MD 06/14/25 0733 No Routine Description: LEFT UPPER VULVA 3 Other Tissue TISSUE EXAM Donavan Strauss MD 06/14/25 0737 No Routine Description: PERINEUM Staff: Microwave Remote Sensing Scientist: Raquel Lvei RN Scrub Person: Simone Rene RN [place] to Circ: Solomon Collins RN Findings: See operative note Complications: None; patient tolerated the procedure well. Specimens Collected: Order Name Source Comment Collection Info Order Time POTASSIUM WITH MG REFLEX For patients on dialysis to draw potassium day of surgery 06/14/2025 5:44 AM PROTHROMBIN TIME If patient on coumadin within 4 days prior. 06/14/2025 5:44 AM HCG QUALITATIVE URINE Urine, Clean Catch Discontinue this order if: 1. patient is older than 55 years old 2. has had a prior hysterectomy 3. today's surgery is for treatment of known or suspected ectopic or loss. 4. patient has a known intrauterine but this is a needed surgery. 06/14/2025 5:44 AM TISSUE EXAM Other VULVAR CANCER S/P RADIATION R/O RECURRENCE Collected By: Donavan Strauss MD 06/14/2025 7:21 AM Wound Class: Class I: Clean Blood Products: None Prophylactic Antibiotics: Pre-operative antibiotics were not given because antibiotics are not indicated for this procedure. documented in this encounter [facility] 06-14-2025 Attending History and physical note H&P reviewed. The patient was examined and there are no changes to the H&P. Source Note - Donavan Strauss MD - 06/14/2025 6:43 AM EDT Images from the original note were not included. H&P 06/14/25 CC: stage I B vulvar cancer HPI: 59 y.o. 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 She was treated with bilateral groin dissection which was negative followed by neoadjuvant chemoradiotherapy with weekly cisplat. Pretherapy PET scan showed no evidence of distant metastasis. Patient received 5000 cGy to the vulva with boost to the gross disease of 6400 cGy which ended on November 06, 2023. Exam after radiation therapy showed no evidence of gross disease. PET scan was not allowed by her insurance company. Underwent CT scan of the abdomen and pelvis in January 2024 which did show a stable right adrenal adenoma but no other disease noted. The adrenal adenoma has been noted on MRI in July 2023 measuring 3.7 x 3.3 cm. Patient is now about 18 months status post completion of radiotherapy. Has been noticing a vaginal drainage but denies any pruritus or burning. 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 [Social History] [Social History] Socioeconomic History Marital status: Unknown Tobacco Use Smoking status: Some Days Current packs/day: 0.25 Average packs/day: 0.3 packs/day for 30.0 years (7.5 ttl pk-yrs) Types: Cigarettes Smokeless tobacco: Never Vaping Use Vaping status: Never Used Substance and Sexual Activity Alcohol use: Never Drug use: Never [Current Medications] [Current Medications] Current Outpatient Medications Medication Sig Dispense Refill acetaminophen (Tylenol) 500 MG tablet Take 2 tablets (1,000 mg) by mouth in the morning and 2 tablets (1,000 mg) at noon and 2 tablets (1,000 mg) in the evening and 2 tablets (1,000 mg) before bedtime. 30 tablet 0 apixaban (Eliquis) 2.5 MG tablet Take 1 tablet (2.5 mg) by mouth 2 times daily for 28 days. 56 tablet 0 ibuprofen 600 MG tablet Take 1 tablet (600 mg) by mouth in the morning and 1 tablet (600 mg) at noon and 1 tablet (600 mg) in the evening and 1 tablet (600 mg) before bedtime. 60 tablet 0 MULTIPLE VITAMIN PO Take by mouth. Multiple Vitamins-Minerals (VITAMIN C EFFERVESCENT BLEND PO) Take by mouth daily. No current facility-administered medications for this visit. Review of Systems Genitourinary: Positive for vaginal discharge. Negative for pelvic pain and vaginal bleeding. Hematological: Negative for adenopathy. Patient has no known allergies. There were no vitals taken for this visit. Physical Exam Vitals and nursing note reviewed. Exam conducted with a skatesman present. Constitutional: Appearance: Normal appearance. Abdominal: General: Abdomen is flat. Palpations: Abdomen is soft. Genitourinary: Labia: Right: Lesion present. Left: Lesion present. Urethra: No urethral lesion. Vagina: Normal. Lymphadenopathy: Upper Body: Right upper body: No supraclavicular adenopathy. Left upper body: No supraclavicular adenopathy. Lower Body: No right inguinal adenopathy. Left inguinal adenopathy present. Comments: 2 enlarged lymph nodes noted in the left groin area Neurological: Mental Status: She is alert. Psychiatric: Mood and Affect: Mood normal. Assessment: New onset left groin adenopathy as well as new ulcerative area in the upper vulva. Plan: Recommend PET scan, if PET scan is not approved by insurance company will do CT scan of possible exam under anesthesia with biopsies of the ulcerative area. [facility] 06-14-2025 Note H&P reviewed. The yaneth maria was examined and there are no changes to the H&P. [facility] 06-14-2025 History and physical note H&P reviewed. The patient was examined and there are no changes to the H&P. Source Note - Donavan Strauss MD - 06/14/2025 6:43 AM EDT Images from the original note were not included. H&P 06/14/25 CC: stage I B vulvar cancer HPI: 59 y.o. 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 She was treated with bilateral groin dissection which was negative followed by neoadjuvant chemoradiotherapy with weekly cisplat. Pretherapy PET scan showed no evidence of distant metastasis. Patient received 5000 cGy to the vulva with boost to the gross disease of 6400 cGy which ended on November 06, 2023. Exam after radiation therapy showed no evidence of gross disease. PET scan was not allowed by her insurance company. Underwent CT scan of the abdomen and pelvis in January 2024 which did show a stable right adrenal adenoma but no other disease noted. The adrenal adenoma has been noted on MRI in July 2023 measuring 3.7 x 3.3 cm. Patient is now about 18 months status post completion of radiotherapy. Has been noticing a vaginal drainage but denies any pruritus or burning. 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 [Social History] [Social History] Socioeconomic History Marital status: Unknown Tobacco Use Smoking status: Some Days Current packs/day: 0.25 Average packs/day: 0.3 packs/day for 30.0 years (7.5 ttl pk-yrs) Types: Cigarettes Smokeless tobacco: Never Vaping Use Vaping status: Never Used Substance and Sexual Activity Alcohol use: Never Drug use: Never [Current Medications] [Current Medications] Current Outpatient Medications Medication Sig Dispense Refill acetaminophen (Tylenol) 500 MG tablet Take 2 tablets (1,000 mg) by mouth in the morning and 2 tablets (1,000 mg) at noon and 2 tablets (1,000 mg) in the evening and 2 tablets (1,000 mg) before bedtime. 30 tablet 0 apixaban (Eliquis) 2.5 MG tablet Take 1 tablet (2.5 mg) by mouth 2 times daily for 28 days. 56 tablet 0 ibuprofen 600 MG tablet Take 1 tablet (600 mg) by mouth in the morning and 1 tablet (600 mg) at noon and 1 tablet (600 mg) in the evening and 1 tablet (600 mg) before bedtime. 60 tablet 0 MULTIPLE VITAMIN PO Take by mouth. Multiple Vitamins-Minerals (VITAMIN C EFFERVESCENT BLEND PO) Take by mouth daily. No current facility-administered medications for this visit. Review of Systems Genitourinary: Positive for vaginal discharge. Negative for pelvic pain and vaginal bleeding. Hematological: Negative for adenopathy. Patient has no known allergies. There were no vitals taken for this visit. Physical Exam Vitals and nursing note reviewed. Exam conducted with a skatesman present. Constitutional: Appearance: Normal appearance. Abdominal: General: Abdomen is flat. Palpations: Abdomen is soft. Genitourinary: Labia: Right: Lesion present. Left: Lesion present. Urethra: No urethral lesion. Vagina: Normal. Lymphadenopathy: Upper Body: Right upper body: No supraclavicular adenopathy. Left upper body: No supraclavicular adenopathy. Lower Body: No right inguinal adenopathy. Left inguinal adenopathy present. Comments: 2 enlarged lymph nodes noted in the left groin area Neurological: Mental Status: She is alert. Psychiatric: Mood and Affect: Mood normal. Assessment: New onset left groin adenopathy as well as new ulcerative area in the upper vulva. Plan: Recommend PET scan, if PET scan is not approved by insurance company will do CT scan of possible exam under anesthesia with biopsies of the ulcerative area. Images from the original note were not included. H&P 06/14/25 CC: stage I B vulvar cancer HPI: 59 y.o. 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 She was treated with bilateral groin dissection which was negative followed by neoadjuvant chemoradiotherapy with weekly cisplat. Pretherapy PET scan showed no evidence of distant metastasis. Patient received 5000 cGy to the vulva with boost to the gross disease of 6400 cGy which ended on November 06, 2023. Exam after radiation therapy showed no evidence of gross disease. PET scan was not allowed by her insurance company. Underwent CT scan of the abdomen and pelvis in January 2024 which did show a stable right adrenal adenoma but no other disease noted. The adrenal adenoma has been noted on MRI in July 2023 measuring 3.7 x 3.3 cm. Patient is now about 18 months status post completion of radiotherapy. Has been noticing a vaginal drainage but denies any pruritus or burning. 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 [Social History] [Social History] Socioeconomic History Marital status: Unknown Tobacco Use Smoking status: Some Days Current packs/day: 0.25 Average packs/day: 0.3 packs/day for 30.0 years (7.5 ttl pk-yrs) Types: Cigarettes Smokeless tobacco: Never Vaping Use Vaping status: Never Used Substance and Sexual Activity Alcohol use: Never Drug use: Never [Current Medications] [Current Medications] Current Outpatient Medications Medication Sig Dispense Refill acetaminophen (Tylenol) 500 MG tablet Take 2 tablets (1,000 mg) by mouth in the morning and 2 tablets (1,000 mg) at noon and 2 tablets (1,000 mg) in the evening and 2 tablets (1,000 mg) before bedtime. 30 tablet 0 apixaban (Eliquis) 2.5 MG tablet Take 1 tablet (2.5 mg) by mouth 2 times daily for 28 days. 56 tablet 0 ibuprofen 600 MG tablet Take 1 tablet (600 mg) by mouth in the morning and 1 tablet (600 mg) at noon and 1 tablet (600 mg) in the evening and 1 tablet (600 mg) before bedtime. 60 tablet 0 MULTIPLE VITAMIN PO Take by mouth. Multiple Vitamins-Minerals (VITAMIN C EFFERVESCENT BLEND PO) Take by mouth daily. No current facility-administered medications for this visit. Review of Systems Genitourinary: Positive for vaginal discharge. Negative for pelvic pain and vaginal bleeding. Hematological: Negative for adenopathy. Patient has no known allergies. There were no vitals taken for this visit. Physical Exam Vitals and nursing note reviewed. Exam conducted with a skatesman present. Constitutional: Appearance: Normal appearance. Abdominal: General: Abdomen is flat. Palpations: Abdomen is soft. Genitourinary: Labia: Right: Lesion present. Left: Lesion present. Urethra: No urethral lesion. Vagina: Normal. Lymphadenopathy: Upper Body: Right upper body: No supraclavicular adenopathy. Left upper body: No supraclavicular adenopathy. Lower Body: No right inguinal adenopathy. Left inguinal adenopathy present. Comments: 2 enlarged lymph nodes noted in the left groin area Neurological: Mental Status: She is alert. Psychiatric: Mood and Affect: Mood normal. Assessment: New onset left groin adenopathy as well as new ulcerative area in the upper vulva. Plan: Recommend PET scan, if PET scan is not approved by insurance company will do CT scan of possible exam under anesthesia with biopsies of the ulcerative area. documented in this encounter [facility] 06-14-2025 History and physical note Images from the original note were not included. H&P 06/14/25 CC: stage I B vulvar cancer HPI: 59 y.o. 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 She was treated with bilateral groin dissection which was negative followed by neoadjuvant chemoradiotherapy with weekly cisplat. Pretherapy PET scan showed no evidence of distant metastasis. Patient received 5000 cGy to the vulva with boost to the gross disease of 6400 cGy which ended on November 06, 2023. Exam after radiation therapy showed no evidence of gross disease. PET scan was not allowed by her insurance company. Underwent CT scan of the abdomen and pelvis in January 2024 which did show a stable right adrenal adenoma but no other disease noted. The adrenal adenoma has been noted on MRI in July 2023 measuring 3.7 x 3.3 cm. Patient is now about 18 months status post completion of radiotherapy. Has been noticing a vaginal drainage but denies any pruritus or burning. 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 [Social History] [Social History] Socioeconomic History Marital status: Unknown Tobacco Use Smoking status: Some Days Current packs/day: 0.25 Average packs/day: 0.3 packs/day for 30.0 years (7.5 ttl pk-yrs) Types: Cigarettes Smokeless tobacco: Never Vaping Use Vaping status: Never Used Substance and Sexual Activity Alcohol use: Never Drug use: Never [Current Medications] [Current Medications] Current Outpatient Medications Medication Sig Dispense Refill acetaminophen (Tylenol) 500 MG tablet Take 2 tablets (1,000 mg) by mouth in the morning and 2 tablets (1,000 mg) at noon and 2 tablets (1,000 mg) in the evening and 2 tablets (1,000 mg) before bedtime. 30 tablet 0 apixaban (Eliquis) 2.5 MG tablet Take 1 tablet (2.5 mg) by mouth 2 times daily for 28 days. 56 tablet 0 ibuprofen 600 MG tablet Take 1 tablet (600 mg) by mouth in the morning and 1 tablet (600 mg) at noon and 1 tablet (600 mg) in the evening and 1 tablet (600 mg) before bedtime. 60 tablet 0 MULTIPLE VITAMIN PO Take by mouth. Multiple Vitamins-Minerals (VITAMIN C EFFERVESCENT BLEND PO) Take by mouth daily. No current facility-administered medications for this visit. Review of Systems Genitourinary: Positive for vaginal discharge. Negative for pelvic pain and vaginal bleeding. Hematological: Negative for adenopathy. Patient has no known allergies. There were no vitals taken for this visit. Physical Exam Vitals and nursing note reviewed. Exam conducted with a skatesman present. Constitutional: Appearance: Normal appearance. Abdominal: General: Abdomen is flat. Palpations: Abdomen is soft. Genitourinary: Labia: Right: Lesion present. Left: Lesion present. Urethra: No urethral lesion. Vagina: Normal. Lymphadenopathy: Upper Body: Right upper body: No supraclavicular adenopathy. Left upper body: No supraclavicular adenopathy. Lower Body: No right inguinal adenopathy. Left inguinal adenopathy present. Comments: 2 enlarged lymph nodes noted in the left groin area Neurological: Mental Status: She is alert. Psychiatric: Mood and Affect: Mood normal. Assessment: New onset left groin adenopathy as well as new ulcerative area in the upper vulva. Plan: Recommend PET scan, if PET scan is not approved by insurance company will do CT scan of possible exam under anesthesia with biopsies of the ulcerative area. [facility] 06-14-2025 Note H&P 06/14/25 CC: stage I B vulvar cancer HPI: 59 y.o. 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 She was treated with bilateral groin dissection which was negative followed by neoadjuvant chemoradiotherapy with weekly cisplat. Pretherapy PET scan showed no evidence of distant metastasis. Patient received 5000 cGy to the vulva with boost to the gross disease of 6400 cGy which ended on November 06, 2023. Exam after radiation therapy showed no evidence of gross disease. PET scan was not allowed by her insurance company. Underwent CT scan of the abdomen and pelvis in January 2024 which did show a stable right adrenal adenoma but no other disease noted. The adrenal adenoma has been noted on MRI in July 2023 measuring 3.7 x 3.3 cm. Patient is now about 18 months status post completion of radiotherapy. Has been noticing a vaginal drainage but denies any pruritus or burning. 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 [Social History] [Social History] Socioeconomic History Marital status: Unknown Tobacco Use Smoking status: Some Days Current packs/day: 0.25 Average packs/day: 0.3 packs/day for 30.0 years (7.5 ttl pk-yrs) Types: Cigarettes Smokeless tobacco: Never Vaping Use Vaping status: Never Used Substance and Sexual Activity Alcohol use: Never Drug use: Never [Current Medications] [Current Medications] Current Outpatient Medications Medication Sig Dispense Refill acetaminophen (Tylenol) 500 MG tablet Take 2 tablets (1,000 mg) by mouth in the morning and 2 tablets (1,000 mg) at noon and 2 tablets (1,000 mg) in the evening and 2 tablets (1,000 mg) before bedtime. 30 tablet 0 apixaban (Eliquis) 2.5 MG tablet Take 1 tablet (2.5 mg) by mouth 2 times daily for 28 days. 56 tablet 0 ibuprofen 600 MG tablet Take 1 tablet (600 mg) by mouth in the morning and 1 tablet (600 mg) at noon and 1 tablet (600 mg) in the evening and 1 tablet (600 mg) before bedtime. 60 tablet 0 MULTIPLE VITAMIN PO Take by mouth. Multiple Vitamins-Minerals (VITAMIN C EFFERVESCENT BLEND PO) Take by mouth daily. No current facility-administered medications for this visit. Review of Systems Genitourinary: Positive for vaginal discharge. Negative for pelvic pain and vaginal bleeding. Hematological: Negative for adenopathy. Patient has no known allergies. There were no vitals taken for this visit. Physical Exam Vitals and nursing note reviewed. Exam conducted with a skatesman present. Constitutional: Appearance: Normal appearance. Abdominal: General: Abdomen is flat. Palpations: Abdomen is soft. Genitourinary: Labia: Right: Lesion present. Left: Lesion present. Urethra: No urethral lesion. Vagina: Normal. Lymphadenopathy: Upper Body: Right upper body: No supraclavicular adenopathy. Left upper body: No supraclavicular adenopathy. Lower Body: No right inguinal adenopathy. Left inguinal adenopathy present. Comments: 2 enlarged lymph nodes noted in the left groin area Neurological: Mental Status: She is alert. Psychiatric: Mood and Affect: Mood normal. Assessment: New onset left groin adenopathy as well as new ulcerative area in the upper vulva. Plan: Recommend PET scan, if PET scan is not approved by insurance company will do CT scan of possible exam under anesthesia with biopsies of the ulcerative area. [facility] 06-13-2025 Note Patient: Madeline Jimenez or Procedure Information Date/Time: 06/14/25 0700 Procedures: LAPAROSCOPIC, LYMPHADENECTOMY, PELVIS (Left: Abdomen) - 1.5 HOURS GENERAL POSSIBLE BILATERAL PELVIC SENTINEL LYMPH NODE BIOPSY WITH INDOCYNINE GREEN DYE PROTOCOL (Left) Location: [facility] Operating Room Surgeons: Donavan Strauss MD Relevant Problems Anesthesia (within normal limits) Cardio (+) Murmur Other (+) Cancer (CMS/HCC) (HCC) Past Medical History: Past Medical History: 2022: Cancer (CMS/HCC) (HCC) Comment: vulva cancer No date: Heart murmur Comment: recently heard at PCP office Past Surgical History: Past Surgical History: 07/29/2023: GROIN SURGERY (HISTORICAL); Bilateral Comment: BILATERAL GROIN DISSECTION VULVAR BIOPSY - Bilateral No date: OTHER SURGICAL HISTORY; Left Comment: amputation of hand at wrist Social History: TOBACCO: reports that she has been smoking cigarettes. She started smoking about 30 years ago. She has a 7.7 pack-year smoking history. She has never used smokeless tobacco. ETOH: reports no history of alcohol use. Social History Substance and Sexual Activity Drug Use Never Family History: Family History[1] Screening: Postmenopausal Clinical information reviewed: Physical Exam Airway Mallampati: II Cardiovascular Dental (+) edentulous Pulmonary Abdominal Anesthesia Plan Any family history or previous problems with anesthesia We discussed risks, benefits, alternatives and likelihood of success with the Patient. ASA 2 general The patient is a current smoker. Patient was previously instructed to abstain from smoking on day of procedure. Patient did not smoke on day of procedure. patient is NPO appropriate ERAS Type No PAT- previous OR 2022 Short ERAS RAJAN Screening Labs: Lab Results Component Value Date WBC 3.0 (L) 07/29/2023 HGB 13.5 07/29/2023 HCT 40.1 07/29/2023 MCV 85.0 07/29/2023 PLT 177 07/29/2023 No results found for: "SODIUM", "NA", "POTASSIUM", "K", "CHLORIDE", "CL", "CO2", "BUN", "CREATININE", "GLUCOSE", "CALCIUM", "PROT", "BILIRUBINFL", "ALKPHOS", "AST", "ALT", "EGFR", "GLOB" No echocardiogram results found for the past 14 days No results found for this or any previous visit. Equipment Requests: Additional Equipment Requests Block Team [1] Family History Problem Relation Name Age of Onset Arthritis Mother Hypertension Mother Alcohol abuse Father Hypertension Father Liver disease Father [facility] 06-08-2025 Telephone encounter Note Called pt with Dr. Strauss note. Pt verbalized understanding. [facility] 06-08-2025 Miscellaneous Notes Called pt with Dr. Strauss note. Pt verbalized understanding. Pt had labs done and daughter worried for results for surgery 06/14/25. Pt to fax over lab results. hgb 9.2 Plt 132 Pot 3.6 Na 135 Creat .50 Wbc 1.5 Pt has questions regarding her labs and is concerned if she should still have surgery next week. Please call Pt to advise. Thank you documented in this encounter [facility] 06-08-2025 Telephone encounter Note Pt had labs done and daughter worried for results for surgery 06/14/25. Pt to fax over lab results. hgb 9.2 Plt 132 Pot 3.6 Na 135 Creat .50 Wbc 1.5 [facility] 06-08-2025 Telephone encounter Note Pt has questions regarding her labs and is concerned if she should still have surgery next week. Please call Pt to advise. 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 History of Present Illness 59-year-old old woman presented with a perineal ulcer. Biopsy on 07/02/2023 showed squamous cell carcinoma in situ at [facility]. She was referred to Dr. Strauss. She appeared to have T1b lesioninvolving the vulva and perineal body. She underwent bilateral groin dissection and vulvar biopsy on 07/29/2023. 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 Lymph nodes right groin 9was negative, lymph nodes left groin 7 was negative. She was felt to have T1b perineal cancer, N0 M0-Stage IB.. Underwent PET/CT 08/19/2023 which demonstrated hypermetabolic activity in the region ofthe posterior vulva, posterior raphe-perirectal region, SUV 9.3, measures 34.3 mm, and in the left inguinal region, left anterior pelvic wall, SUV 3.9, maximum axial diameter of the metabolic, morphologic abnormality is 32.1 mm. Started weekly Cisplatin with Radiation on 09/22/2023. Finished C6 weekly Cisplatin on 10/28/2023. Finished Radiation on 11/06/2023. Saw Dr. Strauss, exam showed complete response. Had CT done at [facility] which was negative. She is on observation. Comes for follow up. Feels well. No pain in vulvar area, told by Dr. Strauss that she has L groin nodes so he is going to doa biopsy. . [facility] Medical History Cellulitis Encounter for education Wears glasses Wears dentures Post-menopausal Smoker History of irregular heartbeat Hand amputee Heart murmur Malignant neoplasm of vulva Surgical History Port-A-Cath in place History of lymph node excision Family History Mother Arthritis Hypertension Father Alcohol abuse Hypertension Liver disease Social History Smoking Status: Current some day smoker tobacco type: cigarettes alcohol intake: never substance use type: does not use Intake Vital Signs 01/21/25 08:00 06/01/25 10:59 Height 5 ft 4 in 5 ft 4 in Weight: 82.639 kg BMI 31.2 BP 104/70 Blood Pressure Location Rt brachial Position Sitting Respiration 18 Pulse 91 Pulse Source Monitor Temp 98.2 F Temperature Source Temporal Artery Pulse Oximetry (%) 98 Oxygen Delivery Method room air Intake Accompanied by: Self Is patient in pain?: No Allergies No Known Allergies Allergy (Verified 06/01/25 11:04) Medications ?Medication ?Instructions ?Recorded ?Confirmed ?Type acetaminophen 500 mg tablet 1,000 mg PO Q6H PRN pain 1 06/01/25 History ibuprofen 600 mg tablet 600 mg PO Q6H PRN pain 08/0406/01/25 History multivitamin 1 tab PO DAILY 08/04/2304/20 History ascorbic acid-ascorbate 15 ml PO DAILY 08/26/2304/20 History calcium-ascorbate sod 500 mg/15 mL oral liquid (Vitamin C) Central Venous Access Central Venous Access: No Exam Physical Exam Const alert, oriented x3 and no apparent distress Neck supple Resp normal respiratory effort and clear to auscultation bilaterally Cardio regular rate, regular rhythm, S1 normal heart sound, S2 normal heart sound and no murmurs Extremity Extremity Narrative: +amputation mid L forearm. 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 Got weekly Cisplatin and Radiation. Finished on 11/06/2023. Reportedly has L groin nodes so going for biopsy. Comes for follow up. Plan: To continue follow up with Dr. Strauss for biopsy. RTC 52 weeks. (2) Neutropenia: Status: Chronic Qualifiers: Neutropenia type: secondary to cancer chemotherapy Qualified Code(s): D70.1 - Agranulocytosis secondary to cancer chemotherapy; T45.1X5A - Adverse effect of antineoplastic and immunosuppressive drugs, initial encounter Comment: Due to chemotherapy, slow recovery from chemotherapy. ANC 0.2 today. Feels well. Plan: To continue observation. Repeat CBC/Flow cytometry in 4 weeks. Plan Details Follow Up: 4 Weeks 06/01/25 1134 D> Date _ Dixon García Signature: Date (if applicable) CC: SARA Grover ~ [facility]08-06-2025 Progress note Author Dixon Holliday [facility] Services Note Date/Time June 01, 2025 11: 34am [facility] [place] [address] OFFICE VISIT Date of Service: 06/01/25 1058 MR#: [id number] Acct: [id number] Name: MADELINE JIMENEZ Rep #: [id number] : 1965 From: Dixon Holliday MD Age/Sex: 59/F Location: [facility] Status: Signed HPI Subjective Date of Service 06/01/25 Chief Complaint F/u for Perianal/Vulvar cancer. History of Present Illness 59-year-old old woman presented with a perineal ulcer. Biopsy on 07/02/2023 showed squamous cell carcinoma in situ at [facility]. She was referred to Dr. Strauss. She appeared to have T1b lesion involving the vulva and perineal body. She underwent bilateral groin dissection and vulvar biopsy on 07/29/2023. 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 Lymph nodes right groin 9 was negative, lymph nodes left groin 7 was negative. She was felt to have T1b perineal cancer, N0 M0-Stage IB.. Underwent PET/CT 08/19/2023 which demonstrated hypermetabolic activity in the region of the posterior vulva, posterior raphe-perirectal region, SUV 9.3, measures 34.3 mm, and in the left inguinal region, left anterior pelvic wall, SUV 3.9, maximum axial diameter of the metabolic, morphologic abnormality is 32.1 mm. Started weekly Cisplatin with Radiation on 09/22/2023. Finished C6 weekly Cisplatin on 10/28/2023. Finished Radiation on 11/06/2023. Saw Dr. Strauss, exam showed complete response. Had CT done at [facility] which was negative. She is on observation. Comes for follow up. Feels well. No pain in vulvar area, told by Dr. Strauss that she has L groin nodes so he is going to doa biopsy. . [facility] Medical History Cellulitis Encounter for education Wears glasses Wears dentures Post-menopausal Smoker History of irregular heartbeat Hand amputee Heart murmur Malignant neoplasm of vulva Surgical History Port-A-Cath in place History of lymph node excision Family History Mother Arthritis Hypertension Father Alcohol abuse Hypertension Liver disease Social History Smoking Status: Current some day smoker tobacco type: cigarettes alcohol intake: never substance use type: does not use Intake Vital Signs 01/21/25 08:00 06/01/25 10:59 Height 5 ft 4 in 5 ft 4 in Weight: 82.639 kg BMI 31.2 BP 104/70 Blood Pressure Location Rt brachial Position Sitting Respiration 18 Pulse 91 Pulse Source Monitor Temp 98.2 F Temperature Source Temporal Artery Pulse Oximetry (%) 98 Oxygen Delivery Method room air Intake Accompanied by: Self Is patient in pain?: No Allergies No Known Allergies Allergy (Verified 06/01/25 11:04) Medications ?Medication ?Instructions ?Recorded ?Confirmed ?Type acetaminophen 500 mg tablet 1,000 mg PO Q6H PRN pain 1 06/01/25 History ibuprofen 600 mg tablet 600 mg PO Q6H PRN pain 08/0406/01/25 History multivitamin 1 tab PO DAILY 08/04/2304/20 History ascorbic acid-ascorbate 15 ml PO DAILY 08/26/2304/20 History calcium-ascorbate sod 500 mg/15 mL oral liquid (Vitamin C) Central Venous Access Central Venous Access: No Exam Physical Exam Const alert, oriented x3 and no apparent distress Neck supple Resp normal respiratory effort and clear to auscultation bilaterally Cardio regular rate, regular rhythm, S1 normal heart sound, S2 normal heart sound and no murmurs Extremity Extremity Narrative: +amputation mid L forearm. 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 Got weekly Cisplatin and Radiation. Finished on 11/06/2023. Reportedly has L groin nodes so going for biopsy. Comes for follow up. Plan: To continue follow up with Dr. Strauss for biopsy. RTC 52 weeks. (2) Neutropenia: Status: Chronic Qualifiers: Neutropenia type: secondary to cancer chemotherapy Qualified Code(s): D70.1 - Agranulocytosis secondary to cancer chemotherapy; T45.1X5A - Adverse effect of antineoplastic and immunosuppressive drugs, initial encounter Comment: Due to chemotherapy, slow recovery from chemotherapy. ANC 0.2 today. Feels well. Plan: To continue observation. Repeat CBC/Flow cytometry in 4 weeks. Plan Details Follow Up: 4 Weeks 06/01/25 8708 <Electronically signed by Dixon Campbell> Date _ Dixon Gruber Signature: Date (if applicable) CC: SAAR Grover ~ [place] [employer] Work Phone: [phone]) 922-724207-24-2025 Telephone encounter Note* Telephone Encounter - Ignacio Oden - 05/19/2025 9:18 AM EDT PAT over the phone 06/07/2025 at 10:30 am SX: 06.14.2025 at 7 am arrival at 5 am Instructions given. [id number] Miscellaneous Notes* Telephone Encounter - Ignacio Oden - 05/19/2025 9:18 AM EDT PAT over the phone 06/07/2025 at 10:30 am SX: 06.14.2025 at 7 am arrival at 5 am Instructions given. documented in this [facility]07-23-2025 Telephone encounter Note* Telephone Encounter - Donavan Strauss MD - 05/18/2025 11:27 AM EDT Pt called with CT report. Will plan on left groin node bx School Admissions Phone: 1(831) 159-628707-23-2025 Miscellaneous Notes* Telephone Encounter - Donavan Strauss MD - 05/18/2025 11:27 AM EDT Pt called with CT report. Will plan on left groin node bx documented in this [facility]07-09-2025 Note* Exam Date Time Procedure Performing Provider Status 05/04/25 10:[address] Pelvis w/ IV Contrast Only Myranda SANCHEZ MD; Auth (Verified) [id number] ORIGINAL EXAMINATION: CT OF THE PELVIS WITH CONTRAST05/04/2025 10:55 am TECHNIQUE: CT of the pelvis was performed with the administration of intravenous contrast. Multiplanar reformatted images are provided for review. Automated exposure control, iterative reconstruction, and/or weight based adjustment of the mA/kV was utilized to reduce the radiation dose to as low as reasonably achievable. COMPARISON: 02/04/2024 HISTORY: ORDERING SYSTEM PROVIDED HISTORY: Reason for Exam: MALIGNANT NEOPLASM OF VULVA, UNSP FINDINGS: Recist 1.1: POTENTIAL TARGET TUMOR LESIONS (maximum 5 lesions, maximum 2 per organ, longest dimension in axial plane reported, >10 mm, reproducible lesions): None POTENTIAL TARGET LYMPH NODES (>15 mm short axis, maximum 2): None NONTARGET LESIONS (Definite tumor lesions, lymph nodes 10-14 mm short axis, immeasurable lesions such as lymphangitic involvement, ascites, pleural effusions, etc.): Right external iliac lymph node measures 1 cm (series 2, 33), previously 0.8 cm Posterior left external iliac lymph node measures 1.1 cm (series 2, 34), previously 0.6 cm Anterior external iliac lymph node measures 1.1 cm (series 2, 46), previously measured 0.6 cm Varying degrees of multilevel degenerative changes of the spine. Sacralization of L5 more prominently seen on the right. The partially visualized kidneys grossly enhance symmetrically without hydronephrosis. Grossly normal solid pelvic organs. The urinary bladder is not well distended however the urinary bladder wall appears thickened, this may be secondary to post radiation therapy changes. No GI tract abnormality is visible. Status post appendectomy. No free intraperitoneal fluid or free air visualized. Tiny fat containing umbilical hernia. Significant interval enlargement of minimal to mild enlarged pelvic lymph nodes as described in recist. Status post inguinal/pelvic lymph node resection with associated postsurgical changes. IMPRESSION: Interval enlargement of minimally to mildly enlarged pelvic lymph nodes as described in recist. These may represent hyperplastic/reactive lymph nodes, or possibly neoplasm; attention on follow-up. Urinary bladder wall thickening in the setting of a not well distended urinary bladder; this may reflect post radiation therapy changes versus under distension. I have personally reviewed the images of this examination and agree with the resident's findings and interpretation. Interpreted by: Molina Sanchez MD Preliminary Report By: Herve Burns Electronically signed By Molina Sanchez MD Dictated Date: 05/04/2025 11:27:35 AM Prelim Date: 05/04/2025 1:59:40 PM Sign Date: 05/04/2025 1:59:40 PM Ordering Provider: DONAVAN STRAUSS Interpreted by: Moilna Sanchez MD Preliminary Report By: Herve Burns Electronically signed By Molina Sanchez MD Dictated Date: 05/04/2025 11:27:35 AM Prelim Date: 05/04/2025 1:59:40 PM Sign Date: 05/04/2025 1:59:40 PM Ordering Provider: DONAVAN STRAUSS [facility]07-03-2025 Telephone encounter Note* Telephone Encounter - Carrol Schmidt - 04/28/2025 8:53 AM EDT Spoke with scheduling in [place] and patient, and confirmed order has been received and scheduled for patient for 05/05/25 @ 9AM in [place]. Patient aware of appt. [facility] [id number] Miscellaneous Notes* Telephone Encounter - Carrol Schmidt - 04/28/2025 8:53 AM EDT Spoke with scheduling in [place] and patient, and confirmed order has been received and scheduled for patient for 05/05/25 @ 9AM in [place]. Patient aware of appt. * Telephone Encounter - Carrol Schmidt - 04/19/2025 3:01 PM EDT Spoke with patient regarding denial from insurance for CTAP scan and provider has put in a new order for CT pelvis that has been approved and valid for today to 05/18/[address]. [address] to be done in [facility], which has been faxed [phone]. Patient to call back with confirmed appt. documented in this [facility]Ohio[facility] HospitalWzqlwz07-29-7604 Telephone encounter Note* Telephone Encounter - Carrol Schmidt - 04/19/2025 3:01 PM EDT Spoke with patient regarding denial from insurance for CTAP scan and provider has put in a new order for CT pelvis that has been approved and valid for today to 05/18/[address]. [address] to be done in [facility], which has been faxed [phone]. Patient to call back with confirmed appt. [facility] [id number] Miscellaneous Notes* Telephone Encounter - Carrol Schmidt - 04/19/2025 3:01 PM EDT Spoke with patient regarding denial from insurance for CTAP scan and provider has put in a new order for CT pelvis that has been approved and valid for today to 05/18/[address]. [address] to be done in [facility], which has been faxed [phone]. Patient to call back with confirmed appt. documented in this [facility]06-20-2025 History of Present illness Narrative* Donavan Strauss MD - 04/15/2025 2:45 PM EDT Images from the original note were not included. CC: stage I B vulvar cancer HPI: 59 y.o. 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 She was treated with bilateral groin dissection which was negative followed by neoadjuvant chemoradiotherapy with weekly cisplat. Pretherapy PET scan showed no evidence of distant metastasis. Patient received 5000 cGy to the vulva with boost to the gross disease of 6400 cGy which ended on November 06, 2023. Exam after radiation therapy showed no evidence of gross disease. PET scan was not allowed by her insurance company. Underwent CT scan of the abdomen and pelvis in January 2024 which did show a stable right adrenal adenoma but no other disease noted. The adrenal adenoma has been noted on MRI in July 2023 measuring 3.7 x 3.3 cm. Patient is now about 18 months status post completion of radiotherapy. Has been noticing a vaginal drainage but denies any pruritus or burning. Denies any adenopathy, vulvar pain, abdominal or pelvic pain Medical History[1] Surgical History[2] Social History[3] Current Medications[4] Review of Systems Genitourinary: Positive for vaginal discharge. Negative for pelvic pain and vaginal bleeding. Hematological: Negative for adenopathy. Patient has no known allergies. There were no vitals taken for this visit. Physical Exam Vitals and nursing note reviewed. Exam conducted with a skatesman present. Constitutional: Appearance: Normal appearance. Abdominal: General: Abdomen is flat. Palpations: Abdomen is soft. Genitourinary: Labia: Right: Lesion present. Left: Lesion present. Urethra: No urethral lesion. Vagina: Normal. Lymphadenopathy: Upper Body: Right upper body: No supraclavicular adenopathy. Left upper body: No supraclavicular adenopathy. Lower Body: No right inguinal adenopathy. Left inguinal adenopathy present. Comments: 2 enlarged lymph nodes noted in the left groin area Neurological: Mental Status: She is alert. Psychiatric: Mood and Affect: Mood normal. Assessment: New onset left groin adenopathy as well as new ulcerative area in the upper vulva. Plan: Recommend PET scan, if PET scan is not approved by insurance company will do CT scan of possible exam under anesthesia with biopsies of the ulcerative area. 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 [3] Social History Socioeconomic History Marital status: Unknown Tobacco Use Smoking status: Some Days Current packs/day: 0.25 Average packs/day: 0.3 packs/day for 30.0 years (7.5 ttl pk-yrs) Types: Cigarettes Smokeless tobacco: Never Vaping Use Vaping status: Never Used Substance and Sexual Activity Alcohol use: Never Drug use: Never [4] Current Outpatient Medications Medication Sig Dispense Refill acetaminophen (Tylenol) 500 MG tablet Take 2 tablets (1,000 mg) by mouth in the morning and 2 tablets (1,000 mg) at noon and 2 tablets (1,000 mg) in the evening and 2 tablets (1,000 mg) before bedtime. 30 tablet 0 apixaban (Eliquis) 2.5 MG tablet Take 1 tablet (2.5 mg) by mouth 2 times daily for 28 days. 56 tablet 0 ibuprofen 600 MG tablet Take 1 tablet (600 mg) by mouth in the morning and 1 tablet (600 mg) at noon and 1 tablet (600 mg) in the evening and 1 tablet (600 mg) before bedtime. 60 tablet 0 MULTIPLE VITAMIN PO Take by mouth. Multiple Vitamins-Minerals (VITAMIN C EFFERVESCENT BLEND PO) Take by mouth daily. No current facility-administered medications for this visit. * Marina Vee MA - 04/15/2025 2:[address] [employer] was offered to the patient for exam. Patient accepted, medical staff services coordinator in room during exam documented in this [facility]04-23-2025 Evaluation + Plan note Future Scheduled Tests Laboratory* Urinalysis w/ C&S if Indicated 02/16/25 * A1C Hemoglobin 05/26/24 * Lipid Profile 05/26/24 [facility] 12-18-2024 History of Present illness Narrative* Donavan Strauss MD - 10/13/2024 3:00 PM EST CC: stage I B vulvar cancer HPI: 59 y.o. 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 She was treated with bilateral groin dissection which was negative followed by neoadjuvant chemoradiotherapy with weekly cisplat. Pretherapy PET scan showed no evidence of distant metastasis. Patient received 5000 cGy to the vulva with boost to the gross disease of 6400 cGy which ended on November 06, 2023. Exam after radiation therapy showed no evidence of gross disease. PET scan was not allowed by her insurance company. Underwent CT scan of the abdomen and pelvis in January 2024 which did show a stable right adrenal adenoma but no other disease noted. The adrenal adenoma has been noted on MRI in July 2023 measuring 3.7 x 3.3 cm. Patient is now about 11 months status post completion of radiotherapy. She is doing well. Denies any signs and symptoms of recurrent disease. Denies any adenopathy, vulvar lesions. Recently was treated for an infected boil of the right buttocks cheek. She states this is getting better. 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 30 tablet 0 apixaban (Eliquis) 2.5 MG tablet Take 1 tablet (2.5 mg) by mouth 2 times daily for 28 days. 56 tablet 0 ibuprofen 600 MG tablet Take 1 tablet (600 mg) by mouth in the morning and 1 tablet (600 mg) at noon and 1 tablet (600 mg) in the evening and 1 tablet (600 mg) before bedtime. 60 tablet 0 MULTIPLE VITAMIN PO Take by mouth. Multiple Vitamins-Minerals (VITAMIN C EFFERVESCENT BLEND PO) Take by mouth daily. No current facility-administered medications for this visit. Review of Systems Constitutional: Negative for unexpected weight change. Gastrointestinal: Negative for abdominal pain. Genitourinary: Negative for pelvic pain and vaginal bleeding. Denies any vulvodynia Hematological: Negative for adenopathy. Patient has no known allergies. There were no vitals taken for this visit. Physical Exam Vitals and nursing note reviewed. Exam conducted with a skatesman present. Constitutional: Appearance: Normal appearance. Abdominal: General: Abdomen is flat. Palpations: Abdomen is soft. Genitourinary: Labia: Right: No lesion. Left: No lesion. Urethra: No urethral lesion. Vagina: Normal. Comments: Radiation changes noted on the vulva but there is no evidence of recurrent disease noted. There is a resolving boil on the right buttock cheek, no evidence of subdermal lymphatic spread of squamous cell cancer Lymphadenopathy: Upper Body: Right upper body: No supraclavicular adenopathy. Left upper body: No supraclavicular adenopathy. Lower Body: No right inguinal adenopathy. No left inguinal adenopathy. Comments: Well-healed bilateral groin incisions Neurological: Mental Status: She is alert. Psychiatric: Mood and Affect: Mood normal. Behavior: Behavior normal. Assessment: No evidence of recurrent disease Plan: To see radiation oncology in 3 months and I will see her back in 6 months. documented in this [facility]09-25-2024 History of Present illness Narrative* Kari Pedersondez, SAMANTHA - PETROPHYSICIST - 07/21/2024 2:45 PM EDT CC: stage I B vulvar cancer HPI: 59 y.o. 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 She was treated with bilateral groin dissection which was negative followed by neoadjuvant chemoradiotherapy with weekly cisplatin Pretherapy PET scan showed no evidence of distant metastasis. Patient received 5000 cGy to the vulva with boost to the gross disease of 6400 cGy which ended on November 06, 2023. Exam after radiation therapy showed no evidence of gross disease. PET scan was not allowed by her insurance company. Underwent CT scan of the abdomen and pelvis in January 2024 which did show a stable right adrenal adenoma but no other disease noted. The adrenal adenoma has been noted on MRI in July 2023 measuring 3.7 x 3.3 cm. 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 30 tablet 0 apixaban (Eliquis) 2.5 MG tablet Take 1 tablet (2.5 mg) by mouth 2 times daily for 28 days. 56 tablet 0 ibuprofen 600 MG tablet Take 1 tablet (600 mg) by mouth in the morning and 1 tablet (600 mg) at noon and 1 tablet (600 mg) in the evening and 1 tablet (600 mg) before bedtime. 60 tablet 0 MULTIPLE VITAMIN PO Take by mouth. Multiple Vitamins-Minerals (VITAMIN C EFFERVESCENT BLEND PO) Take by mouth daily. No current facility-administered medications for this visit. Review of Systems All other systems reviewed and are negative. Patient has no known allergies. BP 132/84 Pulse (!) 120 Ht 1.6 m (5' 3") Wt 98.9 kg (218 lb) BMI 38.62 kg/m Physical Exam Constitutional: General: She is not in acute distress. HENT: Head: Normocephalic. Cardiovascular: Rate and Rhythm: Normal rate and regular rhythm. Pulmonary: Effort: Pulmonary effort is normal. Abdominal: General: There is no distension. Genitourinary: Comments: Radiation changes are noted on the perineal body but there is no evidence of recurrent disease noted. Musculoskeletal: Right lower leg: No edema. Left lower leg: No edema. Skin: General: Skin is warm and dry. Neurological: Mental Status: She is alert and oriented to person, place, and time. 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 She was treated with bilateral groin dissection which was negative followed by neoadjuvant chemoradiotherapy with weekly cisplat. Pretherapy PET scan showed no evidence of distant metastasis. Patient received 5000 cGy to the vulva with boost to the gross disease of 6400 cGy which ended on November 06, 2023. Exam after radiation therapy showed no evidence of gross disease. PET scan was not allowed by her insurance company. Underwent CT scan of the abdomen and pelvis in January 2024 which did show a stable right adrenal adenoma but no other disease noted. The adrenal adenoma has been noted on MRI in July 2023 measuring 3.7 x 3.3 cm. Patient is here today for follow-up. She is now 6 months status post completion of treatment. Denies any new signs or symptoms of recurrent vulvar carcinoma. Denies any adenopathy, vulvar symptoms. 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 30 tablet 0 apixaban (Eliquis) 2.5 MG tablet Take 1 tablet (2.5 mg) by mouth 2 times daily for 28 days. 56 tablet 0 ibuprofen 600 MG tablet Take 1 tablet (600 mg) by mouth in the morning and 1 tablet (600 mg) at noon and 1 tablet (600 mg) in the evening and 1 tablet (600 mg) before bedtime. 60 tablet 0 MULTIPLE VITAMIN PO Take by mouth. Multiple Vitamins-Minerals (VITAMIN C EFFERVESCENT BLEND PO) Take by mouth daily. No current facility-administered medications for this visit. Review of Systems Genitourinary: Negative for vaginal bleeding. Hematological: Negative for adenopathy. Patient has no known allergies. There were no vitals taken for this visit. Physical Exam Vitals and nursing note reviewed. Exam conducted with a skatesman present. Constitutional: Appearance: Normal appearance. Genitourinary: Labia: Right: No lesion. Left: No lesion. Urethra: No urethral lesion. Vagina: Normal. Comments: Radiation changes are noted on the perineal body but there is no evidence of recurrent disease noted. Lymphadenopathy: Lower Body: No right inguinal adenopathy. No left inguinal adenopathy. Neurological: Mental Status: She is alert. Assessment: No evidence of recurrent disease Plan: Follow-up in 3 months documented in this [place] [id number] Telephone encounter Note* Telephone Encounter - SAMANTHA Grande CNP - 02/19/2024 2:54 PM EDT Notes and left a message with CT scan results. Reinforced upcoming appointment in March. Instructed patient to call back with any questions or concerns [facility] Phone: 1(797) 546-714104-25-2024 Miscellaneous Notes* Telephone Encounter - SAMANTHA Grande CNP - 02/19/2024 2:54 PM EDT Notes and left a message with CT scan results. Reinforced upcoming appointment in March. Instructed patient to call back with any questions or concerns documented in this [place] [address]-25-2024 Telephone encounter Note* Telephone Encounter - hBavana Myers - 02/19/2024 8:[address] report in media [id number] Miscellaneous Notes* Telephone Encounter - Bhavana Myers - 02/19/2024 8:[address] report in media * Telephone Encounter - Bhavana Myers - 02/18/2024 1:[address] report * Telephone Encounter - Alda Davila RN - 02/18/2024 12:51 PM EDT Pt had CT done at [facility]. Pt informed we will get results. * Telephone Encounter - Keya Sparks - 02/18/2024 12:28 PM EDT Name of caller: Madeline Contact phone number: [phone] Relationship to Patient: patient Provider: Dr. Strauss [place] [facility] [place] Chief Complaint/Reason for Call: Pt states she would like to review her CT results completed 02/04/24. Please advise. Best time of day caller can be reached: any Patient advised that office/PCP has 24-48 business hours to return their call: Yes documented in this encounterSJess[place] [id number] Telephone encounter Note* Telephone Encounter - Bhavana Myers - 02/18/2024 1:[id number] Telephone encounter Note* Telephone Encounter - Alda Davila RN - 02/18/2024 12:51 PM EDT Pt had CT done at [facility]. Pt informed we will get results. [id number] Telephone encounter Note* Telephone Encounter - Keya Sparks - 02/18/2024 12:28 PM EDT Name of caller: Madeline Contact phone number: [phone] Relationship to Patient: patient Provider: Dr. Strauss [place] [facility] [place] Michael Chief Complaint/Reason for Call: Pt states she would like to review her CT results completed 02/04/24. Please advise. Best time of day caller can be reached: any Patient advised that office/PCP has 24-48 business hours to return their call: Yes [facility] [id number] Note ORIGINAL EXAMINATION: CT OF THE ABDOMEN AND PELVIS WITH CONTRAST02/04/2024 10:49 am TECHNIQUE: CT of the abdomen and pelvis was performed with the administration of intravenous contrast. Multiplanar reformatted images are provided for review. Automated exposure control, iterative reconstruction, and/or weight based adjustment of the mA/kV was utilized to reduce the radiation dose to as low as reasonably achievable. COMPARISON: CT abdomen pelvis 07/23/2023 HISTORY: ORDERING SYSTEM PROVIDED HISTORY: Reason for Exam: Malignant neoplasm of vulva, unspecified FINDINGS: Bones: No acute osseous abnormalities. Degenerative changes of the spine. Mild retrolisthesis at L1-L2. Lower Thorax: 0.5 cm pleural based lateral right lower lobe nodule, grossly similar to prior. There is an additional 0.7 cm pleural based posterior right lower lobe nodule, which also appears grossly similar to prior. Bibasilar atelectasis. There is no visible pleural or pericardial effusion. The heart is normal in size. Solid Organs: The liver, spleen, gallbladder, pancreas, and left adrenal gland are unremarkable. 3.8 cm right adrenal nodule with an HU of 49. This appears grossly similar to prior. Collecting System: The kidneys enhance symmetrically. No evidence of hydronephrosis or urolithiasis. Pelvis: The bladder is incompletely distended. No adnexal masses. Pelvic phleboliths. GI Tract: The stomach and small bowel are unremarkable. The colon is normal. The appendix is surgically absent. Surgical clips in the right lower quadrant. Vasculature: The vena cava and portal system is normal. Mildly atherosclerotic nonaneurysmal aorta. Lymph Nodes, Mesentery, and Peritoneum: No pathologically enlarged lymph nodes are identified. No free intraperitoneal fluid or gas is identified. Superficial Soft Tissues: Small fat containing umbilical hernia. IMPRESSION: No new evidence of metastatic disease. Stable 3.8 cm right adrenal nodule with an HU 49. This can be further evaluated with adrenal CT or MR. Stable right lower lobe pulmonary nodules. I have personally reviewed the images of this examination and agree with the resident's findings and interpretation. Interpreted by: Kosta Bautista MD Preliminary Report By: Eliseo Walter Electronically signed By Kosta Bautista MD Dictated Date: 02/04/2024 1:24:13 PM Prelim Date: 02/04/2024 2:23:05 PM Sign Date: 02/04/2024 2:23:05 PM Ordering Provider: [facility]04-04-2024 Note* Addendum Note - SAMANTHA Grande CNP - 01/29/2024 2:10 PM EDTAddended by: NOREEN RAHMAN on: 01/29/2024 02:10 PM Modules accepted: Orders [place] [id number] Note* Addendum Note - SAMANTHA Grande CNP - 01/29/2024 2:10 PM EDTAddended by: NOREEN RAHMAN on: 01/29/2024 02:10 PM Modules accepted: Orders [facility] [id number] Miscellaneous Notes* Addendum Note - SAMANTHA Grande CNP - 01/29/2024 2:10 PM EDTAddended by: NOREEN RAHMAN on: 01/29/2024 02:10 PM Modules accepted: Orders * Telephone Encounter - SAMANTHA Grande CNP - 01/29/2024 2:09 PM EDT Attempted [id number] for PET scan. PET scan denied. Insurance wants us to do a CT of the abdomen and pelvis first which she assured me will be approved since the patient is recently post radiation.If there is any suspicious findings on the CT then we can order a PET scan. I entered the CT scan for abdomen pelvis. * Telephone Encounter - Yoselin Campbell - 01/28/2024 11:39 AM EDT Ellie from [employer] called about patient PET scan. Ellie mentioned that her Auth for her PET scan was denied and a Peer to Peer needs to be scheduled. Ellie mentioned that you can call [employer] at [phone]. The order number is [id number] * Telephone Encounter - Jennie Nance - 01/27/2024 1:18 PM EDT Called patient. She is scheduled for 02/03/24 at [facility]. Voiced understood. documented in this [facility]SOhio[facility] [id number] Telephone encounter Note* Telephone Encounter - SAMANTHA Grande CNP - 01/29/2024 2:09 PM EDT Attempted [id number]-[id number]-afhd for PET scan. PET scan denied. Insurance wants us to do a CT of the abdomen and pelvis first which she assured me will be approved since the patient is recently post radiation.If there is any suspicious findings on the CT then we can order a PET scan. I entered the CT scan for abdomen pelvis. [facility] [id number] Telephone encounter Note* Telephone Encounter - Yoselin Campbell - 01/28/2024 11:39 AM EDT Ellie from [employer] called about patient PET scan. Ellie mentioned that her Auth for her PET scan was denied and a Peer to Peer needs to be scheduled. Ellie mentioned that you can call [employer] at [phone]. The order number is [id number] [id number] Miscellaneous Notes* Telephone Encounter - Yoselin Campbell - 01/28/2024 11:39 AM EDT Ellie from [facility] called about patient PET scan. Ellie mentioned that her Auth for her PET scan was denied and a Peer to Peer needs to be scheduled. Ellie mentioned that you can call [facility] at [phone]. The order number is [id number] * Telephone Encounter - Jennie Nance - 01/27/2024 1:18 PM EDT Called patient. She is scheduled for 02/03/24 at [facility]. Voiced understood. documented in this [facility]04-02-2024 Telephone encounter Note* Telephone Encounter - Jennie Nance - 01/27/2024 1:18 PM EDT Called patient. She is scheduled for 02/03/24 at [facility]. Voiced understood. [facility] [id number] Miscellaneous Notes* Telephone Encounter - Jennie Nance - 01/27/2024 1:18 PM EDT Called patient. She is scheduled for 02/03/24 at [facility]. Voiced understood. documented in this [facility]03-06-2024 History of Present illness Narrative* Donavan Strauss MD - 12/31/2023 3:00 PM EST CC: stage I B vulvar cancer HPI: 58 y.o. 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 She was treated with bilateral groin dissection which was negative followed by neoadjuvant chemoradiotherapy with weekly cisplat. Pretherapy PET scan showed no evidence of distant metastasis. Patient received 5000 cGy to the vulva with boost to the gross disease of 6400 cGy which ended on November 06, 2023. Patient tolerated the radiation fairly well other than some skin irritation in the AM. She currently denies any adenopathy, she denies any discomfort in the vulvar area. She states that is healing upfairly nicely. 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 30 tablet 0 ibuprofen 600 MG tablet Take 1 tablet (600 mg) by mouth in the morning and 1 tablet (600 mg) at noon and 1 tablet (600 mg) in the evening and 1 tablet (600 mg) before bedtime. 60 tablet 0 MULTIPLE VITAMIN PO Take by mouth. Multiple Vitamins-Minerals (VITAMIN C EFFERVESCENT BLEND PO) Take by mouth daily. apixaban (Eliquis) 2.5 MG tablet Take 1 tablet (2.5 mg) by mouth 2 times daily for 28 days. 56 tablet 0 No current facility-administered medications for this visit. Review of Systems Genitourinary: Negative for vaginal bleeding and vaginal discharge. Hematological: Negative for adenopathy. Patient has no known allergies. BP 130/85 Pulse 96 Ht 1.6 m (5' 3") Wt 96.2 kg (212 lb) BMI 37.55 kg/m Physical Exam Vitals and nursing note reviewed. Exam conducted with a skatesman present. Constitutional: Appearance: Normal appearance. Genitourinary: Labia: Right: No lesion. Left: No lesion. Urethra: No urethral lesion. Vagina: Normal. Comments: Well-healed groin incisions. Mild radiation changes noted to the perineum but absolutely no evidence of persistent squamous cellcancer. Lymphadenopathy: Lower Body: No right inguinal adenopathy. No left inguinal adenopathy. Neurological: Mental Status: She is alert. Psychiatric: Mood and Affect: Mood normal. Behavior: Behavior normal. Assessment: Complete resolution of perineal malignancy. No evidence of cancer noted on today's exam Plan: Will obtain PET scan in 1 month's time. If this is negative recommend close observation with visits every 3 months for 2 years then every 6 months until 5 years out. All the patient's questionswere answered to the best of my ability. documented in this [facility]01-22-2024 Telephone encounter Note* Telephone Encounter - Isaias Miriam - 11/17/2023 7:50 AM EST Called patient to get them r/s. 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 Pt will being seeing other doctors on the and will call back after that date [facility] [id number] Miscellaneous Notes* Telephone Encounter - Isaias Miriam - 11/17/2023 7:50 AM EST Called patient to get them r/s. 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 Pt will being seeing other doctors on the and will call back after that date * Telephone Encounter - Kindra Thuy Yañez - 11/14/2023 5:51 PM EST Name of caller: Madeline Contact phone number: [phone] Relationship to Patient: patient Provider: Dr. Strauss [place] [facility] [place] Department: Chief Complaint/Reason for Call: Pt states she has an appointment scheduled 11/17/23. Pt states thatshe just finished radiology on 11/06/23 and would like to wait until she heals a little more. Pt states that she would like to cancel her appt and speak to someone about being seen at another time. Please advise. Best time of day caller can be reached: any Patient advised that office/PCP has 24-48 business hours to return their call: Yes documented in this [facility]01-19-2024 Telephone encounter Note* Telephone Encounter - Kindra Yañez - 11/14/2023 5:51 PM EST Name of caller: Madeline Contact phone number: [phone] Relationship to Patient: patient Provider: Dr. Strauss [place] [facility] [place] Michael Department: Chief Complaint/Reason for Call: Pt states she has an appointment scheduled 11/17/23. Pt states thatshe just finished radiology on 11/06/23 and would like to wait until she heals a little more. Pt states that she would like to cancel her appt and speak to someone about being seen at another time. Please advise. Best time of day caller can be reached: any Patient advised that office/PCP has 24-48 business hours to return their call: Yes [facility] [id number] Procedure [facility]11-22-2023 History and physical note Author Vernell Hollis [facility] September 17, 2023 10:34am Note Date/Time September 17, 2023 10:30am [facility] Medical Records Department [address] [place] [address] History & Physical Exam 09/17/23 1029 MR#: [id number] Acct: [id number] Name: MADELINE JIMENEZ Rep #:[id number] : 1965 58 From: Vernell Hollis MD PCP: Nohemyjazmyne Grover NP-C [place] [facility] [place] [address] History and Physical Date of Admission: 09/17/23 Date of Service: 08/21/23 MR#: [id number] Acct: [id number] Name: MADELINE JIMENEZ Rep #: [id number] : 1965 Provider: Dr. Vernell Hollis MD Age/Sex: 58/F Location: [facility] Status: Signed Intake Vital Signs 08/18/2309:09 08/21/2309:52 Height 5 ft 4 in 5 ft 4 in Weight: 218 lb 1 oz 218 lb BMI 37.4 37.4 BP 107/72 115/76 Blood Pressure Location Rt brachial Rt brachial Position Sitting Sitting Respiration 18 17 Pulse 81 84 Pulse Source Monitor Monitor Temp 98.3 F 96.8 F L Temp Source Temporal Pulse Oximetry (%) 99 99 Oxygen Delivery Method room air room air Intake Visit Reasons: PORT PLACEMENT Chief Complaint: port placement Is patient in pain?: No Allergies No Known Allergies Allergy (Verified 08/21/23 09:53) Medications acetaminophen 500 mg tablet 1,000 mg PO Q6H PRN 08/04/23 [History Confirmed 08/21/23] apixaban 2.5 mg tablet 2.5 mg PO BID 08/04/23 [History Confirmed 08/21/23] ascorbic acid (vitamin C) 500 mg capsule mg PO .QD 08/04/23 [History Confirmed 08/21/23] ibuprofen 600 mg tablet 600 mg PO Q6H 08/04/23 [History Confirmed 08/21/23] multivitamin 1 tab PO DAILY 08/04/23 [History Confirmed 08/21/23] oxycodone 5 mg capsule 5 mg PO Q6H PRN 08/04/23 [History Confirmed 08/21/23] PFSH Medical History (Updated 08/21/23 @ 09:52 by Vicenta Daniels) Hand amputee Heart murmur Malignant neoplasm of vulva Surgical History (Updated 08/21/23 @ 12:[address] Vernell Hollis MD) History of lymph node excision Family History Mother Arthritis HypertensionFather Alcohol abuse Hypertension Liver disease Social History Smoking Status: Current some day smoker alcohol intake: never substance use type: does not use HPI HPI HPI: 58-year-old female presents for port placement due to valvular cancer. Patient has had surgery July [address] Strauss for bilateral inguinal lymph nodes?drains were just removed last Friday. Patient has been on Eliquis since the surgery for total of 28 days. Patient will likely be starting chemotherapy and radiation mid to early August. ROS General General: No weight change, appetite, fatigue, colon cancer, breast cancer or weakness HEENT HEENT: No difficulty swallowing, eye injury, eye surgery, swollen glands or hoarseness Endo Endocrine: No thyroid disease, diabetes mellitus, thyroid cancer, Hair loss, heat intolerance or cold intolerance Skin Skin: No rash or changing moles Musc Musculoskeletal: No back problems, arthritis, rheumatoid arthritis, gout or joint pain Cardio Cardiovascular: Yes murmur; No pacemaker, heart disease, atrial fibrillation, high blood pressure, heart attack, heart stent, palpitations, shortness of breath with exertion or chest pain Psych Psychiatric: No depression, anxiety or hearing voices Resp Respiratory: No shortness of breath, No sleep apnea, No cough, No COPD, No asthma, No emphysema and No wheezing Gastro Gastrointestinal: No abdominal pain, No nausea or vomiting, No diarrhea, No constipation, No blood in stool, No acid reflux, No hemorrhoids, No ulcers, No gallbladder problem and No black,tarry stools Maycol Hematologic: Yes blood thinners, No blood disorders, No bleeding, No anemia and No blood clots Additional Details: 28 days total Neuro Neurologic: No system reviewed and no additional complaints, except as documented, No as per HPI, No abnormal gait, No abnormal hearing, No abnormal movements, No abnormal speech, No behavioral changes, No burning sensations, No confusion, No convulsions, No disequilibrium, No dizziness, No localized weakness, No frequent falls, No headache(s), No lack of coordination, No loss ofvision, No memory loss, No numbness, No other visual disturbances, No radicular pain, No restless legs, No sensory deficit, No syncope, No tingling, No tremor(s), No weakness and No other Exam Const General: cooperative, healthy appearing, comfortable and no acute distress [facility] Head: normocephalic and atraumatic Neck Neck: supple Chest Other: Palpation of bilateral upper chest normal Resp Effort & Inspection: normal respiratory effort Cardio Rate: regular rate GI Inspection: non-distended Skin General: no rashes or lesions noted Neuro General: CN's II-XI intact bilaterally Extrem General: normal to inspection (Patient doesn't have a left hand/distal forearm) Psych Mental Status: mental status grossly normal Attitude: cooperative Assessment and Plan Assessment and Plan (1) Encounter for insertion of venous access port: Status: Acute (2) Squamous cell carcinoma of perineum: Status: Acute Comment: Discussed therapy with Radiation therapy and weekly chemotherapy-Cisplatin, risks, benefits and side effects. Pt agreed to proceed. (3) History of lymph node excision: Status: Inactive Comment: b/l groin and vulva biopsy by dr. Strauss 07/29/23 Plan I have discussed above with the patient- Port-a-Cath placement. Right possible left?patient will be off her Eliquis by the time of planned surgery as she was only on it for 20 days from surgery which was on August 25. Patient has been counseled as to the risks/benefits of the procedure. I have explained the risks of the surgery, including but not limited to: infection, bleeding, injury to any blood vessels/nerves, injury to lungs (such as pneumothorax or hemothorax and need for chest tube), not having any access, nonfunctioning of port due to thrombosis, infection of port, etc. the patient understands and agrees to proceed. I have answered all the patient's questions to the patient?s satisfaction and the patient has no further questions. Vernell Hollis M.D. Pager: [phone] [facility] [address] [place] [address], [address] [place] [address] Office: [phone] Coding Level of Care Code Off vis,new,level 3 Diagnoses Encounter for insertion of venous access port Z45.2 Squamous cell carcinoma of perineum C44.520 History of lymph node excision Z98.890 08/21/23 1252 <Electronically signed by Vernell Hollis MD> Date Vernell Hollis MD 09/17/23 1030 <Electronically signed by Vernell Hollis MD> Cosigner Signature (if applicable): CC: SARA Grover; Dr. Vernell Hollis MD~ Signed ADDENDUM by Dr. Vernell Hollis MD on 09/17/23 at 1034 Addendum I have examined the patient the following changes are noted: Patient did have a rash on her lower abdomen/hip area which did resolve after several days of antibiotics--about a week and a half ago. 09/17/23 1034<Electronically signed by Vernell Hollis MD> Cosigner Signature (if applicable): cc: SARA Grover; Dr. Vernell Hollis MD ~* Signed [facility] Work Phone: [phone] 641-405111-05-2023 Hospital Discharge instructions Patient Education 08/31/2023 09:23:43 High Blood Sugar (Hyperglycemia) High Blood Sugar (Hyperglycemia) Too much sugar (glucose) in your blood is called high blood sugar (hyperglycemia). This can lead toa dangerous condition called ketoacidosis. In severe cases, it can lead to fluid loss (dehydration)and coma. Possible causes of high blood sugar Having a poor treatment plan for diabetes Being sick Being under stress Taking certain medicines, such as steroids Eating too much food, especially carbohydrates Being less active than normal Not taking enough diabetes medicine Symptoms of high blood sugar High blood sugar may not cause symptoms. If you do have symptoms, they may include: Thirst Frequent need to urinate Feeling tired or drowsy Nausea and vomiting Itchy, dry skin Blurry vision Fast breathing and breath that smells fruity Weakness Dizziness Wounds or skin infections that don t heal Unexplained weight loss if hyperglycemia lasts for more than a few days What to do Do the following: Check your blood sugar. Drink plenty of sugar-free, caffeine-free liquids such as water. Don t drink fruit juice. Check your blood sugar again every 4 hours. If you take insulin or diabetes medicines, follow your sick-day plan for taking medicine. Call your healthcare provider if you are not able to eat. Check your blood or urine for ketones as directed. Call your provider if your blood sugar and ketones don't go back to your target range. If the value is high, take your diabetes medicines as prescribed. And check your blood sugar more often. Doses of medicines such as insulin can be increased slightly if blood sugars stay high. But your provider must approve this. Preventing high blood sugar To help keep your blood sugar from getting too high: Control stress. When you're ill, follow your sick-day plan. Follow your meal plan. Eat only the amount of food on your meal plan. Stick to your exercise plan. Take your insulin or diabetes medicines as directed by your healthcare team. Also test your blood sugar as directed. If the plan is not working for you, discuss it with your healthcare provider. Other things to do Carry a medical ID card or a [employer] USB drive. Or wear a medical alert bracelet or necklace. It should say that you have diabetes. It should also say what to do in case you pass out or go into a coma. Make sure family, friends, and coworkers know the signs of high blood sugar. Tell them what to do if your blood sugar gets very high and you can t help yourself. Talk with your healthcare team about other things you can do to prevent high blood sugar. Special note: Drink plenty of sugar-free and caffeine-free liquids when you feel symptoms of hyperglycemia. Call your healthcare provider if you keep having episodes of high blood sugar. [phone] [employer]. [address] [place] [address]. All rights reserved. This information is not intended as a substitute for professional medical care. Always follow yourhealthcare professional's instructions. 08/31/2023 09:23:27 Hypokalemia Hypokalemia Hypokalemia means a low level of potassium in the blood. This most often occurs in people who take water pills (diuretics). It can also occur because of severe vomiting or diarrhea. You may also haveit if you take laxatives for long periods of time. It sometimes happens if you have low magnesium (hypomagnesemia). If you have this, your healthcare provider will treat the low magnesium first. A mild case of hypokalemia usually causes no symptoms. It is only found with blood testing. More severe potassium loss causes overall weakness, muscle or abdominal cramps, rapid or irregular heartbeats (heart palpitations), low blood pressure, and muscle weakness. Home care Take any potassium supplements as prescribed. Eat foods rich in potassium. The highest amount is found in avocado, baked potatoes, spinach, cantaloupe, cod, halibut, salmon, and scallops. White, red, or monae beans are also very good sources. A modest amount of potassium is found in orange juice, bananas, carrots, and tomato juice. If you take certain types of diuretics, you will also need to take potassium supplements. If you take a diuretic, discuss potassium supplements with your doctor. Follow-up care Follow up with your healthcare provider for a repeat blood test within the next week, or as advisedby our staff. When to seek medical advice Call your healthcare provider right away if any of the following occur: Increased weakness, fatigue, or muscle cramps Dizziness Call 911 Call 911 if any of the following occur: Irregular heartbeat, extra beats, or very fast heart rate Loss of consciousness [phone] [employer]. [address] [place] [address]. All rights reserved. This information is not intended as a substitute for professional medical care. Always follow yourhealthcare professional's instructions. 08/31/2023 09:23:25 High-Potassium Diet Potassium-Rich Foods The normal adult diet usually contains 2,000 mg to 4,000 mg of potassium per day. More potassium isneeded when you lose too much potassium from your body. This can happen if you have diarrhea or vomiting. It can also happen if you take a medicine to make you urinate more (diuretic). To increase the amount of potassium in your diet, include these high-potassium foods. [The (*) indicates foods highest in potassium.] Vegetables Artichokes. Cooked 1/2 cup, 200 mg to 300 mg* Asparagus. Cooked 1/2 cup, 200 mg to 300 mg Beans. White, red, monae cooked 1/2 cup, 300 mg to 500 mg* Beets. Cooked 1/2 cup, 200 mg to 300 mg Broccoli. Cooked or raw 1 cup, 200 mg to 500 mg* [place] sprouts. Cooked 1/2 cup, 200 mg to 300 mg Cabbage. Raw 1 cup, 100 mg to 200 mg Carrots. Raw or cooked 1/2 cup, 100 mg to 200 mg Celery. Raw 1 cup, 200 mg to 300 mg Cohen beans. Fresh or frozen 1/2 cup, 300 mg to 500 mg* Mushrooms. Raw or cooked 1/2 cup, 100 mg to 300 mg Peas. Cooked 1/2 cup, 150 mg to 250 mg Potatoes. Baked 1 medium, 500 mg to 900 mg* Spinach. Cooked 1 cup, 800 mg to 900 mg* Spinach. Raw 2 cups, 300 mg to 400 mg * Squash, winter. Fresh, frozen, or cooked 1/2 cup, 200 mg to 400 mg Tomato. Fresh 1 medium, 200 mg to 300 mg Tomato juice. Canned 1/2 cup, 200 mg to 300 mg Fruits Apple juice. Unsweetened 1 cup, 200 mg to 300 mg Apricots. Canned 1/2 cup, 200 mg to 300 mg Apricots. Dried 4 pieces, 100 mg to 200 mg Avocado. Raw 1/2 cup, 300 mg to 400 mg* Banana. Fresh 1 small, 300 mg to 400 mg* Cantaloupe. Fresh 1 cup diced, 300 mg to 400 mg* Grape juice. Unsweetened 1 cup, 200 mg to 300 mg Honeydew melon. Fresh 1 cup diced, 300 mg to 400 mg* Starr. Fresh 1 medium, 200 mg to 300 mg Starr juice. Unsweetened, fresh or frozen 1/2 cup, 200 mg to 300 mg Pineapple juice. Unsweetened 1 cup, 300 mg to 400 mg Prune juice. Unsweetened 1/2 cup, 300 mg to 400 mg* Prunes. Dried 5 pieces, 300 mg to 400 mg* Strawberries. Fresh or frozen 1 cup, 200 mg to 300 mg Meat Red meat. Cooked 3 ounces, 100 mg to 300 mg Seafood Cod, flounder, halibut. Cooked 3 ounces, 100 mg to 300 mg* [place]. Cooked, 3 ounces 300 mg to 400 mg* Scallops. Cooked 3 ounces, 200 mg to 300 mg* Shrimp. Cooked 3/4 cup, 100 mg to 200 mg Tuna. Fresh or canned 3/4 cup, 200 mg to 500 mg [id number] [employer] [place] [address]. All rights reserved. This information is not intended as a substitute for professional medical care. Always follow yourhealthcare professional's instructions. 08/31/2023 09:23:11 Symptoms With Uncertain Cause Symptoms With Uncertain Cause (Adult) You have been examined, and tests may have been done. However, the exact cause of your symptoms is still not certain. Watch for any new symptoms or worsening of your condition. Another exam or more testing at a later time may be needed. Unless told otherwise, you can go back to your normal routine.Continue to take prescribed medicines as directed. Contact your healthcare provider if you have questions or concerns. Follow-up care Follow up with your healthcare provider if your symptoms do not begin to improve in the next few days, or as advised by our staff. When to seek medical advice Call your healthcare provider if your symptoms get worse or if new symptoms appear. [id number] [employer]. [address] [place] [address]. All rights reserved. This information is not intended as a substitute for professional medical care. Always follow yourhealthcare professional's instructions. Follow Up Care 08/31/2023 07:47:58 With:NOHEMY GROVER Address: [address] [place] [address] [phone] When:2-4 days With:Go to emergency room if symptoms worsen Address:Unknown When:2-4 days [facility] 11-05-2023 Emergency department Discharge summary Discharge Instructions Thank you for allowing [facility] to assist you with your healthcare needs. The following is importantdischarge information regarding your hospital visit. Diagnosis from Today's Visit Dermatitis Rash What to Do Next Instructions from Your Care Team Your blood sugar is mildly elevated. That should be rechecked in the future. Your potassium is slightly low. You can eat a high potassium diet and have your potassium rechecked as well. Return to ED if worse such as fever increasing redness or developing pain or other changes. Cool baths or cool showers. No qualifying data available. Post Acute Orders No qualifying data available. You Need to Schedule the Following Appointments Follow Up with NOHEMY GROVER When Within 2-4 days Where: [address] [place] [phone] Follow Up with Go to emergency room if symptoms worsen When Within 2-4 days Allergies NKA Medications Please ask your primary doctor or pharmacist before taking any other medication not listed, including over the counter drugs, herbal medications, vitamins and or supplements as they may interact withyour home medications. What How Much When Instructions Last Dose New cephalexin (cephalexin 500 mg oral tablet) 1 tab(s) by mouth Four (4) times a day Duration: 7 Days Printed Prescription Unchanged multivitamin (Multivitamin) 1 tab(s) by mouth Every day Please take this list to your next doctor s visit. Bring all medications you take, including over the counter medications, herbals and other supplements with you to your doctor s visit. Patients and families are reminded to discard old lists and to update any records with all medication providers or retail pharmacies. Medication Leaflets cephalexin (sef a CARRIE in) What is the most important information I should know about cephalexin? You should not use this medicine if you are allergic to cephalexin or to similar antibiotics, such as Ceftin, Cefzil, Omnicef, and others. Tell your doctor if you are allergic to any drugs, especially penicillins or other antibiotics. What is cephalexin? Cephalexin is a cephalosporin (SEF a low spor in) antibiotic that is used to treat bacterial infections of the lungs, ear, skin, bones, bladder, and kidneys. Cephalexin is used to treat infections in adults and children who are at least 1 year old. Cephalexin may also be used for purposes not listed in this medication guide. What should I discuss with my healthcare provider before taking cephalexin? You should not use this medicine if you are allergic to cephalexin or any other cephalosporin antibiotic (cefdinir, cefadroxil, cefoxitin, cefprozil, ceftriaxone, cefuroxime, Omnicef, and others). Tell your doctor if you have ever had: an allergy to any drug (especially penicillin); liver or kidney disease; or intestinal problems, such as colitis. The liquid form of cephalexin may contain sugar. This may affect you if you have diabetes. Tell your doctor if you are or breast-feeding. How should I take cephalexin? Follow all directions on your prescription label and read all medication guides or instruction sheets. Use the medicine exactly as directed. Do not use cephalexin to treat any condition that has not been checked by your doctor. Measure liquid medicine carefully. Use the dosing syringe provided, or use a medicine dose-measuring device (not a kitchen spoon). Use this medicine for the full prescribed length of time, even if your symptoms quickly improve. Skipping doses can increase your risk of infection that is resistant to medication. Cephalexin will not treat a viral infection such as the flu or a common cold. Do not share cephalexin with another person, even if they have the same symptoms you have. This medicine can affect the results of certain medical tests. Tell any doctor who treats you that you are using cephalexin. Store the tablets and capsules at room temperature away from moisture, heat, and light. Store the liquid medicine in the refrigerator. Throw away any unused liquid after 14 days. What happens if I miss a dose? Take the medicine as soon as you can, but skip the missed dose if it is almost time for your next dose. Do not take two doses at one time. What happens if I overdose? Seek emergency medical attention or call the Poison Help line at . Overdose symptoms may include nausea, vomiting, stomach pain, diarrhea, and blood in your urine. What should I avoid while taking cephalexin? Antibiotic medicines can cause diarrhea, which may be a sign of a new infection. If you have diarrhea that is watery or bloody, call your doctor before using anti-diarrhea medicine. What are the possible side effects of cephalexin? Get emergency medical help if you have signs of an allergic reaction (hives, difficult breathing, swelling in your face or throat) or a severe skin reaction (fever, sore throat, burning eyes, skin pain, red or purple skin rash with blistering and peeling). Call your doctor at once if you have: severe stomach pain, diarrhea that is watery or bloody (even if it occurs months after your last dose); unusual tiredness, feeling light-headed or short of breath; easy bruising, unusual bleeding, purple or red spots under your skin; a seizure; pale skin, cold hands and feet; yellowed skin, dark colored urine; fever, weakness; or pain in your side or lower back, painful urination. Common side effects may include: diarrhea; nausea, vomiting; indigestion, stomach pain; or vaginal itching or discharge. This is not a complete list of side effects and others may occur. Call your doctor for medical advice about side effects. You may report side effects to FDA at 1-845-UEH-3548. What other drugs will affect cephalexin? Tell your doctor about all your other medicines, especially: metformin; or probenecid. This list is not complete. Other drugs may affect cephalexin, including prescription and qexj-gqo-wijjuux medicines, vitamins, and herbal products. Not all possible drug interactions are listed here. Where can I get more information? Your pharmacist can provide more information about cephalexin. Remember, keep this and all other medicines out of the reach of children, never share your medicines with others, and use this medication only for the indication prescribed. Every effort has been made to ensure that the information provided by [employer]. ('[employer]') is accurate, up-to-date, and complete, but no guarantee is made to that effect. Drug information contained herein may be time sensitive. [employer] information has been compiled for use by healthcare practitioners and consumers in the [place] and therefore [employer] does not warrant that uses outside of the [place] are appropriate, unless specifically indicated otherwise. [employer] drug information does not endorse drugs, diagnose patients or recommend therapy. [employer] drug information isan informational resource designed to assist licensed healthcare practitioners in caring for their p atients and/or to serve consumers viewing this service as a supplement to, and not a substitute for, the expertise, skill, knowledge and judgment of healthcare practitioners. The absence of a warningfor a given drug or drug combination in no way should be construed to indicate that the drug or drug combination is safe, effective or appropriate for any given patient. [employer] does not assume any responsibility for any aspect of healthcare administered with the aid of information [employer] provides. The information contained herein is not intended to cover all possible uses, directions, precautions, warnings, drug interactions, allergic reactions, or adverse effects. If you have questions about the drugs you are taking, check with your doctor, nurse or pharmacist. Copyright 4533-7989 [employer]. Version: 12.. Revision Date: 05/28/2023. Education Materials High Blood Sugar (Hyperglycemia) Too much sugar (glucose) in your blood is called high blood sugar (hyperglycemia). This can lead toa dangerous condition called ketoacidosis. In severe cases, it can lead to fluid loss (dehydration)and coma. Possible causes of high blood sugar Having a poor treatment plan for diabetes Being sick Being under stress Taking certain medicines, such as steroids Eating too much food, especially carbohydrates Being less active than normal Not taking enough diabetes medicine Symptoms of high blood sugar High blood sugar may not cause symptoms. If you do have symptoms, they may include: Thirst Frequent need to urinate Feeling tired or drowsy Nausea and vomiting Itchy, dry skin Blurry vision Fast breathing and breath that smells fruity Weakness Dizziness Wounds or skin infections that don t heal Unexplained weight loss if hyperglycemia lasts for more than a few days What to do Do the following: Check your blood sugar. Drink plenty of sugar-free, caffeine-free liquids such as water. Don t drink fruit juice. Check your blood sugar again every 4 hours. If you take insulin or diabetes medicines, follow your sick-day plan for taking medicine. Call your healthcare provider if you are not able to eat. Check your blood or urine for ketones as directed. Call your provider if your blood sugar and ketones don't go back to your target range. If the value is high, take your diabetes medicines as prescribed. And check your blood sugar more often. Doses of medicines such as insulin can be increased slightly if blood sugars stay high. But your provider must approve this. Preventing high blood sugar To help keep your blood sugar from getting too high: Control stress. When you're ill, follow your sick-day plan. Follow your meal plan. Eat only the amount of food on your meal plan. Stick to your exercise plan. Take your insulin or diabetes medicines as directed by your healthcare team. Also test your blood sugar as directed. If the plan is not working for you, discuss it with your healthcare provider. Other things to do Carry a medical ID card or a [employer] drive. Or wear a medical alert bracelet or necklace. It should say that you have diabetes. It should also say what to do in case you pass out or go into a coma. Make sure family, friends, and coworkers know the signs of high blood sugar. Tell them what to do if your blood sugar gets very high and you can t help yourself. Talk with your healthcare team about other things you can do to prevent high blood sugar. Special note: Drink plenty of sugar-free and caffeine-free liquids when you feel symptoms of hyperglycemia. Call your healthcare provider if you keep having episodes of high blood sugar. [employer]. [address] [place] [address]. All rights reserved. This information is not intended as a substitute for professional medical care. Always follow yourhealthcare professional's instructions. Hypokalemia Hypokalemia means a low level of potassium in the blood. This most often occurs in people who take water pills (diuretics). It can also occur because of severe vomiting or diarrhea. You may also haveit if you take laxatives for long periods of time. It sometimes happens if you have low magnesium (hypomagnesemia). If you have this, your healthcare provider will treat the low magnesium first. A mild case of hypokalemia usually causes no symptoms. It is only found with blood testing. More severe potassium loss causes overall weakness, muscle or abdominal cramps, rapid or irregular heartbeats (heart palpitations), low blood pressure, and muscle weakness. Home care Take any potassium supplements as prescribed. Eat foods rich in potassium. The highest amount is found in avocado, baked potatoes, spinach, cantaloupe, cod, halibut, salmon, and scallops. White, red, or monae beans are also very good sources. A modest amount of potassium is found in orange juice, bananas, carrots, and tomato juice. If you take certain types of diuretics, you will also need to take potassium supplements. If you take a diuretic, discuss potassium supplements with your doctor. Follow-up care Follow up with your healthcare provider for a repeat blood test within the next week, or as advisedby our staff. When to seek medical advice Call your healthcare provider right away if any of the following occur: Increased weakness, fatigue, or muscle cramps Dizziness Call 911 Call 911 if any of the following occur: Irregular heartbeat, extra beats, or very fast heart rate Loss of consciousness [employer]. [address] [place] [address]. All rights reserved. This information is not intended as a substitute for professional medical care. Always follow yourhealthcare professional's instructions. Potassium-Rich Foods The normal adult diet usually contains 2,000 mg to 4,000 mg of potassium per day. More potassium isneeded when you lose too much potassium from your body. This can happen if you have diarrhea or vomiting. It can also happen if you take a medicine to make you urinate more (diuretic). To increase the amount of potassium in your diet, include these high-potassium foods. [The (*) indicates foods highest in potassium.] Vegetables Artichokes. Cooked 1/2 cup, 200 mg to 300 mg* Asparagus. Cooked 1/2 cup, 200 mg to 300 mg Beans. White, red, monae cooked 1/2 cup, 300 mg to 500 mg* Beets. Cooked 1/2 cup, 200 mg to 300 mg Broccoli. Cooked or raw 1 cup, 200 mg to 500 mg* [place] sprouts. Cooked 1/2 cup, 200 mg to 300 mg Cabbage. Raw 1 cup, 100 mg to 200 mg Carrots. Raw or cooked 1/2 cup, 100 mg to 200 mg Celery. Raw 1 cup, 200 mg to 300 mg Cohen beans. Fresh or frozen 1/2 cup, 300 mg to 500 mg* Mushrooms. Raw or cooked 1/2 cup, 100 mg to 300 mg Peas. Cooked 1/2 cup, 150 mg to 250 mg Potatoes. Baked 1 medium, 500 mg to 900 mg* Spinach. Cooked 1 cup, 800 mg to 900 mg* Spinach. Raw 2 cups, 300 mg to 400 mg * Squash, winter. Fresh, frozen, or cooked 1/2 cup, 200 mg to 400 mg Tomato. Fresh 1 medium, 200 mg to 300 mg Tomato juice. Canned 1/2 cup, 200 mg to 300 mg Fruits Apple juice. Unsweetened 1 cup, 200 mg to 300 mg Apricots. Canned 1/2 cup, 200 mg to 300 mg Apricots. Dried 4 pieces, 100 mg to 200 mg Avocado. Raw 1/2 cup, 300 mg to 400 mg* Banana. Fresh 1 small, 300 mg to 400 mg* Cantaloupe. Fresh 1 cup diced, 300 mg to 400 mg* Grape juice. Unsweetened 1 cup, 200 mg to 300 mg Honeydew melon. Fresh 1 cup diced, 300 mg to 400 mg* Starr. Fresh 1 medium, 200 mg to 300 mg Starr juice. Unsweetened, fresh or frozen 1/2 cup, 200 mg to 300 mg Pineapple juice. Unsweetened 1 cup, 300 mg to 400 mg Prune juice. Unsweetened 1/2 cup, 300 mg to 400 mg* Prunes. Dried 5 pieces, 300 mg to 400 mg* Strawberries. Fresh or frozen 1 cup, 200 mg to 300 mg Meat Red meat. Cooked 3 ounces, 100 mg to 300 mg Seafood Cod, flounder, halibut. Cooked 3 ounces, 100 mg to 300 mg* [place]. Cooked, 3 ounces 300 mg to 400 mg* Scallops. Cooked 3 ounces, 200 mg to 300 mg* Shrimp. Cooked 3/4 cup, 100 mg to 200 mg Tuna. Fresh or canned 3/4 cup, 200 mg to 500 mg [employer]. [address] [place] [address]. All rights reserved. This information is not intended as a substitute for professional medical care. Always follow yourhealthcare professional's instructions. Symptoms With Uncertain Cause (Adult) You have been examined, and tests may have been done. However, the exact cause of your symptoms is still not certain. Watch for any new symptoms or worsening of your condition. Another exam or more testing at a later time may be needed. Unless told otherwise, you can go back to your normal routine.Continue to take prescribed medicines as directed. Contact your healthcare provider if you have questions or concerns. Follow-up care Follow up with your healthcare provider if your symptoms do not begin to improve in the next few days, or as advised by our staff. When to seek medical advice Call your healthcare provider if your symptoms get worse or if new symptoms appear. [employer]. [address] [place] [address]. All rights reserved. This information is not intended as a substitute for professional medical care. Always follow yourhealthcare professional's instructions. Additional Information VACCINATE! IT SAVES LIVES! Members of the community who have not yet received the COVID-19 vaccine and would like to receive it can visit one of [facility] vaccine clinics. There are many vaccine clinic locations within the [facility]. For locations and available times, please visit www.[email or web address].[place].gov/. It is important to note that some COVID mobile vaccine clinics are held outdoors and may be canceled in rainy or stormy conditions. To learn more about pediatric vaccinations (ages 5-11), we invite you to visit the [facility] webpage. [email or web address]/[email or web address] [email or web address] learn more about the COVID-19 vaccine, we invite you to visit the CDC website for a list of frequently asked questions. https://www.cdc.gov/coronavirus/2019-ncov/vaccines/faq.html [facility] Patient Portal Access Instructions: Stay connected with your healthcare team and access your personal medical information anytime with the [facility] Patient Portal. If you would like a full copy of your medical records please contact the [facility] Medical Records Department Friday through Friday between 8a.m. and 4:30p.m. Please follow the directions below to access the portal: 1.Access the email account you provided upon registration to the [facility].2.Look for an invitation email from [facility].3.Open the email and access the invitation link: Accept Invitation to [facility]4.Fill in the required velazquez to create your account. Sign into [email or web address] with your username and password that you created in the above steps to stay up to date. You can then view a summary of results, a summary of your visits, and the ability to download your summaries to your computer or send the information securely to a physician. Remember that your healthcare information is confidential, so carefully consider who you will allow to register on the [facility] Patient Portal for access to your information. You can also access the [facility] Patient Portal on the [employer]. Simply click on "Health Records" under "HealthData" and then click on the [employer] logo. HOW TO SAFELY DISPOSE OF PRESCRIPTION MEDICATIONS Please use one of the following methods to safely dispose of your unused medications. 1.Use a drug disposal kit: the drug disposal pouch allows you to safely discard your old and unuseddrugs. Ask your nurse to give you one when you are discharged.2.Visit a local take-back location: Many local pharmacies and police departments have programs that collect old and unwanted prescriptiondrugs. Call your local pharmacy or go to http://bit.WorldWinger/6S8Cb9m to find one close to you.3.Make use of household items: Use cat litter or old coffee grounds to dispose medications if other options arenot available. Mix your drugs with these household products, seal them in an airtight container andthrow it into the garbage. Call [facility]: [phone] to be sure your drugs can be disposed of in this way. Some medicines may require a different approach.4.Never flush your medications down the toilet. IF YOU HAVE BEEN PRESCRIBED AN OPIOIDS FOR PAIN If you have been prescribed an opioid (such as hydrocodone, oxycodone or morphine), it is critical to understand the possible side effects and risks of opioid pain medications. Even when taken as directed, opioids can have several side effects including: Tolerance, meaning you might need to take more of a medication for the same pain relief. Nausea, vomiting and/or constipation. Sleepiness, dizziness, dry mouth, confusion, depression or itching. Physical dependence, meaning you have withdrawal symptoms when a medication is stopped ? this can develop within a few days. KNOW YOUR RESPONSIBILITIES It is important to know exactly how much and how often to take the opioid pain medications you are prescribed. Never take opioids in higher amounts or more often than prescribed. Do not combine opioids with alcohol or other drugs that cause drowsiness, such as benzodiazepines, also known as benzos,including diazepam and alprazolam, muscle relaxants or sleep aids. Never sell or share prescriptionopioids. This is illegal. Store opioids in a secure place and out of reach of others (including children, family, friends and visitors). The last page(s) of this document has been signed and retained as a CHART [employer] Patient Education Materials High Blood Sugar (Hyperglycemia) Hypokalemia High-Potassium Diet Symptoms With Uncertain Cause Medication Leaflets cephalexin My discharge plan and instructions have been reviewed and explained to me and I,MADELINE JIMENEZ understand my current condition and have read and understand these discharge instructions. I have received a written copy of the plan/instructions. If I have questions, I am aware that I should contact my doctor. Patient/Autopsy Assistant Signature: Date/Time: Relationship to Patient: Witness Name/Signature: Date/Time: [facility]10-05-2023 Telephone encounter Note* Telephone Encounter - Ellie Beasley MA - 07/31/2023 1:37 PM EDT Attempted to contact osmani Guillen with one of her co- worker to give our office a call back [facility] [id number] Miscellaneous Notes* Telephone Encounter - Ellie Beasley MA - 07/31/2023 1:37 PM EDT Attempted to contact osmani Guillen with one of her co- worker to give our office a call back * Telephone Encounter - Isaias Pineda - 07/31/2023 1:22 PM EDT Wilmer Caba from [facility] called to speak about patient Tonja Goodrich's Short Term Disability Claim. Let her know that Ellie was currently busy and was going to reach out when she can. Also told Wilmer our fax number if needed. She can be contacted at [phone] * Telephone Encounter - Ellie Beasley MA - 07/31/2023 1:07 PM EDT Letter written and faxed to [phone] * Telephone Encounter - Isaias Pineda - 07/31/2023 12:49 PM EDT Patient was calling to return a phone call about FMLA. Told her a message was going to be sent out and she should be receiving a phone call back shortly. * Telephone Encounter - Ellie Beasley MA - 07/30/2023 1:19 PM EDT Left message for patient to call into the office regarding her FMLA * Telephone Encounter - Ellie Beasley MA - 07/22/2023 1:44 PM EDT Attempted to reach patient, forms have not been received in office * Telephone Encounter - Ignacio Oden - 07/21/2023 2:06 PM EDT Patient is sending over FMLA forms she isnt sure if the fax number will show. She needs forms faxedback to [phone] documented in this encounterSOhio[facility] HospitalNkgkec40-42-3173 Telephone encounter Note* Telephone Encounter - Isaias Pineda - 07/31/2023 1:22 PM EDT Wilmer Caba from [facility] called to speak about patient Tonja Goodrich's Short Term Disability Claim. Let her know that [facility] was currently busy and was going to reach out when she can. Also told Wilmer our fax number if needed. She can be contacted at [phone] [facility] [id number] Telephone encounter Note* Telephone Encounter - Ellie Beasley MA - 07/31/2023 1:07 PM EDT Letter written and faxed to [phone] [facility] [id number] Telephone encounter Note* Telephone Encounter - Isaias Pineda - 07/31/2023 12:49 PM EDT Patient was calling to return a phone call about FMLA. Told her a message was going to be sent out and she should be receiving a phone call back shortly. [facility] [id number] Telephone encounter Note* Telephone Encounter - Nohemy Kearns RN - 07/31/2023 9:11 AM EDT Spoke to patient and she is aware the referrals are made for her and ramin to Dr. Holliday and Dr. Brock. She will call me if she does not hear from them by mid week next week. [facility] [id number] Miscellaneous Notes* Telephone Encounter - Nohemy Kearns RN - 07/31/2023 9:11 AM EDT Spoke to patient and she is aware the referrals are made for her and ramin to Dr. Holliday and Dr. Brock. She will call me if she does not hear from them by mid week next week. * Telephone Encounter - Nohemy Kearns RN - 07/31/2023 8:44 AM EDT Sent surgical note and discharge summary with last ov note to and Dr. Brock with fax confirmation. documented in this encounterSOhioHealth [facility] HospitalLlptnq98-90-2502 Telephone encounter Note* Telephone Encounter - Nohemy Kearns RN - 07/31/2023 8:44 AM EDT Sent surgical note and discharge summary with last ov note to and Dr. Brock with fax confirmation. [facility] [id number] Telephone encounter Note* Telephone Encounter - Ellie Beasley MA - 07/30/2023 1:19 PM EDT Left message for patient to call into the office regarding her FMLA [place] [id number] Miscellaneous Notes* Telephone Encounter - Ellie Beasley MA - 07/30/2023 1:19 PM EDT Left message for patient to call into the office regarding her FMLA * Telephone Encounter - Ellie Beasley MA - 07/22/2023 1:44 PM EDT Attempted to reach patient, forms have not been received in office * Telephone Encounter - Ignacio Oden - 07/21/2023 2:06 PM EDT Patient is sending over FMLA forms she isnt sure if the fax number will show. She needs forms faxedback to [phone] documented in this [facility]10-04-2023 Nurse Note* Emil Cho RN - 07/30/2023 1:11 PM EDT EMMANUEL drain instruction done, paper instructions given. in room, no questions. IV out. [id number]-unrw delivered, belongings packed. Pt transported by to main entrance. [facility] [id number] Nurse Note* Emil Cho RN - 07/30/2023 1:11 PM EDT EMMANUEL drain instruction done, paper instructions given. in room, no questions. IV out. [id number] delivered, belongings packed. Pt transported by to main entrance. documented in this [facility]10-04-2023 Note* Care Coordination - Bernie Burnham RN - 07/30/2023 12:02 PM EDT Chart reviewed. Discharge order noted. Spoke with patient and Vincent at bedside. Introduced myself and my role as TCC. Patient denies any questions/concerns about being discharged at this time. Patient has transportation home with Vincent. [facility] [id number] Miscellaneous Notes* Care Coordination - Bernie Burnham RN - 07/30/2023 12:02 PM EDT Chart reviewed. Discharge order noted. Spoke with patient and Vincent at bedside. Introduced myself and my role as TCC. Patient denies any questions/concerns about being discharged at this time. Patient has transportation home with Vincent. * Perioperative Nursing Note - Vicenta Nance RN - 07/29/2023 1:36 PM EDT Report called to H5 and family updated with room number there * Op Note - Donavan Strauss MD - 07/29/2023 10:47 AM EDT Date of surgery 07/29/2023 Preoperative diagnosis vulvar cancer Postop diagnosis stage T1b vulvar cancer, very close to anus but no evidence of anus or rectal involvement. Tumor completely involves the perineal body, is very close to the rectal sphincter, there also appears to be a separate satellite lesion on the lower left vulva as well. There was no suspicious adenopathy noted. Procedure performed bilateral inguinal lymph node dissection, vulvar biopsy x3 Surgeon Carlos A Anesthesia General Description of operation Patient identified brought to the operating room and after ministration of general anesthesia placed in the lithotomy position using the yellowfin stirrups. Vulvar exam under anesthesia revealed a lesion that measured over 6 cm in size it did involve the entire perineal body there is no direct evidence of vaginal or anal involvement noted. There did appear to be a satellite lesion involving the left labia majora. 3 biopsies were obtained of the vulva to include the satellite lesion. Hemostasis was with Bovie cautery as well as with interrupted sutures of 3-0 Vicryl. Attention then turned to the groins she underwent a perineal vaginal and groin prep and drape. Groin node dissection performedby making a linear incision 2 fingerbreadths below the inguinal ligament on the right side. Using Bovie cautery the subcu cutaneous tissue followed by Osorio's fascia was incised. The femoral triangle was then exposed using both Bovie cautery as well as the harmonic scalpel. All lymph nodes in the femoral triangle were then removed by dissecting from a lateral to medial position dissecting the lymph node packet off the fascia saji of the thigh continuing along the fossa ovalis cleaning out all the lymph nodes in the fossa ovalis, saphenous vein was identified and preserved and the dissection continued laterally to the abductor longus muscle. The defect was then closed over 10 mm EMMANUEL drain using interrupted running suture of 2-0 Vicryl followed by subcuticular 3-0 Monocryl on the skin. A similar dissection then ensued over on the left side. It was open and closed in a similar fashion. Both drains were had good suction, she was then taken to cover room in stable condition by anesthesia with a minimal EBL. * Brief Op Note - Donavan Strauss MD - 07/29/2023 10:47 AM EDT Date: 07/29/2023 Location: [facility] OR Name: Madeline Jimenez, : 1965, Diagnosis Pre-op Diagnosis * Malignant neoplasm of vulva, unspecified (HCC) [C51.9] Post-op Diagnosis * Malignant neoplasm of vulva, unspecified (HCC) [C51.9] Procedures BILATERAL GROIN DISSECTION VULVAR BIOPSY 93661 - LA INJ RADIOACTIVE TRACER FOR ID OF SENTINEL NODE BIOPSY OF VULVA OR PERINEUM 57876 - LA BIOPSY VULVA/PERINEUM 1 LESION SPX BIOPSY OF VULVA OR PERINEUM (EACH ADDITIONAL LESION) 49287 - LA BIOPSY VULVA/PERINEUM EACH ADDL LESION Surgeons * Donavan Strauss - Primary Procedure Summary Anesthesia: * No anesthesia type entered * ASA: III Estimated Blood Loss: Minimal Drains: Closed/Suction Drain Right RLQ Bulb (Active) Closed/Suction Drain Left RLQ Bulb (Active) Specimens ID Source Type Tests Collected By Collected At Frozen? Priority Lab ID 1 Lymph Node Tissue TISSUE EXAM Donavan Strauss MD 07/29/23 1125 No Routine Description: RIGHT GROIN LYMPH NODES 2 Lymph Node Tissue TISSUE EXAM Donavan Strauss MD 07/29/23 1147 No Routine Description: LEFT GROIN LYMPH NODES 3 Vulva Tissue TISSUE EXAM Donavan Strauss MD 07/29/23 1158 No Routine Description: LEFT VULVA 4 Vagina Tissue TISSUE EXAM Donavan Strauss MD 07/29/23 1202 No Routine Description: PERINEAL BODY Implants Staff: Microwave Remote Sensing Scientist: Leonela Holcomb RN; Gilberto Quarles RN Scrub Person: Jacobo Kinney Findings: T1B vulvar cancer Complications: None; patient tolerated the procedure well. Specimens Collected: Order Name Source Comment Collection Info Order Time CBC (HEMOGRAM) Blood, Venous Collected By: Elba Chase RN 07/29/2023 9:45 AM BLOOD TYPE AND SCREEN GEL Blood, Venous HOLD. Specimen is valid for 3 days - nurse to verify valid specimen Collected By: Elba Chase RN 07/29/2023 9:45 AM HCG QUALITATIVE URINE Urine, Clean Catch Discontinue this order if: 1. patient is older than 55 years old 2. has had a prior hysterectomy 3. today's surgery is for treatment of known or suspected ectopic or loss. 4. patient has a known intrauterine but this is a needed surgery. 07/29/2023 9:45 AM POTASSIUM WITH MG REFLEX For patients on dialysis to draw potassium day of surgery 07/29/2023 9:45 AM PROTHROMBIN TIME If patient on coumadin within 4 days prior. 07/29/2023 9:45 AM TISSUE EXAM Lymph Node Pre-op diagnosis: Malignant neoplasm of vulva, unspecified (HCC) [C51.9] T1B LESION Collected By: Donavan Strauss MD 07/29/2023 11:26 AM Wound Class: Class I: Clean Blood Products: None Prophylactic Antibiotics: Procedure appropriate prophylactic antibiotic(s) given within 1 hour of surgical incision (two hours if receiving Vancomycin or flouroquinolone) documented in this [facility]10-04-2023 Hospital course Narrative* Donavan Strauss MD - 07/30/2023 10:31 AM EDT Images from the original note were not included. Gynecologic Oncology Discharge Summary Patient Name: Madeline Jimenez Patient : 1965 Primary Care Physician: SAMANTHA Tadeo CNP Admit Date: 07/29/2023 Attending Provider: Donavan Strauss MD Principal Diagnosis: Vulvar Cancer Other Diagnosis: Malignant neoplasm of vulva, unspecified (HCC) [C51.9] Vulva cancer (CMS/HCC) (HCC) [C51.9] Post-operative state [Z98.890] Postoperative state [Z98.890] Obesity Patient Active Problem List Diagnosis Post-operative state Postoperative state Surgical Operations & Procedures: Bilateral groin lymph node dissection (07/29) Consultations: N/A Pertinent Findings & Procedures: Madeline Jimenez is a 58 y.o. female admitted for postoperative care. She underwent a bilateral groin lymph node dissection on 07/29. Postoperative course was normal, minimal output through bilateral groin drains. She did receive a MRI with adrenal washout on POD #0, final read still pending at time ofdischarge. Follow up in 2 weeks. Discharge instructions reviewed and questions answered. Course of patient: normal Discharge to: Home Wound Care: keep wound clean and dry, empty drain every 4 hours Recommendations on Discharge: Medications: Medication List START taking these medications acetaminophen 500 MG tablet Commonly known as: Tylenol Take 2 tablets (1,000 mg) by mouth in the morning and 2 tablets (1,000 mg) at noon and 2 tablets (1,000 mg) in the evening and 2 tablets (1,000 mg) before bedtime. apixaban 2.5 MG tablet Commonly known as: Eliquis Take 1 tablet (2.5 mg) by mouth 2 times daily for 28 days. ibuprofen 600 MG tablet Take 1 tablet (600 mg) by mouth in the morning and 1 tablet (600 mg) at noon and 1 tablet (600 mg) in the evening and 1 tablet (600 mg) before bedtime. oxyCODONE 5 MG immediate release tablet Commonly known as: Roxicodone Take 1 tablet (5 mg) by mouth every 6 hours as needed for severe pain (7-10) for up to 5 days. CONTINUE taking these medications MULTIPLE VITAMIN PO VITAMIN C EFFERVESCENT BLEND PO Where to Get Your Medications These medications were sent to [facility] [address] [place] [address] Hours: Friday to Friday 10 am to 6 pm acetaminophen 500 MG tablet apixaban 2.5 MG tablet ibuprofen 600 MG tablet oxyCODONE 5 MG immediate release tablet Activity: activity as tolerated Diet: regular diet Follow up: [address] Strauss Condition on discharge: good and stable Discharge Date: 07/30/2023 Comments: Home care, Follow-up care, restrictions reviewed. Brandi Baird MD 07/30/2023, 10:31 AM documented in this [facility]10-04-2023 Hospital Discharge instructions* Discharge Instructions* Brandi Baird MD - 07/30/2023 6:37 AM EDT Please follow your post operative care instructions given to you by your Environmental Protection Economist Oncologist's office at your pre operative visit. Please call the office with questions or concerns and be sure to follow up at your scheduled post operative visit. * Attachments The following attachments cannot be sent through Care Everywhere. * Adrian-Viera Drain (Belarusian) * How to Keep Track of Your Drainage (Belarusian) documented in this [facility]10-04-2023 History of Present illness Narrative* Li Mcdonough, DO - 07/30/2023 5:45 AM EDT Images from the original note were not included. DRIVER OPERATOR ONC Progress Note Date: 07/30/2023 Time: 5:45 AM Madeline Tony 58 y.o. female POD # 1 s/p bilateral groin dissection and vulvar biopsy. Patient seen and examined. She has no complaints and pain is controlled. Patient is tolerating oralintake. She is urinating. She denies any vaginal bleeding. She is ambulating to and from the restroom. She is passing flatus. She denies Fever/Chills, Chest Pain, SOB, N/V. Vitals: Vitals: 07/29/23 1330 07/29/23 1413 07/29/23 2117 07/30/23 0231 BP: 114/67 97/56 95/59 104/55 BP Location: Patient Position: Pulse: 61 70 81 69 Resp: 17 20 16 16 Temp: 36.3 C (97.4 F) 36.9 C (98.5 F) 36.4 C (97.6 F) TempSrc: Temporal Temporal Temporal SpO2: 100% 97% 90% 92% Weight: Height: Intake/Output: Current Shift: I/O this shift: In: - Out: 1450 [Urine:1450] Physical Exam: Gen: NAD, alert and cooperative HEENT: Normocephalic, atraumatic Resp: CTABL, no WRR Card: RRR, no murmur Abd: soft, NT/ND, no rebound, no guarding. Present BS. Incisions: Bilateral groin incisions C/D/I. No wound dressing. Drains in place, draining serosanguinous fluid. Ext: No LE edema, no calf tenderness or swelling Medications: Current Facility-Administered Medications: acetaminophen (Tylenol) tablet 1,000 mg, 1,000 mg, Oral, q8h, Li Panko, DO, 1,000 mg at 07/30/23 0250 cephalexin (Keflex) capsule 500 mg, 500 mg, Oral, BID, Li Panko, DO, 500 mg at 07/29/23 2134 docusate sodium (Colace) capsule 100 mg, 100 mg, Oral, BID, Li Panko, DO, 100 mg at 07/29/23 2134 ibuprofen tablet 600 mg, 600 mg, Oral, q6h PRN, Li Panko, DO ondansetron ODT (Zofran-ODT) disintegrating tablet 4 mg, 4 mg, Oral, q8h PRN OR ondansetron (Zofran) injection 4 mg, 4 mg, IntraVENous, q6h PRN, Li Panko, DO oxyCODONE (Roxicodone) immediate release tablet 5 mg, 5 mg, Oral, q4h PRN, 5 mg at 07/30/23 0255 OR oxyCODONE (Roxicodone) immediate release tablet 10 mg, 10 mg, Oral, q4h PRN, Li Panko, DO,10 mg at 07/29/23 1505 polyethylene glycol (PEG) 3350 (Miralax) packet 17 g, 17 g, Oral, Daily PRN, Li Panko, DO sodium chloride 0.9 % infusion, 5-250 mL/hr, IntraVENous, PRN, Li Panko, DO sodium chloride 0.9% (NS) flush 10 mL, 10 mL, IntraVENous, 2 times per day, Li Panko, DO, 10 mL at 07/29/23 2135 sodium chloride 0.9% (NS) flush 10 mL, 10 mL, IntraVENous, PRN, Li Panko, DO Diagnostics: No results found. Labs: Admission on 07/29/2023 Component Date Value Ref Range Status Auto WBC 07/29/2023 3.0 (L) 3.6 - 10.7 10*3/uL Final RBC 07/29/2023 4.72 3.8 - 5.20 10*6/uL Final Hemoglobin 07/29/2023 13.5 11.7 - 16.0 g/dL Final Hematocrit 07/29/2023 40.1 35.0 - 47.0 % Final MCV 07/29/2023 85.0 80.0 - 98.0 fL Final MCH 07/29/2023 28.7 26.0 - 34.0 pg Final MCHC 07/29/2023 33.8 32.0 - 36.0 % Final RDW 07/29/2023 15.8 (H) 11.5 - 14.5 % Final Platelets 07/29/2023 177 140 - 440 10*3/uL Final MPV 07/29/2023 7.6 7.4 - 12.4 fL Final ABO Grouping 07/29/2023 O Final Antibody Screen 07/29/2023 NEG Final Rh Type 07/29/2023 POS Final ABO Grouping 07/29/2023 O Final Rh Type 07/29/2023 POS Final Assessment/Plan: Madeline Jimenez 58 y.o. female POD #1 s/p bilateral groin dissection and vulvar biopsy. 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 - Tumor completely involves perineal body with a satellite lesion on lower left vulva. Present for the last 6 months, but has been enlarging - S/p bilateral groin lymph node dissection and vulvar biopsy x3 - Pending pathology report Please page the [facility] DRIVER OPERATOR ONC Call RES group via Secure Chat for any questions or concerns. Araceli Stewartt 07/30/2023, 5:45 AM I saw the patient separately, doing well this morning and pain is controlled. Had MRI overnight foradrenal mass. This AM incisions are clean, dry and intact. Small amount of dried blood on skin. Approximately 10 ml in right drain and 15 mL in left drain, both dark red blood. Plan to discuss plan with attending, but likely discharge home today. Associated attestation - Donavan Strauss MD - 07/30/2023 7:33 AM EDT Patient rounded with residents. Discussed surgical findings. Discussed primary radiation chemotherapy as treatment. Groins look good. No evidence of wound breakdown or seroma formation. Okay to discharge to home today with instructions on how to empty drain twice a day as well as oral Eliquis for prophylaxis * Li Mcdonough DO - 07/29/2023 3:55 PM EDT Images from the original note were not included. Pt doing well. States she has some aching and soreness in bilateral groin area, worse when she recently ambulated to the restroom. With rest pain is improving, but still requesting pain meds. Is starting to get hungry, recently ordered lunch. Denies any other complaints at this time. Vitals: 07/29/23 1413 BP: 97/56 Pulse: 70 Resp: 20 Temp: 36.3 C (97.4 F) SpO2: 97% Gen- AOx3, NAD Abd- soft, NT Incision- Bilateral groin incisions C/D/I A/P: Continue postoperative care. Plan for adrenal MRI given history of adrenal nodule found on recent CT scan. documented in this encounterSOhioHealth Pickerington Methodist [id number] Note* Perioperative Nursing Note - Vicenta Nance RN - 07/29/2023 1:36 PM EDT Report called to H5 and family updated with room number there [facility] [id number] Telephone encounter Note* Telephone Encounter - Jennie Nance - 07/29/2023 11:00 AM EDT Abd mri with and without contrast was denied. It was denied because of the rendering facility. Needto do peer to peer to explain why it needs to be done at that facility. Patient would like to get it done there because she resides in [place]. Can call [phone], no appointment is necessary. [facility] [id number] Miscellaneous Notes* Telephone Encounter - Jennie Nance - 07/29/2023 11:00 AM EDT Abd mri with and without contrast was denied. It was denied because of the rendering facility. Needto do peer to peer to explain why it needs to be done at that facility. Patient would like to get it done there because she resides in [place]. Can call [phone], no appointment is necessary. documented in this encounterSOhioHealth Pickering[facility] Methodist [id number] Note* Op Note - Donavan Strauss MD - 07/29/2023 10:47 AM EDT Date of surgery 07/29/2023 Preoperative diagnosis vulvar cancer Postop diagnosis stage T1b vulvar cancer, very close to anus but no evidence of anus or rectal involvement. Tumor completely involves the perineal body, is very close to the rectal sphincter, there also appears to be a separate satellite lesion on the lower left vulva as well. There was no suspicious adenopathy noted. Procedure performed bilateral inguinal lymph node dissection, vulvar biopsy x3 Surgeon Carlos A Anesthesia General Description of operation Patient identified brought to the operating room and after ministration of general anesthesia placed in the lithotomy position using the yellowfin stirrups. Vulvar exam under anesthesia revealed a lesion that measured over 6 cm in size it did involve the entire perineal body there is no direct evidence of vaginal or anal involvement noted. There did appear to be a satellite lesion involving the left labia majora. 3 biopsies were obtained of the vulva to include the satellite lesion. Hemostasis was with Bovie cautery as well as with interrupted sutures of 3-0 Vicryl. Attention then turned to the groins she underwent a perineal vaginal and groin prep and drape. Groin node dissection performedby making a linear incision 2 fingerbreadths below the inguinal ligament on the right side. Using Bovie cautery the subcu cutaneous tissue followed by Osorio's fascia was incised. The femoral triangle was then exposed using both Bovie cautery as well as the harmonic scalpel. All lymph nodes in the femoral triangle were then removed by dissecting from a lateral to medial position dissecting the lymph node packet off the fascia saji of the thigh continuing along the fossa ovalis cleaning out all the lymph nodes in the fossa ovalis, saphenous vein was identified and preserved and the dissection continued laterally to the abductor longus muscle. The defect was then closed over 10 mm EMMANUEL drain using interrupted running suture of 2-0 Vicryl followed by subcuticular 3-0 Monocryl on the skin. A similar dissection then ensued over on the left side. It was open and closed in a similar fashion. Both drains were had good suction, she was then taken to cover room in stable condition by anesthesia with a minimal EBL. [facility] [id number] Note* Brief Op Note - Donavan Strauss MD - 07/29/2023 10:47 AM EDT Date: 07/29/2023 Location: [facility] OR Name: Madeline Jimenez, : 1965, Diagnosis Pre-op Diagnosis * Malignant neoplasm of vulva, unspecified (HCC) [C51.9] Post-op Diagnosis * Malignant neoplasm of vulva, unspecified (HCC) [C51.9] Procedures BILATERAL GROIN DISSECTION VULVAR BIOPSY 51737 - LA INJ RADIOACTIVE TRACER FOR ID OF SENTINEL NODE BIOPSY OF VULVA OR PERINEUM 02095 - LA BIOPSY VULVA/PERINEUM 1 LESION SPX BIOPSY OF VULVA OR PERINEUM (EACH ADDITIONAL LESION) 39460 - LA BIOPSY VULVA/PERINEUM EACH [facility] * Donavan Strauss - Primary Procedure Summary Anesthesia: * No anesthesia type entered * ASA: III Estimated Blood Loss: Minimal Drains: Closed/Suction Drain Right RLQ Bulb (Active) Closed/Suction Drain Left RLQ Bulb (Active) Specimens ID Source Type Tests Collected By Collected At Frozen? Priority Lab ID 1 Lymph Node Tissue TISSUE EXAM Donavan Strauss MD 07/29/23 1125 No Routine Description: RIGHT GROIN LYMPH NODES 2 Lymph Node Tissue TISSUE EXAM Donavan Strauss MD 07/29/23 1147 No Routine Description: LEFT GROIN LYMPH NODES 3 Vulva Tissue TISSUE EXAM Donavan Strauss MD 07/29/23 1158 No Routine Description: LEFT VULVA 4 Vagina Tissue TISSUE EXAM Donavan Strauss MD 07/29/23 1202 No Routine Description: PERINEAL BODY Implants Staff: Microwave Remote Sensing Scientist: Leonela Holcomb RN; Gilberto Quarles RN Scrub Person: Jacobo Mulleris Findings: T1B vulvar cancer Complications: None; patient tolerated the procedure well. Specimens Collected: Order Name Source Comment Collection Info Order Time CBC (HEMOGRAM) Blood, Venous Collected By: Elba Chase RN 07/29/2023 9:45 AM BLOOD TYPE AND SCREEN GEL Blood, Venous HOLD. Specimen is valid for 3 days - nurse to verify valid specimen Collected By: Elba Chase RN 07/29/2023 9:45 AM HCG QUALITATIVE URINE Urine, Clean Catch Discontinue this order if: 1. patient is older than 55 years old 2. has had a prior hysterectomy 3. today's surgery is for treatment of known or suspected ectopic or loss. 4. patient has a known intrauterine but this is a needed surgery. 07/29/2023 9:45 AM POTASSIUM WITH MG REFLEX For patients on dialysis to draw potassium day of surgery 07/29/2023 9:45 AM PROTHROMBIN TIME If patient on coumadin within 4 days prior. 07/29/2023 9:45 AM TISSUE EXAM Lymph Node Pre-op diagnosis: Malignant neoplasm of vulva, unspecified (HCC) [C51.9] T1B LESION Collected By: Donavan Strauss MD 07/29/2023 11:26 AM Wound Class: Class I: Clean Blood Products: None Prophylactic Antibiotics: Procedure appropriate prophylactic antibiotic(s) given within 1 hour of surgical incision (two hours if receiving Vancomycin or flouroquinolone) [id number] History of Present illness Narrative* Donavan Strauss MD - 07/28/2023 11:31 AM EDT Pt called with CT report, will order MRI of adrenals documented in this [facility]09-26-2023 Telephone encounter Note* Telephone Encounter - Ellie Beasley MA - 07/22/2023 1:44 PM EDT Attempted to reach patient, forms have not been received in office [id number] Miscellaneous Notes* Telephone Encounter - Ellie Beasley MA - 07/22/2023 1:44 PM EDT Attempted to reach patient, forms have not been received in office * Telephone Encounter - Ignacio Oden - 07/21/2023 2:06 PM EDT Patient is sending over FMLA forms she isnt sure if the fax number will show. She needs forms faxedback to [phone] documented in this [facility]09-25-2023 Telephone encounter Note* Telephone Encounter - Ignacio Oden - 07/21/2023 2:06 PM EDT Patient is sending over FMLA forms she isnt sure if the fax number will show. She needs forms faxedback to [phone] [facility] [id number] Telephone encounter Note* Telephone Encounter - Ignacio Oden - 07/17/2023 10:05 AM EDT PAT 07.22.2023 at 10:30 am SX: 07.29.2023 at 11:30 am arrival at 9:30 am Post op 10 at 9:45 am Folder and instructions given. [facility] [id number] Miscellaneous Notes* Telephone Encounter - Ignacio Oden - 07/17/2023 10:05 AM EDT PAT 07.22.2023 at 10:30 am SX: 07.29.2023 at 11:30 am arrival at 9:30 am Post op 10 at 9:45 am Folder and instructions given. * Telephone Encounter - Ignacio Oden - 07/17/2023 9:26 AM EDT Scheduled surgery * Telephone Encounter - Jennie Nance - 07/17/2023 8:43 AM EDT Called patient to explain that PET was denied and CT scan was ordered. CT was approved. Scheduled for 07/23/23 at [place]. Patient aware. * Addendum Note - SAMANTHA Grande CNP - 07/16/2023 3:16 PM EDTAddended by: NOREEN RAHMAN on: 07/16/2023 03:16 PM Modules accepted: Orders * Telephone Encounter - SAMANTHA Grande CNP - 07/16/2023 3:15 PM EDT Scan ordered. * Telephone Encounter - Jennie Nance - 07/16/2023 12:43 PM EDT Can someone please order the ct scan for me? Thank you! * Telephone Encounter - Jennie Goyo - 07/16/2023 10:10 AM EDT PET/CT was denied. Per Ulisses: This test should be used when other tests (such as a CT scan or MRI) were unclear or cannot be done. We reviewed the notes we have. The notes do not show that you had any other tests. The notes do not show that you cannot have other tests. Based on the information we have, PET scan is not medicallynecessary. Please advise. documented in this [facility]SOhio[facility] [id number] Telephone encounter Note* Telephone Encounter - Ignacio Oden - 07/17/2023 9:26 AM EDT [id number] Telephone encounter Note* Telephone Encounter - Jennie Nance - 07/17/2023 8:43 AM EDT Called patient to explain that PET was denied and CT scan was ordered. CT was approved. Scheduled for 07/23/23 at [place]. Patient aware. [id number] Note* Addendum Note - SAMANTHA Grande CNP - 07/16/2023 3:16 PM EDTAddended by: NOREEN RAHMAN on: 07/16/2023 03:16 PM Modules accepted: Orders [place] [id number] Note* Addendum Note - SAMANTHA Grande CNP - 07/16/2023 3:16 PM EDTAddended by: NOREEN RAHMAN on: 07/16/2023 03:16 PM Modules accepted: Orders [place] [id number] Note* Addendum Note - SAMANTHA Grande CNP - 07/16/2023 3:16 PM EDTAddended by: NOREEN RAHMAN on: 07/16/2023 03:16 PM Modules accepted: Orders [place] [id number] Note* Addendum Note - SAMANTHA Grande CNP - 07/16/2023 3:16 PM EDTAddended by: NOREEN RAHMAN on: 07/16/2023 03:16 PM Modules accepted: Orders [facility] [id number] Note* Addendum Note - SAMANTHA Grande CNP - 07/16/2023 3:16 PM EDTAddended by: NOREEN RAHMAN on: 07/16/2023 03:16 PM Modules accepted: Orders [place] [id number] Note* Addendum Note - SAMANTHA Grande CNP - 07/16/2023 3:16 PM EDTAddended by: NOREEN RAHMAN on: 07/16/2023 03:16 PM Modules accepted: Orders [facility] [id number] Miscellaneous Notes* Addendum Note - SAMANTHA Grande CNP - 07/16/2023 3:16 PM EDTAddended by: NOREEN RAHMAN on: 07/16/2023 03:16 PM Modules accepted: Orders * Telephone Encounter - SAMANTHA Grande CNP - 07/16/2023 3:15 PM EDT Scan ordered. * Telephone Encounter - Jennie Nance - 07/16/2023 12:43 PM EDT Can someone please order the ct scan for me? Thank you! * Telephone Encounter - Jennie Nance - 07/16/2023 10:10 AM EDT PET/CT was denied. Per Rosalien: This test should be used when other tests (such as a CT scan or MRI) were unclear or cannot be done. We reviewed the notes we have. The notes do not show that you had any other tests. The notes do not show that you cannot have other tests. Based on the information we have, PET scan is not medicallynecessary. Please advise. documented in this encounterSOhioHealth [facility] [id number] Telephone encounter Note* Telephone Encounter - SAMANTHA Grande CNP - 07/16/2023 3:15 PM EDT Scan ordered. [facility] [id number] Telephone encounter Note* Telephone Encounter - Jennie Nance - 07/16/2023 12:43 PM EDT Can someone please order the ct scan for me? Thank you! [facility] [id number] Telephone encounter Note* Telephone Encounter - Jennie Nance - 07/16/2023 10:10 AM EDT PET/CT was denied. Per Rosalien: This test should be used when other tests (such as a CT scan or MRI) were unclear or cannot be done. We reviewed the notes we have. The notes do not show that you had any other tests. The notes do not show that you cannot have other tests. Based on the information we have, PET scan is not medicallynecessary. Please advise. [facility] [id number] History of Present illness Narrative* Donavan Strauss MD - 07/14/2023 9:30 AM EDT Images from the original note were not included. HPI: Madeline Jimenez is a pleasant 58 y.o. 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 She initiallypresented with an enlarging lesion on the perineal body. This has been going over the last 6 months. She has noted that it has been getting larger, does not really cause any pain or discomfort. She can feel a lump in between the rectum and the vagina. Denies any stool incontinence.Denies any postmenopausal bleeding. Unsure as to when her last Pap smear was. Underwent a biopsy that is positive for squamous cell carcinoma in situ. 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 No current facility-administered medications for this visit. Allergies as of 07/14/2023 (No Known Allergies) Review of Systems: Review of Systems Constitutional: Negative for unexpected weight change. Genitourinary: Vulvar mass Hematological: Negative for adenopathy. BP 121/76 Pulse 99 Ht 1.6 m (5' 3") Wt 98.9 kg (218 lb) BMI 38.62 kg/m Physical Exam: Physical Exam Vitals and nursing note reviewed. Exam conducted with a skatesman present. Constitutional: Appearance: She is obese. Cardiovascular: Rate and Rhythm: Normal rate and regular rhythm. Pulmonary: Effort: Pulmonary effort is normal. Breath sounds: Normal breath sounds. Abdominal: General: Abdomen is flat. Palpations: Abdomen is soft. Genitourinary: Exam position: Lithotomy position. Labia: Right: Lesion present. Left: Lesion present. Urethra: No urethral lesion. Vagina: Normal. Cervix: Normal. Lymphadenopathy: Upper Body: Right upper body: No supraclavicular adenopathy. Left upper body: No supraclavicular adenopathy. Lower Body: No right inguinal adenopathy. No left inguinal adenopathy. Skin: General: Skin is warm and dry. Neurological: Mental Status: She is alert. Psychiatric: Mood and Affect: Mood normal. Behavior: Behavior normal. Labs: No components found for: CBC No components found for: CMP Pathology: Report is been reviewed showing carcinoma in situ ASSESSMENT/PLAN: Diagnosis Plan 1. Vulva cancer (CMS/HCC) (HCC) PET/CT skull base to mid thigh Although biopsy shows carcinoma in situ this is clearly an invasive vulvar cancer involving the perineal body with fairly deep invasion in between the rectum and the anus. Do not feel they could be surgically resected without compromising the anal sphincter mechanism. There is no adenopathy noted. Appears to be a stage T1b lesion of the vulva and perineal body. No suspicious adenopathy noted on groin exam I did recommend a repeat deeper biopsy today to prove histologically that this is invasive but the patient declined. She states the first vulvar biopsy was very painful. Recommend obtaining PET CT scan to look for evidence of lymphatic spread. Recommend proceeding withbilateral lymph node dissection of the groins. Discussed difficulty with surgical therapy and compromising the sphincter mechanism. Recommended primary radiation therapy along with chemotherapy to the vulva. She would like to have this done at [facility]. Discussed weekly cisplatin along withradiation therapy in order to try to cure the cancer or at least make eventual resection less radical. Recommend going to the operating room for vulvar biopsy as well as bilateral groin dissection. All the patient's questions were answered to the best my ability and total time spent in review of EMR, counseling patient and coordination of care was 45 minutes documented in this [facility]09-18-2023 Miscellaneous Notes* Addendum Note - Donavan Strauss MD - 07/14/2023 9:30 AM EDTAddended by: DONAVAN STRAUSS on: 07/14/2023 11:14 AM Modules accepted: Orders documented in this [facility]09-18-2023 Note* Addendum Note - Donavan Strauss MD - 07/14/2023 9:30 AM EDTAddended by: DONAVAN STRAUSS on: 07/14/2023 11:14 AM Modules accepted: Orders [place] [id number] Note* Addendum Note - Donavan Strauss MD - 07/14/2023 9:30 AM EDTAddended by: DONAVAN STRAUSS on: 07/14/2023 11:14 AM Modules accepted: Orders [facility] [id number] Note If ancillary studies were utilized, the following Laboratory Developed Test (LDT) disclaimer will apply: Under CLIA requirements, [facility] is qualified to perform high complexity testing. For all ancillary stains, positive and negative controls stain appropriately. Performance characteristics of immunohistochemical and chromogenic in-situ hybridization tests have been deter mined by [facility]. These tests are used for clinical purposes, They should not be regarded as investigational or for research. [facility] 09-07-2023 Note If ancillary studies were utilized, the following Laboratory Developed Test (LDT) disclaimer will apply: Under CLIA requirements, [facility] is qualified to perform high complexity testing. For all ancillary stains, positive and negative controls stain appropriately. Performance characteristics of immunohistochemical and chromogenic in-situ hybridization tests have been deter mined by [facility]. These tests are used for clinical purposes, They should not be regarded as investigational or for research. [facility] 09-06-2023 Note If ancillary studies were utilized, the following Laboratory Developed Test (LDT) disclaimer will apply: Under CLIA requirements, [facility] is qualified to perform high complexity testing. For all ancillary stains, positive and negative controls stain appropriately. Performance characteristics of immunohistochemical and chromogenic in-situ hybridization tests have been deter mined by [facility]. These tests are used for clinical purposes, They should not be regarded as investigational or for research. [facility] 09-06-2023 Note If ancillary studies were utilized, the following Laboratory Developed Test (LDT) disclaimer will apply: Under CLIA requirements, [facility] is qualified to perform high complexity testing. For all ancillary stains, positive and negative controls stain appropriately. Performance characteristics of immunohistochemical and chromogenic in-situ hybridization tests have been deter mined by [facility]. These tests are used for clinical purposes, They should not be regarded as investigational or for research. [facility] 09-06-2023 Note If ancillary studies were utilized, the following Laboratory Developed Test (LDT) disclaimer will apply: Under CLIA requirements, [facility] is qualified to perform high complexity testing. For all ancillary stains, positive and negative controls stain appropriately. Performance characteristics of immunohistochemical and chromogenic in-situ hybridization tests have been deter mined by [facility]. These tests are used for clinical purposes, They should not be regarded as investigational or for research. [facility] 09-06-2023 Note If ancillary studies were utilized, the following Laboratory Developed Test (LDT) disclaimer will apply: Under CLIA requirements, [facility] is qualified to perform high complexity testing. For all ancillary stains, positive and negative controls stain appropriately. Performance characteristics of immunohistochemical and chromogenic in-situ hybridization tests have been deter mined by [facility]. These tests are used for clinical purposes, They should not be regarded as investigational or for research. [facility] 09-06-2023 Note If ancillary studies were utilized, the following Laboratory Developed Test (LDT) disclaimer will apply: Under CLIA requirements, [facility] is qualified to perform high complexity testing. For all ancillary stains, positive and negative controls stain appropriately. Performance characteristics of immunohistochemical and chromogenic in-situ hybridization tests have been deter mined by [facility]. These tests are used for clinical purposes, They should not be regarded as investigational or for research. [facility] 08-30-2023 Evaluation + Plan note Future Scheduled Tests Laboratory* C-Reactive Protein 06/25/23 * Complete Blood Count 06/25/23 * Lipid Profile 06/25/23 * Sedimentation Rate Automated 06/25/23 * Complete Metabolic Panel 06/25/23 [facility] Discharge summary Author Vernell Hollis [facility] September 17, 2023 12:45pm Note Date/Time September 17, 2023 12:44pm [facility] Medical Records Department [address] [place] [id number] Instructions for Home/Discharge Instructions 09/17/23 1244 MR#: [id number] Acct: [id number] Name: TONYMADELINEGLENNA JACOME Rep #:[id number] : 1965 58 From: Vernell Hollis MD PCP: SARA Tadeo [place] [facility] [place] Instructions Procedure Port-A-Cath Diet Discharge Diet: Light diet - advance as tolerated Activity May shower in (days): 5 (Keep port site clean and dry x5 days. Neck incision okay to get wet after 1 day. Okay to lower shower and upper sponge bath. OR okay to taper off port site with a Ziploc bag to shower) Lifting Restrictions: No lifting > 15 pounds for 3 days with the arm on the sideof the port Dressing / Incision Call your doctor if your incision/area has: Continuous Slow Oozing, Sudden Increased Bleeding, Increased Pain/ Swelling, Increased Redness, Foul Smelling Discharge and Swelling at the incision site Call your doctor if you observe: Fever of 101 or Higher Change Dressing in: 2 days (2-3 days- port site; ok to remove neck opsite in 1 day) Follow Up Care Please Follow Up With: Vernell Hollis MD When: In 10 days for permanent suture removal?call office for appointment Test Results: Test results from this visit will be discussed in further detail at your follow- up appointment, if applicable. Discharge Plan Admission Attending Provider: Vernell Hollis Primary Care Provider: Nohemy Grover NP Discharge Orders/Prescriptions Prescriptions: Continued acetaminophen 500 mg tablet 1,000 mg PO Q6H PRN (Reason: pain) oxycodone 5 mg capsule 5 mg PO Q6H PRN (Reason: pain) multivitamin Tablet 1 tab PO DAILY ibuprofen 600 mg tablet 600 mg PO Q6H PRN (Reason: pain) lidocaine-prilocaine 2.5-2.5 % cream 1 applic topical ONCE PRN (Reason: port access) 30 Days Qty: 30 2RF ondansetron 8 mg tablet,disintegrating 8 mg PO Q8H PRN (Reason: nausea and vomiting) Qty: 30 2RF prochlorperazine maleate 10 mg tablet 10 mg PO Q6H PRN (Reason: nausea and vomiting) Qty: 30 2RF dexamethasone 4 mg tablet 8 mg PO DAILY Qty: 36 0RF Vitamin C 500 mg/15 mL liquid 15 ml PO DAILY Referrals / Follow Up: Nohemy Grover NP, [employer] [Primary Care Provider] - Disposition Disposition (needs filled in before D/C Order can be placed): Home, Self Care 09/17/23 1245<Electronically signed by Vernell Hollis MD>Vernell Hollis MD CC: CBC Nohemy Grover ~ Signed [facility] Work Phone: Evaluation note* Diagnosis Vulva cancer (CMS/HCC) (HCC)- Primary Malignant neoplasm of vulva, unspecified site [facility]* Diagnosis Vulva cancer (CMS/HCC) (HCC)- Primary Malignant neoplasm of vulva, unspecified site [facility] Vulva cancer (CMS/HCC) (HCC)- Primary Malignant neoplasm of vulva, unspecified site Malignant neoplasm of vulva, unspecified (HCC) [facility]* Diagnosis 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 Malignant neoplasm of vulva, unspecified (HCC) [facility]* Diagnosis Post-operative state- Primary Other postprocedural status Vulva cancer (CMS/HCC) (HCC) Malignant neoplasm of vulva, unspecified site Malignant neoplasm of vulva, unspecified (HCC) Postoperative state Other postprocedural status Postoperative state Other postprocedural status [facility] Diagnosis Vulva cancer (CMS/HCC) (HCC) Malignant neoplasm of vulva, unspecified site [facility]* Diagnosis Onset Date Resolution Status 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 Encounter for insertion of venous access port acute Squamous cell carcinoma of perineum acute Encounter for education acut e Squamous cell carcinoma of perineum acute [facility] Work Phone: Evaluation note* Diagnosis Vulva cancer (CMS/HCC) (HCC)- Primary Malignant neoplasm of vulva, unspecified site [facility] Diagnosis Vulva cancer (CMS/HCC) (HCC)- Primary Malignant neoplasm of vulva, unspecified site [facility] Diagnosis Vulva cancer (CMS/HCC) (HCC)- Primary Malignant neoplasm of vulva, unspecified site [facility] Diagnosis Vulva cancer (CMS/HCC) (HCC)- Primary Malignant neoplasm of vulva, unspecified site [facility] Diagnosis Vulva cancer (CMS/HCC) (HCC)- Primary Malignant neoplasm of vulva, unspecified site [facility] Diagnosis Vulva cancer (CMS/HCC) (HCC)- Primary Malignant neoplasm of vulva, unspecified site [facility]* Diagnosis Onset Date Resolution Status Admit Date Neutropenia chronic [place] 6th, 2 025 10:11am 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, 2025 10:11am [facility] Work Phone: Evaluation note* Diagnosis Cancer (CMS/HCC) (HCC)- Primary Other malignant neoplasm of unspecified site Malignant neoplasm of vulva, unspecified (HCC) Cancer (CMS/HCC) (HCC) Other malignant neoplasm of unspecified site Murmur Undiagnosed cardiac murmurs [facility]* Diagnosis Post-operative state- Primary Other postprocedural status [facility]* Diagnosis Post-operative state- Primary Other postprocedural status [facility]* Diagnosis Vulva cancer (CMS/HCC) (HCC)- Primary Malignant neoplasm of vulva, unspecified site [facility]* Diagnosis Cellulitis of left groin- Primary documented in this encounter [facility]* Diagnosis Post-operative state- Primary Other postprocedural status [facility] Narrative No data available for this section [facility] Discharge instructions No data available for this section [facility] Progress note No data available for this section [facility] Reason for referral (narrative)* Consultation (Routine) - Pending Review Specialty Diagnoses / Procedures Referred By Benitez sena Referred To Contact Radiation Oncology Diagnoses Vulva cancer (CMS/HCC) (HCC) Procedures LA OFFICE/OUTPATIENT [facility] 60-74 MINUTES Donavan Strauss MD [address] [place] [address], [address] [place] [address] Referral ID Status Reason Start Date Expiration Date Visits Requested Visits Authorized [id number] Pending Review Specialty Services Required 07/31/2023 07/30/2024 1 1 * Consultation (Routine) - Pending Review Specialty Diagnoses / Procedures Referred By Contac t Referred To Contact Oncology Diagnoses Vulva cancer (CMS/HCC) (HCC) Procedures LA OFFICE/OUTPATIENT NEW HIGH MDM 60-74 MINUTES Donavan Strauss MD [address] [facility] [place] [address] Referral ID Status Reason Start Date Expiration Date Visits Requested Visits Authorized [id number] Pending Review Specialty Services Required 07/31/2023 07/30/2024 1 1 [facility] for referral (narrative)No reason for referral information availableHouston [employer] Services Work Phone: Reason for visit Narrative* Auth/Cert (Routine) Specialty Diagnoses / Procedures Referred By Contac t Referred To Contact Diagnoses Malignant neoplasm of vulva, unspecified (HCC) Procedures LA LAPS SURG BILATERAL TOTAL PELVIC LMPHADECTOMY LA INJ RADIOACTIVE TRACER FOR ID OF SENTINEL NODE LAPAROSCOPIC, LYMPHADENECTOMY, PELVIS POSSIBLE BILATERAL PELVIC SENTINEL LYMPH NODE BIOPSY WITH INDOCYNINE GREEN DYE PROTOCOL Donavan Strauss MD [address] [facility] [address] [place] [address] Phone: tel: fax: [facility] MA[facility] OR [address] [place] [address] Phone: tel: Referral ID Status Reason Start Date Expiration Date Visits Re quested Visits Authorized [id number] 1 1 [facility] Reason for Referral Specialty Diagnoses / Procedures Referred By Contac t Referred To Contact Radiology Diagnoses Adrenal mass 1 cm to 4 cm in diameter (HCC) Procedures MR abdomen w and wo contrast Donavan Strauss MD [address] [facility] [place] [address] Referral ID Status Reason Start Date Expiration Date V isits Requested Visits Authorized [id number] Pending Review 07/28/2023 01/24/2024 1 1 Specialty Diagnoses / Procedures Referred By Contac t Referred To Contact Radiology Diagnoses Vulva cancer (CMS/HCC) (HCC) Procedures PET/CT skull base to mid thigh Donavan Strauss MD [address] [facility] [place] [address] Referral ID Status Reason Start Date Expiration Date V isits Requested Visits Authorized [id number] Pending Review 07/14/2023 01/10/2024 1 1 Advance Directives No Advanced Directives Records FoundLatest Code Status on File Code Status Date Activated Date Inactivated Comments Full Code 07/29/2023 9:45 AM 07/30/2023 4:02 PM Latest Code Status on File Code Status Date Activated Date Inactivated Comments Full Code 07/29/2023 9:45 AM 07/30/2023 4:02 PM Advance Directive Response Recorded Date/ Time Living Will No August 26 7:36am Power of Oxygen Equipment Technician No August 26, 2023 7:36am Date Activated Date Inactivated Comments 07/29/2023 9:45 AM 07/30/2023 4:02 PM Date Activated Date Inactivated Comments 07/29/2023 9:45 AM 07/30/2023 4:02 PM Advance Directive Response Recorded Date/ Time Living Will No October 28 11:05am Do you have a Healthcare Power of Oxygen Equipment Technician? No October 28, 2023 11:05am Advance Directives No October 28, 2023 11:05am Date Activated Date Inactivated Comments 06/14/2025 5:44 AM 06/14/2025 11:04 AM Date Activated Date Inactivated Comments 07/29/2023 9:45 AM 07/30/2023 4:02 PM Date Activated Date Inactivated Comments 06/14/2025 5:44 AM 06/14/2025 11:04 AM Date Activated Date Inactivated Comments 07/29/2023 9:45 AM 07/30/2023 4:02 PM Chief Complaint and Reason for Visit Chief Complaint Amb Documentation CONSULT - VULVAR CA NEW-VULVA CA PORT PLACEMENT VULVULAR/PERNEAL SCC, EVAL EXTENT OF DISEASE CHEMO ED C44.520 Insertion, Right possible Left Vascular Port Insertion, Right possible Left Vascular Port Reason for Visit Squamous cell carcin jaciel of perineum Squamous cell carcinoma of perineum Encounter for insertion of venous access port Squamous cell carcinoma of perineum Encounter for education Squamous cell carcinoma of perineum Chief Complaint Admit Date 1YR LABS June 01, 2025 10: 11am VULVA June 01, 2025 10: 15am Reason for Visit Admit Date Neutropenia June 01, 2025 10: 11am Squamous cell carcinoma of perineum Augu st 2024 10:11am Chief Complaint Admit Date 1YR LABS June 01, 2025 10: 11am 4WKS LABS PRIOR(NEED PATH-DR STRAUSS) Se ptember 2024 10:19am VULVA June 29, 2025 11:00am Reason for Visit Admit Date Neutropenia June 01, 2025 10: 11am Squamous cell carcinoma of perineum Augu st 2024 10:11am Neutropenia June 29, 2025 10:19am Squamous cell carcinoma of perineum Sept ember 2024 10:19am Family History No Family History Records Found Relationship Condition Age at Onset Recorded Date/T gonzález mother Arthritis Unknown Hypertension Unknown father Alcohol abuse Unknown Disorder of liver Unknown Summary Purpose Additional Source Comments Patient Care team informatio n (unrecognized section and content) Reducing System Operator Relationship Specialty Start Date End Date Donavan Strauss MD [address], [address] [place], [place] [id number] Consulting Physician Gynecologic Oncology 07/11/23 Reducing System Operator Relationship Specialty Start Date End Date Donavan Strauss MD [address], [address] [place], [place] [id number] Consulting Physician Gynecologic Oncology 07/11/23 Reducing System Operator Relationship Specialty Start Date End Date Donavan Strauss MD [address], [address] [place], [place] [id number] Consulting Physician Gynecologic Oncology 07/11/23 Reducing System Operator Relationship Specialty Start Date End Date Donavan Strauss MD [address], [address] [place], [place] [id number] Consulting Physician Gynecologic Oncology 07/11/23 Reducing System Operator Relationship Specialty Start Date End Date Donavan Strauss MD [address], [address] [place], [place] [id number] Consulting Physician Gynecologic Oncology 07/11/23 Reducing System Operator Relationship Specialty Start Date End Date Nohemy Grover APRN - CNP [address] [place] [address] PCP - General Family Nurse Practitioner 07/29/23 Donavan Strauss MD [address] [place] [address], [address] [place] [address] Consulting Physician Gynecologic Oncology 07/11/23 Reducing System Operator Relationship Specialty Start Date End Date Nohemy Grover APRN - CNP [address] [place] [address] PCP - General Family Nurse Practitioner 07/29/23 Donavan Staruss MD [address] [place] [address], [address] [place] [address] Consulting Physician Gynecologic Oncology 07/11/23 Reducing System Operator Relationship Specialty Start Date End Date Nohemy Grover APRN - CNP [address] [place] [address] PCP - General Family Nurse Practitioner 07/29/23 Donavan Strauss MD [address] [place] [address], [address] [place] [address] Consulting Physician Gynecologic Oncology 07/11/23 Reducing System Operator Relationship Specialty Start Date End Date Nohemy Grover APRN - CNP [address] [place] [address] PCP - General Family Nurse Practitioner 07/29/23 Donavan Strauss MD [address] [place] [address], [address] [place] [address] Consulting Physician Gynecologic Oncology 07/11/23 Reducing System Operator Relationship Specialty Start Date End Date Nohemy Grover APRN - SHADI [address] [place] [address] PCP - General Family Nurse Practitioner 07/29/23 Donavan Strauss MD [facility] [address] [place] [address] Consulting Physician Gynecologic Oncology 07/11/23 Team Status: Active Member Role Status Dates Nohemy Grover PIPELINES SUPERVISOR, PIPELINES SUPERVISOR-C Primary Care Provider Activ e Team Status: Inactive Member Role Status Dates Dr. Matthias Brock DO Attending Provider Active Dr. Donavan Strauss MD Referring Provider Active Team Status: Active Member Role Status Dates Alina Phillips LPN Attending Provider Active Team Status: Inactive Member Role Status Dates Dr. Dixon Holliday MD Attending Provider Active Team Status: Inactive Member Role Status Dates Dr. Vernell Hollis MD Attending Provider Active Nohemy Grover Primary Care Provider Active Nohemy Grover PIPELINES SUPERVISOR, PIPELINES SUPERVISOR-C Referring Provider Active Team Status: Inactive Member Role Status Dates Jo Ann Gonzalez PIPELINES SUPERVISOR, PIPELINES SUPERVISOR-C Attending Provider Active Nohemy Grover NP, PIPELINES SUPERVISOR-C Primary Care Provider, Refe rring Provider Active Team Status: Active Member Role Status Dates Nohemy Grover NP, PIPELINES SUPERVISOR-C Primary Care Provider Activ e Dr. Matthias Brock DO Attending Provider, Referring P jim Active Team Status: Active Member Role Status Dates Dr. Vernell Hollis MD Attending Provider, Other Pro vider Active Nohemy Grover PIPELINES SUPERVISOR, PIPELINES SUPERVISOR-C Primary Care Provider, Refe rring Provider Active Team Status: Active Member Role Status Dates Dr. Matthias Brock DO Attending Provider Active Dr. Dixon Holliday MD Referring Provider Active Nohemy Grover Primary Care Provider Active Team Status: Inactive Member Role Status Dates Dr. Vernell Hollis MD Attending Provider Active Nohemy Grover PIPELINES SUPERVISOR, PIPELINES SUPERVISOR-C Primary Care Provider, Refe rring Provider Active Team Status: Inactive Member Role Status Dates Dr. Matthias Brock , DO Attending Provider Active Nohemy Grover Primary Care Provider Active Reducing System Operator Relationship Specialty Start Date End Date Nohemy Grover APRN - CNP [address] [place] [address] PCP - General Family Nurse Practitioner 07/29/23 Donavan Strauss MD [address] [facility] [address] [place] [address] Consulting Physician Gynecologic Oncology 07/11/23 Reducing System Operator Relationship Specialty Start Date End Date Nohemy Grover APRN - PETROPHYSICIST [address] [place] [address] PCP - General Family Nurse Practitioner 07/29/23 Donavan Strauss MD [address] [address] Consulting Physician Gynecologic Oncology 07/11/23 Reducing System Operator Relationship Specialty Start Date End Date Nohemy Grover APRN - CNP [address] [place] [address] PCP - General Family Nurse Practitioner 07/29/23 Donavan Strauss MD [address] [facility] [address] [place] [address] Consulting Physician Gynecologic Oncology 07/11/23 Reducing System Operator Relationship Specialty Start Date End Date Nohemy Grover APRN - PETROPHYSICIST [address] [place] [address] PCP - General Family Nurse Practitioner 07/29/23 Donavan Strauss MD [address] [facility] [address] [place] [address] Consulting Physician Gynecologic Oncology 07/11/23 Reducing System Operator Relationship Specialty Start Date End Date Nohemy Grover APRN - PETROPHYSICIST [address] [place] [address] PCP - General Family Nurse Practitioner 07/29/23 Donavan Strauss MD [address] [facility] [address] [place] [address] Consulting Physician Gynecologic Oncology 07/11/23 Reducing System Operator Relationship Specialty Start Date End Date Nohemy Grover APRN - PETROPHYSICIST [address] [place] [address] PCP - General Family Nurse Practitioner 07/29/23 Donavan Strauss MD [address] [facility] [address] [place], [place] [id number] Consulting Physician Gynecologic Oncology 07/11/23 Noreen Rahman APRN - CNP [address] [facility] [address] [place] [address] Nurse Practitioner Nurse Practitioner 02/19/24 Reducing System Operator Relationship Specialty Start Date End Date Nohemy Grover APRN - CNP [address] [place] [address] PCP - General Family Nurse Practitioner 07/29/23 Donavan Strauss MD [address] [facility] [address] [place] [address] Consulting Physician Gynecologic Oncology 07/11/23 Noreen Rahman APRN - CNP [address] [facility] [place] [address] Nurse Practitioner Nurse Practitioner 02/19/24 Reducing System Operator Relationship Specialty Start Date End Date Nohemy Grover APRN - PETROPHYSICIST [address] [place] [address] PCP - General Family Nurse Practitioner 07/29/23 Donavan Strauss MD [address] [facility] [address] [place] [address] Consulting Physician Gynecologic Oncology 07/11/23 Noreen Rahman APRN - PETROPHYSICIST [address] [facility] [address] [place] [address] Nurse Practitioner Nurse Practitioner 02/19/24 Reducing System Operator Relationship Specialty Start Date End Date Nohemy Grover INVESTMENT ADVISOR - PETROPHYSICIST [address] [place] [address] (Work) PCP - General Family Nurse Practitioner 07/29/23 Donavan Strauss MD [address] [facility] [address] [address] [place] [address] Consulting Physician Gynecologic Oncology 07/11/23 Noreen Rahman INVESTMENT ADVISOR - PETROPHYSICIST [address] [facility] [address] [place] [address] Nurse Practitioner Nurse Practitioner 02/19/24 Kari Mayfield INVESTMENT ADVISOR - PETROPHYSICIST [address] [facility] [address] [place] [address] Nurse Practitioner Nurse Practitioner 07/21/24 Reducing System Operator Relationship Specialty Start Date End Date Nohemy Grover APRN - SHADI [address] [place] [address] PCP - General Family Nurse Practitioner 07/29/23 Donavan Strauss MD [address] [facility] [address] [place] [address] Consulting Physician Gynecologic Oncology 07/11/23 Noreen Rahman APRN - CNP [address] [facility] [address] [place] [address] Nurse Practitioner Nurse Practitioner 02/19/24 Kari Mayfield APRN - CNP [address] [facility] [address] [place] [address] Nurse Practitioner Nurse Practitioner 07/21/24 Reducing System Operator Relationship Specialty Start Date End Date Nohemy Grover APRN - CNP [address] [place] [address] PCP - General Family Nurse Practitioner 07/29/23 Donavan Strauss MD [address] [facility] [address] [place] [address] Consulting Physician Gynecologic Oncology 07/11/23 Noreen Rahman APRN - CNP [address] [facility] [address] [place] [address] Nurse Practitioner Nurse Practitioner 02/19/24 Kari Mayfield APRN - CNP [address] [facility] [address] [place] [address] Nurse Practitioner Nurse Practitioner 07/21/24 Reducing System Operator Relationship Specialty Start Date End Date Nohemy Grover APRN - CNP [address] [place] [address] PCP - General Family Nurse Practitioner 07/29/23 Donavan Strauss MD [address] [address] Consulting Physician Gynecologic Oncology 07/11/23 Noreen Rahman APRN - CNP [address] [facility] [address] [place] [address] Nurse Practitioner Nurse Practitioner 02/19/24 Kari Mayfield APRN - CNP [address] [address] Nurse Practitioner Nurse Practitioner 07/21/24 Reducing System Operator Relationship Specialty Start Date End Date Nohemy Grover APRN - CNP [address] [place] [address] PCP - General Family Nurse Practitioner 07/29/23 Donavan Strauss MD [address] [address] Consulting Physician Gynecologic Oncology 07/11/23 Noreen Rahman APRN - CNP [address] [facility] [address] [place] [address] Nurse Practitioner Nurse Practitioner 02/19/24 Kari Mayfield APRN - CNP [address] [address] Nurse Practitioner Nurse Practitioner 07/21/24 Reducing System Operator Relationship Specialty Start Date End Date Nohemy Grover APRN - CNP [address] [place] [address] PCP - General Family Nurse Practitioner 07/29/23 Donavan Strauss MD [address] [facility] [address] [place] [address] Consulting Physician Gynecologic Oncology 07/11/23 Noreen Rahman APRN - CNP [address] [facility] [address] [place] [address] Nurse Practitioner Nurse Practitioner 02/19/24 Kari Mayfield APRN - CNP [address] [address] Nurse Practitioner Nurse Practitioner 07/21/24 Reducing System Operator Relationship Specialty Start Date End Date Nohemy Grover APRN - CNP [address] [place] [address] PCP - General Family Nurse Practitioner 07/29/23 Donavan Strauss MD [address] [address] Consulting Physician Gynecologic Oncology 07/11/23 Noreen Rahman APRN - CNP [address] [facility] [address] [place] [address] Nurse Practitioner Nurse Practitioner 02/19/24 Kari Mayfield APRN - CNP [address] [address] Nurse Practitioner Nurse Practitioner 07/21/24 Reducing System Operator Relationship Specialty Start Date End Date Nohemy Grover APRN - CNP [address] [place] [address] PCP - General Family Nurse Practitioner 07/29/23 Donavan Strauss MD [address] [facility] [address] [place] [address] Consulting Physician Gynecologic Oncology 07/11/23 Noreen Rahman APRN - PETROPHYSICIST [address] [facility] [address] [place] [address] Nurse Practitioner Nurse Practitioner 02/19/24 Kari Mayfield APRN - PETROPHYSICIST 161 [facility] [address] [place] [address] Nurse Practitioner Nurse Practitioner 07/21/24 Team Status: Active Member Role/Relationship Status Dates Nohemy Grover PIPELINES SUPERVISOR, PIPELINES SUPERVISOR-C Primary Care Provider Activ e Team Status: Inactive Member Role/Relationship Status Dates Nohemy Grover PIPELINES SUPERVISOR, PIPELINES SUPERVISOR-C Primary Care Provider Activ e Start: June 01, 2025 End: June 01, 2025 Nohemy Grover PIPELINES SUPERVISOR, PIPELINES SUPERVISOR-C Referring Provider Active Start: June 01, 2025 End: June 01, 2025 Dr. Dixon Holliday MD Attending Provider Active S tart: June 01, 2025 End: June 01, 2025 Team Status: Active Member Role/Relationship Status Dates Dr. Matthias Brock DO Attending Provider Active Start: June 01, 2025 Dr. Dixon Holliday MD Referring Provider Active S tart: June 01, 2025 Nohemy Grover Primary Care Provider Active S tart: June 01, 2025 Reducing System Operator Relationship Specialty Start Date End Date Nohemy Grover APRN - PETROPHYSICIST [address] [place] [address] PCP - General Family Nurse Practitioner 07/29/23 Donavan Strauss MD [address] [facility] [address] [place] [address] Consulting Physician Gynecologic Oncology 07/11/23 Noreen Rahman APRN - CNP [address] [facility] [address] [place] [address] Nurse Practitioner Nurse Practitioner 02/19/24 Kari Mayfield APRN - CNP 161 [facility] [address] [place] [address] Nurse Practitioner Nurse Practitioner 07/21/24 Reducing System Operator Relationship Specialty Start Date End Date Nohemy Grover APRN - CNP [address] [place] [address] PCP - General Family Nurse Practitioner 07/29/23 Donavan Strauss MD [address] [facility] [address] [place] [address] Consulting Physician Gynecologic Oncology 07/11/23 Noreen Rahman APRN - CNP [address] [facility] [address] [place] [address] Nurse Practitioner Nurse Practitioner 02/19/24 Kari Mayfield APRN - CNP 161 [facility] [address] [place] [address] Nurse Practitioner Nurse Practitioner 07/21/24 Team Status: Inactive Member Role/Relationship Status Dates Nohemy Grover PIPELINES SUPERVISOR, PIPELINES SUPERVISOR-C Primary Care Provider Activ e Start: June 29, 2025 End: June 29, 2025 Nohemy Grover PIPELINES SUPERVISOR, PIPELINES SUPERVISOR-C Referring Provider Active Start: June 29, 2025 End: June 29, 2025 Dr. Dixon Holliday MD Attending Provider Active S tart: June 29, 2025 End: June 29, 2025 Team Status: Active Member Role/Relationship Status Dates Dr. Matthias Brock DO Attending Provider Active Start: June 29, 2025 Dr. Dixon Holliday MD Referring Provider Active S tart: June 29, 2025 Nohemy Grover Primary Care Provider Active S tart: June 29, 2025 Reducing System Operator Relationship Specialty Start Date End Date Nohemy Grover INVESTMENT ADVISOR - PETROPHYSICIST [address] [place] [address] PCP - General Family Nurse Practitioner 07/29/23 Donavan Strauss MD [address] [facility] [address] [place] [address] Consulting Physician Gynecologic Oncology 07/11/23 Noreen Rahman INVESTMENT ADVISOR - PETROPHYSICIST 161 [facility] [place] [address] Nurse Practitioner Nurse Practitioner 02/19/24 Kari Mayfield INVESTMENT ADVISOR - PETROPHYSICIST [address] [facility] [address] [place] [address] Nurse Practitioner Nurse Practitioner 07/21/24 Reason for Visit (unrecogniz ed section and content) Reason Comments Vulvar Cancer Specialty Diagnoses / Procedures Referred By Contac t Referred To Contact Gynecologic Oncology Diagnoses suspected vulvar cancer Procedures LA OFFICE/OUTPATIENT NEW HIGH MDM 60-74 MINUTES Mercedes Raines [address] [facility] [address] [place] [address] [facility] Manager Transplant Onc [address] [facility] [address] [place] [address] Referral ID Status Reason Start Date Expiration Date V isits Requested Visits Authorized [id number] Pending Review 07/09/2023 07/08/2024 1 1 Reason Onset Date Comments FMLA forms 07/21/2023 Specialty Diagnoses / Procedures Referred By Contac t Referred To Contact Diagnoses Malignant neoplasm of vulva, unspecified (HCC) Malignant neoplasm of vulva, unspecified (HCC) [C51.9] Procedures LA INJ RADIOACTIVE TRACER FOR ID OF SENTINEL NODE LA BIOPSY VULVA/PERINEUM 1 LESION SPX LA BIOPSY VULVA/PERINEUM EACH ADDL LESION BILATERAL GROIN DISSECTION VULVAR BIOPSY BIOPSY OF VULVA OR PERINEUM BIOPSY OF VULVA OR PERINEUM (EACH ADDITIONAL LESION) Donavan Strauss MD [address] [facility] [place] [address] [facility] [address] [place] [address] Referral ID Status Reason Start Date Expiration Date Visits Re quested Visits Authorized [id number] 1 1 Reason Onset Date Comments Referral - Heart Txp 07/31/2023 Appointment 07/31/2023 Reason Onset Date Comments Appointment 11/14/2023 Reason Onset Date Comments Results 02/18/2024 Reason Comments Vulvar Cancer Reason Comments Vulvar Cancer Follow-up Reason Comments Vulvar Cancer Follow-up 3 month follow up- p t states she is feeling well and has no concerns Reason Onset Date Comments Surgery Scheduling 05/19/2025 [facility] Reason Comments Post-op Visit Scheduled Active and Recently Administ ered Medications (unrecognized section and content) Medication Order 07/28/2023 07/29/2023 07/30/2023 acetaminophen (Tylenol) tablet 1,000 mg (COMPLETED) 1,000 mg, Oral, Once, On Fri07/29/23 at 1000, For 1 dose, Preprocedure, Maximum dose of acetaminophen is 4000 mg from all sources in 24 hours. Do not administer if patient has taken tylenol <4 hours earlier. Do not give if contraindicated ie. patient has active liver disease or cirrhosis. 0957 (Given - Provider: Elba Chase RN) acetaminophen (Tylenol) tablet 1,000 mg 1,000 mg, Oral, Every 8 hours, First dose on Fri07/29/23 at 1800, Phase II/On Unit, Maximum dose of acetaminophen is 4000 mg from all sources in 24 hours. Alternate ibuprofen and acetaminophen every 4 hours. 7884 (Given - Provider: Ana Barragan RN) 0250 (Given - Provider: Kisha Cadena RN)0903 (Given - Provider: Emil Cho RN) ceFAZolin in dextrose 4% (Ancef) IVPB 2,000 mg (COMPLETED) 2,000 mg, IntraVENous, Administer over 30 Minutes, Training And Documentation Specialist to O.R., On Fri07/29/23 at 1000, For 1 dose, Preprocedure, Administer within 1 hour prior to incision. premix bag, Suspected Indication (Select all that apply): Surgical Prophylaxis 1047 (Given - Provider: Parveen Cabrales APRN - PATIENT CARE TECHNICIAN) cephalexin (Keflex) capsule 500 mg (COMPLETED) 500 mg, Oral, 2 times daily, First dose on Fri07/29/23 at 1900, For 2 doses, Phase II/On Unit, Suspected Indication (Select all that apply): Skin and Soft Tissue Infection 2133 (Given - Provider: Kisha Cadena RN) 902 (Given - Provider: Emil Cho RN) docusate sodium (Colace) capsule 100 mg 100 mg, Oral, 2 times daily, First dose on Fri07/29/23 at 2100, Phase II/On Unit, Do not crush or break. 2133 (Given - Provider: Kisha Cadena RN) 902 (Given - Provider: Emil Cho, JUAN) famotidine (Pepcid) tablet 20 mg (COMPLETED) 20 mg, Oral, Once, On Fri07/29/23 at 1000, For 1 dose, Preprocedure 09 (Given - Provider: Elba Chase, JUAN) gabapentin (Neurontin) capsule 100 mg (COMPLETED) 100 mg, Oral, Once, On Fri07/29/23 at 1000, For 1 dose, Preprocedure, For Age >69 or Low GFR. 0957 (Given - Provider: Elba Chase, JUAN) sodium chloride 0.9% (NS) flush 10 mL 10 mL, IntraVENous, Every 12 hours scheduled (2 times per day), First dose on Fri07/29/23 at 2100, Phase II/On Unit 2134 (Given - Provider: Kisha Cadena RN) 09 (Not Given - Provider: Emil Cho RN - Reason: Loss of IV access) Continuous Medication Order 07/28/2023 07/29/2023 07/30/2023 lactated Ringer's (LR) infusion (CANCELED) 50 mL/hr, IntraVENous, Continuous, Starting on Fri07/29/23 at 1000, Preprocedure, Upon admission to sameday - please start iv if patient does not have iv access. Use 500ml NS for patients on dialysis. 1010 (New Bag - Provider: Elba Chase RN)1047 (Continued by Anesthesia - Provider: Parveen Cabrales, INVESTMENT ADVISOR - PATIENT CARE TECHNICIAN)1236 (Stopped - Provider: Parveen Cabrales, INVESTMENT ADVISOR - PATIENT CARE TECHNICIAN) PRN Medication Order 07/28/2023 07/29/2023 07/30/2023 gadobutrol (Gadavist) injection 10 mL (COMPLETED) 10 mL, IntraVENous, IMG once PRN, contrast, Starting on Fri07/29/23 at 2322, For 1 dose 2324 (Given - Provider: Matilde Nance) ibuprofen tablet 600 mg 600 mg, Oral, Every 6 hours PRN, mild pain (1-3), Starting on Fri07/29/23 at 1407, Phase II/On Unit, Once tolerating PO, discontinue Toradol and begin ibuprofen 8 hours after the final dose of Toradol. Alternate ibuprofen and acetaminophen every 4 hours. ondansetron (Zofran) injection 4 mg(Linked Group 1) 4 mg, IntraVENous, Every 6 hours PRN, nausea, vomiting, Starting on Fri07/29/23 at 1407, Phase II/On Unit, 1st Line. Give IV if patient is unable to take orally. If inadequate response within 60 minutes, proceed to next-line agent or contact provider if no further options ordered. ondansetron ODT (Zofran-ODT) disintegrating tablet 4 mg(Linked Group 1) 4 mg, Oral, Every 8 hours PRN, nausea, vomiting, Starting on Fri07/29/23 at 1407, Phase II/On Unit, 1st Line. If inadequate response within 60 minutes, proceed to next-line agent or contact provider if no further options ordered. Patient should allow tablet to dissolve on tongue. Do not remove from blister pack until just before administering. oxyCODONE (Roxicodone) immediate release tablet 10 mg(Linked Group 2) 10 mg, Oral, Every 4 hours PRN, severe pain (7-10), Starting on Fri07/29/23 at 1407, Phase II/On Unit 1505 (Given - Provider: Ana Barragan RN) 0255 (See Alternative - Provider: Kisha Cadena, JUAN) oxyCODONE (Roxicodone) immediate release tablet 5 mg(Linked Group 2) 5 mg, Oral, Every 4 hours PRN, moderate pain (4-6), Starting on Fri07/29/23 at 1407, Phase II/On Unit 1505 (See Alternative - Provider: Ana Barragan RN) 0255 (Given - Provider: Kisha Cadena RN) polyethylene glycol (PEG) 3350 (Miralax) packet 17 g 17 g, Oral, Daily PRN, constipation, Starting on Fri07/29/23 at 1407, Phase II/On Unit, 1st line for treatment of constipation - give scheduled if no bowel movement in past 24 hours. sodium chloride 0.9 % infusion 5-250 mL/hr, IntraVENous, PRN, if patient receiving piggyback infusions and maintenance fluids are not ordered OR KVO fluids to protect IV site / prevent frequent line interruptions/ long duration, Starting on Fri07/29/23 at 1407, Phase II/On Unit, For piggyback infusion, administer at same rate as piggyback for a total of 25 mL. Enter 25 mL into dose field and piggyback rate into rate field of order. If piggyback is infusing at a rate less than 100 mL/hr, enter 25 mL into dose field and 100 mL/hr into rate field of order. For KVO fluids, enter rate of 20 mL/hr or less into rate field of order. sodium chloride 0.9% (NS) flush 10 mL 10 mL, IntraVENous, PRN, line care, Starting on Fri07/29/23 at 1407, Phase II/On Unit, After every IV line use sterile water irrigation solution (CANCELED) As needed, Starting on Fri07/29/23 at 1209, Intraprocedure 1209 (Given - Provider: Donavan Strauss MD) Linked Groups Order Group 1: ondansetron ODT (Zofran-ODT) disintegrating tablet 4 mgJump to med 4 mg, Oral, Every 8 hours PRN, nausea, vomiting, Starting on Fri07/29/23 at 1407, Phase II/On Unit, 1st Line. If inadequate response within 60 minutes, proceed to next-line agent or contact provider if no further options ordered. Patient should allow tablet to dissolve on tongue. Do not remove from blister pack until just before administering. Or ondansetron (Zofran) injection 4 mgJump to med 4 mg, IntraVENous, Every 6 hours PRN, nausea, vomiting, Starting on Fri07/29/23 at 1407, Phase II/On Unit, 1st Line. Give IV if patient is unable to take orally. If inadequate response within 60 minutes, proceed to next-line agent or contact provider if no further options ordered. Group 2: oxyCODONE (Roxicodone) immediate release tablet 5 mgJump to med 5 mg, Oral, Every 4 hours PRN, moderate pain (4-6), Starting on Fri07/29/23 at 1407, Phase II/On Unit Or oxyCODONE (Roxicodone) immediate release tablet 10 mgJump to med 10 mg, Oral, Every 4 hours PRN, severe pain (7-10), Starting on Fri07/29/23 at 1407, Phase II/On Unit Scheduled Medication Order 06/12/2025 06/13/2025 06/14/2025 acetaminophen (Tylenol) tablet 1,000 mg (COMPLETED) 1,000 mg, Oral, Once, On Fri06/14/25 at 0545, For 1 dose, Preprocedure, Administer 60 minutes prior to surgery. 0550 (Given - Provid er: Amy Camarillo RN) famotidine (Pepcid) tablet 20 mg (COMPLETED)(Linked Group 1) 20 mg, Oral, Once, On Fri06/14/25 at 0545, For 1 dose, Preprocedure, IV or Oral 0550 (Given - Provid er: Amy Camarillo RN) sodium chloride 0.9% (NS) flush 10 mL 10 mL, IntraVENous, Every 12 hours scheduled (2 times per day), First dose on Fri06/14/25 at 0900, Preprocedure 0900 (Canceled Entry - Provider: Automatic Discharge Provider - Comment: Automatically canceled at discontinue of medication order) sodium chloride 0.9% (NS) flush 10 mL 10 mL, IntraVENous, Every 12 hours scheduled (2 times per day), First dose on Fri06/14/25 at 0900, Recovery (only) 0900 (Canceled Entry - Provider: Automatic Discharge Provider - Comment: Automatically canceled at discontinue of medication order) sodium chloride 0.9% (NS) flush 5-40 mL 5-40 mL, IntraVENous, Every 12 hours, First dose on Fri06/14/25 at 0545, Preprocedure, For Line Patency: Peripheral IV = 5 mL; Midline or Central Line = 10 mL/lumen. If following IV push medication, administer flush at same rate as the IV push. Flush volume is determined by type of infusion therapy being given. For non-viscous solutions use: Peripheral IV = 5 mL Midline or Central Line = 10 mL/lumen For viscous solutions (i.e. blood components, parenteral nutrition, contrast media, or after obtaining blood sample) use: Peripheral IV = 10 mL Midline or Central Line = 20 mL/lumen 0545 (Canceled Entry - Provider: Automatic Discharge Provider - Comment: Automatically canceled at discontinue of medication order) Continuous Medication Order 06/12/2025 06/13/2025 06/14/2025 lactated Ringer's (LR) infusion 50 mL/hr, IntraVENous, Continuous, Starting on Fri06/14/25 at 0545, Preprocedure, Upon admission to sameday - please start iv if patient does not have iv access. Use 500ml NS for patients on dialysis. 0550 (New Bag - Prov ider: Amy Camarillo RN)0651 (Continued by Anesthesia - Provider: Molina Bar APRN - PATIENT CARE TECHNICIAN)1059 (Due: Order Ending - Provider: Automatic Discharge Provider - Comment: [Order ends at this time. Document the following action when infusion is complete: Stopped]) lactated ringers infusion 125 mL/hr, IntraVENous, Continuous, Starting on Fri06/14/25 at 0815, Recovery (only) 0815 (Canceled Entry - Provider: Automatic Discharge Provider - Comment: Automatically canceled at discontinue of medication order) sodium chloride 0.9 % infusion 125 mL/hr, IntraVENous, Continuous, Starting on Fri06/14/25 at 0545, Preprocedure 0545 (Canceled Entry - Provider: Automatic Discharge Provider - Comment: Automatically canceled at discontinue of medication order) PRN Medication Order 06/12/2025 06/13/2025 06/14/2025 ALPRAZolam (Xanax) disintegrating tablet 0.25 mg 0.25 mg, Oral, Once PRN, anxiety, Starting on Fri06/14/25 at 0544, For 1 dose, Preprocedure, Please do not administer prior to obtaining consent and/or history and physical. diphenhydrAMINE (BENADryl) injection 12.5 mg 12.5 mg, IntraVENous, Once PRN, itching, Starting on Fri06/14/25 at 0811, For 1 dose, Recovery (only) fentaNYL (Sublimaze) injection 25 mcg 25 mcg, IntraVENous, Every 5 min PRN, moderate pain (4-6), Starting on Fri06/14/25 at 0811, For 3 doses, Recovery (only), Phase I and Phase II- Initial therapy for moderate pain (4-6). Restricted to a 90 minute time frame starting when the patient can verbally state their pain score. If after 2 doses the pain score does not decrease by more than one point, then call the provider. If oral meds are utilized, do not return to initial therapy medications. fentaNYL (Sublimaze) injection 50 mcg 50 mcg, IntraVENous, Every 5 min PRN, severe pain (7-10), Starting on Fri06/14/25 at 0811, For 3 doses, Recovery (only), Phase I and Phase II- Initial therapy for severe pain (7-10). Restricted to a 90 minute time frame starting when the patient can verbally state their pain score. If after 2 doses the pain score does not decrease by more than one point, then call the provider. If oral meds are utilized, do not return to initial therapy medications. hydrALAZINE (Apresoline) injection 5 mg(Linked Group 2) 5 mg, IntraVENous, Every 15 min PRN, high blood pressure, for SBP greater than 160 mmHg for 2 consecutive measurements taken from different sites, Starting on Fri06/14/25 at 0811, For 2 doses, Recovery (only), PRN for SBP > 160 for 2 consecutive measurements, and if one of the following conditions is met: 1) If IV labetolol is ineffective. 2) If HR is under 60. 3) If patient has heart block, COPD or asthma. If both labetalol and hydralazine ineffective, notify anesthesia provider. labetalol (Normodyne,Trandate) injection 5 mg(Linked Group 2) 5 mg, IntraVENous, Every 10 min PRN, high blood pressure, for SBP greater than 160 mmHg for 2 consecutive measurements taken from different sites., Starting on Fri06/14/25 at 0811, For 2 doses, Recovery (only), PRN for SBP >160 for 2 consecutive measurements, if HR is 60 or greater. If beta kenia is contraindicated (HR less than 60, heart block, COPD or asthma) use hydralazine IV order. lidocaine-EPINEPHrine (Xylocaine W/EPI) 1 %-[id number] injection (CANCELED) As needed, Starting on Fri06/14/25 at 0741, Intraprocedure 0741 (Given - Provid er: Donavan Strauss MD - Comment: VULVA) ondansetron (Zofran) injection 4 mg 4 mg, IntraVENous, Once PRN, nausea, Starting on Fri06/14/25 at 0811, For 1 dose, Recovery (only), Initial antiemetic therapy. oxyCODONE (Roxicodone) immediate release tablet 5 mg (COMPLETED)(Linked Group 3) 5 mg, Oral, Every 4 hours PRN, moderate pain (4-6), Starting on Fri06/14/25 at 0811, For 1 dose, Recovery (only), PHASE II 828 (Given - Provid er: Diamond Alvarado RN) silver nitrate applicator (CANCELED) As needed, Starting on Fri06/14/25 at 0740, Intraprocedure 0740 (Given - Provid er: Donavan Strauss MD - Comment: VULVA) sodium chloride 0.9 % bolus 500 mL 500 mL, IntraVENous, at 1,000 mL/hr, Administer over 0.5 Hours, PRN, Anti-nausea, Starting on Fri06/14/25 at 0811, Recovery (only), Indications: Anti-nausea sodium chloride 0.9 % infusion 5-250 mL/hr, IntraVENous, PRN, if patient receiving piggyback infusions and maintenance fluids are not ordered OR KVO fluids to protect IV site / prevent frequent line interruptions / long duration, Starting on Fri06/14/25 at 0544, Preprocedure, For piggyback infusion, administer at same rate as piggyback for a total of 25 mL. Enter 25 mL into dose field and piggyback rate into rate field of order. If piggyback is infusing at a rate less than 100 mL/hr, enter 25 mL into dose field and 100 mL/hr into rate field of order. For KVO fluids, enter rate of 20 mL/hr or less into rate field of order. sodium chloride 0.9 % infusion 5-250 mL/hr, IntraVENous, PRN, if patient receiving piggyback infusions and maintenance fluids are not ordered OR KVO fluids to protect IV site / prevent frequent line interruptions/ long duration, Starting on Fri06/14/25 at 0544, Preprocedure, For piggyback infusion, administer at same rate as piggyback for a total of 25 mL. Enter 25 mL into dose field and piggyback rate into rate field of order. If piggyback is infusing at a rate less than 100 mL/hr, enter 25 mL into dose field and 100 mL/hr into rate field of order. For KVO fluids, enter rate of 20 mL/hr or less into rate field of order. sodium chloride 0.9 % infusion 5-250 mL/hr, IntraVENous, PRN, if patient receiving piggyback infusions and maintenance fluids are not ordered OR KVO fluids to protect IV site / prevent frequent line interruptions/ long duration, Starting on Fri06/14/25 at 0811, Recovery (only), For piggyback infusion, administer at same rate as piggyback for a total of 25 mL. Enter 25 mL into dose field and piggyback rate into rate field of order. If piggyback is infusing at a rate less than 100 mL/hr, enter 25 mL into dose field and 100 mL/hr into rate field of order. For KVO fluids, enter rate of 20 mL/hr or less into rate field of order. sodium chloride 0.9 % irrigation solution (CANCELED) As needed, Starting on Fri06/14/25 at 0712, Intraprocedure 0712 (Given - Provid er: Donavan Strauss MD) sodium chloride 0.9% (NS) flush 10 mL 10 mL, IntraVENous, PRN, line care, Starting on Fri06/14/25 at 0544, Preprocedure, After every IV line use sodium chloride 0.9% (NS) flush 10 mL 10 mL, IntraVENous, PRN, line care, Starting on Fri06/14/25 at 0811, Recovery (only), After every IV line use sodium chloride 0.9% (NS) flush 5-40 mL 5-40 mL, IntraVENous, PRN, line care, After every IV line use, Starting on Fri06/14/25 at 0544, Preprocedure, For Line Patency: Peripheral IV = 5 mL; Midline or Central Line = 10 mL/lumen. If following IV push medication, administer flush at same rate as the IV push. Flush volume is determined by type of infusion therapy being given. For non-viscous solutions use: Peripheral IV = 5 mL Midline or Central Line = 10 mL/lumen For viscous solutions (i.e. blood components, parenteral nutrition, contrast media, or after obtaining blood sample) use: Peripheral IV = 10 mL Midline or Central Line = 20 mL/lumen Linked Groups Order Group 1: famotidine (Pepcid) tablet 20 mg (COMPLETED)Jump to med 20 mg, Oral, Once, On Fri06/14/25 at 0545, For 1 dose, Preprocedure, IV or Oral Or famotidine (Pepcid) 20 mg in sodium chloride (PF) 0.9 % 10 mL injection (COMPLETED) 20 mg, IntraVENous, Administer over 2 Minutes, Once, On Fri06/14/25 at 0545, For 1 dose, Preprocedure, IV or Oral Group 2: labetalol (Normodyne,Trandate) injection 5 mgJump to med 5 mg, IntraVENous, Every 10 min PRN, high blood pressure, for SBP greater than 160 mmHg for 2 consecutive measurements taken from different sites., Starting on Fri06/14/25 at 0811, For 2 doses, Recovery (only), PRN for SBP >160 for 2 consecutive measurements, if HR is 60 or greater. If beta kenia is contraindicated (HR less than 60, heart block, COPD or asthma) use hydralazine IV order. Or hydrALAZINE (Apresoline) injection 5 mgJump to med 5 mg, IntraVENous, Every 15 min PRN, high blood pressure, for SBP greater than 160 mmHg for 2 consecutive measurements taken from different sites, Starting on Fri06/14/25 at 0811, For 2 doses, Recovery (only), PRN for SBP > 160 for 2 consecutive measurements, and if one of the following conditions is met: 1) If IV labetolol is ineffective. 2) If HR is under 60. 3) If patient has heart block, COPD or asthma. If both labetalol and hydralazine ineffective, notify anesthesia provider. Group 3: oxyCODONE (Roxicodone) immediate release tablet 5 mg (COMPLETED)Jump to med 5 mg, Oral, Every 4 hours PRN, moderate pain (4-6), Starting on Fri06/14/25 at 0811, For 1 dose, Recovery (only), PHASE II Or oxyCODONE (Roxicodone) immediate release tablet 10 mg (COMPLETED) 10 mg, Oral, Every 4 hours PRN, severe pain (7-10), Starting on Fri06/14/25 at 0811, For 1 dose, Recovery (only), PHASE II INFORMATION SOURCE (unrecogn ized section and content) DATE CREATED AUTHOR 06/23/2024 [facility] ([place]) DATE CREATED AUTHOR AUTHOR'S ORGANIZ ATION 05/08/2025 [facility] DATE CREATED AUTHOR AUTHOR'S ORGANIZ ATION 07/01/2025 [facility] DATE CREATED AUTHOR AUTHOR'S ORGANIZ ATION 09/02/2025 [facility] Goals (unrecognized section and content) Goals may be documented in a n alternate section FOR RECORDS PERTAINING TO PATIENTS WHO ARE OR HAVE BEEN ENROLLED IN A CHEMICAL DEPENDENCY/SUBSTANCEABUSE PROGRAM, SOME INFORMATION MAY BE OMITTED. This clinical summary was aggregated from multiple sources. Caution should be exercised in using it in the provision of clinical care. This summary normalizes information from multiple sources, and as a consequence, information in this document may materially change the coding, format and clinical context of patient data. In addition, data may be omitted in some cases. CLINICAL DECISIONS SHOULD BE BASED ON THE PRIMARY CLINICAL RECORDS. [facility] provides no warranty or guarantee of the accuracy or completeness of information in this document.
[2025-09-09 20:39] LABS: Hematocrit 25.9 % (37-47); Hemoglobin 8.0 g/dL (12.0-15.0); Immature Granulocytes Count 0.010 X10^3/uL (0.0-0.0); Mean Corp Hgb Conc 30.9 g/dL (32-36); Mean Corpuscular Volume 79.2 fL (81-99); Mean Platelet Vol. 9.4 fl (6.2-12.0); NRBC Flagged by Analyzer 0 % (0-5); POSITIVE COUNT YES; POSITIVE DIFFERENTIAL YES; Platelet Count 134 K/mm3 (150-450); RBC Distribution Width CV 17.2 % (11.6-14.6); RBC Distribution Width SD 49.5 fl (35.1-43.9); Red Blood Count 3.27 M/mm3 (4.2-5.4)
[2025-09-09 20:43] LABS: Differential Indicated SCAN CRITERIA MET; White Blood Count 1.4 K/mm3 (4.4-11.0)
--- NOTE | 2025-09-09 20:53 | EDS_ITS ---
HPI History of Present Illness Chief Complaint: Abn Labs Narrative Narrative: Patient is a 60-year-old female presenting to the emergency department for a wound check in her left inguinal fold. 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 She also has a past medical history of neutropenia and iron deficiency anemia. Reportedly the patient had biopsies of the left groin done in May. Since then the wounds have not healed well. States she thinks it looks fairly similar to how it has over the past few months. She follows every 2 weeks to have the wounds checked. Her last chemo and radiation was over a year ago. She states she followed with her ASSISTANT SUPERINTENDENT [employer], Fan, today who recommended that she come be evaluated. This [employer]IST[employer] has not seen the wound since October reportedly. She endorses fatigue. Denies fever, chills, abdominal pain, nausea, vomiting, diarrhea. PFSH PFSH Medical History Cellulitis Encounter for education Wears glasses Wears dentures Post-menopausal Smoker History of irregular heartbeat Hand amputee Heart murmur Malignant neoplasm of vulva Home Medications Medication Instructions Recorded Last Taken Type acetaminophen 500 mg tablet 1,000 mg PO Q6H PRN pain 1 Unknown History ibuprofen 600 mg tablet 600 mg PO Q6H PRN pain 08/04 Unknown History multivitamin 1 tab PO DAILY 08/04/23 Unkn own History ascorbic acid-ascorbate 15 ml PO DAILY 08/26/2308/28 History calcium-ascorbate sod 500 mg/15 mL oral liquid (Vitamin C) sulfamethoxazole 400 1 tab PO BID 7 days #14 tabs 09/09/25 Unknown Rx mg-trimethoprim 80 mg tablet (Bactrim) Allergy/AdvReac Type Severity Reaction Status Date / Time No Known Allergies Allergy Verified 09/09/25 19:26 Family History Mother Arthritis Hypertension Father Alcohol abuse Hypertension Liver disease Surgical History Port-A-Cath in place History of lymph node excision Social History Smoking Status: Current some day smoker tobacco type: cigarettes alcohol intake: never substance use type: does not use ROS ROS ED ROS Narrative See HPI EXAM Physical Exam Narrative Exam Narrative: Vital signs: Reviewed General: Alert and oriented x 3. No acute distress. Nontoxic-appearing. HEENT: Head is normocephalic and atraumatic, sinuses nontender, pupils equal round and reactive. Nares are patent. Oropharynx and throat exams normal. Neck: Supple without lymphadenopathy nontender Cardiovascular: Regular rate and rhythm, no murmurs. No rubs or gallops. Normal S1 and S2 Respiratory: Clear to auscultation bilaterally. No wheezes, rales, rhonchi Abdominal: Soft and nontender. Normal bowel sounds. No guarding or rebound. Nonsurgical abdomen Extremities: No tenderness. No bruising. Normal range of motion. Normal sensation. Skin: There are 2 circular wounds in the left inguinal fold that have foul- smelling, purulent drainage. There is surrounding erythema and warmth in the inguinal fold. The erythema does not track up or down from the inguinal fold. There is no areas of fluctuance or induration that suggest abscess formation. Neurological: Cranial nerves II through XII are grossly intact. Normal strength and sensation. Normal cerebellar function The rest of the physical exam is unremarkable Const Vital Signs: 09/09/25 19:21 09/09/25 20:21 09/09/25 21:05 Temperature 97.3 F L 97.6 F L Temperature Source Oral Oral Pulse Rate 105 H 83 Respiratory Rate 16 20 H Respiratory Pattern Normal Blood Pressure 102/62 100/59 L Blood Pressure Mean 75 72 Pulse Ox 97 92 Oxygen Delivery Method Room Air Room Air 09/09/25 22:00 09/09/25 23:00 Temperature 97.5 F L Temperature Source Oral Pulse Rate 81 87 Respiratory Rate 20 H 22 H Respiratory Pattern Blood Pressure 100/59 L Blood Pressure Mean 72 Pulse Ox 93 Oxygen Delivery Method Room Air Room Air MDM MDM MDM Narrative Medical decision making narrative: Patient is a 60-year-old female presenting to the emergency department for wound check at the request of her primary care doctor. Patient was seen and examined. Vitals are stable. Nontoxic-appearing. Reportedly labs, wound culture and CT of the abdomen pelvis was obtained outpatient at [facility] however the patient was sent here. I do not have access to the labs and imaging obtained today. CBC with chronic leukopenia of 1.4 and chronic neutropenia fo 11.6. ANC of .2. All stable from prior. The pocket secretary assembler called to have our radiology team read the already completed CT the abdomen pelvis. Reportedly they "do not do this". For this reason a repeat CT will be obtained to rule out any underlying abscess or extension of the infection. CT shows rim enhancing lesion of the left groin with significant surrounding fat stranding and skin thickening measuring up to 1.3 cm concerning for cellulitis with abscess. Hepatosplenomegaly. Prominent uterine vasculatures. Correlation for pelvic congestion syndrome is recommended. Wound is actively draining purulent drainage, I do not think it requires additional opening or packing placement given this. Vitals are stable. Patient is well appearing. Lactate within normal limits. Similar leukopenia and neutropenia as prior. I do not think patient is septic. Isolated infection that I will give first dose of Bactrim here for. Will discharge home with Bactrim. Instructed to have follow up with PCP or wound care doctor for 3-5 days to recheck wound and ensure it is improving. Patient discharged from the Emergency Department. I do not feel that the patient's evaluation reveals any acute reason for admission at this time. I instructed them to either follow-up with their primary care physician or promptly return to the Emergency Department for reevaluation should symptoms worsen or new symptoms develop. I explained what symptoms would indicate the need to return to the emergency department. Shared decision making was used. The patient voiced understanding of the treatment plan and is agreeable with it. Clinical impression Abscess Cellulitis Chronic leukopenia Chronic neutropenia History & Record Review Discussion w/independent historian: Patient and Family Lab Data Attestation: I reviewed the patient's lab results. Labs: Laboratory Results - last 24 hr 09/09/25 20:30 WBC 1.4 L* RBC 3.27 L Hgb 8.0 L Hct 25.9 L MCV 79.2 L MCH 24.5 L MCHC 30.9 L RDW Std Deviation 49.5 H RDW Coeff of Pennie 17.2 H Plt Count 134 L MPV 9.4 Immature Gran % (Auto) 0.700 Neut % (Auto) 11.6 L Lymph % (Auto) 57.7 H [place] % (Auto) 28.5 H Eos % (Auto) 1.5 Baso % (Auto) 0.0 Absolute Neuts (auto) 0.2 L Absolute Lymphs (auto) 0.79 L Nucleated RBC % 0 Differential Comment SCANNED Diff Path Review May foll Sodium 135 Potassium 3.6 Chloride 101 Carbon Dioxide 24.1 Anion Gap 10 BUN 15 Creatinine 0.55 L Estim Creat Clear Calc 103.55 Est GFR (MDRD) Non-Af 104 BUN/Creatinine Ratio 27.8 H Glucose 114 H Lactic Acid 1.3 Calcium 8.6 Radiography Diagnostic Testing: Clinical Impression(s) from Imaging Studies Abdomen/Pelvis CT 09/09/25 20:54 IMPRESSION: 1. Rim enhancing lesion of the left groin with significant surrounding fat stranding and skin thickening measuring up to 1.3 cm concerning for cellulitis with abscess. 2. Hepatosplenomegaly. 3. Prominent uterine vasculatures. Correlation for pelvic congestion syndrome is recommended. Reading Location: [facility] Discharge Plan Triage Chief Complaint: Abn Labs ED Provider: Belen Styles Dx/Rx/DC Orders Clinical Impression: Cellulitis, Abscess, Chronic neutropenia, Chronic leukopenia Instructions: Cellulitis Dc, ED Abscess Antibiotic Treatment Only Prescriptions: New sulfamethoxazole-trimethoprim [Bactrim] 400-80 mg tablet 1 tab PO BID 7 Days Qty: 14 0RF No Action acetaminophen 500 mg tablet 1,000 mg PO Q6H PRN (Reason: pain) multivitamin Tablet 1 tab PO DAILY ibuprofen 600 mg tablet 600 mg PO Q6H PRN (Reason: pain) Vitamin C 500 mg/15 mL liquid 15 ml PO DAILY Primary Care Provider: Nohemy Chavira NP Referrals: Nohemy Chavira NP, [employer] [Primary Care Provider, Family Practice] - As soon as possible Activity Restrictions/Additional Instructions: Take the antibiotic as prescribed. You need to follow-up with either your wound care doctor or your primary care doctor in the next 3-5 days to recheck your wound and make sure it is not getting worse. You need to return if you develop any fevers, chills, nausea or vomiting. Return if the wound starts to look any worse which includes redness outside the area that it is now, increased drainage. Your evaluation in the Emergency Department did not reveal any acute reason for admission. However, I want to emphasize that you may be early in the course of a disease process or illness even if it is not present. For this reason you should follow-up within 24 hours for reevaluation with either your primary care physician or if necessary back here in the Emergency Department. You should return to the Emergency Department immediately if your symptoms worsen or new symptoms develop. Print Language: Marshallese Disposition Disposition: Home, Self Care
[2025-09-09 20:54] LABS: Anion Gap 10 (5-15); BUN 15 mg/dL (4-19); BUN/Creat Ratio 27.8 RATIO (10-20); Calcium,Total 8.6 mg/dL (7.6-11.0); Carbon Dioxide 24.1 mmol/L (21.0-32.0); Chloride 101 mmol/L (98-108); Estimated Creatinine Clearance 103.55 ml/min (50-250); Glucose 114 mg/dL (70-99); Potassium 3.6 mmol/L (3.3-5.1)
[2025-09-09] MEDS: Smz/Tmp Ds Tablet 1 TABLET PO (20:54)
--- NOTE | 2025-09-09 20:54 | CT_ITS ---
EXAM: CT Abdomen and Pelvis With Intravenous Contrast CLINICAL INDICATION: LEFT GROIN INFECTION, CELLULITIS, RULE OUT ABSCESS TECHNIQUE: Axial computed tomography images of the abdomen and pelvis with intravenous contrast. This CT exam was performed using one or more of the following dose reduction techniques: automated exposure control, adjustment of the mA and/or kV according to patient size, and/or use of iterative reconstruction technique. COMPARISON: No relevant prior studies available. FINDINGS: LUNG BASES: Lung emphysema. No consolidation. ABDOMEN: LIVER: Hepatosplenomegaly. GALLBLADDER AND BILE DUCTS: Unremarkable. No calcified stones. No ductal dilation. PANCREAS: Unremarkable. No mass. No ductal dilation. SPLEEN: See above. ADRENALS: Unremarkable. No mass. KIDNEYS AND URETERS: Unremarkable. No solid mass. No hydronephrosis. STOMACH AND BOWEL: Unremarkable. No obstruction. No mucosal thickening. PELVIS: APPENDIX: No findings to suggest acute appendicitis. BLADDER: Unremarkable. No mass. REPRODUCTIVE: Prominent uterine vasculatures. Correlation for pelvic congestion syndrome is recommended. ABDOMEN and PELVIS: INTRAPERITONEAL SPACE: Unremarkable. No free air. No significant fluid collection. BONES/JOINTS: No acute fracture. No dislocation. SOFT TISSUES: Rim enhancing lesion of the left groin with significant surrounding fat stranding and skin thickening measuring up to 1.3 cm concerning for cellulitis with abscess. VASCULATURE: Scattered calcified atherosclerotic disease of aorta. LYMPH NODES: Unremarkable. No enlarged lymph nodes. CT/Abdomen/Pelvis W IV Cont ONLY IMPRESSION: 1. Rim enhancing lesion of the left groin with significant surrounding fat str anding and skin thickening measuring up to 1.3 cm concerning for cellulitis with abscess. 2. Hepatosplenomegaly. 3. Prominent uterine vasculatures. Correlation for pelvic congestion syndrome is recommended. Reading Location: [id number]
[2025-09-09 21:05] VITALS: BP 100/59; PULSE 83; RESP 20; TEMP 36.4; O2SAT 92
[2025-09-09 22:00] VITALS: BP 100/59; PULSE 81; RESP 20; TEMP 36.4
[2025-09-09 22:12] LABS: Differential Comment SCANNED
[2025-09-09 23:00] VITALS: PULSE 87; RESP 22; O2SAT 93
[2025-09-10] VITALS: BP 109/70; PULSE 87; RESP 22; TEMP 36.4; O2SAT 93
== END 2025-09-10 00:01 | disposition home or self-care (01) ==
PROVIDERS: Emergency Provider Student in an Organized Health Care Education/Training Program; PCP Registered Nurse; Visit Provider Student in an Organized Health Care Education/Training Program
DX: R79.9 Abnormal finding of blood chemistry, unspecified (principal); D72.819 Decreased white blood cell count, unspecified; Z85.89 Personal history of malignant neoplasm of other organs and systems; F17.210 Nicotine dependence, cigarettes, uncomplicated; L02.214 Cutaneous abscess of groin; L03.314 Cellulitis of groin
CPT/HCPCS: 74177; 80048; 83605; 85025; 99285; Q9967; A4216

== ENCOUNTER 2025-09-20 10:30 | Outpatient (RCR) | payer BC, SELFPAY ==
[2025-09-13 13:16] VITALS: BP 120/80; PULSE 100; RESP 18; TEMP 36.6; BMI 28.4
--- NOTE | 2025-09-13 19:39 | PCM.WC.HP ---
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 The patient underwent bilateral groin dissection and vulvar biopsy on July 29, 2023. Lymph node dissection was negative for metastatic disease. In August 2023, the patient underwent radiation therapy consisting of 5000 cGy delivered to the entire vulva and perineum, as well as areas at risk nearby. This was followed by a cone down boost to a total dose of 6400 CGY delivered to the gross disease, completed in 32 weekly fractions ending in October 2023. Treatment was implemented with a VMAT plan using 6 MV photons. Chemotherapy was also administered in August and September 2023 using cisplatin. On June 14, 2025, the patient underwent surgery by Seng Strauss MD, at [facility]. A left groin lymph node dissection and vulvar biopsy were performed. Surgical specimens were negative for malignancy. Several weeks subsequent to the patient's surgical procedure, the left groin incision was noted to become dehiscent, with the appearance of frankly necrotic tissue in the wound bed. Dr. Strauss, the patient's Gynecological Oncologist, debrided the dehiscent wound, and initiated a regimen of daily wet-to-dry gauze packing. It was documented in the medical record that this may take several weeks to heal due to the radiated tissue. A subsequent follow-up visit by Dr. Strauss stated we also discussed possible hyperbaric oxygen treatments. The patient has been treated with courses of antibiotics, including trimethoprim/sulfamethoxazole and doxycycline, most recently. A CT scan of the abdomen and pelvis was performed on September 09, 2025, revealing a rim-enhancing lesion of the left groin with significant surrounding fat stranding and skin thickening. Incidental note was made of hepatosplenomegaly and prominent uterine vasculature. The patient has been referred to the [facility] for further evaluation and management of her dehiscent surgical wound in the left groin. The patient admits to smoking approximately 1/4 pack of cigarettes per day. The patient denies a history of myocardial infarction, congestive heart failure, cerebrovascular accident, diabetes mellitus, pulmonary disease, renal disease, and thyroid disease. [facility] Medical History Wound, open, groin, complicated Surgical wound dehiscence Soft tissue radionecrosis History of antineoplastic chemotherapy History of radiation therapy Tobacco abuse counseling Tobacco abuse Cellulitis Encounter for education Wears glasses Wears dentures Post-menopausal Smoker History of irregular heartbeat Hand amputee Heart murmur Malignant neoplasm of vulva Home Medications ?Medication ?Instructions ?Recorded ?Last Taken ?Type acetaminophen 500 mg tablet 1,000 mg PO Q6H PRN pain 08/04/23 Unknown History ibuprofen 600 mg tablet 600 mg PO Q6H PRN pain 08/04/23 Unknown History multivitamin 1 tab PO DAILY 08/04/23 Unknown History ascorbic acid-ascorbate 15 ml PO DAILY 08/26/23 09/16/23 History calcium-ascorbate sod 500 mg/15 mL oral liquid (Vitamin C) doxycycline hyclate 100 mg capsule 100 mg PO BID 09/13/25 Unknown History Allergy/AdvReac Type Severity Reaction Status Date / Time No Known Allergies Allergy Verified 09/09/25 19:26 Family History Mother Arthritis Hypertension Father Alcohol abuse Hypertension Liver disease Surgical History History of below-elbow amputation of left upper extremity History of lymph node excision Port-A-Cath in place Social History Smoking Status: Current some day smoker tobacco type: cigarettes alcohol intake: never substance use type: does not use Vital Signs Vital Signs Vital Signs: 09/13/25 13:16 Temperature 97.9 F Temperature Source Temporal Pulse Rate 100 Respiratory Rate 18 Blood Pressure 120/80 Blood Pressure Mean 93 Blood Pressure Source Monitor Blood Pressure Position Sitting Blood Pressure Location Left Arm Oxygen Delivery Method Room Air Weight Weight: 160 lb 7.944 oz Body Mass Index (BMI) 28.4 Physical Exam Const alert, oriented x3, no apparent distress, average body habitus and well nourished Constitutional Narrative: The patient's BMI is 28.4. General Appearance: cooperative, comfortable, well kempt and well developed Orientation / Consciousness: awake, oriented to person, oriented to place and oriented to time Exam Limitations: no limitations HEENT normocephalic and head/scalp atraumatic Head and Scalp: normal to inspection, normocephalic and atraumatic Face and Sinus: normal facial exam Nose: external nose normal External Ear: external ears normal Eyes EOMs intact bilaterally General Eye: normal appearance of both eyes Alignment: alignment normal Neck full ROM Resp normal respiratory effort, normal air movement, no retractions and no use of accessory muscles Effort and Inspection: able to speak in complete sentences Extremity no calf tenderness Extremity Narrative: The patient's distal left upper extremity is absent below the elbow, 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 General Extremity: Negative for clubbing or cyanosis Skin Wound Narrative: Two open wounds are noted in the patient's left groin. The wounds are full-thickness, extending through all layers of the dermis and into the subcutaneous tissues. Dimensions are documented elsewhere. A large amount of necrotic and nonviable tissue is present. Opal-wound erythema is also noted. Mild undermining is also present. Neuro oriented x3, CN's II-XII intact bilaterally, moves all extremities, no focal motor deficits and no sensory deficits noted Sensorium / Orientation: awake, alert, oriented to person, oriented to place and oriented to time Speech: speech normal Psych Appearance: grossly normal, appropriate and well kempt Attitude: calm and engaged Activity / Motor Behavior: appropriate eye contact Speech: normal speech Mood & Affect: euthymic mood Thought Process: normal thought process Attention / Concentration: attention grossly intact Debridement Note Debridement Note Wound debrided: Dehiscent surgical wounds of the left groin Laterality: Left Type of Debridement: Excisional debridement Anesthesia Used: 5% Lidocaine Gel and Cetacaine Depth: Down to and including healthy tissue and in the subcutaneous layer Percentage of wound debrided: 100 Instrument Used: 5mm curette Tissue Removed: Necrotic and nonviable tissue Severity: Fat Layer Exposed Amount of bleeding with debridement: Mild Bleeding Controlled with: Compression and gauze Patient tolerated procedure: Patient tolerated procedure well Debridement Free Text: Because of the necrotic and nonviable tissue present within the left groin wounds, and associated opal-wound erythema, a swab was obtained for aerobic and anaerobic bacterial culture. Post-Debridement Measurements and Additional Note: Post-Debridement Measurements/Treatment MARIBEL - Nurse 1 - General Ulcer Assessment Start: 09/13/25 13:16 Freq: Status: Active Protocol: URIEL Activity Type Activity Date Activity User E-sign Co-sign Detail Recorded Client Recorded Date Recorded By Document 09/13/25 13:16 [id number] 09/13/25 13:36 09/13/25 13:16 WC - Today's Visit Information Type of service Initial Visit Arrival Mode Ambulatory Transfer Assistance None Patient Identification Verified (Name & Yes ) Patient Requires Transmission-Based No Precautions Height and Weight Height 5 ft 2.99 in Weight 160 lb 7.944 oz Weight in Pounds 160.5 lbs Body Mass Index (BMI) 28.4 BMI Classification Overweight Vital Signs Temperature (97.8 F-99.1 F) 97.9 F Temperature Source Temporal Pulse Rate (60-100) 100 Pulse Location Monitor Respiratory Rate (12-18) 18 Respiratory rate source Observation Oxygen Delivery Method Room Air Blood Pressure (90/60-120/80) 120/80 Blood Pressure Mean 93 Source Monitor Position Sitting Blood Pressure Location Left Arm Pain Scale: 0-10 Numeric Is Patient Pain Free? Yes Communication Assessment Preferred language Slovenian Philosophy Faculty Required No Able to Read Yes Able to Write Yes Communication Tools None Caregiver Communication Skills No Impairment Impairment Right Hearing Abillity Normal Left Hearing Abillity Normal Visual Assistive Devices Glasses Teaching Assessment Preferences Verbal,Written, Demonstration Barriers to Learning None Readiness To Learn Good Willingness to Engage in Self Management Med Activies Readiness to Engage in Self Management Med Activities Anxiety Level Calm Cooperation Cooperative Perception Coherent Interest in Health Problem Asks Questions Education Importance Acknowledges Need Does Patient Smoke tobacco or other No substances Is Patient Diabetic No Functional Assessment Recent Decline in Ability to Perform Denies Any Declines Assistive Device With Patient No Culture/Spiritism/Middleware Consultant Cultural/Spiritism Needs that may affect No Treatment Plan Would you allow our hospital textile designer to No meet you for the purpose of spiritual/ emotional support? Middleware Consultant to contact place of voodoo No Teaching: Wound Center *Welcome to the Wound Center -Person Taught Patient -Teaching Method Discussion, Demonstration -Response to teaching Verbalize Understanding - Nurse 1 - General Ulcer Measurement Start: 09/13/25 13:16 Freq: Status: Active Protocol: Activity Type Activity Date Activity User E-sign Co-sign Detail Recorded Client Recorded Date Recorded By Document 09/13/25 13:16 [id number] 09/13/25 13:36 09/13/25 13:16 Wound Center Nurse 1 2. L groin lateral -Combined with other wound No -Current Size (cm) - Length 1 -Current Size (cm) - Width 3 -Current Size (cm) - Depth 0.5 -Total Square Cm 3 -Date of Last Picture (Recall this 09/13/25 field) -Photo Taken Yes -Tunneling No -Undermining/Tunneling No -Circular Undermining No -Exudate Amt Large -Exudate Type Serosanguineous -Wound Margin Distinct, Outline Attached -Granulation Amt Medium (34-66%) -Granulation Quality Derwood -Necrosis Amt Medium (34-66%) -Necrotic Tissue Type Adherent Slough -Structure Exposed N/A -Texture (Opal-wound Skin Appearance) Assessed, Induration -Moisture (Opal-wound Skin Appearance) Assessed -Color (Opal-wound Skin Appearance) Assessed, Erythema -Temperature (Opal-wound Skin No Abnormality Appearance) (Pt Warm) -Tenderness on Palpation (Opal-wound No Skin Appearance) -Ulcer Cleansing Wound Cleanser -Foul Odor after Cleansing No -Anesthetic Used 5% Lidocaine Gel 1. L groin medial -Combined with other wound No -Current Size (cm) - Length 0.6 -Current Size (cm) - Width 1.5 -Current Size (cm) - Depth 0.6 -Total Square Cm 0.90 -Date of Last Picture (Recall this 09/13/25 field) -Photo Taken Yes -Tunneling No -Undermining/Tunneling No -Circular Undermining No -Exudate Amt Large -Exudate Type Serosanguineous -Wound Margin Distinct, Outline Attached -Granulation Amt Small (1-33%) -Granulation Quality Derwood -Slough/Fibrin Yes -Necrosis Amt Large (67-100%) -Necrotic Tissue Type Adherent Slough -Structure Exposed N/A -Texture (Opal-wound Skin Appearance) Assessed, Induration -Moisture (Opal-wound Skin Appearance) Assessed -Color (Opal-wound Skin Appearance) Erythema -Temperature (Opal-wound Skin No Abnormality Appearance) (Pt Warm) -Tenderness on Palpation (Opal-wound No Skin Appearance) -Ulcer Cleansing Wound Cleanser -Foul Odor after Cleansing No -Anesthetic Used 5% Lidocaine Gel WC - Nurse 2 - General Ulcer CM Notes Start: 09/13/25 13:16 Freq: Status: Active Protocol: Activity Type Activity Date Activity User E-sign Co-sign Detail Recorded Client Recorded Date Recorded By Document 09/13/25 13:54 DS [id number] 09/13/25 14:02 DS 09/13/25 13:54 Wound Center Nurse 2 2. L groin lateral -Time 13:54 -Correct Patient Yes -Correct Side, Site, Position Yes -Correct Procedure Yes -Procedure Performed Yes -Type of Procedure Debridement -Clinical Debridement Subcutaneous -Tissue Removed Subcutaneous -Post Debridement (cm) - Length 2.0 -Post Debridement (cm) - Width 0.8 -Post Debridement (cm) - Depth 0.5 -Total Square (Post) (cm) 1.60 -Area of Debridement (cm) - Length 2.0 -Area of Debridement (cm) - Width 0.8 -Total Square (Area) (cm) 1.60 -Tunneling No -Undermining/Tunneling No -Circular Undermining No -Wound/Ulcer Outcome Not Healed -Ulcer Cleansing gauze -Foul Odor after Cleansing No -Bioengineered Tissue No -Bleeding Controlled with Pressure -Treatment Response Procedure Tolerated Well -Debridement - Subq, 1st 20sq cm No 1. L groin medial -Time 13:55 -Correct Patient Yes -Correct Side, Site, Position Yes -Correct Procedure Yes -Procedure Performed Yes -Type of Procedure Debridement -Clinical Debridement Subcutaneous -Tissue Removed Subcutaneous -Post Debridement (cm) - Length 1.0 -Post Debridement (cm) - Width 0.5 -Post Debridement (cm) - Depth 0.3 -Total Square (Post) (cm) 0.50 -Area of Debridement (cm) - Length 1.0 -Area of Debridement (cm) - Width 0.5 -Total Square (Area) (cm) 0.50 -Tunneling No -Undermining/Tunneling No -Circular Undermining No -Wound/Ulcer Outcome Not Healed -Ulcer Cleansing gauze -Foul Odor after Cleansing No -Bioengineered Tissue No -Bleeding Controlled with Pressure -Treatment Response Procedure Tolerated Well -Debridement - Subq, 1st 20sq cm Yes Pain Scale: 0-10 Numeric Is Patient Pain Free? Yes WC - Nurse 3 - General Ulcer D/C NN Start: 09/13/25 13:16 Freq: Status: Active Protocol: Activity Type Activity Date Activity User E-sign Co-sign Detail Recorded Client Recorded Date Recorded By Document 09/13/25 14:37 [id number] 09/13/25 14:37 09/13/25 14:37 Wound Care Center Nurse 3 2. L groin lateral -Ulcer Cleansing Rinsed/ Irrigated with Saline -Foul Odor after Cleansing No -Primary Dressing Applied Hysept,Nugauze, Plain 1/4in -Primary Dressing Covered/Secured with Dry Gauze, Secured with Tape -Hysept 1 -Nugauze, Plain 1/4in 1 1. L groin medial -Ulcer Cleansing Rinsed/ Irrigated with Saline -Foul Odor after Cleansing No -Primary Dressing Applied Hysept,Nugauze, Plain 1/4in -Primary Dressing Covered/Secured with Dry Gauze, Secured with Tape -Hysept 0 -Nugauze, Plain 1/4in 0 Pain Scale: 0-10 Numeric Is Patient Pain Free? Yes WC - Visit Discharge Discharge Condition Stable Ambulatory Status Ambulatory Transportation Private Auto Medication Reconcilliation completed & Yes provided to patient/care provider Clinical Summary of Care Provided Yes Lab / Micro Data Attestation: I reviewed the patient's lab results. Lab results narrative: Lab results from September 09, 2025, are as follows: White blood count 1.4 (critical value), hemoglobin 8.0, hematocrit 25.9, platelets 134,000, potassium 3.6, sodium 135, chloride 101, carbon dioxide 24.1, BUN 15, creatinine 0.55, glucose 114, calcium 8.6. Charges/Coding Multi Select Codes Visit Charges Office Visit/Consults: 48296 OV L5 New 60min Integumentary Integumentary CPT Codes: 46258 Constance subq tissue 20 sq cm/< Assessment/Plan Assessment/Plan (1) Surgical wound dehiscence: CODE(S): T81.31XA - Disruption of external operation (surgical) wound, not elsewhere classified, initial encounter QUALIFIERS: Encounter type: initial encounter Qualified Code(s): T81.31XA - Disruption of external operation (surgical) wound, not elsewhere classified, initial encounter (2) Wound, open, groin, complicated: CODE(S): S31.109A - Unspecified open wound of abdominal wall, unspecified quadrant without penetration into peritoneal cavity, initial encounter QUALIFIERS: Encounter type: initial encounter Qualified Code(s): S31.109A - Unspecified open wound of abdominal wall, unspecified quadrant without penetration into peritoneal cavity, initial encounter (3) Soft tissue radionecrosis: CODE(S): L59.8 - Other specified disorders of the skin and subcutaneous tissue related to radiation; Y84.2 - Radiological procedure and radiotherapy as the cause of abnormal reaction of the patient, or of later complication, without mention of misadventure at the time of the procedure (4) History of radiation therapy: CODE(S): Z92.3 - Personal history of irradiation (5) History of antineoplastic chemotherapy: CODE(S): Z92.21 - Personal history of antineoplastic chemotherapy (6) Malignant neoplasm of vulva: CODE(S): C51.9 - Malignant neoplasm of vulva, unspecified (7) Squamous cell carcinoma of perineum: CODE(S): C44.520 - Squamous cell carcinoma of anal skin (8) JAM (iron deficiency anemia): CODE(S): D50.9 - Iron deficiency anemia, unspecified QUALIFIERS: Iron deficiency anemia type: unspecified iron deficiency Qualified Code(s): D50.9 - Iron deficiency anemia, unspecified (9) Tobacco abuse: CODE(S): Z72.0 - Tobacco use (10) Tobacco abuse counseling: CODE(S): Z71.6 - Tobacco abuse counseling (11) History of lymph node excision: CODE(S): Z98.890 - Other specified postprocedural states (12) History of below-elbow amputation of left upper extremity: CODE(S): Z89.212 - Acquired absence of left upper limb below elbow PLAN: Plan This is a 60-year-old female with a history of poorly differentiated squamous carcinoma of the vulva and perineum. She was treated in 2022 with radiation therapy and chemotherapy. A lymph node biopsy of the left groin was performed by Dr. Donavan Strauss at [facility] on June 14, 2025. The patient's surgical biopsy site has failed to heal, resulting in a surgical dehiscence. The patient has presented to [facility] for evaluation and management relative to her open dehiscent surgical wounds. We are to implement the use of Dakin's -moistened 1/4 inch Nu Gauze packing on a daily basis. The patient has been provided the necessary materials, and has been instructed in appropriate means of daily packing. She has been advised to discontinue her smoking habit. She has been encouraged to optimize her nutritional intake. A swab culture has been obtained for aerobic and anaerobic bacterial growth. Culture results will be awaited. The patient is to return in 1 week for reevaluation. Given the patient's history of radiation therapy to the involved area, soft tissue radionecrosis is likely a deterrent to wound healing. Consideration may be given to the role of hyperbaric oxygen therapy in the management of the patient's chronic, nonhealing wounds. Patient will be evaluated on a serial basis to determine whether hyperbaric oxygen therapy will be warranted. This matter will be discussed in more detail with the patient. It is noted, however, that the issue of hyperbaric oxygen therapy has been previously considered, and discussed with the patient. Total time: 65 minutes
--- NOTE | 2025-09-14 09:41 | WC ---
PHOTO-LEFT GROIN LATERAL 09/13/25
--- NOTE | 2025-09-14 09:44 | WC ---
PHOTO-LEFT GROIN MEDIAL 09/13/25
[2025-09-20 10:03] VITALS: BP 108/60; PULSE 94; RESP 18; TEMP 36; BMI 28.4
--- NOTE | 2025-09-20 19:18 | HP.PCM_ITS ---
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 The patient underwent bilateral groin dissection on July 29, 2023. Lymph node dissection was negative for metastatic disease. In August 2023, the patient underwent radiation therapy consisting of 5000 cGy delivered to the entire vulva and perineum, as well as areas at risk nearby. This was followed by a cone down boost to a total dose of 6400 CGY delivered to the gross disease, completed in 32 weekly fractions ending in October 2023. Treatment was implemented with a VMAT plan using 6 MV photons. Chemotherapy was also administered in August and September 2023 using cisplatin. On June 14, 2025, the patient underwent surgery by Seng Strauss M.D., at [facility]. A left groin lymph node dissection and vulvar biopsy were performed. Surgical specimens were negative for malignancy. Several weeks subsequent to the patient's surgical procedure, the left groin incision was noted to become dehiscent, with the appearance of frankly necrotic tissue in the wound bed. Dr. Strauss, the patient's Gynecological Oncologist, debrided the dehiscent wound, and initiated a regimen of daily wet-to-dry gauze packing. It was documented in the medical record that this may take several weeks to heal due to the radiated tissue. A subsequent follow-up visit by Dr. Strauss stated we also discussed possible hyperbaric oxygen treatments. The patient has been treated with cours es of antibiotics, including trimethoprim/sulfamethoxazole and doxycycline, most recently. A CT scan of the abdomen and pelvis was performed on September 09, 2025, revealing a rim-enhancing lesion of the left groin with significant surrounding fat stranding and skin thickening. Incidental note was made of hepatosplenomegaly and prominent uterine vasculature. The patient has been referred to the [facility] for further evaluation and management of her dehiscent surgical wound in the left groin. The patient admits to smoking approximately 1/4 pack of cigarettes per day. The patient denies a history of myocardial infarction, congestive heart failure, cerebrovascular accident, diabetes mellitus, pulmonary disease, renal disease, and thyroid disease. [facility] Medical History Wound, open, groin, complicated Surgical wound dehiscence Soft tissue radionecrosis History of antineoplastic chemotherapy History of radiation therapy Tobacco abuse counseling Tobacco abuse Cellulitis Encounter for education Wears glasses Wears dentures Post-menopausal Smoker History of irregular heartbeat Hand amputee Heart murmur Malignant neoplasm of vulva Home Medications ?Medication ?Instructions ?Recorded ?Last Taken ?Type acetaminophen 500 mg tablet 1,000 mg PO Q6H PRN pain 1 Unknown History ibuprofen 600 mg tablet 600 mg PO Q6H PRN pain 08/04 Unknown History multivitamin 1 tab PO DAILY 08/04/23 Unkn own History ascorbic acid-ascorbate 15 ml PO DAILY 08/26/2308/28 History calcium-ascorbate sod 500 mg/15 mL oral liquid (Vitamin C) doxycycline hyclate 100 mg capsule 100 mg PO BID 09/13 Unknown History amoxicillin 875 mg-potassium 1 tab PO Q12H Wound Infec tion #20 09/19/25 Unknown Rx clavulanate 125 mg tablet tabs Allergy/AdvReac Type Severity Reaction Status Date / Time No Known Allergies Allergy Verified 09/09/25 19:26 Family History Mother Arthritis Hypertension Father Alcohol abuse Hypertension Liver disease Surgical History History of below-elbow amputation of left upper extremity History of lymph node excision Port-A-Cath in place Social History Smoking Status: Current some day smoker tobacco type: cigarettes alcohol intake: never substance use type: does not use Vital Signs Vital Signs Vital Signs: 09/20/25 10:03 Temperature 96.8 F L Temperature Source Temporal Pulse Rate 94 Respiratory Rate 18 Blood Pressure 108/60 Blood Pressure Mean 76 Blood Pressure Source Monitor Blood Pressure Position Semi-Fowlers Blood Pressure Location Right Arm Weight Weight: 160 lb 7.944 oz Body Mass Index (BMI) 28.4 Physical Exam Const alert, oriented x3, no apparent distress, average body habitus and well nourished Constitutional Narrative: The patient's BMI is 28.4. General Appearance: cooperative, comfortable, well kempt and well developed Orientation / Consciousness: awake, oriented to person, oriented to place and oriented to time Exam Limitations: no limitations HEENT normocephalic and head/scalp atraumatic Head and Scalp: normal to inspection, normocephalic and atraumatic Face and Sinus: normal facial exam Nose: external nose normal External Ear: external ears normal Eyes EOMs intact bilaterally General Eye: normal appearance of both eyes Alignment: alignment normal Neck full ROM Resp normal respiratory effort, normal air movement, no retractions and no use of accessory muscles Effort and Inspection: able to speak in complete sentences Extremity no calf tenderness Extremity Narrative: The patient's distal left upper extremity is absent below the elbow, 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 General Extremity: Negative for clubbing or cyanosis Skin Wound Narrative: Two open wounds are noted in the patient's left groin. The wounds are full- thickness, extending through all layers of the dermis and into the subcutaneous tissues. The medial and lateral wounds do not communicate with each other. The lateral wound demonstrates extensive undermining inferiorly. There appears to be a subcutaneous cavity inferior to the lateral wound. Overlying the subcutaneous cavity, there is noted to be extensive thickening of the soft tissue, comprised of subcutaneous adipose tissue and dermal layers. Dimensions of the wound are documented elsewhere. A moderate amount of necrotic and nonviable tissue is present. Opal-wound erythema is also noted. Neuro oriented x3, CN's II-XII intact bilaterally, moves all extremities, no focal motor deficits and no sensory deficits noted Sensorium / Orientation: awake, alert, oriented to person, oriented to place and oriented to time Speech: speech normal Psych Appearance: grossly normal, appropriate and well kempt Attitude: calm and engaged Activity / Motor Behavior: appropriate eye contact Speech: normal speech Mood & Affect: euthymic mood Thought Process: normal thought process Attention / Concentration: attention grossly intact Debridement Note Debridement Note Wound debrided: Dehiscent surgical wounds of the left groin Laterality: Left Type of Debridement: Excisional debridement Anesthesia Used: 5% Lidocaine Gel and Cetacaine Depth: Down to and including healthy tissue and in the subcutaneous layer Percentage of wound debrided: 100 Instrument Used: 5mm curette Tissue Removed: Necrotic and nonviable tissue Severity: Fat Layer Exposed Amount of bleeding with debridement: Mild Bleeding Controlled with: Compression and gauze Patient tolerated procedure: Patient tolerated procedure well Post-Debridement Measurements and Additional Note: Post-Debridement Measurements/Treatment WC - Nurse 1 - General Ulcer Assessment Start: 09/13/25 13:16 Freq: Status: Active Protocol: URIEL Activity Type Activity Date Activity User E-sign Co-sign Detail Recorded Client Recorded Date Recorded By Document 09/13/25 13:16 RB [id number] 09/13/25 13:36 RB Document 09/20/25 10:03 JF [id number] 09/20/25 10:21 JF 09/13/25 09/20/25 13:16 10:03 - Today's Visit Information Type of service Initial Visit Follow-up Visit (Physician/SHIPPING ORDER CLERK ) Arrival Mode Ambulatory Ambulatory Transfer Assistance None Patient Identification Verified (Name & Yes No ) Patient Requires Transmission-Based No No Precautions Height and Weight Height 5 ft 2.99 in Weight 160 lb 7.944 oz Weight in Pounds 160.5 lbs Body Mass Index (BMI) 28.4 28.4 BMI Classification Overweight Overweight Vital Signs Temperature (97.8 F-99.1 F) 97.9 F 96.8 F L Temperature Source Temporal Temporal Pulse Rate (60-100) 100 94 Pulse Location Monitor Monitor Respiratory Rate (12-18) 18 18 Respiratory rate source Observation Oxygen Delivery Method Room Air Blood Pressure (90/60-120/80) 120/80 108/60 Blood Pressure Mean 93 76 Source Monitor Monitor Position Sitting Semi-Fowlers Blood Pressure Location Left Arm Right Arm History Since Last Visit- (Skip if this is Patient's initial visit) Have you changed medications since your Yes last visit? Any new allergies or adverse reactions No Had a fall/change in ADL's that may No increase risk of falls Signs or symptoms of abuse and/or No neglect since last visit Have you been in the hospital since your No last visit? Has dressing in place as prescribed Yes Has compression in place as prescribed N/A Has offloadiing in place as prescribed N/A Experienced any changes in pain level or No management Left Footwear Regular Shoe Right Footwear Regular Shoe Pain Scale: 0-10 Numeric Is Patient Pain Free? Yes Yes Communication Assessment Preferred language Danish Wool Fleece Sorter Required No Able to Read Yes Able to Write Yes Communication Tools None Caregiver Communication Skills No Impairment Impairment Right Hearing Abillity Normal Left Hearing Abillity Normal Visual Assistive Devices Glasses Teaching Assessment Preferences Verbal,Written, Demonstration Barriers to Learning None Readiness To Learn Good Willingness to Engage in Self Management Med Activies Readiness to Engage in Self Management Med Activities Anxiety Level Calm Cooperation Cooperative Perception Coherent Interest in Health Problem Asks Questions Education Importance Acknowledges Need Does Patient Smoke tobacco or other No substances Is Patient Diabetic No Functional Assessment Recent Decline in Ability to Perform Denies Any Declines Assistive Device With Patient No Culture/Orthodox/Mobile Security Specialist Cultural/Orthodox Needs that may affect No Treatment Plan Would you allow our hospital blacksmith supervisor to No meet you for the purpose of spiritual/ emotional support? Mobile Security Specialist to contact place of lutheran No Teaching: Wound Center *Welcome to the Wound Center -Person Taught Patient -Teaching Method Discussion, Demonstration -Response to teaching Verbalize Understanding WC - Nurse 1 - General Ulcer Measurement Start: 09/13/25 13:16 Freq: Status: Active Protocol: Activity Type Activity Date Activity User E-sign Co-sign Detail Recorded Client Recorded Date Recorded By Document 09/13/25 13:16 RB [id number] 09/13/25 13:36 RB Document 09/20/25 10:03 [id number] 09/20/25 10:21 09/13/25 09/20/25 13:16 10:03 Wound Center Nurse 1 2. L groin lateral -Combined with other wound No No -Current Size (cm) - Length 1 1.1 -Current Size (cm) - Width 3 1.7 -Current Size (cm) - Depth 0.5 1.0 -Total Square Cm 3 1.87 -Date of Last Picture (Recall this 09/13/25 field) -Photo Taken Yes Yes -Epithelialization Large 67-100% -Tunneling No No -Undermining/Tunneling No No -Circular Undermining No No -Exudate Amt Large Medium -Exudate Type Serosanguineous Serosanguineous -Wound Margin Distinct, Flat & Intact Outline Attached -Granulation Amt Medium (34-66%) Medium (34-66%) -Granulation Quality [place] -Slough/Fibrin Yes -Necrosis Amt Medium (34-66%) Small (1-33%) -Necrotic Tissue Type Adherent Slough Adherent Slough -Structure Exposed N/A N/A -Texture (Opal-wound Skin Appearance) Assessed, Assessed, Induration Induration -Moisture (Opal-wound Skin Appearance) Assessed No Abnormality, Dry/Scaly -Color (Opal-wound Skin Appearance) Assessed, Assessed Erythema -Temperature (Opal-wound Skin No Abnormality No Abnormality Appearance) (Pt Warm) (Pt Warm) -Tenderness on Palpation (Opal-wound No No Skin Appearance) -Ulcer Cleansing Wound Cleanser Rinsed/ Irrigated with Saline -Foul Odor after Cleansing No No -Anesthetic Used 5% Lidocaine 5% Lidocaine Gel Gel 1. L groin medial -Combined with other wound No No -Current Size (cm) - Length 0.6 0.3 -Current Size (cm) - Width 1.5 1.3 -Current Size (cm) - Depth 0.6 0.9 -Total Square Cm 0.90 0.39 -Date of Last Picture (Recall this 09/13/25 field) -Photo Taken Yes Yes -Epithelialization Small 1-33% -Tunneling No No -Undermining/Tunneling No No -Circular Undermining No No -Exudate Amt Large Medium -Exudate Type Serosanguineous Serosanguineous -Wound Margin Distinct, Flat & Intact Outline Attached -Granulation Amt Small (1-33%) Medium (34-66%) -Granulation Quality [place] Red -Slough/Fibrin Yes Yes -Necrosis Amt Large (67-100%) Small (1-33%) -Necrotic Tissue Type Adherent Slough Adherent Slough -Structure Exposed N/A N/A -Texture (Opal-wound Skin Appearance) Assessed, Assessed, Induration Induration -Moisture (Opal-wound Skin Appearance) Assessed Assessed,Dry/ Scaly -Color (Opal-wound Skin Appearance) Erythema Assessed -Temperature (Opal-wound Skin No Abnormality No Abnormality Appearance) (Pt Warm) (Pt Warm) -Tenderness on Palpation (Opal-wound No No Skin Appearance) -Ulcer Cleansing Wound Cleanser Rinsed/ Irrigated with Saline -Foul Odor after Cleansing No No -Anesthetic Used 5% Lidocaine 5% Lidocaine Gel Gel Lower Limb Edema Present NA WC - Nurse 2 - General Ulcer CM Notes Start: 09/13/25 13:16 Freq: Status: Active Protocol: Activity Type Activity Date Activity User E-sign Co-sign Detail Recorded Client Recorded Date Recorded By Document 09/13/25 13:54 DS [id number] 09/13/25 14:02 DS Document 09/20/25 11:10 GM [id number] 09/20/25 11:17 GM Edit Result 09/20/25 11:10 GM (1) [id number] 09/20/25 12:21 GM (1) 2. L groin lateral - Bleeding Controlled with => Pressure - Treatment Response => Procedure => Tolerated Well 1. L groin medial - Bleeding Controlled with => Pressure - Treatment Response => Procedure => Tolerated Well 09/13/25 09/20/25 13:54 11:10 Wound Center Nurse 2 2. L groin lateral -Time 13:54 11:13 -Correct Patient Yes Yes -Correct Side, Site, Position Yes Yes -Correct Procedure Yes Yes -Procedure Performed Yes Yes -Type of Procedure Debridement Debridement -Clinical Debridement Subcutaneous Subcutaneous -Tissue Removed Subcutaneous Subcutaneous -Post Debridement (cm) - Length 2.0 1.3 -Post Debridement (cm) - Width 0.8 1.6 -Post Debridement (cm) - Depth 0.5 1.6 -Total Square (Post) (cm) 1.60 2.08 -Area of Debridement (cm) - Length 2.0 1.3 -Area of Debridement (cm) - Width 0.8 1.6 -Total Square (Area) (cm) 1.60 2.08 -Tunneling No No -Undermining/Tunneling No Yes -Undermining/Tunneling Starts (O'clock 5 ) -Undermining/Tunneling Ends (O'clock) 12 -Maximum Distance (cm) 3.2 -Circular Undermining No No -Wound/Ulcer Outcome Not Healed Not Healed -Ulcer Cleansing gauze Rinsed/ Irrigated with Saline -Foul Odor after Cleansing No No -Bioengineered Tissue No No -Bleeding Controlled with Pressure Pressure -Treatment Response Procedure Procedure Tolerated Well Tolerated Well -Debridement - Subq, 1st 20sq cm No Yes 1. L groin medial -Time 13:55 11:14 -Correct Patient Yes Yes -Correct Side, Site, Position Yes Yes -Correct Procedure Yes Yes -Procedure Performed Yes Yes -Type of Procedure Debridement Debridement -Clinical Debridement Subcutaneous Subcutaneous -Tissue Removed Subcutaneous Subcutaneous -Post Debridement (cm) - Length 1.0 1.0 -Post Debridement (cm) - Width 0.5 1.0 -Post Debridement (cm) - Depth 0.3 0.4 -Total Square (Post) (cm) 0.50 1.00 -Area of Debridement (cm) - Length 1.0 1.0 -Area of Debridement (cm) - Width 0.5 1.0 -Total Square (Area) (cm) 0.50 1.00 -Tunneling No No -Undermining/Tunneling No No -Circular Undermining No No -Wound/Ulcer Outcome Not Healed Not Healed -Ulcer Cleansing gauze Rinsed/ Irrigated with Saline -Foul Odor after Cleansing No No -Bioengineered Tissue No No -Bleeding Controlled with Pressure Pressure -Treatment Response Procedure Procedure Tolerated Well Tolerated Well -Debridement - Subq, 1st 20sq cm Yes No Pain Scale: 0-10 Numeric Is Patient Pain Free? Yes Yes - Nurse 3 - General Ulcer D/C NN Start: 09/13/25 13:16 Freq: Status: Active Protocol: Activity Type Activity Date Activity User E-sign Co-sign Detail Recorded Client Recorded Date Recorded By Document 09/13/25 14:37 JF [id number] 09/13/25 14:37 Document 09/20/25 11:23 TS [id number] 09/20/25 11:34 TS 09/13/25 09/20/25 14:37 11:23 Wound Care Center Nurse 3 2. L groin lateral -Ulcer Cleansing Rinsed/ Irrigated with Saline -Foul Odor after Cleansing No -Primary Dressing Applied Hysept,Nugauze, Hysept,Nugauze, Plain 1/4in Plain 1/4in -Primary Dressing Covered/Secured with Dry Gauze, Dry Gauze, Secured with Secured with Tape Tape -Hysept 1 0 -Nugauze, Plain 1/4in 1 1 1. L groin medial -Ulcer Cleansing Rinsed/ Irrigated with Saline -Foul Odor after Cleansing No -Primary Dressing Applied Hysept,Nugauze, Hysept,Nugauze, Plain 1/4in Plain 1/4in -Primary Dressing Covered/Secured with Dry Gauze, Dry Gauze, Secured with Secured with Tape Tape -Hysept 0 0 -Nugauze, Plain 1/4in 0 0 Pain Scale: 0-10 Numeric Is Patient Pain Free? Yes Yes - Visit Discharge Discharge Condition Stable Stable Ambulatory Status Ambulatory Ambulatory Transportation Private Auto Private Auto Medication Reconcilliation completed & Yes No provided to patient/care provider Clinical Summary of Care Provided Yes Yes Lab / Micro Data Micro: Microbiology 09/13/25 13:55 Wound - Groin Gram Stain - Final 09/13/25 13:55 Wound - Groin Wound Culture - Preliminary Corynebacterium amycolatum/xer Rothia kristinae Gram positive marlene Gram positive marlene#2 09/13/25 13:55 Wound - Groin Anaerobic Culture - Final Bacteroides fragilis Bacteroides xylanisolvens Bacteroides ovatus Bacteroides fragilis#2 Charges/Coding Multi Select Codes Visit Charges Office Visit/Consults: 11527 OV L3 Est 20min Integumentary Integumentary CPT Codes: 25007 Constance subq tissue 20 sq cm/< Assessment/Plan Assessment/Plan (1) Surgical wound dehiscence: CODE(S): T81.31XA - Disruption of external operation (surgical) wound, not elsewhere classified, initial encounter QUALIFIERS: Encounter type: subsequent encounter Qualified Code(s): T81.31XD - Disruption of external operation (surgical) wound, not elsewhere classified, subsequent encounter (2) Wound, open, groin, complicated: CODE(S): S31.109A - Unspecified open wound of abdominal wall, unspecified quadrant without penetration into peritoneal cavity, initial encounter QUALIFIERS: Encounter type: subsequent encounter Qualified Code(s): S31.109D - Unspecified open wound of abdominal wall, unspecified quadrant without penetration into peritoneal cavity, subsequent encounter (3) Soft tissue radionecrosis: CODE(S): L59.8 - Other specified disorders of the skin and subcutaneous tissue related to radiation; Y84.2 - Radiological procedure and radiotherapy as the cause of abnormal reaction of the patient, or of later complication, without mention of misadventure at the time of the procedure (4) History of radiation therapy: CODE(S): Z92.3 - Personal history of irradiation (5) History of antineoplastic chemotherapy: CODE(S): Z92.21 - Personal history of antineoplastic chemotherapy (6) Malignant neoplasm of vulva: CODE(S): C51.9 - Malignant neoplasm of vulva, unspecified (7) Squamous cell carcinoma of perineum: CODE(S): C44.520 - Squamous cell carcinoma of anal skin (8) JAM (iron deficiency anemia): CODE(S): D50.9 - Iron deficiency anemia, unspecified QUALIFIERS: Iron deficiency anemia type: unspecified iron deficiency Qualified Code(s): D50.9 - Iron deficiency anemia, unspecified (9) Tobacco abuse: CODE(S): Z72.0 - Tobacco use (10) Tobacco abuse counseling: CODE(S): Z71.6 - Tobacco abuse counseling (11) History of lymph node excision: CODE(S): Z98.890 - Other specified postprocedural states (12) History of below-elbow amputation of left upper extremity: CODE(S): Z89.212 - Acquired absence of left upper limb below elbow PLAN: Plan This is a 60-year-old female with a history of poorly differentiated squamous carcinoma of the vulva and perineum. She was treated in 2022 of 2023 with radiation therapy and chemotherapy. Lymph node biopsies of the left groin were performed by Dr. Donavan Strauss at [facility] on June 14, 2025. The patient's surgical biopsy site has failed to heal, resulting in a surgical dehiscence. The patient presented to [facility] for evaluation and management relative to her open dehiscent surgical wounds. We are to continue the use of Dakin's -moistened 1/4 inch Nu Gauze packing on a daily basis. The patient has been provided the necessary materials, and has been instructed in appropriate means of daily packing. She has been advised to discontinue her smoking habit. She has been encouraged to optimize her nutritional intake. A swab culture was obtained at the patient's prior visit, and has been shown to be positive for Corynebacterium amycolatum, Rothia kristinae, Bacteroides fragilis, Bacteroides xylanisolvens, Bacteroides ovatus, and a gram-negative marlene. The patient has been started on Augmentin 875/125 mg every 12 hours, for a total of 10 days. The patient is to return in 1 week for reevaluation. Given the patient's history of radiation therapy to the involved area, soft tissue radionecrosis is likely a deterrent to wound healing. Consideration may be given to the role of hyperbaric oxygen therapy in the management of the patient's chronic, nonhealing wounds. The patient will be evaluated on a serial basis to determine whether hyperbaric oxygen therapy will be warranted. This matter will be discussed in more detail with the patient. It is noted, however, that the issue of hyperbaric oxygen therapy has been previously considered, and discussed with the patient. Additionally, because of the large amount of undermining inferior to one of her left groin dehiscent wounds, there may be benefit to unroofing and debriding the undermined area, which was then allow for healing by secondary intention, and allow consideration for interventions such as a cellular tissue product or negative pressure wound therapy. In this regard, efforts will be made to seek consultation with the General Surgery or Plastic Surgery services. Total time: 28 minutes
--- NOTE | 2025-09-21 11:18 | WC ---
PHOTO-LEFT [facility] 09/20/25
--- NOTE | 2025-09-21 11:21 | WC ---
PHOTO-LEFT [facility] 09/20/25
== END 2025-09-25 23:59 | disposition home or self-care (01) ==
LOC: WC 10:30
PROVIDERS: PCP Registered Nurse; Referring Provider Registered Nurse; Visit Provider Surgery
DX: T81.31XA Disruption of external operation (surgical) wound, not elsewhere classified, initial encounter (principal); C51.9 Malignant neoplasm of vulva, unspecified; D50.9 Iron deficiency anemia, unspecified; Z71.6 Tobacco abuse counseling; Z92.21 Personal history of antineoplastic chemotherapy; S31.109A Unspecified open wound of abdominal wall, unspecified quadrant without penetration into peritoneal cavity, initial encounter; L59.8 Other specified disorders of the skin and subcutaneous tissue related to radiation; Y84.2 Radiological procedure and radiotherapy as the cause of abnormal reaction of the patient, or of later complication, without mention of misadventure at the time of the procedure; F17.210 Nicotine dependence, cigarettes, uncomplicated; C44.520 Squamous cell carcinoma of anal skin; Z89.212 Acquired absence of left upper limb below elbow
CPT/HCPCS: 11042; 87070; 87075; 87077; 87186; 87205; 99213; G0463